=== PATIENT | male | born 1935 | race Caucasian/White ===

== ENCOUNTER 2017-09-04 02:22 | Inpatient (IN) ==
[2017-09-04] MEDS ORDERED: Sodium Chlor 0.9% Inj 500 ML IV.SIG ONE (02:43)
--- NOTE | 2017-09-04 02:52 | ED ---
HPI General Chief complaint: Recheck/Abnormal Lab/Rx Stated complaint: Medical/evac Time Seen by Provider: 09/04/17 02:40 Source: patient Mode of arrival: EMS History of Present Illness HPI narrative: The patient is an 82 year old male who presents to the [facility] emergency department with a history of difficult to control blood sugar over the last 2 days. He reports that it has been as high as in the 500s. He reports that he has recently had a change in his short acting insulin from Humalog to a new medication, however he cannot recall the name of it. He last administered 12 units of his short acting insulin earlier this evening. He reports that he also increase his Lantus insulin at night from 24 units to 40 units over the last 2 days. He reports that his primary care physician is . He reports that his thermodynamics teacher is Dr. Leon. The patient reports that earlier today he did have some central chest pressure, however he does not have any chest pain currently. The patient reports having chronic shortness of breath with exertion related to alpha-1 antitrypsin deficiency. He is followed by a junior buyer for this. He denies having any worsening cough or congestion. He reports that he recently completed 12 day course of Levaquin and steroids. He does report on review of systems over the last week having foot and ankle edema. He denies any prior history of congestive heart failure. On review of systems otherwise, the patient denies having any known recent fevers, neck pain, abdominal pain, vomiting, diarrhea, urinary symptoms, or neurologic symptoms. Related Data Home Medications Medication Instructions Recorded Confirmed Lantus U-100 Insulin 24 units SUB-Q HS 09/04/17 09/04/17 Ozempic 0.25 mg PO DIRECTED 09/04/17 09/04/17 glimepiride 8 mg PO DAILY 09/04/17 09/04/17 metformin 1,000 mg PO BID 09/04/17 09/04/17 Allergies Allergy/AdvReac Type Severity Reaction Status Date / Time phenobarbital Allergy Severe Anaphylaxis Unverified 10/18/16 22:46 Review of Systems Except as stated in HPI: all other systems reviewed are negative [facility] Medical History Medical History [id number] deficiency (Acute) COPD (chronic obstructive pulmonary disease) (Acute) Diabetes mellitus (Acute) Hyperlipidemia (Acute) Hypertension (Acute) Kidney stone (Acute) Surgical History Surgical History History of cholecystectomy (Acute) Social History Social History Second Hand Smoke Exposure: No Smoking Status: Current every day smoker Tobacco Type: Cigarettes How Often Do You Have a Drink Containing Alcohol: Monthly or less Recent Travel in [place] within the Last 8 Weeks: No Recent Out of Country Travel within the Last 8 Weeks: No Exam Narrative Exam Narrative: General: The patient is a well-developed well-nourished male in no acute distress. Head and Neck exam: Head is normocephalic atraumatic. Eyes: EOMI, pupils are equal round and reactive to light. Nose: Midline septum with pink mucous membranes Mouth: Dentition unremarkable. Moist mucus membranes. Posterior oropharynx is not erythematous. No tonsillar hypertrophy. Uvula midline. Airway patent. Neck: No palpable lymphadenopathy. No nuchal rigidity. No thyromegaly. Cardiovascular: Regular rate and rhythm with a 1/6 systolic murmur, no gallops or rubs. No pulse deficit to the extremities on simultaneous auscultation and palpation of his radial artery. Lungs: Decreased breath sounds in bilateral lung bases, soft expiratory wheezes audible anteriorly, no rhonchi or crackles. Abdomen: Soft, without tenderness to palpation in all 4 quadrants of the abdomen. No guarding, rebound, or rigidity. Normal bowel sounds are audible. Negative Darden's sign. No tenderness on palpation of McBurney's point. Extremities: No clubbing or cyanosis. The patient has trace pedal edema bilateral lower extremities. No calf tenderness on palpation. 2+ pulses in all 4 extremities. Back: No spinous process tenderness to palpation. No costovertebral angle tenderness to palpation. Neurologic Exam: Grossly nonfocal. Skin Exam: No rash noted. Intact skin that is warm and dry. Course Hospital Course: During the course of the patient's emergency department visit, the patient's history, examination, and differential diagnosis were reviewed with the patient. The patient was placed on a environmental monitoring technician with oximetry and frequent blood pressure monitoring. The patient had IV access obtained and blood work sent for analysis. The patient was brought in by ambulance services. The patient was noted to have a critically high blood sugar prior to arrival. The patient was given normal saline at 500 mL bolus 1 in route to this facility. The patient was initially provided another normal saline 500 mL bolus. A VBG has been ordered to evaluate the patient's pH for possible DKA. Reevaluation(s) Reevaluation #1: The patient's BNP was within normal limits. The patient's blood pressure, therefore the patient was given an additional normal saline 1 the patient's white blood cell count came back elevated at 17,000, blood cultures 2 were ordered, lactic acid was sent for analysis. Lactic acid was elevated at 2.2, therefore the patient was started on broad-spectrum antibiotic coverage due to an unknown source of possible sepsis. Urinalysis within normal limits. The patient does report a history of C. difficile colitis last year. The patient denies having any diarrhea currently. C. difficile toxin will be sent. The patient was additionally started on Flagyl. Time: 06:12 Consultations Consultation #1: The patient's case including history, pertinent physical examination findings, and laboratory studies were discussed with Dr. Bird. It was agreed that the patient would be admitted to the hospitalist service. Initial Documented Vital Signs Temperature 98.9 F 09/04/17 03:01 Pulse Rate 72 09/04/17 03:01 Respiratory Rate 20 09/04/17 03:01 Blood Pressure 97/53 L 09/04/17 03:01 Pulse Oximetry 97 09/04/17 03:01 Last Documented Vital Signs Temperature 98.9 F 09/04/17 03:01 Pulse Rate 73 09/04/17 03:05 Respiratory Rate 20 09/04/17 03:01 Blood Pressure 93/56 L 09/04/17 03:05 Pulse Oximetry 97 09/04/17 03:05 Medical Decision Making [facility] Narrative Medical decision making narrative: The patients laboratory studies remarkable for a white count of 18.8, hemoglobin 8.4 in a patient with a history of chronic anemia. The leukocytosis is unexplained, chest x-ray was read as showing no acute abnormality. BUN and creatinine are elevated consistent with the patient's dehydration. The patient was continued on normal saline IV fluids. Blood sugar was 441. The patient is not acidotic with a CO2 of 25, therefore regular insulin was administered subcutaneously at 8 units. Urinalysis showed no signs of infection. C. difficile toxin has been added to the patient's workup. Radiology studies were remarkable for a chest x-ray that showed no acute abnormality. The patient will be admitted to the hospital for difficult to control hyperglycemia associated with a leukocytosis of undetermined cause. Differential Diagnosis Differential Diagnosis: DKA, versus hyperglycemia due to change in medication regimen, versus infectious process causing hyperglycemia, versus acute coronary syndrome Lab Data Result diagrams: 09/04/17 02:45 09/04/17 02:45 Lab Results 09/04/17 09/04/17 09/04/17 Range/Units 02:45 02:45 02:45 WBC 18.8 H (4.0-11.0) th/mm3 RBC 2.76 L (4.50-5.90) mil/mm3 Hgb 8.4 L (13.0-17.0) gm/dL Hct 25.0 L (39.0-51.0) % MCV 90.8 (80.0-100.0) fL MCH 30.5 (27.0-34.0) pg MCHC 33.5 (32.0-36.0) % RDW 13.5 (11.6-17.2) % Plt Count 156 (150-450) th/mm3 MPV 8.6 (7.0-11.0) fL Prelim Diff (Auto) Slide review pending Neut % (Auto) 80.0 H (16.0-70.0) % Lymph % (Auto) 13.7 (9.0-44.0) % [place] % (Auto) 6.1 (0.0-8.0) % Eos % (Auto) 0.1 (0.0-4.0) % Baso % (Auto) 0.1 (0.0-2.0) % Neut # (Auto) 15.0 H (1.8-7.7) th/mm3 Lymph # (Auto) 2.6 (1.0-4.8) th/mm3 [place] # (Auto) 1.1 H (0.0-0.9) th/mm3 Eos # (Auto) 0.0 (0.0-0.4) th/mm3 Baso # (Auto) 0.0 (0.0-0.2) th/mm3 WBC Differential Manual diff final Seg Neuts % (Manual) 78 H (16-70) % Band Neuts % (Manual) 2 (0-6) % Lymphocytes % (Manual) 13 (9-44) % Monocytes % (Manual) 3 (0-8) % Myelocytes % (Man) 4 H (0-0) % Abs Neuts (Manual) 15.8 H (1.8-7.7) th/mm3 Differential Comment . Platelet Estimate Normal (Normal) Platelet Morphology Normal (Normal) Ovalocytes 1+ H (None) PT (9.8-11.6) sec INR Ratio APTT (24.3-30.1) sec Puncture Site Patient Temperature VBG pH (7.360-7.400) VBG pCO2 (44-48) mmHG VBG pO2 (35-40) mmHG VBG HCO3 (22-26) mmol/L VBG O2 Saturation (70-76) % VBG O2 Content (9.0-17.0) Vol % VBG Base Excess (-2-2) mmol/L VBG Carboxyhemoglobin (0-4) % VBG Methemoglobin (0-2) % Hemoglobin (12.0-16.0) G/DL O2 Delivery Device Liter Flow L/M Inspired O2 % Critical Value Sodium 140 (136-145) meq/L Potassium 5.0 (3.5-5.1) meq/L Chloride 104 (98-107) meq/L Carbon Dioxide 25.0 (21.0-32.0) meq/L Anion Gap 11 (5-15) meq/L BUN 63 H (7-18) mg/dL Creatinine 1.43 H (0.60-1.30) mg/dL Estimated GFR 47 L (>89) mL/min Random Glucose 441 H (74-106) mg/dL Lactic Acid (0.4-2.0) mmol/L Calcium 8.4 L (8.5-10.1) mg/dL Magnesium 1.9 (1.5-2.5) mg/dL Total Bilirubin 0.3 (0.2-1.0) mg/dL AST 7 L (15-37) U/L ALT 21 (12-78) U/L Alkaline Phosphatase 28 L (45-117) U/L Total Creatine Kinase 30 L (39-308) U/L Troponin I 0.05 (0.02-0.05) ng/mL B-Natriuretic Peptide 79 (0-100) pg/mL Total Protein 4.2 L (6.4-8.2) g/dL Albumin 2.2 L (3.4-5.0) g/dL Lipase 261 (73-393) U/L Beta-Hydroxybutyric Acd 0.79 H (0.00-0.39) mmol/L Urine Color (Yellw/Straw) Urine Clarity (Clear) Urine pH (5.0-8.5) Ur Specific [place] (1.002-1.035) Urine Protein (Neg-Trace) mg/dL Urine Glucose (UA) (Negative) mg/dL Urine Ketones (Negative) mg/dL Urine Occult Blood (Negative) Urine Nitrate (Negative) Urine Bilirubin (Negative) Urine Urobilinogen (Less than 2) mg/dL Ur Leukocyte Esterase (Negative) Urine RBC (0-3) /hpf Urine WBC (0-5) /hpf Ur Squamous Epith Cells (0-5) /hpf Micro UA Comment Urine Culture Comments 09/04/17 09/04/17 09/04/17 Range/Units 02:45 02:50 05:45 WBC (4.0-11.0) th/mm3 RBC (4.50-5.90) mil/mm3 Hgb (13.0-17.0) gm/dL Hct (39.0-51.0) % MCV (80.0-100.0) fL MCH (27.0-34.0) pg MCHC (32.0-36.0) % RDW (11.6-17.2) % Plt Count (150-450) th/mm3 MPV (7.0-11.0) fL Prelim Diff (Auto) Neut % (Auto) (16.0-70.0) % Lymph % (Auto) (9.0-44.0) % [place]assen % (Auto) (0.0-8.0) % Eos % (Auto) (0.0-4.0) % Baso % (Auto) (0.0-2.0) % Neut # (Auto) (1.8-7.7) th/mm3 Lymph # (Auto) (1.0-4.8) th/mm3 [place] # (Auto) (0.0-0.9) th/mm3 Eos # (Auto) (0.0-0.4) th/mm3 Baso # (Auto) (0.0-0.2) th/mm3 WBC Differential Seg Neuts % (Manual) (16-70) % Band Neuts % (Manual) (0-6) % Lymphocytes % (Manual) (9-44) % Monocytes % (Manual) (0-8) % Myelocytes % (Man) (0-0) % Abs Neuts (Manual) (1.8-7.7) th/mm3 Differential Comment Platelet Estimate (Normal) Platelet Morphology (Normal) Ovalocytes (None) PT 11.2 (9.8-11.6) sec INR 1.1 Ratio APTT 18.7 L (24.3-30.1) sec Puncture Site Patient Temperature 98.6 VBG pH 7.38 (7.360-7.400) VBG pCO2 43 L (44-48) mmHG VBG pO2 26 L* (35-40) mmHG VBG HCO3 25 (22-26) mmol/L VBG O2 Saturation 39 L (70-76) % VBG O2 Content 4.6 L (9.0-17.0) Vol % VBG Base Excess 0.3 (-2-2) mmol/L VBG Carboxyhemoglobin 1.9 (0-4) % VBG Methemoglobin 1.1 (0-2) % Hemoglobin 8.4 L (12.0-16.0) G/DL O2 Delivery Device Nasal cannula Liter Flow 2.00 L/M Inspired O2 21 % Critical Value Yes Sodium (136-145) meq/L Potassium (3.5-5.1) meq/L Chloride (98-107) meq/L Carbon Dioxide (21.0-32.0) meq/L Anion Gap (5-15) meq/L BUN (7-18) mg/dL Creatinine (0.60-1.30) mg/dL Estimated GFR (>89) mL/min Random Glucose (74-106) mg/dL Lactic Acid 2.2 H (0.4-2.0) mmol/L Calcium (8.5-10.1) mg/dL Magnesium (1.5-2.5) mg/dL Total Bilirubin (0.2-1.0) mg/dL AST (15-37) U/L ALT (12-78) U/L Alkaline Phosphatase (45-117) U/L Total Creatine Kinase (39-308) U/L Troponin I (0.02-0.05) ng/mL B-Natriuretic Peptide (0-100) pg/mL Total Protein (6.4-8.2) g/dL Albumin (3.4-5.0) g/dL Lipase (73-393) U/L Beta-Hydroxybutyric Acd (0.00-0.39) mmol/L Urine Color (Yellw/Straw) Urine Clarity (Clear) Urine pH (5.0-8.5) Ur Specific [place] (1.002-1.035) Urine Protein (Neg-Trace) mg/dL Urine Glucose (UA) (Negative) mg/dL Urine Ketones (Negative) mg/dL Urine Occult Blood (Negative) Urine Nitrate (Negative) Urine Bilirubin (Negative) Urine Urobilinogen (Less than 2) mg/dL Ur Leukocyte Esterase (Negative) Urine RBC (0-3) /hpf Urine WBC (0-5) /hpf Ur Squamous Epith Cells (0-5) /hpf Micro UA Comment Urine Culture Comments 09/04/17 Range/Units 05:45 WBC (4.0-11.0) th/mm3 RBC (4.50-5.90) mil/mm3 Hgb (13.0-17.0) gm/dL Hct (39.0-51.0) % MCV (80.0-100.0) fL MCH (27.0-34.0) pg MCHC (32.0-36.0) % RDW (11.6-17.2) % Plt Count (150-450) th/mm3 MPV (7.0-11.0) fL Prelim Diff (Auto) Neut % (Auto) (16.0-70.0) % Lymph % (Auto) (9.0-44.0) % [place] % (Auto) (0.0-8.0) % Eos % (Auto) (0.0-4.0) % Baso % (Auto) (0.0-2.0) % Neut # (Auto) (1.8-7.7) th/mm3 Lymph # (Auto) (1.0-4.8) th/mm3 [place] # (Auto) (0.0-0.9) th/mm3 Eos # (Auto) (0.0-0.4) th/mm3 Baso # (Auto) (0.0-0.2) th/mm3 WBC Differential Seg Neuts % (Manual) (16-70) % Band Neuts % (Manual) (0-6) % Lymphocytes % (Manual) (9-44) % Monocytes % (Manual) (0-8) % Myelocytes % (Man) (0-0) % Abs Neuts (Manual) (1.8-7.7) th/mm3 Differential Comment Platelet Estimate (Normal) Platelet Morphology (Normal) Ovalocytes (None) PT (9.8-11.6) sec INR Ratio APTT (24.3-30.1) sec Puncture Site Patient Temperature VBG pH (7.360-7.400) VBG pCO2 (44-48) mmHG VBG pO2 (35-40) mmHG VBG HCO3 (22-26) mmol/L VBG O2 Saturation (70-76) % VBG O2 Content (9.0-17.0) Vol % VBG Base Excess (-2-2) mmol/L VBG Carboxyhemoglobin (0-4) % VBG Methemoglobin (0-2) % Hemoglobin (12.0-16.0) G/DL O2 Delivery Device Liter Flow L/M Inspired O2 % Critical Value Sodium (136-145) meq/L Potassium (3.5-5.1) meq/L Chloride (98-107) meq/L Carbon Dioxide (21.0-32.0) meq/L Anion Gap (5-15) meq/L BUN (7-18) mg/dL Creatinine (0.60-1.30) mg/dL Estimated GFR (>89) mL/min Random Glucose (74-106) mg/dL Lactic Acid (0.4-2.0) mmol/L Calcium (8.5-10.1) mg/dL Magnesium (1.5-2.5) mg/dL Total Bilirubin (0.2-1.0) mg/dL AST (15-37) U/L ALT (12-78) U/L Alkaline Phosphatase (45-117) U/L Total Creatine Kinase (39-308) U/L Troponin I (0.02-0.05) ng/mL B-Natriuretic Peptide (0-100) pg/mL Total Protein (6.4-8.2) g/dL Albumin (3.4-5.0) g/dL Lipase (73-393) U/L Beta-Hydroxybutyric Acd (0.00-0.39) mmol/L Urine Color Straw (Yellw/Straw) Urine Clarity Clear (Clear) Urine pH 5.0 (5.0-8.5) Ur Specific [place] 1.025 (1.002-1.035) Urine Protein Negative (Neg-Trace) mg/dL Urine Glucose (UA) 500 or greater (Negative) mg/dL Urine Ketones Trace (Negative) mg/dL Urine Occult Blood Negative (Negative) Urine Nitrate Negative (Negative) Urine Bilirubin Negative (Negative) Urine Urobilinogen Less than 2 (Less than 2) mg/dL Ur Leukocyte Esterase Negative (Negative) Urine RBC Less than 1 (0-3) /hpf Urine WBC 1 (0-5) /hpf Ur Squamous Epith Cells 1 (0-5) /hpf Micro UA Comment Culture not ind Urine Culture Comments Culture not ind Imaging Data Radiologist's impression: ITS Impressions Chest X-Ray 09/04/17 02:43 CONCLUSION: The lungs are clear. ECG Data Attestation: I personally reviewed and interpreted this ECG as follows: Interpretation: An EKG done on arrival that shows sinus tachycardia heart rate of 101, QRS duration is 85 ms, QTC [address] segment elevation, T waves are inverted in V1. Discharge Plan Discharge Disposition Patient Disposition: 30 Still Patient Physicians Team ED Provider: Mabel Schwarz Primary Care Provider: UNKNOWN, Attending Provider: Dejon Bird Status ED Status: Admitted Observation Patient
[2017-09-04 03:03] LABS: Baso % (Auto) 0.1 % (0.0-2.0); Eos % (Auto) 0.1 % (0.0-4.0); Hemoglobin 8.4 gm/dL (13.0-17.0); Lymph # (Auto) 2.6 th/mm3 (1.0-4.8); Lymph % (Auto) 13.7 % (9.0-44.0); Mean Corpuscular HGB Conc 33.5 % (32.0-36.0); Mean Corpuscular Hemoglobin 30.5 pg (27.0-34.0); Mean Corpuscular Volume 90.8 fL (80.0-100.0); Mean Platelet Volume 8.6 fL (7.0-11.0); Mono # (Auto) 1.1 th/mm3 (0.0-0.9); Mono % (Auto) 6.1 % (0.0-8.0); Platelet Count 156 th/mm3 (150-450); Red Blood Count 2.76 mil/mm3 (4.50-5.90); Red Cell Distribution Width 13.5 % (11.6-17.2); White Blood Count 18.8 th/mm3 (4.0-11.0)
[2017-09-04 03:03] LABS: VBG Base Excess 0.3 mmol/L (-2-2); VBG Blood Gas Oxygen Content 4.6 Vol % (9.0-17.0); VBG PCO2 43 mmHG (44-48); VBG PH 7.38 (7.360-7.400); VBG PO2 26 mmHG (35-40)
[2017-09-04 03:21] LABS: Activated Partial Thrombo Time 18.7 sec (24.3-30.1); INR 1.1 Ratio; Prothrombin Time 11.2 sec (9.8-11.6)
--- NOTE | 2017-09-04 03:33 | XR ---
EXAM DATE: 09/04/2017 3:26 AM EDT AGE/SEX: 82 years / Male INDICATIONS: Shortness of breath. CLINICAL DATA: This is the patient's initial encounter. Patient reports that signs and symptoms have been present for 1 day and indicates a pain score of 0/10. MEDICAL/SURGICAL HISTORY: Chronic obstructive pulmonary disease. Diabetes mellitus type II. No ne. COMPARISON: [facility], CHEST SINGLE AP, 08/04/2012. [facility], CHEST PA & LAT, 03/31/2012. . FINDINGS: A single AP view of the chest demonstrates the lungs to be symmetrically aerated without evidence of mass, infiltrate or effusion. Mild linear scarring or atelectasis in the left costophrenic angle. Th e cardiomediastinal contours are unremarkable. Osseous structures are intact. CONCLUSION: The lungs are clear. Electronically signed by: Cliff Russo MD 09/04/2017 3:32 AM EDT
[2017-09-04 03:37] LABS: Lymphocytes 13 % (9-44); Monocytes 3 % (0-8); Myelocytes 4 % (0-0)
[2017-09-04 03:38] LABS: Ovalocytes 1+; Platelet Estimate Normal (Normal); Platelet Morphology Normal (Normal)
[2017-09-04 04:34] LABS: Alanine Aminotransferase 21 U/L (12-78); Albumin 2.2 g/dL (3.4-5.0); Alkaline Phosphatase 28 U/L (45-117); Anion Gap 11 meq/L (5-15); Aspartate Aminotransferase 7 U/L (15-37); Beta Hydroxybutyric Acid 0.79 mmol/L (0.00-0.39); Blood Urea Nitrogen 63 mg/dL (7-18); Calcium 8.4 mg/dL (8.5-10.1); Chloride 104 meq/L (98-107); Glomerular Filtration Rate 47 mL/min (>89); Glucose,Random 441 mg/dL (74-106); Lipase 261 U/L (73-393); Magnesium 1.9 mg/dL (1.5-2.5); Sodium 140 meq/L (136-145); Total Protein 4.2 g/dL (6.4-8.2); Troponin I 0.05 ng/mL (0.02-0.05)
[2017-09-04 04:36] LABS: Creatine Kinase 30 U/L (39-308)
[2017-09-04] MEDS ORDERED: Sod Chloride 0.9% Inj 1,000 ML IV.SIG ONE (05:19)
[2017-09-04 06:06] LABS: Bilirubin,Urine Negative (Negative); Clarity,Urine Clear (Clear); Color,Urine Straw (Yellw/Straw); Glucose,Urine (UA) 500 or Greater mg/dL (Negative); Leukocyte Esterase,Urine Negative (Negative); Nitrite,Urine Negative (Negative); Specific Gravity,Urine 1.025 (1.002-1.035); Squamous Epithelial Cell,Urine 1 /hpf (0-5)
[2017-09-04] MEDS ORDERED: metroNIDAZOLE 500 MG Tablet PO ONE (06:41)
[2017-09-04] MEDS ORDERED: Vancomycin Inj 1,000 MG in Sodium Chlor 0.9% Inj 250 ML IV.SIG ONE (06:41)
[2017-09-04] MEDS ORDERED: Piperacil/Tazo 3.375 GM Premix 50 ML IV.SIG ONE (06:41)
[2017-09-04] MEDS ORDERED: Bisacodyl 10 MG Supp RECTAL PRN (09:07)
[2017-09-04] MEDS ORDERED: Dextrose 50% in Water 50 ML Vial IV.PUSH PRN (10:09)
--- NOTE | 2017-09-04 10:20 | P.HP ---
History of Present Illness Primary Care Physician: UNKNOWN Chief Complaint: Shortness of breath History of Present Illness: 82-year-old male for past medical history of diabetes type 2, alpha-1 antitrypsin deficiency was brought to the ED for evaluation of ongoing worsening shortness of breath times several day duration. While in the ED, patient was found to have elevated blood glucose, WBC and lactic acidosis. Patient was recently treated with a round of antibiotic and steroid by his brick pointer. He also has recently been started on new oral anti-diabetic medications in order to control his blood glucose by his primary care physician - Diagnosis (1) Diabetes type 2, uncontrolled (2) Alpha 1-antitrypsin PiMS phenotype (3) Leukocytosis, unspecified (4) Anemia, chronic disease Inpatient Certification: I certify that the inpatient services were ordered in accordance with Medicare regulations governing the order. This includes certification that hospital inpatient services are reasonable and necessary and in the case of services not specified as inpatient-only under 42 CFR 419.22(n), that they are appropriately provided as inpatient services in accordance to with the 2-midnight benchmark under 43 CFR 412.3(e) Estimated Total Length of Stay (Days): 3 Plans for Post Hospital Care: Not yet determined Review of Systems All other systems reviewed negative except as stated in HPI PMFSH - History History Provided By: Patient, Family Member - Medical History Medical History: Medical History (Last Reviewed 09/12/17 @ 07:40 by Fabiana Jennings, CLIP ON SUNGLASSES INSPECTOR) [id number] deficiency COPD (chronic obstructive pulmonary disease) Diabetes mellitus Hyperlipidemia Hypertension Kidney stone - Surgical History Surgical History: Surgical History (Last Reviewed 09/05/17 @ 09:33 by Diego Zepeda) History of cholecystectomy - Tobacco History Second Hand Smoke Exposure: No Tobacco Use In Past 30 Days: Yes Smoking Status: Current every day smoker Tobacco Type: Cigarettes - Alcohol History How Often Do You Have a Drink Containing Alcohol: Monthly or less - Travel History Recent Travel in the [place] Within the Last 8 Weeks: No Recent Travel Out of the Country Within the Last 8 Weeks: No - Immunization History Tetanus Immunization: Unsure Hx Influenza Vaccine This Season: Yes Medications and Allergies Active Medications: Active Medications Al Hydroxide/Mg Hydroxide (Milk Of Mago Contreras) 30 ml PO Q12H PRN PRN Reason: Mild Constipation Albuterol (*Albuterol Neb Periprocedure Only) 2.5 mg NEB Q4HR NEB PRN PRN Reason: Respiratory Distress Albuterol (Duoneb Neb (Avi)) 1 ampul NEB Q4HR NEB AVI Bisacodyl (Dulcolax Supp) 10 mg RECTAL DAILY PRN PRN Reason: SEVERE CONSITIPATION Dextrose (D50w Vial) 50 ml IV.PUSH UNSCH PRN PRN Reason: PER HYPOGLYCEMIA PROTOCOL Glucagon (Glucagon Inj) 1 mg OTHER PRN PRN PRN Reason: for Hypoglycemia Protocol Heparin Sodium (Porcine) (Heparin Inj) 5,000 units SQ Q12H AVI Insulin Aspart (Novolog Insulin Suppl Scale Inj) 2 unit SQ ACHS AVI; Protocol Lactulose (Lactulose Liq) 30 ml PO DAILY PRN PRN Reason: SEVERE CONSITIPATION Non-Formulary Medication (Lantus U-100 Insulin) 24 units SQ HS AVI Non-Formulary Medication (Ozempic) 0.25 mg PO DIRECTED COUNT INCLUDES THE [facility] Non-Formulary Medication (Glimepiride) 8 mg PO DAILY COUNT INCLUDES THE [facility] Non-Formulary Medication (Metformin) 1,000 mg PO BID AVI Senna/Docusate Sodium (Beth-Colace) 1 tab PO BID COUNT INCLUDES THE [facility] Sennosides (Senokot) 17.2 mg PO Q12H PRN PRN Reason: Moderate Constipation Sodium Chloride (Ns Flush) 2 ml IV.FLUSH UNSCH PRN PRN Reason: FLUSH AFTER USING IV ACCESS Sodium Chloride (Ns Flush) 2 ml IV.FLUSH BID AVI Sodium Chloride (Ns Flush) 2 ml IV.FLUSH PRN PRN PRN Reason: FLUSH AFTER USING IV ACCESS Temazepam (Restoril) 15 mg PO HS PRN PRN Reason: INSOMNIA Allergies Allergy/AdvReac Type Severity Reaction Status Date / Time phenobarbital Allergy Severe Anaphylaxis Verified 09/04/17 07:58 Home Medications Medication Instructions Recorded Confirmed Type Lantus U-100 Insulin 24 units SUB-Q HS 09/04/17 09/04/17 History Ozempic 0.25 mg PO DIRECTED 09/04/17 09/04/17 History albuterol sulfate 2.5 mg INHALATION Q4H PRN 09/04/17 09/04/17 History glimepiride 8 mg PO DAILY 09/04/17 09/04/17 History metformin 1,000 mg PO BID 09/04/17 09/04/17 History Exam Vital signs: Vital Signs 09/04/17 03:01 09/04/17 03:05 09/04/17 08:00 Temperature 98.9 F Pulse Rate 73 83 Pulse Rate [Left Radial] 72 Respiratory Rate 20 20 Blood Pressure 93/56 L 100/61 Blood Pressure [Left Arm] 97/53 L Pulse Oximetry 97 97 97 Intake & Output 09/03/17 09/04/17 09/04/17 18:59 06:59 18:59 Intake Total 50 / 50 Balance 50 / 50 Weight 90.718 kg Intake: IV 50 / 50 Zosyn 3.375 GM Premix 50 ML @ 50 / 50 100 mls/hr IV.SIG ONCE ONE Rx#: [id number] - Constitutional no acute distress - Routine HEENT Exam Head: Present: normocephalic Eye: Present: EOMI, PERRL, normal accommodation ENT: Present: mucous membranes moist, oropharynx clear, dentition normal, external ear normal - Routine Neck Exam Present: supple, full ROM, normal carotid upstroke - Routine Respiratory Exam Present: decreased breath sounds, wheezes - Routine Cardiovascular Exam Present: RRR, murmur - Routine Abdominal Exam Present: soft, normoactive bowel sounds - Routine Extremities Exam Present: normal capillary refill - Routine Skin Exam Present: intact, warm, normal turgor - Routine Neurological Exam Present: oriented X3, CN II-XII intact, normal reflexes, moving all extremities , normal tone, vision grossly intact, hearing grossly intact, normal speech Results - Labs CBC & Chem 7: 09/15/17 09:09 09/15/17 09:09 Labs: Laboratory Results - last 24 hr 09/04/17 09/04/17 09/04/17 02:45 02:45 02:45 WBC 18.8 H RBC 2.76 L Hgb 8.4 L Hct 25.0 L MCV 90.8 MCH 30.5 MCHC 33.5 RDW 13.5 Plt Count 156 MPV 8.6 Prelim Diff (Auto) Slide review pending Neut % (Auto) 80.0 H Lymph % (Auto) 13.7 [place] % (Auto) 6.1 Eos % (Auto) 0.1 Baso % (Auto) 0.1 Neut # (Auto) 15.0 H Lymph # (Auto) 2.6 [place] # (Auto) 1.1 H Eos # (Auto) 0.0 Baso # (Auto) 0.0 WBC Differential Manual diff final Seg Neuts % (Manual) 78 H Band Neuts % (Manual) 2 Lymphocytes % (Manual) 13 Monocytes % (Manual) 3 Myelocytes % (Man) 4 H Abs Neuts (Manual) 15.8 H Differential Comment . Platelet Estimate Normal Platelet Morphology Normal Ovalocytes 1+ H PT INR APTT Puncture Site Patient Temperature VBG pH VBG pCO2 VBG pO2 VBG HCO3 VBG O2 Saturation VBG O2 Content VBG Base Excess VBG Carboxyhemoglobin VBG Methemoglobin Hemoglobin O2 Delivery Device Liter Flow Inspired O2 Critical Value Sodium 140 Potassium 5.0 Chloride 104 Carbon Dioxide 25.0 Anion Gap 11 BUN 63 H Creatinine 1.43 H Estimated GFR 47 L POC Glucose Random Glucose 441 H Lactic Acid Calcium 8.4 L Magnesium 1.9 Total Bilirubin 0.3 AST 7 L ALT 21 Alkaline Phosphatase 28 L Total Creatine Kinase 30 L Troponin I 0.05 B-Natriuretic Peptide 79 Total Protein 4.2 L Albumin 2.2 L Lipase 261 Beta-Hydroxybutyric Acd 0.79 H Urine Color Urine Clarity Urine pH Ur Specific [place] Urine Protein Urine Glucose (UA) Urine Ketones Urine Occult Blood Urine Nitrate Urine Bilirubin Urine Urobilinogen Ur Leukocyte Esterase Urine RBC Urine WBC Ur Squamous Epith Cells Micro UA Comment Urine Culture Comments 09/04/17 09/04/17 09/04/17 02:45 02:50 05:45 WBC RBC Hgb Hct MCV MCH MCHC RDW Plt Count MPV Prelim Diff (Auto) Neut % (Auto) Lymph % (Auto) [place] % (Auto) Eos % (Auto) Baso % (Auto) Neut # (Auto) Lymph # (Auto) [place] # (Auto) Eos # (Auto) Baso # (Auto) WBC Differential Seg Neuts % (Manual) Band Neuts % (Manual) Lymphocytes % (Manual) Monocytes % (Manual) Myelocytes % (Man) Abs Neuts (Manual) Differential Comment Platelet Estimate Platelet Morphology Ovalocytes PT 11.2 INR 1.1 APTT 18.7 L Puncture Site Patient Temperature 98.6 VBG pH 7.38 VBG pCO2 43 L VBG pO2 26 L* VBG HCO3 25 VBG O2 Saturation 39 L VBG O2 Content 4.6 L VBG Base Excess 0.3 VBG Carboxyhemoglobin 1.9 VBG Methemoglobin 1.1 Hemoglobin 8.4 L O2 Delivery Device Nasal cannula Liter Flow 2.00 Inspired O2 21 Critical Value Yes Sodium Potassium Chloride Carbon Dioxide Anion Gap BUN Creatinine Estimated GFR POC Glucose Random Glucose Lactic Acid 2.2 H Calcium Magnesium Total Bilirubin AST ALT Alkaline Phosphatase Total Creatine Kinase Troponin I B-Natriuretic Peptide Total Protein Albumin Lipase Beta-Hydroxybutyric Acd Urine Color Urine Clarity Urine pH Ur Specific [place] Urine Protein Urine Glucose (UA) Urine Ketones Urine Occult Blood Urine Nitrate Urine Bilirubin Urine Urobilinogen Ur Leukocyte Esterase Urine RBC Urine WBC Ur Squamous Epith Cells Micro UA Comment Urine Culture Comments 09/04/17 09/04/17 09/04/17 05:45 07:34 09:06 WBC RBC Hgb Hct MCV MCH MCHC RDW Plt Count MPV Prelim Diff (Auto) Neut % (Auto) Lymph % (Auto) [place] % (Auto) Eos % (Auto) Baso % (Auto) Neut # (Auto) Lymph # (Auto) [place] # (Auto) Eos # (Auto) Baso # (Auto) WBC Differential Seg Neuts % (Manual) Band Neuts % (Manual) Lymphocytes % (Manual) Monocytes % (Manual) Myelocytes % (Man) Abs Neuts (Manual) Differential Comment Platelet Estimate Platelet Morphology Ovalocytes PT INR APTT Puncture Site Patient Temperature VBG pH VBG pCO2 VBG pO2 VBG HCO3 VBG O2 Saturation VBG O2 Content VBG Base Excess VBG Carboxyhemoglobin VBG Methemoglobin Hemoglobin O2 Delivery Device Liter Flow Inspired O2 Critical Value Sodium Potassium Chloride Carbon Dioxide Anion Gap BUN Creatinine Estimated GFR POC Glucose 321 H Random Glucose Lactic Acid 1.8 Calcium Magnesium Total Bilirubin AST ALT Alkaline Phosphatase Total Creatine Kinase Troponin I B-Natriuretic Peptide Total Protein Albumin Lipase Beta-Hydroxybutyric Acd Urine Color Straw Urine Clarity Clear Urine pH 5.0 Ur Specific [place] 1.025 Urine Protein Negative Urine Glucose (UA) 500 or greater Urine Ketones Trace Urine Occult Blood Negative Urine Nitrate Negative Urine Bilirubin Negative Urine Urobilinogen Less than 2 Ur Leukocyte Esterase Negative Urine RBC Less than 1 Urine WBC 1 Ur Squamous Epith Cells 1 Micro UA Comment Culture not ind Urine Culture Comments Culture not ind - Imaging Impressions Chest X-Ray 09/04/17 02:43 CONCLUSION: The lungs are clear. Caprini VTE Risk Assessment Caprini VTE Risk Assessment: Moderate/High Risk (score >= 2) Caprini Risk Assessment Model: Point Value = 1 Point Value = 2 Point Value = 3 Point Value = 5 Age 41-60 Minor surgery BMI > 25 kg/m2 Swollen legs Varicose veins or History of unexplained or recurrent spontaneous Oral contraceptives or hormone replacement Sepsis (< 1 month) Serious lung disease, including pneumonia (< 1 month) Abnormal pulmonary function Acute myocardial infarction Congestive heart failure (< 1 month) History of inflammatory bowel disease Medical patient at bed rest Age 61-74 Arthroscopic surgery Major open surgery (> 45 min) Laparoscopic surgery (> 45 min) Malignancy Confined to bed (> 72 hours) Immobilizing plaster cast Central venous access Age >= 75 History of VTE Family history of VTE Factor V Leiden Prothrombin [id number] Lupus anticoagulant Anticardiolipin antibodies Elevated serum homocysteine Heparin-induced thrombocytopenia Other congenital or acquired thrombophilia Stroke (< 1 month) Elective arthroplasty Hip, pelvis, or leg fracture Acute spinal cord injury (< 1 month) Prophylaxis Regimen: Total Risk Factor Score Risk Level Prophylaxis Regimen 0-1 Low Early ambulation 2 Moderate Order ONE of the following: *Sequential Compression Device (SCD) *Heparin 5000 units SQ BID 3-4 Higher Order ONE of the following medications: *Heparin 5000 units SQ TID *Enoxaparin/Lovenox 40 mg SQ daily (WT < 150 kg, CrCl > 30 mL/min) *Enoxaparin/Lovenox 30 mg SQ daily (WT < 150 kg, CrCl > 10-29 mL/min) *Enoxaparin/Lovenox 30 mg SQ BID (WT < 150 kg, CrCl > 30 mL/min) AND/OR *Sequential Compression Device (SCD) 5 or more Highest Order ONE of the following medications: *Heparin 5000 units SQ TID (Preferred with Epidurals) *Enoxaparin/Lovenox 40 mg SQ daily (WT < 150 kg, CrCl > 30 mL/min) *Enoxaparin/Lovenox 30 mg SQ daily (WT < 150 kg, CrCl > 10-29 mL/min) *Enoxaparin/Lovenox 30 mg SQ BID (WT < 150 kg, CrCl > 30 mL/min) AND *Sequential Compression Device (SCD) Assessment and Plan - Assessment (1) Diabetes type 2, uncontrolled Code(s): E11.65 - Type 2 diabetes mellitus with hyperglycemia Status: Chronic (2) Alpha 1-antitrypsin PiMS phenotype Code(s): R79.9 - Abnormal finding of blood chemistry, unspecified Status: Chronic (3) Leukocytosis, unspecified Code(s): D72.829 - Elevated white blood cell count, unspecified Status: Acute (4) Anemia, chronic disease Code(s): D63.8 - Anemia in other chronic diseases classified elsewhere Status : Acute - Plan 82-year-old man with Diabetes type 2, uncontrolled blood glucose Responding to treatment in ED with insulin, IV fluid hydration Resume outpatient medications Start medium insulin sliding scale Check hemoglobin A1c Endocrinology consultation as needed Lactic acidosis Secondary to uncontrolled diabetes type 2 and less likely secondary to an infectious processes Currently resolved status post treatment with IV fluid hydration and blood glucose control Leukocytosis Less likely due to infectious process Patient currently treated with steroid 12 days Status post IV antibiotic in ED, will continue to monitor off antibiotics Alpha-1 antitrypsin deficiency Outpatient follow-up with pulmonary medicine DuoNeb scheduled and as needed Anemia of chronic disease H&H stable DVT prophylaxis: Heparin Code Status: Full code Discussed Condition With: ED physician, patient (3) Leukocytosis, unspecified Qualifiers: Leukocytosis type: unspecified Qualified Code(s): D72.829 - Elevated white blood cell count, unspecified
--- NOTE | 2017-09-04 10:35 | ECG ---
Date Performed: 09/04/2017 Time Performed: 04:04:45 PTAGE: 82 years EKG: Sinus tachycardia Since the previous tracing, no significant change noted borderline ECG PREVIOUS TRACING : 08/04/2012 13.26 DOCTOR: Stephen Garcia Interpretating Date/Time 09/04/2017 10:34:19
[2017-09-04] MEDS ORDERED: SEMAGLUTIDE SQ SCH (12:00)
[2017-09-04] MEDS: Heparin - SQ 10,000 UNITS/ML Vial SQ SCH ×2 (12:18→23:51)
[2017-09-04] MEDS: Glimepiride 4 MG Tablet PO SCH (12:19)
[2017-09-04] MEDS: Insulin NovoLOG Aspart Correctional Sugar Inj SQ SCH ×3 (13:20→23:53)
[2017-09-04] MEDS: ALPHA 1 PROTEINASE INHIBITOR IV.SIG SCH (18:14)
[2017-09-04] MEDS: Senna/Docusate Sodium 8.6/50 MG Tablet PO SCH (23:51)
[2017-09-04] MEDS: Insulin Detemir Inj 1,000 UNIT/10 ML Vial SQ SCH (23:52)
[2017-09-05 07:12] LABS: Baso % (Auto) 0.1 % (0.0-2.0); Eos # (Auto) 0.1 th/mm3 (0.0-0.4); Eos % (Auto) 0.3 % (0.0-4.0); Lymph # (Auto) 2.7 th/mm3 (1.0-4.8); Lymph % (Auto) 14.4 % (9.0-44.0); Mean Corpuscular HGB Conc 33.8 % (32.0-36.0); Mean Corpuscular Hemoglobin 30.5 pg (27.0-34.0); Mean Corpuscular Volume 90.2 fL (80.0-100.0); Mean Platelet Volume 8.7 fL (7.0-11.0); Mono # (Auto) 0.8 th/mm3 (0.0-0.9); Mono % (Auto) 4.5 % (0.0-8.0); Neut # (Auto) 15.3 th/mm3 (1.8-7.7); Neut % (Auto) 80.7 % (16.0-70.0); Platelet Count 141 th/mm3 (150-450); Red Blood Count 1.97 mil/mm3 (4.50-5.90); Red Cell Distribution Width 13.5 % (11.6-17.2)
[2017-09-05 07:14] LABS: Alanine Aminotransferase 16 U/L (12-78); Albumin 2.3 g/dL (3.4-5.0); Alkaline Phosphatase 24 U/L (45-117); Anion Gap 10 meq/L (5-15); Aspartate Aminotransferase 8 U/L (15-37); Blood Urea Nitrogen 103 mg/dL (7-18); Carbon Dioxide 22.8 meq/L (21.0-32.0); Chloride 110 meq/L (98-107); Glomerular Filtration Rate 44 mL/min (>89); Glucose,Random 232 mg/dL (74-106); Potassium 4.4 meq/L (3.5-5.1); Sodium 143 meq/L (136-145); Total Protein 4.4 g/dL (6.4-8.2)
[2017-09-05 07:22] LABS: Hematocrit 17.8 % (39.0-51.0)
[2017-09-05] MEDS: Glimepiride 4 MG Tablet PO SCH (08:40)
[2017-09-05] MEDS: Senna/Docusate Sodium 8.6/50 MG Tablet PO SCH ×2 (08:44→22:36)
[2017-09-05 08:48] LABS: Platelet Morphology Normal (Normal)
--- NOTE | 2017-09-05 10:21 | P.PNIM ---
Subjective Interval history: Follow-up visit severe anemia, DM 2, increased shortness of breath. Patient seen and examined today. and son at the bedside. Patient reports he is feeling a lot better he is able to sit up in the bed and was able to walk towards the bathroom. States that his shortness of breath continues but is not worsening. Denies pain and discomfort. Denies chest pain, palpitations, headaches, dizziness. Denies fevers, chills, n/v/d. Denies dysuria. reports dark stools 3 today. Patient has seen Dr. King before for colonoscopy about 5 years ago but states that there is a question whether to repeat the colonoscopy or just leave it alone. Patient states he never had an EGD done. He had recent bronchoscopy done with removal of fungus in his lungs by Dr. 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 Physical Exam Vital signs: Vital Signs 09/04/17 10:28 09/04/17 10:32 09/04/17 11:36 Temperature Pulse Rate 88 103 H Respiratory Rate 17 Blood Pressure Pulse Oximetry 96 09/04/17 12:10 09/04/17 15:49 09/04/17 17:04 Temperature 97.8 F 97.6 F Pulse Rate 108 H 78 126 H Respiratory Rate 16 18 20 Blood Pressure 111/56 L 111/54 L Pulse Oximetry 95 99 09/04/17 17:19 09/04/17 19:38 09/04/17 19:59 Temperature Pulse Rate 95 H 133 H 98 H Respiratory Rate 20 18 Blood Pressure 112/51 L Pulse Oximetry 100 09/05/17 00:12 09/05/17 07:47 09/05/17 08:14 Temperature 97.4 F L Pulse Rate 80 112 H 114 H Respiratory Rate 18 20 20 Blood Pressure 104/55 L Pulse Oximetry 98 09/05/17 08:19 Temperature Pulse Rate Respiratory Rate Blood Pressure Pulse Oximetry 98 Intake & Output 09/04/17 09/05/17 09/05/17 18:59 06:59 18:59 Intake Total 50 / 50 Balance 50 / 50 Intake: IV 50 / 50 Zosyn 3.375 GM Premix 50 ML @ 50 / 50 100 mls/hr IV.SIG ONCE ONE Rx#: [id number] Narrative: GENERAL: This is a well-nourished, well-developed patient, in no apparent distress. SKIN: Warm and dry. Pale. HEENT: Normocephalic. Pupils equal round and reactive. Nose without bleeding. Airway patent. NECK: Trachea midline. CARDIOVASCULAR: Regular rate and rhythm without murmurs, gallops, or rubs. RESPIRATORY: Expiratory wheeze. Coarse breath sounds. GASTROINTESTINAL: Abdomen soft, non-tender, nondistended. Bowel Sounds normoactive x4. MUSCULOSKELETAL: Extremities without clubbing, cyanosis, or edema. NEUROLOGICAL: Awake and alert. Oriented to time, place, person. No focal neuro deficit. Moves all extremities. Normal speech. Results - Labs CBC & Chem 7: 09/05/17 10:00 09/05/17 05:40 Laboratory Results - last 24 hr 09/04/17 09/04/17 09/04/17 12:22 18:22 22:33 WBC RBC Hgb Hct MCV MCH MCHC RDW Plt Count MPV Prelim Diff (Auto) Neut % (Auto) Lymph % (Auto) [place] % (Auto) Eos % (Auto) Baso % (Auto) Neut # (Auto) Lymph # (Auto) [place] # (Auto) Eos # (Auto) Baso # (Auto) WBC Differential Diff Scan Differential Comment Platelet Estimate Platelet Morphology Sodium Potassium Chloride Carbon Dioxide Anion Gap BUN Creatinine Estimated GFR POC Glucose 286 H 95 368 H Random Glucose Calcium Total Bilirubin AST ALT Alkaline Phosphatase Total Protein Albumin 09/05/17 09/05/17 05:40 05:40 WBC 19.0 H RBC 1.97 L Hgb 6.0 L* D Hct 17.8 L* MCV 90.2 MCH 30.5 MCHC 33.8 RDW 13.5 Plt Count 141 L MPV 8.7 Prelim Diff (Auto) Slide review pending Neut % (Auto) 80.7 H Lymph % (Auto) 14.4 [place] % (Auto) 4.5 Eos % (Auto) 0.3 Baso % (Auto) 0.1 Neut # (Auto) 15.3 H Lymph # (Auto) 2.7 [place] # (Auto) 0.8 Eos # (Auto) 0.1 Baso # (Auto) 0.0 WBC Differential . Diff Scan Auto diff confirmed Differential Comment . Platelet Estimate Low L Platelet Morphology Normal Sodium 143 Potassium 4.4 Chloride 110 H Carbon Dioxide 22.8 Anion Gap 10 BUN 103 H Creatinine 1.53 H Estimated GFR 44 L POC Glucose Random Glucose 232 H D Calcium 9.0 Total Bilirubin 0.2 AST 8 L ALT 16 Alkaline Phosphatase 24 L Total Protein 4.4 L Albumin 2.3 L - Imaging Impressions Chest X-Ray 09/04/17 02:43 CONCLUSION: The lungs are clear. Assessment and Plan - Assessment (1) Diabetes type 2, uncontrolled Code(s): E11.65 - Type 2 diabetes mellitus with hyperglycemia Status: Acute (2) Alpha 1-antitrypsin PiMS phenotype Code(s): R79.9 - Abnormal finding of blood chemistry, unspecified Status: Chronic (3) Lactic acid acidosis Code(s): E87.2 - Acidosis Status: Resolved (4) Leukocytosis, unspecified Code(s): D72.829 - Elevated white blood cell count, unspecified Status: Acute (5) Anemia, chronic disease Code(s): D63.8 - Anemia in other chronic diseases classified elsewhere Status : Acute - Plan 82-year-old male for past medical history of diabetes type 2, alpha-1 antitrypsin deficiency was brought to the ED for evaluation of ongoing worsening shortness of breath times several day duration. Acute anemia Possible GI bleed -H&H this morning 6.0/17.8, repeat 5.8/17.5 -2 units packed RBC transfusion ordered. Post transfusion H&H ordered, Lasix in between transfusions -Continue to monitor H&H. -Check stool for Hemoccult -Protonix IV -Consult GI COPD, with exacerbation Alpha-1 antitrypsin deficiency -Outpatient follow-up with pulmonary medicine -DuoNeb scheduled and as needed -We will do Symbicort, tiotropium. -This is probably also related to acute anemia Diabetes type 2, uncontrolled blood glucose -Resume outpatient medications -Medium insulin sliding scale -Pending hemoglobin A1c -Endocrinology consultation as needed -Uncontrolled possibly secondary to steroid use. Lactic acidosis -Secondary to uncontrolled diabetes type 2 and less likely secondary to an infectious processes -Currently resolved status post treatment with IV fluid hydration and blood glucose control Leukocytosis -Less likely due to infectious process UA negative. -Patient currently treated with steroid 12 days -Status post IV antibiotic in ED, will continue to monitor off antibiotics -Asymptomatic. Chest x-ray showed lungs to be symmetrically aerated without evidence of mass, infiltrate or effusion. Mild linear scarring or atelectasis in the left costophrenic angle. Cardiomegaly; there is a unremarkable. 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
[2017-09-05 10:38] LABS: Hemoglobin 5.8 gm/dL (13.0-17.0)
[2017-09-05 10:39] LABS: Hematocrit 17.5 % (39.0-51.0)
[2017-09-05] MEDS ORDERED: Sodium Chlor 0.9% Inj 250 ML IV.SIG SCH ×3 (11:00→12:00)
[2017-09-05] MEDS: Pantoprazole Inj 40 MG Vial IV.PUSH SCH ×2 (13:41→22:30)
[2017-09-05 14:35] LABS: % Iron Saturation 71.4 % (20-50); Folate 10.4 ng/mL (3.1-17.5)
[2017-09-05] MEDS: Insulin NovoLOG Aspart Correctional Sugar Inj SQ SCH ×2 (17:41→22:31)
--- NOTE | 2017-09-05 22:30 | MB ---
cc: Power King MD, Andrew H MD DATE: 09/05/2017 REASON FOR CONSULTATION: Anemia, possible GI bleeding, history of colonic polyps. HISTORY OF PRESENT ILLNESS: Mr. Camejo is an 81-year-old male with history of diabetes and alpha 1 antitrypsin deficiency. He had a history of having colonic polyps taken out in the past. The patient has not been evaluated for at least 5 years or more. He was brought to the emergency room for worsening shortness of breath for the last several days prior to admission. He normal bowel movements. Denies any real abdominal distention. No nausea or vomiting. Denies any significant rectal bleeding except possibly on the paper at times. No melena. No significant diarrhea. The patient is unclear whether he has lost any weight recently. After admission, he was found to have an elevated blood glucose elevated white cell count and elevated lactic acid. He has been treated empirically with antibiotics and respiratory inhalers for his COPD. His sugars have been controlled. He was also found to be markedly anemic with a hemoglobin initially 8.4, going down to 5.8, MCV was 90. Platelet count was 141,000. The patient is presently being transfused packed red blood cells. FAMILY HISTORY: No family history of colon or rectal cancer. PERTINENT PHYSICAL EXAMINATION: GENERAL: A very pleasant older male, pale, slightly short of breath. HEENT: Remarkable for very pale membranes, nonicteric sclerae. NECK: A little stiff without adenopathy. CHEST: Markedly diminished in the bases, clear anteriorly, some crackles. HEART: Had a slight tachycardia. ABDOMEN: Doughy and soft, not really distended. Normal bowel sounds. No rebound or guarding or any masses noted. EXTREMITIES: Showed no cyanosis or clubbing, 1+ pedal edema. LABORATORY STUDIES: Hemoglobin has fallen to 5.8. Coagulation studies are pretty normal. Chemistries show a BUN of 103 with a creatinine of 1.53, glucose has come down to 232, normal liver function tests. IMPRESSION: An 82-year-old male with history of multiple colonic polyps in the past and now apparent gastrointestinal bleed with s marked anemia, a very high BUN with a fairly normal, slightly elevated creatinine. The patient has received some intravenous fluid and is presently receiving packed red blood cells. We will give him time to stabilize after the transfusion and correct some of his electrolytes; hopefully, get his BUN and creatinine down and once he is more stable, would recommend a gentle bowel prep and at least a colonic evaluation, since he has had some relatively large polyps in the past. Empiric H2 blockers and upper intestinal evaluation if he is found to have no source of bleeding in the lower gastrointestinal tract. Risks, benefits, alternatives were discussed in great detail with the patient and we will proceed slowly after medical stabilization. Power King MD AHR/SA , 10:06 PM , 10:28 PM
[2017-09-05] MEDS: Insulin Detemir Inj 1,000 UNIT/10 ML Vial SQ SCH (22:37)
[2017-09-05] MEDS: Tiotropium Bromide 18 MCG/ACT Inhaler INH SCH (22:41)
[2017-09-05] MEDS: Budesonide-Formoterol 160/4.5 MCG 6 GM Inhaler INH SCH (22:41)
[2017-09-06 07:44] LABS: Baso % (Auto) 0.1 % (0.0-2.0); Eos # (Auto) 0.1 th/mm3 (0.0-0.4); Eos % (Auto) 0.6 % (0.0-4.0); Lymph # (Auto) 2.4 th/mm3 (1.0-4.8); Lymph % (Auto) 16.2 % (9.0-44.0); Mean Corpuscular HGB Conc 34.4 % (32.0-36.0); Mean Corpuscular Hemoglobin 30.6 pg (27.0-34.0); Mean Corpuscular Volume 88.9 fL (80.0-100.0); Mean Platelet Volume 8.2 fL (7.0-11.0); Mono # (Auto) 0.9 th/mm3 (0.0-0.9); Mono % (Auto) 6.1 % (0.0-8.0); Neut # (Auto) 11.6 th/mm3 (1.8-7.7); Platelet Count 103 th/mm3 (150-450); Red Blood Count 1.89 mil/mm3 (4.50-5.90); Red Cell Distribution Width 14.5 % (11.6-17.2); White Blood Count 15.1 th/mm3 (4.0-11.0)
[2017-09-06 07:59] LABS: Hematocrit 16.8 % (39.0-51.0); Hemoglobin 5.8 gm/dL (13.0-17.0)
[2017-09-06] MEDS: Insulin NovoLOG Aspart Correctional Sugar Inj SQ SCH ×5 (08:54→22:17)
[2017-09-06] MEDS: Glimepiride 4 MG Tablet PO SCH (09:03)
[2017-09-06] MEDS: Senna/Docusate Sodium 8.6/50 MG Tablet PO SCH ×2 (09:03→22:17)
[2017-09-06] MEDS: Budesonide-Formoterol 160/4.5 MCG 6 GM Inhaler INH SCH ×2 (09:04→22:17)
[2017-09-06] MEDS: Tiotropium Bromide 18 MCG/ACT Inhaler INH SCH (09:04)
[2017-09-06 09:18] LABS: Calcium 9.3 mg/dL (8.5-10.1); Carbon Dioxide 20.9 meq/L (21.0-32.0); Potassium 4.5 meq/L (3.5-5.1)
[2017-09-06 09:45] LABS: Platelet Morphology Normal (Normal)
[2017-09-06 10:36] LABS: Hematocrit 17.3 % (39.0-51.0); Hemoglobin 5.9 gm/dL (13.0-17.0)
--- NOTE | 2017-09-06 12:04 | P.PNGS ---
Subjective Patient reports: tolerating liquids well, no bowel movement Physical Exam Vital signs: Vital Signs 09/05/17 12:05 09/05/17 12:09 09/05/17 15:00 Temperature 97.7 F 98.5 F Pulse Rate 114 H 110 H 119 H Respiratory Rate 20 19 22 Blood Pressure 93/47 L 123/59 L Pulse Oximetry 96 09/05/17 15:23 09/05/17 16:36 09/05/17 17:09 Temperature 98.4 F 98.0 F Pulse Rate 115 H 116 H 113 H Respiratory Rate 22 22 18 Blood Pressure 96/54 L 109/55 L Pulse Oximetry 98 98 09/05/17 18:39 09/05/17 18:58 09/05/17 19:44 Temperature 98.7 F 98.6 F Pulse Rate 96 H 101 H 104 H Respiratory Rate 22 22 18 Blood Pressure 126/62 128/58 L Pulse Oximetry 98 09/05/17 19:58 09/05/17 20:00 09/06/17 04:00 Temperature 98.3 F 97.5 F L Pulse Rate 110 H 110 H 112 H Respiratory Rate 18 18 Blood Pressure 109/55 L 118/56 L Pulse Oximetry 99 100 09/06/17 04:05 09/06/17 04:07 09/06/17 04:28 Temperature Pulse Rate 100 H 114 H Respiratory Rate 22 Blood Pressure Pulse Oximetry 100 09/06/17 09:19 Temperature Pulse Rate 113 H Respiratory Rate 20 Blood Pressure Pulse Oximetry 96 Intake & Output 09/05/17 09/06/17 09/06/17 18:59 06:59 18:59 Intake Total 400 / 400 0 / 0 Balance 400 / 400 0 / 0 Weight 92 kg Intake: Intake (Blood Product) Amt 400 / 400 0 / 0 Rbc As-3 Leukoreduced Unit 0 / 0 0 / 0 [id number] Rbc As-3 Leukoreduced Unit 400 / 400 [id number] Other: Date of Last Bowel Movement 09/04/17 Weight On Admission 92 kg Narrative: afebrile, VSS - Routine HEENT Exam Comments: Abd - soft, non-tender, no BRB Assessment and Plan - Plan Imp: Hgb still low after transfusion - rechecked stat CTA tx to ICU tx PRBC
[2017-09-06] MEDS ORDERED: Sodium Chlor 0.9% Inj 250 ML IV.SIG SCH (13:00)
[2017-09-06] MEDS: Sod Chloride 0.9% Inj 1,000 ML IV.CONT SCH ×2 (13:02→23:59)
[2017-09-06] MEDS: Pantoprazole Inj 40 MG Vial IV.PUSH SCH ×2 (13:03→23:59)
[2017-09-06] MEDS: Acetaminophen 325 MG Tablet PO PRN ×2 (14:35→17:49)
--- NOTE | 2017-09-06 14:57 | P.PN ---
Subjective Interval history: Follow-up symptomatic anemia September 06, 2017-patient seen and examined, despite 2 units transfusion yesterday patient again with low H&H however denies any visible gross blood. Denies any shortness of breath or chest pain. Case discussed with Dr. King Physical Exam Vital signs: Vital Signs 09/05/17 15:00 09/05/17 15:23 09/05/17 16:36 Temperature 98.5 F 98.4 F Pulse Rate 119 H 115 H 116 H Respiratory Rate 22 22 22 Blood Pressure 123/59 L 96/54 L Pulse Oximetry 98 09/05/17 17:09 09/05/17 18:39 09/05/17 18:58 Temperature 98.0 F 98.7 F 98.6 F Pulse Rate 113 H 96 H 101 H Respiratory Rate 18 22 22 Blood Pressure 109/55 L 126/62 128/58 L Pulse Oximetry 98 09/05/17 19:44 09/05/17 19:58 09/05/17 20:00 Temperature 98.3 F Pulse Rate 104 H 110 H 110 H Respiratory Rate 18 18 Blood Pressure 109/55 L Pulse Oximetry 98 99 09/06/17 04:00 09/06/17 04:05 09/06/17 04:07 Temperature 97.5 F L Pulse Rate 112 H 100 H Respiratory Rate 18 22 Blood Pressure 118/56 L Pulse Oximetry 100 100 09/06/17 04:28 09/06/17 08:00 09/06/17 09:19 Temperature Pulse Rate 114 H 107 H 113 H Respiratory Rate 20 Blood Pressure Pulse Oximetry 96 09/06/17 12:59 Temperature Pulse Rate 106 H Respiratory Rate 20 Blood Pressure Pulse Oximetry Intake & Output 09/05/17 09/06/17 09/06/17 18:59 06:59 18:59 Intake Total 400 / 400 0 / 0 Balance 400 / 400 0 / 0 Weight 92 kg Intake: Intake (Blood Product) Amt 400 / 400 0 / 0 Rbc As-3 Leukoreduced Unit 0 / 0 0 / 0 [id number] Rbc As-3 Leukoreduced Unit 400 / 400 [id number] Other: Date of Last Bowel Movement 09/04/17 Weight On Admission 92 kg Narrative: GENERAL: NAD SKIN: Warm and dry. HEAD: Normocephalic. EYES: No scleral icterus. No injection or drainage. NECK: Supple, trachea midline. No JVD or lymphadenopathy. CARDIOVASCULAR: Regular rate and rhythm without murmurs, gallops, or rubs. RESPIRATORY: Breath sounds equal bilaterally. No accessory muscle use. GASTROINTESTINAL: Abdomen soft, non-tender, nondistended. MUSCULOSKELETAL: No cyanosis, or edema. BACK: Nontender without obvious deformity. No CVA tenderness. Results - Labs CBC & Chem 7: 09/06/17 09:56 09/06/17 08:15 Laboratory Results - last 24 hr 09/05/17 09/05/17 09/05/17 05:40 11:42 22:11 WBC RBC Hgb Hct MCV MCH MCHC RDW Plt Count MPV Prelim Diff (Auto) Neut % (Auto) Lymph % (Auto) [place] % (Auto) Eos % (Auto) Baso % (Auto) Neut # (Auto) Lymph # (Auto) [place] # (Auto) Eos # (Auto) Baso # (Auto) WBC Differential Diff Scan Differential Comment Platelet Estimate Platelet Morphology Sodium Potassium Chloride Carbon Dioxide Anion Gap BUN Creatinine Estimated GFR POC Glucose 173 H Random Glucose Hemoglobin A1c 9.0 H Calcium MTS Gel Crossmatch See Detail Bld Prod Order Comment 09/06/17 09/06/17 09/06/17 07:02 07:46 08:15 WBC 15.1 H RBC 1.89 L Hgb 5.8 L* Hct 16.8 L* MCV 88.9 MCH 30.6 MCHC 34.4 RDW 14.5 Plt Count 103 L MPV 8.2 Prelim Diff (Auto) Slide review pending Neut % (Auto) 77.0 H Lymph % (Auto) 16.2 [place] % (Auto) 6.1 Eos % (Auto) 0.6 Baso % (Auto) 0.1 Neut # (Auto) 11.6 H Lymph # (Auto) 2.4 [place] # (Auto) 0.9 Eos # (Auto) 0.1 Baso # (Auto) 0.0 WBC Differential . Diff Scan Auto diff confirmed Differential Comment . Platelet Estimate Low L Platelet Morphology Normal Sodium 145 Potassium 4.5 Chloride 113 H Carbon Dioxide 20.9 L Anion Gap 11 BUN 78 H Creatinine 1.20 Estimated GFR 58 L POC Glucose 109 Random Glucose 84 D Hemoglobin A1c Calcium 9.3 MTS Gel Crossmatch Bld Prod Order Comment 09/06/17 09/06/17 09/06/17 09:56 11:38 12:47 WBC RBC Hgb 5.9 L* Hct 17.3 L* MCV MCH MCHC RDW Plt Count MPV Prelim Diff (Auto) Neut % (Auto) Lymph % (Auto) [place] % (Auto) Eos % (Auto) Baso % (Auto) Neut # (Auto) Lymph # (Auto) [place] # (Auto) Eos # (Auto) Baso # (Auto) WBC Differential Diff Scan Differential Comment Platelet Estimate Platelet Morphology Sodium Potassium Chloride Carbon Dioxide Anion Gap BUN Creatinine Estimated GFR POC Glucose 121 H Random Glucose Hemoglobin A1c Calcium MTS Gel Crossmatch See Detail Bld Prod Order Comment 09/06/17 14:04 WBC RBC Hgb Hct MCV MCH MCHC RDW Plt Count MPV Prelim Diff (Auto) Neut % (Auto) Lymph % (Auto) [place] % (Auto) Eos % (Auto) Baso % (Auto) Neut # (Auto) Lymph # (Auto) [place] # (Auto) Eos # (Auto) Baso # (Auto) WBC Differential Diff Scan Differential Comment Platelet Estimate Platelet Morphology Sodium Potassium Chloride Carbon Dioxide Anion Gap BUN Creatinine Estimated GFR POC Glucose Random Glucose Hemoglobin A1c Calcium MTS Gel Crossmatch See Detail Bld Prod Order Comment Microbiology 09/04/17 05:30 Blood - Peripheral Aerobic Blood Culture - Preliminary No growth in 2 days 09/04/17 05:30 Blood - Peripheral Anaerobic Blood Culture - Preliminary No growth in 2 days 09/04/17 05:45 Blood - Peripheral Aerobic Blood Culture - Preliminary No growth in 2 days 09/04/17 05:45 Blood - Peripheral Anaerobic Blood Culture - Preliminary No growth in 2 days - Imaging Impressions Abdomen/Pelvis CTA 09/06/17 11:36 CONCLUSION: 1. Atherosclerotic changes without aneurysm. 2. 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 3. No hemorrhage identified. Bilateral renal cysts, hepatic steatosis and diverticulosis of the colon. Assessment and Plan - Assessment (1) Diabetes type 2, uncontrolled Code(s): E11.65 - Type 2 diabetes mellitus with hyperglycemia Status: Acute (2) Alpha 1-antitrypsin PiMS phenotype Code(s): R79.9 - Abnormal finding of blood chemistry, unspecified Status: Chronic (3) Lactic acid acidosis Code(s): E87.2 - Acidosis Status: Resolved (4) Leukocytosis, unspecified Code(s): D72.829 - Elevated white blood cell count, unspecified Status: Acute (5) Anemia, chronic disease Code(s): D63.8 - Anemia in other chronic diseases classified elsewhere Status : Acute - Plan 82-year-old man with Acute anemia Possible GI bleed -Despite 2 units blood transfusion, H&H still low. Therefore will transfuse 2 unit packed red blood cell today September 06, 2017 -CTA abdomen ordered to rule out presence of hemorrhage -Patient likely will need panendoscopy -Continue to monitor H&H. -Check stool for Hemoccult -Protonix IV COPD, with exacerbation Alpha-1 antitrypsin deficiency -Outpatient follow-up with pulmonary medicine -DuoNeb scheduled and as needed -Continue Symbicort, tiotropium. -Prolastin infusion q. weekly Diabetes type 2, uncontrolled blood glucose -Resume outpatient medications -Medium insulin sliding scale -Endocrinology consultation as needed Lactic acidosis -Secondary to uncontrolled diabetes type 2 and less likely secondary to an infectious processes -Currently resolved status post treatment with IV fluid hydration and blood glucose control Leukocytosis -Less likely due to infectious process UA negative. -Patient currently treated with steroid 12 days -Status post IV antibiotic in ED, will continue to monitor off antibiotics -Asymptomatic. DVT prophylaxis: Hold heparin secondary to acute anemia (1) Diabetes type 2, uncontrolled Qualifiers: Diabetes mellitus jail insulin use: with jail use Diabetes mellitus complication status: without complication Qualified Code(s): E11.65 - Type 2 diabetes mellitus with hyperglycemia; Z79.4 - assisted (current) use of insulin (4) Leukocytosis, unspecified Qualifiers: Leukocytosis type: unspecified Qualified Code(s): D72.829 - Elevated white blood cell count, unspecified
[2017-09-06] MEDS: Insulin Detemir Inj 1,000 UNIT/10 ML Vial SQ SCH (22:17)
[2017-09-07 02:21] LABS: Baso % (Auto) 0.2 % (0.0-2.0); Eos # (Auto) 0.1 th/mm3 (0.0-0.4); Eos % (Auto) 0.7 % (0.0-4.0); Hematocrit 22.5 % (39.0-51.0); Hemoglobin 7.9 gm/dL (13.0-17.0); Lymph # (Auto) 2.3 th/mm3 (1.0-4.8); Lymph % (Auto) 23.9 % (9.0-44.0); Mean Corpuscular HGB Conc 34.9 % (32.0-36.0); Mean Corpuscular Hemoglobin 29.5 pg (27.0-34.0); Mean Corpuscular Volume 84.6 fL (80.0-100.0); Mean Platelet Volume 7.8 fL (7.0-11.0); Mono # (Auto) 0.8 th/mm3 (0.0-0.9); Mono % (Auto) 8.3 % (0.0-8.0); Neut # (Auto) 6.3 th/mm3 (1.8-7.7); Neut % (Auto) 66.9 % (16.0-70.0); Platelet Count 89 th/mm3 (150-450); Red Blood Count 2.67 mil/mm3 (4.50-5.90); Red Cell Distribution Width 15.6 % (11.6-17.2); White Blood Count 9.4 th/mm3 (4.0-11.0)
[2017-09-07 03:56] LABS: Platelet Morphology Normal (Normal)
[2017-09-07] MEDS: Chlorhexidine Gluconate 2% 1 Pack (2 Cloths) TOPICAL SCH (04:00)
[2017-09-07] MEDS ORDERED: Chlorhexidine Gluconate 2% 1 Pack (2 Cloths) TOPICAL PRN (04:00)
[2017-09-07] MEDS: Glimepiride 4 MG Tablet PO SCH (08:38)
[2017-09-07] MEDS: Senna/Docusate Sodium 8.6/50 MG Tablet PO SCH ×2 (08:38→20:59)
--- NOTE | 2017-09-07 10:22 | P.PN ---
Subjective Interval history: Follow-up symptomatic anemia September 06, 2017-patient seen and examined, despite 2 units transfusion yesterday patient again with low H&H however denies any visible gross blood. Denies any shortness of breath or chest pain. Case discussed with Dr. King September 07, 2017-patient seen and examined, H&H improved post transfusion yesterday to 7.9/22.5. Patient denies any shortness of breath. Physical Exam Vital signs: Vital Signs 09/06/17 12:00 09/06/17 12:59 09/06/17 14:52 Temperature 97.6 F Pulse Rate 109 H 106 H 116 H Respiratory Rate 20 20 18 Blood Pressure 96/55 L 148/68 H Pulse Oximetry 98 09/06/17 15:08 09/06/17 15:09 09/06/17 15:43 Temperature 97.7 F 97.7 F Pulse Rate 109 H 105 H Respiratory Rate 18 18 Blood Pressure 134/56 L 114/60 Pulse Oximetry 94 L 09/06/17 15:45 09/06/17 16:00 09/06/17 17:55 Temperature 97.8 F 98.0 F Pulse Rate 100 H 103 H 106 H Respiratory Rate 18 20 18 Blood Pressure 135/66 109/53 L Pulse Oximetry 100 99 09/06/17 20:00 09/06/17 21:00 09/06/17 21:29 Temperature 98.5 F Pulse Rate 101 H 103 H 97 H Respiratory Rate 18 22 17 Blood Pressure 134/63 147/65 H Pulse Oximetry 97 99 09/06/17 21:30 09/06/17 22:00 09/06/17 23:00 Temperature Pulse Rate 97 H 97 H Respiratory Rate 18 18 Blood Pressure 117/57 L 96/54 L Pulse Oximetry 100 99 96 09/07/17 00:00 09/07/17 00:36 09/07/17 00:37 Temperature 98.5 F Pulse Rate 94 H 97 H Respiratory Rate 16 16 Blood Pressure 121/58 L Pulse Oximetry 99 98 09/07/17 01:00 09/07/17 02:00 09/07/17 03:00 Temperature Pulse Rate 91 H 95 H 94 H Respiratory Rate 16 16 17 Blood Pressure 123/56 L 111/55 L 115/59 L Pulse Oximetry 98 96 98 09/07/17 04:00 09/07/17 04:39 09/07/17 05:00 Temperature 98.3 F Pulse Rate 83 86 84 Respiratory Rate 16 17 16 Blood Pressure 120/55 L 110/55 L Pulse Oximetry 100 100 99 09/07/17 06:00 09/07/17 07:00 09/07/17 09:04 Temperature Pulse Rate 84 82 92 H Respiratory Rate 16 16 24 Blood Pressure 110/56 L 109/53 L Pulse Oximetry 100 98 99 Intake & Output 09/06/17 09/07/17 09/07/17 18:59 06:59 18:59 Intake Total 360 / 360 2040 / 2040 Output Total 1100 / 1100 Balance 360 / 360 940 / 940 Weight 92.4 kg Intake: IV 1000 / 1000 NS Inj 1,000 ML @ 84 mls/hr IV. 1000 / 1000 CONT .[id number] [facility] Rx#:[id number] Oral 360 / 360 240 / 240 Intake (Blood Product) Amt 0 / 0 800 / 800 Rbc As-3 Leukoreduced Unit 0 / 0 400 / 400 [id number] Rbc As-3 Leukoreduced Unit 0 / 0 400 / 400 [id number] Output: Urine 1100 / 1100 Other: # Voids 6 # Bowel Movements 0 Narrative: GENERAL: NAD SKIN: Warm and dry. HEAD: Normocephalic. EYES: No scleral icterus. No injection or drainage. NECK: Supple, trachea midline. No JVD or lymphadenopathy. CARDIOVASCULAR: Regular rate and rhythm without murmurs, gallops, or rubs. RESPIRATORY: Breath sounds equal bilaterally. No accessory muscle use. GASTROINTESTINAL: Abdomen soft, non-tender, nondistended. MUSCULOSKELETAL: No cyanosis, or edema. BACK: Nontender without obvious deformity. No CVA tenderness. Results - Labs CBC & Chem 7: 09/07/17 01:56 09/06/17 08:15 Laboratory Results - last 24 hr 09/05/17 09/06/17 09/06/17 11:42 09:56 11:38 WBC RBC Hgb 5.9 L* Hct 17.3 L* MCV MCH MCHC RDW Plt Count MPV Prelim Diff (Auto) Neut % (Auto) Lymph % (Auto) [place] % (Auto) Eos % (Auto) Baso % (Auto) Neut # (Auto) Lymph # (Auto) [place] # (Auto) Eos # (Auto) Baso # (Auto) WBC Differential Diff Scan Differential Comment Platelet Estimate Platelet Morphology POC Glucose Nasal Screen MRSA (PCR) MTS Gel Crossmatch See Detail See Detail 09/06/17 09/06/17 09/06/17 12:47 14:04 17:23 WBC RBC Hgb Hct MCV MCH MCHC RDW Plt Count MPV Prelim Diff (Auto) Neut % (Auto) Lymph % (Auto) [place] % (Auto) Eos % (Auto) Baso % (Auto) Neut # (Auto) Lymph # (Auto) [place] # (Auto) Eos # (Auto) Baso # (Auto) WBC Differential Diff Scan Differential Comment Platelet Estimate Platelet Morphology POC Glucose 121 H 114 H Nasal Screen MRSA (PCR) MTS Gel Crossmatch See Detail 09/06/17 09/06/17 09/07/17 19:20 20:20 01:56 WBC 9.4 RBC 2.67 L Hgb 7.9 L D Hct 22.5 L MCV 84.6 D MCH 29.5 MCHC 34.9 RDW 15.6 Plt Count 89 L MPV 7.8 Prelim Diff (Auto) Slide review pending Neut % (Auto) 66.9 Lymph % (Auto) 23.9 [place] % (Auto) 8.3 H Eos % (Auto) 0.7 Baso % (Auto) 0.2 Neut # (Auto) 6.3 Lymph # (Auto) 2.3 [place] # (Auto) 0.8 Eos # (Auto) 0.1 Baso # (Auto) 0.0 WBC Differential . Diff Scan Auto diff confirmed Differential Comment . Platelet Estimate Low L Platelet Morphology Normal POC Glucose 110 Nasal Screen MRSA (PCR) Not detected MTS Gel Crossmatch 09/07/17 08:29 WBC RBC Hgb Hct MCV MCH MCHC RDW Plt Count MPV Prelim Diff (Auto) Neut % (Auto) Lymph % (Auto) [place] % (Auto) Eos % (Auto) Baso % (Auto) Neut # (Auto) Lymph # (Auto) [place] # (Auto) Eos # (Auto) Baso # (Auto) WBC Differential Diff Scan Differential Comment Platelet Estimate Platelet Morphology POC Glucose 71 Nasal Screen MRSA (PCR) MTS Gel Crossmatch Microbiology 09/04/17 05:30 Blood - Peripheral Aerobic Blood Culture - Preliminary No growth in 2 days 09/04/17 05:30 Blood - Peripheral Anaerobic Blood Culture - Preliminary No growth in 2 days 09/04/17 05:45 Blood - Peripheral Aerobic Blood Culture - Preliminary No growth in 2 days 09/04/17 05:45 Blood - Peripheral Anaerobic Blood Culture - Preliminary No growth in 2 days - Imaging Impressions Abdomen/Pelvis CTA 09/06/17 11:36 CONCLUSION: 1. Atherosclerotic changes without aneurysm. 2. 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 3. No hemorrhage identified. Bilateral renal cysts, hepatic steatosis and diverticulosis of the colon. Assessment and Plan - Assessment (1) Diabetes type 2, uncontrolled Code(s): E11.65 - Type 2 diabetes mellitus with hyperglycemia Status: Acute (2) Alpha 1-antitrypsin PiMS phenotype Code(s): R79.9 - Abnormal finding of blood chemistry, unspecified Status: Chronic (3) Lactic acid acidosis Code(s): E87.2 - Acidosis Status: Resolved (4) Leukocytosis, unspecified Code(s): D72.829 - Elevated white blood cell count, unspecified Status: Acute (5) Anemia, chronic disease Code(s): D63.8 - Anemia in other chronic diseases classified elsewhere Status : Acute - Plan 82-year-old man with Acute anemia Possible GI bleed -Despite total of 4 units transfused patient H&H now 7.9/22.5, therefore will transfuse 1 more unit today of packed red blood cell September 07, 2017 -CTA abdomen ruled out presence of hemorrhage -Patient likely will need panendoscopy -Continue to monitor H&H. -Check stool for Hemoccult -Protonix IV COPD, with exacerbation Alpha-1 antitrypsin deficiency -Outpatient follow-up with pulmonary medicine -DuoNeb scheduled and as needed -Continue Symbicort, tiotropium. -Prolastin infusion q. weekly Diabetes type 2, uncontrolled blood glucose -Resume outpatient medications -Medium insulin sliding scale -Endocrinology consultation as needed Lactic acidosis -Secondary to uncontrolled diabetes type 2 and less likely secondary to an infectious processes -Currently resolved status post treatment with IV fluid hydration and blood glucose control Leukocytosis -Less likely due to infectious process UA negative. -Patient currently treated with steroid 12 days -Status post IV antibiotic in ED, will continue to monitor off antibiotics -Asymptomatic. 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
[2017-09-07] MEDS ORDERED: Sodium Chlor 0.9% Inj 250 ML IV.SIG SCH (11:00)
[2017-09-07] MEDS: Insulin NovoLOG Aspart Correctional Sugar Inj SQ SCH ×4 (11:01→20:59)
[2017-09-07] MEDS: Polyethylene Glycol 3350 17 GM Packet PO SCH (12:06)
[2017-09-07] MEDS: Pantoprazole Inj 40 MG Vial IV.PUSH SCH ×2 (12:06→23:39)
[2017-09-07] MEDS: Budesonide-Formoterol 160/4.5 MCG 6 GM Inhaler INH SCH ×2 (12:07→20:58)
[2017-09-07] MEDS: Tiotropium Bromide 18 MCG/ACT Inhaler INH SCH (12:07)
[2017-09-07] MEDS: Sod Chloride 0.9% Inj 1,000 ML IV.CONT SCH (15:39)
[2017-09-07] MEDS: Insulin Detemir Inj 1,000 UNIT/10 ML Vial SQ SCH (21:01)
--- NOTE | 2017-09-07 22:14 | P.PN ---
Physical Exam Vital signs: Vital Signs 09/06/17 23:00 09/07/17 00:00 09/07/17 00:36 Temperature 98.5 F Pulse Rate 97 H 94 H 97 H Respiratory Rate 18 16 16 Blood Pressure 96/54 L 121/58 L Pulse Oximetry 96 99 09/07/17 00:37 09/07/17 01:00 09/07/17 02:00 Temperature Pulse Rate 91 H 95 H Respiratory Rate 16 16 Blood Pressure 123/56 L 111/55 L Pulse Oximetry 98 98 96 09/07/17 03:00 09/07/17 04:00 09/07/17 04:39 Temperature 98.3 F Pulse Rate 94 H 83 86 Respiratory Rate 17 16 17 Blood Pressure 115/59 L 120/55 L Pulse Oximetry 98 100 100 09/07/17 05:00 09/07/17 06:00 09/07/17 07:00 Temperature Pulse Rate 84 84 82 Respiratory Rate 16 16 16 Blood Pressure 110/55 L 110/56 L 109/53 L Pulse Oximetry 99 100 98 09/07/17 08:00 09/07/17 09:04 09/07/17 10:00 Temperature 97.9 F Pulse Rate 84 92 H 94 H Respiratory Rate 14 24 Blood Pressure 115/57 L Pulse Oximetry 98 99 09/07/17 11:57 09/07/17 12:00 09/07/17 12:10 Temperature 98 F 98.2 F Pulse Rate 93 H 96 H 93 H Respiratory Rate 19 25 H 16 Blood Pressure 112/51 L 113/55 L Pulse Oximetry 99 09/07/17 12:14 09/07/17 14:00 09/07/17 15:12 Temperature 98.2 F Pulse Rate 94 H 101 H 90 Respiratory Rate 20 18 Blood Pressure 111/56 L Pulse Oximetry 09/07/17 16:00 09/07/17 18:00 09/07/17 20:26 Temperature 98.4 F Pulse Rate 98 H 101 H Respiratory Rate 19 Blood Pressure 115/57 L Pulse Oximetry 96 Intake & Output 09/07/17 09/07/17 09/08/17 06:59 18:59 06:59 Intake Total 2040 / 2040 2150 / 2150 Output Total 1100 / 1100 1000 / 1000 Balance 940 / 940 1150 / 1150 Weight 92.4 kg Intake: IV 1000 / 1000 1000 / 1000 NS Inj 1,000 ML @ 84 mls/hr IV. 1000 / 1000 1000 / 1000 CONT .[id number] [facility] Rx#:[id number] Oral 240 / 240 750 / 750 Intake (Blood Product) Amt 800 / 800 400 / 400 Rbc As-3 Leukoreduced Unit 400 / 400 [id number] Rbc As-3 Leukoreduced Unit 400 / 400 [id number] Rbc As-3 Leukoreduced Unit 400 / 400 [id number] Output: Urine 1100 / 1100 1000 / 1000 Other: # Voids 4 Date of Last Bowel Movement 09/07/17 # Bowel Movements 1 Narrative: Ama PO no BRB or vomiting - Routine Abdominal Exam Present: soft - Detailed Abdominal Exam Comments: non-tender, no masses Results - Labs CBC & Chem 7: 09/07/17 01:56 09/06/17 08:15 Laboratory Results - last 24 hr 09/06/17 09/06/17 09/07/17 11:38 19:20 01:56 WBC 9.4 RBC 2.67 L Hgb 7.9 L D Hct 22.5 L MCV 84.6 D MCH 29.5 MCHC 34.9 RDW 15.6 Plt Count 89 L MPV 7.8 Prelim Diff (Auto) Slide review pending Neut % (Auto) 66.9 Lymph % (Auto) 23.9 [place] % (Auto) 8.3 H Eos % (Auto) 0.7 Baso % (Auto) 0.2 Neut # (Auto) 6.3 Lymph # (Auto) 2.3 [place] # (Auto) 0.8 Eos # (Auto) 0.1 Baso # (Auto) 0.0 WBC Differential . Diff Scan Auto diff confirmed Differential Comment . Platelet Estimate Low L Platelet Morphology Normal POC Glucose Nasal Screen MRSA (PCR) Not detected MTS Gel Crossmatch See Detail 09/07/17 09/07/17 09/07/17 08:29 11:42 17:48 WBC RBC Hgb Hct MCV MCH MCHC RDW Plt Count MPV Prelim Diff (Auto) Neut % (Auto) Lymph % (Auto) [place] % (Auto) Eos % (Auto) Baso % (Auto) Neut # (Auto) Lymph # (Auto) [place] # (Auto) Eos # (Auto) Baso # (Auto) WBC Differential Diff Scan Differential Comment Platelet Estimate Platelet Morphology POC Glucose 71 103 114 H Nasal Screen MRSA (PCR) MTS Gel Crossmatch 09/07/17 20:35 WBC RBC Hgb Hct MCV MCH MCHC RDW Plt Count MPV Prelim Diff (Auto) Neut % (Auto) Lymph % (Auto) [place] % (Auto) Eos % (Auto) Baso % (Auto) Neut # (Auto) Lymph # (Auto) [place] # (Auto) Eos # (Auto) Baso # (Auto) WBC Differential Diff Scan Differential Comment Platelet Estimate Platelet Morphology POC Glucose 97 Nasal Screen MRSA (PCR) MTS Gel Crossmatch Microbiology 09/04/17 05:30 Blood - Peripheral Aerobic Blood Culture - Preliminary No growth in 3 days 09/04/17 05:30 Blood - Peripheral Anaerobic Blood Culture - Preliminary No growth in 3 days 09/04/17 05:45 Blood - Peripheral Aerobic Blood Culture - Preliminary No growth in 3 days 09/04/17 05:45 Blood - Peripheral Anaerobic Blood Culture - Preliminary No growth in 3 days Assessment and Plan - Plan Some improvement in Hgb after 2 units, cont tx PRBC gentle bowel prep, colonoscopy
[2017-09-08] MEDS: Sod Chloride 0.9% Inj 1,000 ML IV.CONT SCH ×2 (04:52→18:15)
[2017-09-08] MEDS: Chlorhexidine Gluconate 2% 1 Pack (2 Cloths) TOPICAL SCH (04:53)
[2017-09-08 05:13] LABS: Baso % (Auto) 0.1 % (0.0-2.0); Eos % (Auto) 0.5 % (0.0-4.0); Hematocrit 23.6 % (39.0-51.0); Hemoglobin 8.1 gm/dL (13.0-17.0); Lymph # (Auto) 1.6 th/mm3 (1.0-4.8); Lymph % (Auto) 17.9 % (9.0-44.0); Mean Corpuscular HGB Conc 34.3 % (32.0-36.0); Mean Corpuscular Hemoglobin 29.9 pg (27.0-34.0); Mean Corpuscular Volume 87.1 fL (80.0-100.0); Mean Platelet Volume 7.6 fL (7.0-11.0); Mono # (Auto) 0.6 th/mm3 (0.0-0.9); Mono % (Auto) 6.4 % (0.0-8.0); Neut # (Auto) 6.7 th/mm3 (1.8-7.7); Neut % (Auto) 75.1 % (16.0-70.0); Platelet Count 98 th/mm3 (150-450); Red Blood Count 2.71 mil/mm3 (4.50-5.90); Red Cell Distribution Width 15.5 % (11.6-17.2); White Blood Count 8.9 th/mm3 (4.0-11.0)
[2017-09-08 08:58] LABS: Lymphocytes 21 % (9-44); Monocytes 6 % (0-8); Platelet Morphology Normal (Normal); Tallied Nucleated RBC 1 (0-0)
[2017-09-08 08:59] LABS: RBC Morphology Normal (Normal)
[2017-09-08] MEDS: Polyethylene Glycol 3350 17 GM Packet PO SCH (09:40)
[2017-09-08] MEDS: Tiotropium Bromide 18 MCG/ACT Inhaler INH SCH (09:40)
[2017-09-08] MEDS: Senna/Docusate Sodium 8.6/50 MG Tablet PO SCH ×2 (09:40→22:34)
[2017-09-08] MEDS: Budesonide-Formoterol 160/4.5 MCG 6 GM Inhaler INH SCH ×2 (09:41→22:39)
[2017-09-08] MEDS: Glimepiride 4 MG Tablet PO SCH (10:18)
[2017-09-08] MEDS: Insulin NovoLOG Aspart Correctional Sugar Inj SQ SCH ×4 (10:18→22:23)
--- NOTE | 2017-09-08 11:15 | P.PN ---
Subjective Interval history: Follow-up symptomatic anemia September 06, 2017-patient seen and examined, despite 2 units transfusion yesterday patient again with low H&H however denies any visible gross blood. Denies any shortness of breath or chest pain. Case discussed with Dr. King September 07, 2017-patient seen and examined, H&H improved post transfusion yesterday to 7.9/22.5. Patient denies any shortness of breath. September 08, 2017-patient seen and examined, H&H improved post transfusion. Patient had one BM described as black stool. No hematuria or hemoptysis Physical Exam Vital signs: Vital Signs 09/07/17 11:57 09/07/17 12:00 09/07/17 12:10 Temperature 98 F 98.2 F Pulse Rate 93 H 96 H 93 H Respiratory Rate 19 25 H 16 Blood Pressure 112/51 L 113/55 L Pulse Oximetry 99 09/07/17 12:14 09/07/17 14:00 09/07/17 15:12 Temperature 98.2 F Pulse Rate 94 H 101 H 90 Respiratory Rate 20 18 Blood Pressure 111/56 L Pulse Oximetry 09/07/17 16:00 09/07/17 17:30 09/07/17 17:45 Temperature 98.4 F Pulse Rate 98 H 95 H Respiratory Rate 19 19 Blood Pressure 115/57 L 101/50 L 116/58 L Pulse Oximetry 97 09/07/17 18:00 09/07/17 18:01 09/07/17 18:15 Temperature Pulse Rate 101 H 100 H 105 H Respiratory Rate 24 23 28 H Blood Pressure 130/64 135/63 Pulse Oximetry 90 L 95 94 L 09/07/17 18:30 09/07/17 18:45 09/07/17 19:00 Temperature Pulse Rate 102 H 99 H 96 H Respiratory Rate 37 H 20 18 Blood Pressure 120/59 L 123/58 L 120/60 Pulse Oximetry 97 99 98 09/07/17 19:15 09/07/17 19:30 09/07/17 19:45 Temperature Pulse Rate 96 H 96 H 98 H Respiratory Rate 18 16 25 H Blood Pressure 127/63 122/57 L 121/56 L Pulse Oximetry 98 97 97 09/07/17 20:00 09/07/17 20:26 09/07/17 20:34 Temperature 99.3 F Pulse Rate 92 H 94 H Respiratory Rate 24 23 Blood Pressure 129/59 L 101/51 L Pulse Oximetry 96 96 100 09/07/17 20:45 09/07/17 21:00 09/07/17 21:15 Temperature Pulse Rate 99 H 98 H 101 H Respiratory Rate 24 17 20 Blood Pressure 97/51 L 110/57 L 131/62 Pulse Oximetry 97 96 95 09/07/17 21:30 09/07/17 21:45 09/07/17 22:00 Temperature Pulse Rate 99 H 95 H 95 H Respiratory Rate 18 17 16 Blood Pressure 129/60 124/60 133/56 L Pulse Oximetry 95 97 96 09/07/17 22:15 09/07/17 22:30 09/07/17 22:45 Temperature Pulse Rate 93 H 92 H 93 H Respiratory Rate 17 15 16 Blood Pressure 109/52 L 117/57 L 120/58 L Pulse Oximetry 94 L 94 L 91 L 09/07/17 23:00 09/07/17 23:15 09/07/17 23:30 Temperature Pulse Rate 92 H 93 H 92 H Respiratory Rate 18 18 18 Blood Pressure 113/59 L 117/59 L 117/60 Pulse Oximetry 94 L 93 L 93 L 09/07/17 23:45 09/08/17 00:00 09/08/17 00:01 Temperature 98.7 F Pulse Rate 92 H 91 H 99 H Respiratory Rate 17 23 32 H Blood Pressure 120/56 L 102/59 L Pulse Oximetry 93 L 95 95 09/08/17 00:06 09/08/17 00:30 09/08/17 00:45 Temperature Pulse Rate 92 H 94 H 96 H Respiratory Rate 18 19 21 Blood Pressure 106/55 L 107/53 L Pulse Oximetry 96 96 09/08/17 01:00 09/08/17 01:15 09/08/17 01:30 Temperature Pulse Rate 96 H 93 H 93 H Respiratory Rate 20 17 16 Blood Pressure 121/66 132/67 131/57 L Pulse Oximetry 95 96 96 09/08/17 01:46 09/08/17 02:00 09/08/17 02:15 Temperature Pulse Rate 96 H 95 H 96 H Respiratory Rate 19 19 31 H Blood Pressure 108/51 L 108/53 L 103/55 L Pulse Oximetry 95 95 95 09/08/17 02:30 07/06/18 02:45 09/08/17 03:00 Temperature Pulse Rate 95 H 94 H 93 H Respiratory Rate 18 20 17 Blood Pressure 119/59 L 116/57 L 114/59 L Pulse Oximetry 96 95 96 09/08/17 03:15 09/08/17 03:57 09/08/17 04:00 Temperature 99 F Pulse Rate 92 H 91 H 91 H Respiratory Rate 21 18 19 Blood Pressure 116/59 L 128/60 Pulse Oximetry 96 97 97 09/08/17 04:15 09/08/17 04:30 09/08/17 05:00 Temperature Pulse Rate 92 H 90 96 H Respiratory Rate 19 18 21 Blood Pressure 129/58 L 148/65 H 141/63 H Pulse Oximetry 95 95 94 L 09/08/17 05:30 09/08/17 05:46 09/08/17 05:48 Temperature 99 F Pulse Rate 85 87 87 Respiratory Rate 17 15 15 Blood Pressure 121/59 L 134/60 134/60 Pulse Oximetry 95 97 96 09/08/17 06:00 09/08/17 06:15 09/08/17 06:19 Temperature 98.9 F Pulse Rate 88 90 97 H Respiratory Rate 17 17 17 Blood Pressure 143/66 H 143/64 H 140/69 Pulse Oximetry 97 97 94 L 09/08/17 06:30 09/08/17 06:46 09/08/17 07:00 Temperature Pulse Rate 94 H 98 H 98 H Respiratory Rate 27 H 26 H 31 H Blood Pressure 148/69 H 163/73 H Pulse Oximetry 96 96 96 09/08/17 07:01 09/08/17 07:15 09/08/17 07:49 Temperature Pulse Rate 100 H 98 H 95 H Respiratory Rate 21 20 20 Blood Pressure 173/77 H 167/73 H Pulse Oximetry 95 95 99 Intake & Output 09/07/17 09/08/17 09/08/17 18:59 06:59 18:59 Intake Total 2150 / 2150 1480 / 1480 0 / 0 Output Total 1000 / 1000 600 / 600 Balance 1150 / 1150 880 / 880 0 / 0 Weight 93.8 kg Intake: IV 1000 / 1000 1000 / 1000 NS Inj 1,000 ML @ 84 mls/hr IV. 1000 / 1000 1000 / 1000 CONT .[id number] [facility] Rx#:[id number] Oral 750 / 750 480 / 480 Intake (Blood Product) Amt 400 / 400 0 / 0 0 / 0 Rbc As-3 Leukoreduced Unit 0 / 0 0 / 0 [id number] Rbc As-3 Leukoreduced Unit 400 / 400 [id number] Output: Urine 1000 / 1000 600 / 600 Other: # Voids 4 2 Date of Last Bowel Movement 09/07/17 09/07/17 # Bowel Movements 1 0 Narrative: GENERAL: NAD SKIN: Warm and dry. HEAD: Normocephalic. EYES: No scleral icterus. No injection or drainage. NECK: Supple, trachea midline. No JVD or lymphadenopathy. CARDIOVASCULAR: Regular rate and rhythm without murmurs, gallops, or rubs. RESPIRATORY: Breath sounds decrease bilaterally. No accessory muscle use. GASTROINTESTINAL: Abdomen soft, non-tender, nondistended. MUSCULOSKELETAL: No cyanosis, or edema. BACK: Nontender without obvious deformity. No CVA tenderness. Results - Labs CBC & Chem 7: 09/08/17 04:58 09/06/17 08:15 Laboratory Results - last 24 hr 09/06/17 09/06/17 09/07/17 11:38 14:04 11:42 WBC RBC Hgb Hct MCV MCH MCHC RDW Plt Count MPV Prelim Diff (Auto) Neut % (Auto) Lymph % (Auto) [place] % (Auto) Eos % (Auto) Baso % (Auto) Neut # (Auto) Lymph # (Auto) [place] # (Auto) Eos # (Auto) Baso # (Auto) WBC Differential Seg Neuts % (Manual) Band Neuts % (Manual) Lymphocytes % (Manual) Monocytes % (Manual) Abs Neuts (Manual) Nucleated RBCs/100 WBC Differential Comment Platelet Estimate Platelet Morphology RBC Morphology POC Glucose 103 B-Natriuretic Peptide Blood Type Blood Type Recheck Antibody Screen MTS Gel Crossmatch See Detail See Detail 09/07/17 09/07/17 09/08/17 17:48 20:35 04:58 WBC 8.9 RBC 2.71 L Hgb 8.1 L Hct 23.6 L MCV 87.1 MCH 29.9 MCHC 34.3 RDW 15.5 Plt Count 98 L MPV 7.6 Prelim Diff (Auto) Slide review pending Neut % (Auto) 75.1 H Lymph % (Auto) 17.9 [place] % (Auto) 6.4 Eos % (Auto) 0.5 Baso % (Auto) 0.1 Neut # (Auto) 6.7 Lymph # (Auto) 1.6 [place] # (Auto) 0.6 Eos # (Auto) 0.0 Baso # (Auto) 0.0 WBC Differential Manual diff final Seg Neuts % (Manual) 71 H Band Neuts % (Manual) 2 Lymphocytes % (Manual) 21 Monocytes % (Manual) 6 Abs Neuts (Manual) 6.5 Nucleated RBCs/100 WBC 1 H Differential Comment . Platelet Estimate Low L Platelet Morphology Normal RBC Morphology Normal POC Glucose 114 H 97 B-Natriuretic Peptide Blood Type Blood Type Recheck Antibody Screen MTS Gel Crossmatch 09/08/17 09/08/17 09/08/17 04:58 04:58 08:45 WBC RBC Hgb Hct MCV MCH MCHC RDW Plt Count MPV Prelim Diff (Auto) Neut % (Auto) Lymph % (Auto) [place] % (Auto) Eos % (Auto) Baso % (Auto) Neut # (Auto) Lymph # (Auto) [place] # (Auto) Eos # (Auto) Baso # (Auto) WBC Differential Seg Neuts % (Manual) Band Neuts % (Manual) Lymphocytes % (Manual) Monocytes % (Manual) Abs Neuts (Manual) Nucleated RBCs/100 WBC Differential Comment Platelet Estimate Platelet Morphology RBC Morphology POC Glucose 61 L B-Natriuretic Peptide 46 Blood Type A Positive Blood Type Recheck Not needed Antibody Screen Negative MTS Gel Crossmatch 09/08/17 09/08/17 09:10 10:06 WBC RBC Hgb Hct MCV MCH MCHC RDW Plt Count MPV Prelim Diff (Auto) Neut % (Auto) Lymph % (Auto) [place] % (Auto) Eos % (Auto) Baso % (Auto) Neut # (Auto) Lymph # (Auto) [place] # (Auto) Eos # (Auto) Baso # (Auto) WBC Differential Seg Neuts % (Manual) Band Neuts % (Manual) Lymphocytes % (Manual) Monocytes % (Manual) Abs Neuts (Manual) Nucleated RBCs/100 WBC Differential Comment Platelet Estimate Platelet Morphology RBC Morphology POC Glucose 78 148 H B-Natriuretic Peptide Blood Type Blood Type Recheck Antibody Screen MTS Gel Crossmatch Microbiology 09/04/17 05:30 Blood - Peripheral Aerobic Blood Culture - Preliminary No growth in 4 days 09/04/17 05:30 Blood - Peripheral Anaerobic Blood Culture - Preliminary No growth in 4 days 09/04/17 05:45 Blood - Peripheral Aerobic Blood Culture - Preliminary No growth in 4 days 09/04/17 05:45 Blood - Peripheral Anaerobic Blood Culture - Preliminary No growth in 4 days Assessment and Plan - Assessment (1) Diabetes type 2, uncontrolled Code(s): E11.65 - Type 2 diabetes mellitus with hyperglycemia Status: Acute (2) Alpha 1-antitrypsin PiMS phenotype Code(s): R79.9 - Abnormal finding of blood chemistry, unspecified Status: Chronic (3) Lactic acid acidosis Code(s): E87.2 - Acidosis Status: Resolved (4) Leukocytosis, unspecified Code(s): D72.829 - Elevated white blood cell count, unspecified Status: Acute (5) Anemia, chronic disease Code(s): D63.8 - Anemia in other chronic diseases classified elsewhere Status : Acute - Plan 82-year-old man with Acute anemia Possible GI bleed -Patient transfused a total of 6 unit packed red blood cell, H&H stable -CTA abdomen ruled out presence of hemorrhage -Plan for colonoscopy today August 09, 2017 per colorectal surgery -Continue to monitor H&H. -Check stool for Hemoccult -Protonix IV COPD, with exacerbation Alpha-1 antitrypsin deficiency -Outpatient follow-up with pulmonary medicine -DuoNeb scheduled and as needed -Continue Symbicort, tiotropium. -Prolastin infusion q. weekly Diabetes type 2, uncontrolled blood glucose -Continue outpatient medications -Medium insulin sliding scale -Endocrinology consultation as needed Lactic acidosis-resolved Leukocytosis -Less likely due to infectious process UA negative. -Patient currently treated with steroid 12 days -Status post IV antibiotic in ED, will continue to monitor off antibiotics -Asymptomatic. DVT prophylaxis: Hold heparin secondary to acute anemia PT to treat and eval (1) Diabetes type 2, uncontrolled Qualifiers: Diabetes mellitus lobsterman insulin use: with group home use Diabetes mellitus complication status: without complication Qualified Code(s): E11.65 - Type 2 diabetes mellitus with hyperglycemia; Z79.4 - terminologist (current) use of insulin (4) Leukocytosis, unspecified Qualifiers: Leukocytosis type: unspecified Qualified Code(s): D72.829 - Elevated white blood cell count, unspecified
[2017-09-08] MEDS: Pantoprazole Inj 40 MG Vial IV.PUSH SCH ×2 (13:27→22:34)
[2017-09-08] MEDS ORDERED: Magnesium Citrate Liq 300 ML Bottle PO ONE (17:40)
--- NOTE | 2017-09-08 19:04 | P.PNCS ---
Subjective Interval history: afebrile, VSS UO [place] PO Objective Vital Signs/Intake & Output: Vital Signs 09/07/17 22:00 09/07/17 22:15 09/07/17 22:30 Temperature Pulse Rate 95 H 93 H 92 H Respiratory Rate 16 17 15 Blood Pressure 133/56 L 109/52 L 117/57 L Pulse Oximetry 96 94 L 94 L 09/07/17 22:45 09/07/17 23:00 09/07/17 23:15 Temperature Pulse Rate 93 H 92 H 93 H Respiratory Rate 16 18 18 Blood Pressure 120/58 L 113/59 L 117/59 L Pulse Oximetry 91 L 94 L 93 L 09/07/17 23:30 09/07/17 23:45 09/08/17 00:00 Temperature 98.7 F Pulse Rate 92 H 92 H 91 H Respiratory Rate 18 17 23 Blood Pressure 117/60 120/56 L Pulse Oximetry 93 L 93 L 95 09/08/17 00:01 09/08/17 00:06 09/08/17 00:30 Temperature Pulse Rate 99 H 92 H 94 H Respiratory Rate 32 H 18 19 Blood Pressure 102/59 L 106/55 L Pulse Oximetry 95 96 09/08/17 00:45 09/08/17 01:00 09/08/17 01:15 Temperature Pulse Rate 96 H 96 H 93 H Respiratory Rate 21 20 17 Blood Pressure 107/53 L 121/66 132/67 Pulse Oximetry 96 95 96 09/08/17 01:30 09/08/17 01:46 09/08/17 02:00 Temperature Pulse Rate 93 H 96 H 95 H Respiratory Rate 16 19 19 Blood Pressure 131/57 L 108/51 L 108/53 L Pulse Oximetry 96 95 95 09/08/17 02:15 09/08/17 02:30 09/08/17 02:45 Temperature Pulse Rate 96 H 95 H 94 H Respiratory Rate 31 H 18 20 Blood Pressure 103/55 L 119/59 L 116/57 L Pulse Oximetry 95 96 95 09/08/17 03:00 09/08/17 03:15 09/08/17 03:57 Temperature Pulse Rate 93 H 92 H 91 H Respiratory Rate 17 21 18 Blood Pressure 114/59 L 116/59 L 128/60 Pulse Oximetry 96 96 97 09/08/17 05:00 09/08/17 05:30 09/08/17 05:46 Temperature 99 F Pulse Rate 96 H 85 87 Respiratory Rate 21 17 15 Blood Pressure 141/63 H 121/59 L 134/60 Pulse Oximetry 94 L 95 97 09/08/17 06:19 09/08/17 06:30 09/08/17 06:46 Temperature 98.9 F Pulse Rate 97 H 94 H 98 H Respiratory Rate 17 27 H 26 H Blood Pressure 140/69 148/69 H 163/73 H Pulse Oximetry 94 L 96 96 09/08/17 12:00 09/08/17 14:00 09/08/17 16:00 Temperature 98.2 F 98.6 F Pulse Rate 95 H 90 94 H Respiratory Rate 23 22 Blood Pressure 161/73 H 162/85 H Pulse Oximetry 96 96 Intake & Output Result Diagrams: 09/08/17 04:58 09/06/17 08:15 Laboratory Results: Laboratory Results - last 24 hr 09/06/17 09/06/17 09/07/17 11:38 14:04 20:35 WBC RBC Hgb Hct MCV MCH MCHC RDW Plt Count MPV Prelim Diff (Auto) Neut % (Auto) Lymph % (Auto) [place] % (Auto) Eos % (Auto) Baso % (Auto) Neut # (Auto) Lymph # (Auto) [place] # (Auto) Eos # (Auto) Baso # (Auto) WBC Differential Seg Neuts % (Manual) Band Neuts % (Manual) Lymphocytes % (Manual) Monocytes % (Manual) Abs Neuts (Manual) Nucleated RBCs/100 WBC Differential Comment Platelet Estimate Platelet Morphology RBC Morphology POC Glucose 97 B-Natriuretic Peptide Blood Type Blood Type Recheck Antibody Screen MTS Gel Crossmatch See Detail See Detail 09/08/17 09/08/17 09/08/17 04:58 04:58 04:58 WBC 8.9 RBC 2.71 L Hgb 8.1 L Hct 23.6 L MCV 87.1 MCH 29.9 MCHC 34.3 RDW 15.5 Plt Count 98 L MPV 7.6 Prelim Diff (Auto) Slide review pending Neut % (Auto) 75.1 H Lymph % (Auto) 17.9 [place] % (Auto) 6.4 Eos % (Auto) 0.5 Baso % (Auto) 0.1 Neut # (Auto) 6.7 Lymph # (Auto) 1.6 [place] # (Auto) 0.6 Eos # (Auto) 0.0 Baso # (Auto) 0.0 WBC Differential Manual diff final Seg Neuts % (Manual) 71 H Band Neuts % (Manual) 2 Lymphocytes % (Manual) 21 Monocytes % (Manual) 6 Abs Neuts (Manual) 6.5 Nucleated RBCs/100 WBC 1 H Differential Comment . Platelet Estimate Low L Platelet Morphology Normal RBC Morphology Normal POC Glucose B-Natriuretic Peptide 46 Blood Type A Positive Blood Type Recheck Not needed Antibody Screen Negative MTS Gel Crossmatch 09/08/17 09/08/17 09/08/17 08:45 09:10 10:06 WBC RBC Hgb Hct MCV MCH MCHC RDW Plt Count MPV Prelim Diff (Auto) Neut % (Auto) Lymph % (Auto) [place] % (Auto) Eos % (Auto) Baso % (Auto) Neut # (Auto) Lymph # (Auto) [place] # (Auto) Eos # (Auto) Baso # (Auto) WBC Differential Seg Neuts % (Manual) Band Neuts % (Manual) Lymphocytes % (Manual) Monocytes % (Manual) Abs Neuts (Manual) Nucleated RBCs/100 WBC Differential Comment Platelet Estimate Platelet Morphology RBC Morphology POC Glucose 61 L 78 148 H B-Natriuretic Peptide Blood Type Blood Type Recheck Antibody Screen MTS Gel Crossmatch 09/08/17 09/08/17 11:55 17:44 WBC RBC Hgb Hct MCV MCH MCHC RDW Plt Count MPV Prelim Diff (Auto) Neut % (Auto) Lymph % (Auto) [place] % (Auto) Eos % (Auto) Baso % (Auto) Neut # (Auto) Lymph # (Auto) [place] # (Auto) Eos # (Auto) Baso # (Auto) WBC Differential Seg Neuts % (Manual) Band Neuts % (Manual) Lymphocytes % (Manual) Monocytes % (Manual) Abs Neuts (Manual) Nucleated RBCs/100 WBC Differential Comment Platelet Estimate Platelet Morphology RBC Morphology POC Glucose 157 H 79 B-Natriuretic Peptide Blood Type Blood Type Recheck Antibody Screen MTS Gel Crossmatch Culture Results: Microbiology 09/04/17 05:30 Aerobic Blood Culture - Preliminary Blood - Peripheral No growth in 4 days Anaerobic Blood Culture - Preliminary No growth in 4 days 09/04/17 05:45 Aerobic Blood Culture - Preliminary Blood - Peripheral No growth in 4 days Anaerobic Blood Culture - Preliminary No growth in 4 days Medications: Active Medications Al Hydroxide/Mg Hydroxide (Milk Of Mago Contreras) 30 ml PO Q12H PRN PRN Reason: Mild Constipation Albuterol (*Albuterol Neb Periprocedure Only) 2.5 mg NEB Q4HR NEB PRN PRN Reason: Respiratory Distress Albuterol (Duoneb Neb (Prn)) 1 ampul NEB Q2HR NEB PRN PRN Reason: SHORTNESS OF BREATH Last Admin: 09/05/17 19:42 Dose: 1 ampul Bisacodyl (Dulcolax Supp) 10 mg RECTAL DAILY PRN PRN Reason: SEVERE CONSITIPATION Budesonide/Formoterol Fumarate (Symbicort 160/4.5 Mcg Inh) 1 puff INH BID [facility] Last Admin: 09/08/17 09:41 Dose: 1 puff Chlorhexidine Gluconate (Chlorhexidine 2% Cloth) 3 pack TOPICAL DAILY@0400 [facility] Stop: 09/12/17 03:59 Last Admin: 09/08/17 04:53 Dose: Not Given Chlorhexidine Gluconate (Chlorhexidine 2% Cloth) 3 pack TOPICAL DAILY@0400 PRN PRN Reason: Extra cloth needed Stop: 09/12/17 03:59 Dextrose (D50w Vial) 50 ml IV.PUSH UNSCH PRN PRN Reason: PER HYPOGLYCEMIA PROTOCOL Last Admin: 09/08/17 09:39 Dose: 50 ml Glimepiride (Amaryl) 8 mg PO DAILY [facility] Last Admin: 09/08/17 10:18 Dose: Not Given Glucagon (Glucagon Inj) 1 mg OTHER PRN PRN PRN Reason: for Hypoglycemia Protocol Alpha-1 Proteinase Inhibitor ( (Human) 5,530 mg/ Syringe/Bag) mls @ 0 mls/hr IV.SIG Mo [facility] Last Admin: 09/04/17 18:14 Dose: 10 mls/hr Sodium Chloride (Ns Inj) 1,000 mls @ 84 mls/hr IV.CONT .[id number] [facility] Last Admin: 09/08/17 18:15 Dose: 84 mls/hr Insulin Aspart (Novolog Insulin Suppl Scale Inj) 0 unit SQ ACHS [facility]; Protocol Last Admin: 09/08/17 17:45 Dose: Not Given Insulin Detemir (Levemir Inj) 24 unit SQ HS [facility] Last Admin: 09/07/17 21:01 Dose: 24 unit Lactulose (Lactulose Liq) 30 ml PO DAILY PRN PRN Reason: SEVERE CONSITIPATION Metformin HCl (Glucophage) 1,000 mg PO BID [facility] Last Admin: 09/08/17 10:17 Dose: Not Given Pantoprazole Sodium (Protonix Inj) 40 mg IV.PUSH Q12H [facility] Last Admin: 09/08/17 13:27 Dose: 40 mg Pt Own Med: Ozempic (0.25mg As Directed) 0 each SQ Q7D [facility] Polyethylene Glycol (Miralax) 17 gm PO DAILY [facility] Last Admin: 09/08/17 09:40 Dose: 17 gm Senna/Docusate Sodium (Beth-Colace) 1 tab PO BID [facility] Last Admin: 09/08/17 09:40 Dose: 1 tab Sennosides (Senokot) 17.2 mg PO Q12H PRN PRN Reason: Moderate Constipation Sodium Chloride (Ns Flush) 2 ml IV.FLUSH BID [facility] Last Admin: 09/08/17 10:18 Dose: Not Given Sodium Chloride (Ns Flush) 2 ml IV.FLUSH PRN PRN PRN Reason: FLUSH AFTER USING IV ACCESS Temazepam (Restoril) 15 mg PO HS PRN PRN Reason: INSOMNIA Tiotropium [place] (Spiriva 18 Mcg Inh) 18 mcg INH DAILY [facility] Last Admin: 09/08/17 09:40 Dose: 18 mcg Objective Remarks: PE alert Abd - soft, min tympany, non-tender Assessment and Plan - Plan Imp: stable Hgb, no active bleeding unclear if BRB or melana will prep gently for colonoscopy
[2017-09-08] MEDS: Insulin Detemir Inj 1,000 UNIT/10 ML Vial SQ SCH (22:24)
[2017-09-09] MEDS: Sod Chloride 0.9% Inj 1,000 ML IV.CONT SCH ×2 (01:28→15:54)
[2017-09-09 04:33] LABS: Baso % (Auto) 0.2 % (0.0-2.0); Eos % (Auto) 0.5 % (0.0-4.0); Hematocrit 28.8 % (39.0-51.0); Hemoglobin 9.9 gm/dL (13.0-17.0); Lymph # (Auto) 1.4 th/mm3 (1.0-4.8); Lymph % (Auto) 15.1 % (9.0-44.0); Mean Corpuscular HGB Conc 34.5 % (32.0-36.0); Mean Corpuscular Hemoglobin 30.3 pg (27.0-34.0); Mean Corpuscular Volume 87.7 fL (80.0-100.0); Mean Platelet Volume 7.8 fL (7.0-11.0); Mono # (Auto) 0.7 th/mm3 (0.0-0.9); Mono % (Auto) 8.1 % (0.0-8.0); Neut % (Auto) 76.1 % (16.0-70.0); Platelet Count 123 th/mm3 (150-450); Red Blood Count 3.29 mil/mm3 (4.50-5.90); Red Cell Distribution Width 15.5 % (11.6-17.2); White Blood Count 9.2 th/mm3 (4.0-11.0)
[2017-09-09 04:46] LABS: Calcium 8.2 mg/dL (8.5-10.1); Carbon Dioxide 28.8 meq/L (21.0-32.0); Potassium 3.9 meq/L (3.5-5.1)
[2017-09-09] MEDS: Chlorhexidine Gluconate 2% 1 Pack (2 Cloths) TOPICAL SCH (07:48)
[2017-09-09] MEDS: Tiotropium Bromide 18 MCG/ACT Inhaler INH SCH (08:34)
[2017-09-09] MEDS: Budesonide-Formoterol 160/4.5 MCG 6 GM Inhaler INH SCH ×2 (08:34→21:38)
[2017-09-09] MEDS ORDERED: Polyethylene Glycol 3350 17 GM Packet PO PRN (09:36)
--- NOTE | 2017-09-09 10:23 | P.PNCS ---
Subjective Interval history: C/R Surg afebrile, VSS UO good stools black Objective Vital Signs/Intake & Output: Vital Signs 09/08/17 18:00 09/08/17 18:15 09/08/17 18:30 Temperature Pulse Rate 88 92 H 88 Respiratory Rate 23 17 Blood Pressure 143/73 H 172/81 H Pulse Oximetry 95 96 Intake & Output Result Diagrams: 09/09/17 03:27 09/09/17 03:27 Laboratory Results: Laboratory Results - last 24 hr Culture Results: Microbiology Medications: Active Medications Objective Remarks: alert Abd - soft, non-tender, no mass Assessment and Plan - Plan Imp: stable Hgb, no drop stools dark - ask GI for EGD, hold colon
[2017-09-09] MEDS: Glimepiride 4 MG Tablet PO SCH (10:35)
[2017-09-09] MEDS: Insulin NovoLOG Aspart Correctional Sugar Inj SQ SCH ×4 (10:35→21:32)
[2017-09-09] MEDS: Senna/Docusate Sodium 8.6/50 MG Tablet PO SCH ×2 (10:35→21:38)
--- NOTE | 2017-09-09 11:03 | P.PN ---
Subjective Interval history: Follow-up symptomatic anemia September 06, 2017-patient seen and examined, despite 2 units transfusion yesterday patient again with low H&H however denies any visible gross blood. Denies any shortness of breath or chest pain. Case discussed with Dr. King September 07, 2017-patient seen and examined, H&H improved post transfusion yesterday to 7.9/22.5. Patient denies any shortness of breath. September 08, 2017-patient seen and examined, H&H improved post transfusion. Patient had one BM described as black stool. No hematuria or hemoptysis September 09, 2017-patient seen and examined, H&H stable, patient with dark stool, seen this morning by GI and plan for EGD tomorrow Physical Exam Vital signs: Vital Signs 09/08/17 12:00 09/08/17 14:00 09/08/17 16:00 Temperature 98.2 F 98.6 F Pulse Rate 95 H 90 94 H Respiratory Rate 23 22 Blood Pressure 161/73 H 162/85 H Pulse Oximetry 96 96 09/08/17 18:00 09/08/17 18:15 09/08/17 18:30 Temperature Pulse Rate 88 92 H 88 Respiratory Rate 23 17 Blood Pressure 143/73 H 172/81 H Pulse Oximetry 95 96 09/08/17 18:45 09/08/17 19:00 09/08/17 19:15 Temperature Pulse Rate 88 88 91 H Respiratory Rate 14 17 15 Blood Pressure 161/69 H 163/76 H 158/79 H Pulse Oximetry 96 96 95 09/08/17 19:30 09/08/17 19:45 09/08/17 19:55 Temperature Pulse Rate 91 H 92 H 92 H Respiratory Rate 18 19 17 Blood Pressure 195/80 H 212/86 H 204/84 H Pulse Oximetry 92 L 94 L 95 09/08/17 20:00 09/08/17 20:01 09/08/17 20:04 Temperature 98.3 F Pulse Rate 94 H 99 H 96 H Respiratory Rate 21 25 H 21 Blood Pressure 216/95 H 217/95 H Pulse Oximetry 95 92 L 95 09/08/17 20:06 09/08/17 20:15 09/08/17 20:30 Temperature Pulse Rate 96 H 92 H 93 H Respiratory Rate 17 18 18 Blood Pressure 158/70 H 160/78 H 157/78 H Pulse Oximetry 96 95 96 09/08/17 20:46 09/08/17 21:00 09/08/17 21:15 Temperature Pulse Rate 97 H 94 H 96 H Respiratory Rate 38 H 20 22 Blood Pressure 131/66 168/77 H 167/80 H Pulse Oximetry 97 94 L 96 09/08/17 21:31 09/08/17 22:00 09/08/17 22:23 Temperature Pulse Rate 104 H 109 H 96 H Respiratory Rate 25 H 28 H 18 Blood Pressure 175/79 H 154/69 H Pulse Oximetry 92 L 91 L 94 L 09/08/17 22:30 09/08/17 22:45 09/08/17 23:00 Temperature Pulse Rate 93 H 92 H 91 H Respiratory Rate 16 16 17 Blood Pressure 156/67 H 154/70 H 153/72 H Pulse Oximetry 96 95 95 09/08/17 23:15 09/08/17 23:30 09/08/17 23:45 Temperature Pulse Rate 92 H 90 93 H Respiratory Rate 18 16 16 Blood Pressure 150/71 H 167/77 H 173/81 H Pulse Oximetry 95 95 95 09/09/17 00:00 09/09/17 00:15 09/09/17 00:30 Temperature 97.9 F Pulse Rate 92 H 91 H 93 H Respiratory Rate 17 17 19 Blood Pressure 168/77 H 156/73 H 147/68 H Pulse Oximetry 95 95 95 09/09/17 00:46 09/09/17 01:00 09/09/17 01:15 Temperature Pulse Rate 96 H 92 H 91 H Respiratory Rate 17 17 17 Blood Pressure 161/75 H 152/68 H 168/77 H Pulse Oximetry 94 L 94 L 95 09/09/17 01:30 09/09/17 01:45 09/09/17 02:00 Temperature Pulse Rate 92 H 92 H 91 H Respiratory Rate 12 17 23 Blood Pressure 152/77 H 152/83 H 161/82 H Pulse Oximetry 92 L 94 L 92 L 09/09/17 02:15 09/09/17 02:30 09/09/17 02:45 Temperature Pulse Rate 94 H 95 H 93 H Respiratory Rate 15 18 33 H Blood Pressure 161/87 H 161/80 H 154/72 H Pulse Oximetry 91 L 91 L 90 L 09/09/17 03:00 09/09/17 03:15 09/09/17 03:40 Temperature Pulse Rate 94 H 102 H 92 H Respiratory Rate 18 31 H 17 Blood Pressure 151/70 H 157/70 H 133/62 Pulse Oximetry 90 L 92 L 94 L 09/09/17 04:00 09/09/17 04:15 09/09/17 04:30 Temperature Pulse Rate 90 89 92 H Respiratory Rate 16 17 16 Blood Pressure 154/67 H 143/65 H 140/66 Pulse Oximetry 94 L 94 L 93 L 09/09/17 04:45 09/09/17 05:00 09/09/17 05:16 Temperature Pulse Rate 90 92 H 110 H Respiratory Rate 17 17 29 H Blood Pressure 145/67 H 177/79 H 171/82 H Pulse Oximetry 92 L 92 L 92 L 09/09/17 05:30 09/09/17 05:46 09/09/17 06:00 Temperature 98.2 F Pulse Rate 102 H 101 H 91 H Respiratory Rate 28 H 29 H 17 Blood Pressure 154/65 H 167/68 H 134/64 Pulse Oximetry 93 L 94 L 09/09/17 06:15 09/09/17 06:31 09/09/17 06:45 Temperature Pulse Rate 87 86 87 Respiratory Rate 29 H 16 17 Blood Pressure 142/68 H 148/65 H 146/69 H Pulse Oximetry 96 96 96 09/09/17 07:00 09/09/17 07:15 09/09/17 07:30 Temperature Pulse Rate 88 87 92 H Respiratory Rate 16 16 14 Blood Pressure 145/70 H 154/73 H 156/73 H Pulse Oximetry 96 96 96 09/09/17 08:25 Temperature Pulse Rate Respiratory Rate Blood Pressure Pulse Oximetry 96 Intake & Output 09/08/17 09/09/17 09/09/17 18:59 06:59 18:59 Intake Total 1800 / 1800 1490 / 1490 Output Total 1400 / 1400 Balance 1800 / 1800 90 / 90 Weight 91.7 kg Intake: IV 1000 / 1000 1250 / 1250 NS Inj 1,000 ML @ 84 mls/hr IV. 1000 / 1000 1000 / 1000 CONT .[id number] DAYSI Rx#:[id number] Oral 800 / 800 240 / 240 Intake (Blood Product) Amt 0 / 0 Rbc As-3 Leukoreduced Unit 0 / 0 [id number] Output: Urine 1400 / 1400 Other: # Voids 4 4 Date of Last Bowel Movement 09/07/17 09/09/17 # Bowel Movements 0 2 Narrative: GENERAL: NAD SKIN: Warm and dry. HEAD: Normocephalic. EYES: No scleral icterus. No injection or drainage. NECK: Supple, trachea midline. No JVD or lymphadenopathy. CARDIOVASCULAR: Regular rate and rhythm without murmurs, gallops, or rubs. RESPIRATORY: Breath sounds decrease bilaterally. No accessory muscle use. GASTROINTESTINAL: Abdomen soft, non-tender, nondistended. MUSCULOSKELETAL: No cyanosis, or edema. BACK: Nontender without obvious deformity. No CVA tenderness. Results - Labs CBC & Chem 7: 09/09/17 03:27 09/09/17 03:27 Laboratory Results - last 24 hr 09/08/17 09/08/17 09/08/17 11:55 17:44 20:29 WBC RBC Hgb Hct MCV MCH MCHC RDW Plt Count MPV Neut % (Auto) Lymph % (Auto) [place] % (Auto) Eos % (Auto) Baso % (Auto) Neut # (Auto) Lymph # (Auto) [place] # (Auto) Eos # (Auto) Baso # (Auto) WBC Differential Differential Comment Sodium Potassium Chloride Carbon Dioxide Anion Gap BUN Creatinine Estimated GFR POC Glucose 157 H 79 79 Random Glucose Calcium 09/08/17 09/09/17 09/09/17 22:42 03:27 03:27 WBC 9.2 RBC 3.29 L Hgb 9.9 L Hct 28.8 L MCV 87.7 MCH 30.3 MCHC 34.5 RDW 15.5 Plt Count 123 L MPV 7.8 Neut % (Auto) 76.1 H Lymph % (Auto) 15.1 [place] % (Auto) 8.1 H Eos % (Auto) 0.5 Baso % (Auto) 0.2 Neut # (Auto) 7.0 Lymph # (Auto) 1.4 [place] # (Auto) 0.7 Eos # (Auto) 0.0 Baso # (Auto) 0.0 WBC Differential . Differential Comment Auto diff final Sodium 144 Potassium 3.9 Chloride 109 H Carbon Dioxide 28.8 Anion Gap 6 BUN 13 Creatinine 0.87 Estimated GFR 84 L POC Glucose 101 Random Glucose 93 Calcium 8.2 L 09/09/17 08:43 WBC RBC Hgb Hct MCV MCH MCHC RDW Plt Count MPV Neut % (Auto) Lymph % (Auto) [place] % (Auto) Eos % (Auto) Baso % (Auto) Neut # (Auto) Lymph # (Auto) [place] # (Auto) Eos # (Auto) Baso # (Auto) WBC Differential Differential Comment Sodium Potassium Chloride Carbon Dioxide Anion Gap BUN Creatinine Estimated GFR POC Glucose 106 Random Glucose Calcium Microbiology 09/04/17 05:30 Blood - Peripheral Aerobic Blood Culture - Preliminary No growth in 4 days 09/04/17 05:30 Blood - Peripheral Anaerobic Blood Culture - Preliminary No growth in 4 days 09/04/17 05:45 Blood - Peripheral Aerobic Blood Culture - Preliminary No growth in 4 days 09/04/17 05:45 Blood - Peripheral Anaerobic Blood Culture - Preliminary No growth in 4 days Assessment and Plan - Assessment (1) Diabetes type 2, uncontrolled Code(s): E11.65 - Type 2 diabetes mellitus with hyperglycemia Status: Acute (2) Alpha 1-antitrypsin PiMS phenotype Code(s): R79.9 - Abnormal finding of blood chemistry, unspecified Status: Chronic (3) Lactic acid acidosis Code(s): E87.2 - Acidosis Status: Resolved (4) Leukocytosis, unspecified Code(s): D72.829 - Elevated white blood cell count, unspecified Status: Acute (5) Anemia, chronic disease Code(s): D63.8 - Anemia in other chronic diseases classified elsewhere Status : Acute - Plan 82-year-old man with Acute anemia Possible GI bleed -Patient transfused a total of 6 unit packed red blood cell, H&H stable -CTA abdomen ruled out presence of hemorrhage -Plan for EGD today August 11, 2017 per gastroenterology -Continue to monitor H&H. -Protonix IV COPD, with exacerbation Alpha-1 antitrypsin deficiency -Outpatient follow-up with pulmonary medicine -DuoNeb scheduled and as needed -Continue Symbicort, tiotropium. -Prolastin infusion q. weekly Diabetes type 2, uncontrolled blood glucose -Continue outpatient medications -Medium insulin sliding scale -Endocrinology consultation as needed Lactic acidosis-resolved Leukocytosis -Less likely due to infectious process UA negative. -Patient currently treated with steroid 12 days -Status post IV antibiotic in ED, will continue to monitor off antibiotics -Asymptomatic. 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
--- NOTE | 2017-09-09 11:21 | MB ---
cc: Juve Carpenter MD DATE: 09/09/2017 REASON FOR GASTROENTEROLOGY CONSULTATION: Evaluation of melena. HISTORY OF PRESENT ILLNESS: This is a pleasant 82-year-old male who was admitted 08/05/2017 with apparent gastrointestinal bleed and melena. Dr. King was consulted originally as he is known the patient from prior colonoscopic exams where he has had colon polyps removed in the past. The patient was at home in his usual state of health and his reports that he became weak, short of breath, presented to the hospital, was found to have a hemoglobin of 5.8 on admission. Stools remain dark and melenotic. He was somewhat dehydrated as well. He did have an elevated BUN and creatinine as well. states he has not been taking any NSAIDs or consuming any alcohol. There is a question of whether he has been receiving Plavix prior to this admission, and his believes he was taking that, although currently he is not on anticoagulation therapy. 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 In any event, the patient was transfused a total of 6 units of blood. His most recent hemoglobin was up to 9.9. It seems as if his melena has subsided somewhat. He has been receiving IV bolus injections of Protonix 40 mg every 12 hours. He has had no vomiting. He denies abdominal pain. He denies any significant weight loss. He has never had ulcer disease as far as his reports and we were asked to evaluate for upper endoscopy evaluation. PAST MEDICAL AND SURGICAL HISTORY: Includes diabetes, alpha-1 antitrypsin deficiency, PIMS phenotype. He does have some component of chronic anemia due to chronic disease. He has a history of hypertension, nephrolithiasis, COPD, diabetes, and previous cholecystectomy. SOCIAL HISTORY: He denies alcohol or illicit drug use. He is a former smoker. FAMILY HISTORY: There is no family history of colorectal cancer. ALLERGIES: PHENOBARBITAL. HOME MEDICATIONS: Include: 1. Insulin. 2. Ozempic. 3. Albuterol. 4. Glimepiride. 5. Metformin. 6. There is a question of what he was on Plavix as well. REVIEW OF SYSTEMS: A 12-point review of systems was mentioned in the HPI. PHYSICAL EXAMINATION: GENERAL: Well-developed, well-nourished, pleasant male who is alert and oriented x 3, in no acute distress. VITAL SIGNS: Currently stable. He is afebrile and normotensive. He is not tachycardic. HEENT: Normocephalic, atraumatic. Sclerae are anicteric. Oral mucosa is dry. He is edentulous. NECK: Supple. CARDIAC: S1, S2. Regular rate and rhythm. LUNGS: Chest is clear with poor expiratory effort. ABDOMEN: Slightly tympanic, otherwise benign. No masses. Bowel sounds are present. Surgical scars well healed. He has a small umbilical hernia. EXTREMITIES: Without clubbing, cyanosis or edema. His left arm is swollen and red with possible cellulitis. NEUROLOGIC: Appears to be intact. SKIN: Dry. No unusual rashes. He had the redness noted in the left upper extremity. ASSESSMENT: 1. Symptomatic anemia. 2. Melenotic stools. 3. Recent dehydration, improving. 4. Rule out upper gastrointestinal bleeding source. PLAN: We will proceed with EGD in the morning. Procedure, risks and benefits were discussed including risks of bleeding, sepsis, perforation, and risks of anesthesia. I would continue IV Protonix, monitor his H and H closely. We discussed the differential of upper GI bleeding to include ulcer disease, gastric or peptic ulcer, gastritis, esophagitis, and less likely malignancy. In addition, the patient was on anticoagulation therapy. This could have contributed to gastrointestinal bleeding which could include small bowel angiodysplastic disease as well. We will follow the patient with you closely. Thank you for this consultation. MD LAUREL Lyles/MICAELA , 10:07 AM , 11:20 AM
[2017-09-09] MEDS: Pantoprazole Inj 40 MG Vial IV.PUSH SCH ×2 (15:55→22:34)
[2017-09-09 16:52] LABS: Hematocrit 27.5 % (39.0-51.0); Hemoglobin 9.5 gm/dL (13.0-17.0)
[2017-09-09] MEDS: Insulin Detemir Inj 1,000 UNIT/10 ML Vial SQ SCH (21:31)
[2017-09-09] MEDS: Temazepam 15 MG Capsule PO PRN (22:18)
[2017-09-10] MEDS: Chlorhexidine Gluconate 2% 1 Pack (2 Cloths) TOPICAL SCH (04:02)
[2017-09-10 04:10] LABS: Baso % (Auto) 0.4 % (0.0-2.0); Eos # (Auto) 0.1 th/mm3 (0.0-0.4); Eos % (Auto) 0.7 % (0.0-4.0); Hematocrit 29.6 % (39.0-51.0); Lymph # (Auto) 1.2 th/mm3 (1.0-4.8); Lymph % (Auto) 13.9 % (9.0-44.0); Mean Corpuscular HGB Conc 33.8 % (32.0-36.0); Mean Corpuscular Hemoglobin 29.7 pg (27.0-34.0); Mean Corpuscular Volume 87.8 fL (80.0-100.0); Mean Platelet Volume 7.3 fL (7.0-11.0); Mono # (Auto) 0.8 th/mm3 (0.0-0.9); Mono % (Auto) 9.7 % (0.0-8.0); Neut # (Auto) 6.4 th/mm3 (1.8-7.7); Neut % (Auto) 75.3 % (16.0-70.0); Platelet Count 156 th/mm3 (150-450); Red Blood Count 3.38 mil/mm3 (4.50-5.90); Red Cell Distribution Width 15.1 % (11.6-17.2); White Blood Count 8.4 th/mm3 (4.0-11.0)
[2017-09-10] MEDS: Sod Chloride 0.9% Inj 1,000 ML IV.CONT SCH ×2 (06:33→19:13)
[2017-09-10] MEDS: Insulin NovoLOG Aspart Correctional Sugar Inj SQ SCH ×3 (09:19→21:05)
[2017-09-10] MEDS: Tiotropium Bromide 18 MCG/ACT Inhaler INH SCH (09:21)
[2017-09-10] MEDS: Glimepiride 4 MG Tablet PO SCH (09:21)
[2017-09-10] MEDS: Senna/Docusate Sodium 8.6/50 MG Tablet PO SCH (09:21)
[2017-09-10] MEDS: Budesonide-Formoterol 160/4.5 MCG 6 GM Inhaler INH SCH ×2 (09:21→20:37)
[2017-09-10] MEDS ORDERED: Succinylcholine Inj 100 MG/5 ML Syringe IV.PUSH ONE (12:00)
[2017-09-10] MEDS ORDERED: Normosol-R pH 7.4 Inj 1,000 ML IV.CONT ONE (12:00)
[2017-09-10] MEDS ORDERED: Lidocaine PF 1% Inj 5 ML Syringe INFILTRATN ONE (12:00)
[2017-09-10] MEDS ORDERED: Phenylephrine/NS 1000 MCG/10ML Syringe IV.PUSH ONE (12:00)
--- NOTE | 2017-09-10 12:52 | P.PN ---
Subjective Interval history: Follow-up symptomatic anemia September 06, 2017-patient seen and examined, despite 2 units transfusion yesterday patient again with low H&H however denies any visible gross blood. Denies any shortness of breath or chest pain. Case discussed with Dr. King September 07, 2017-patient seen and examined, H&H improved post transfusion yesterday to 7.9/22.5. Patient denies any shortness of breath. September 08, 2017-patient seen and examined, H&H improved post transfusion. Patient had one BM described as black stool. No hematuria or hemoptysis September 09, 2017-patient seen and examined, H&H stable, patient with dark stool, seen this morning by GI and plan for EGD tomorrow September 10, 2017-patient seen and examined, and for EGD today. H&H stable. Physical Exam Vital signs: Vital Signs 09/09/17 13:00 09/09/17 13:15 09/09/17 13:30 Temperature Pulse Rate 82 84 84 Respiratory Rate 18 17 17 Blood Pressure 141/65 H 141/66 H 144/71 H Pulse Oximetry 96 97 95 09/09/17 13:45 09/09/17 14:00 09/09/17 14:15 Temperature Pulse Rate 85 85 85 Respiratory Rate 13 15 17 Blood Pressure 167/76 H 172/80 H 157/72 H Pulse Oximetry 93 L 95 96 09/09/17 14:31 09/09/17 14:46 09/09/17 15:00 Temperature Pulse Rate 119 H 101 H 96 H Respiratory Rate 30 H 23 32 H Blood Pressure 175/91 H 156/70 H 161/74 H Pulse Oximetry 82 L 89 L 97 09/09/17 15:15 09/09/17 15:30 09/09/17 15:45 Temperature Pulse Rate 92 H 89 87 Respiratory Rate 17 25 H 18 Blood Pressure 165/75 H 151/70 H 153/74 H Pulse Oximetry 95 95 96 09/09/17 16:00 09/09/17 16:15 09/09/17 18:00 Temperature 98.5 F Pulse Rate 87 92 H 85 Respiratory Rate 17 37 H Blood Pressure 149/72 H 149/78 H Pulse Oximetry 96 96 09/09/17 20:00 09/09/17 21:09 09/09/17 22:00 Temperature 98.6 F Pulse Rate 91 H 90 Respiratory Rate 14 Blood Pressure 157/77 H Pulse Oximetry 95 96 09/10/17 00:00 09/10/17 02:00 09/10/17 04:00 Temperature 98.6 F 98.9 F Pulse Rate 91 H 89 97 H Respiratory Rate 20 20 Blood Pressure 136/61 158/68 H Pulse Oximetry 98 09/10/17 04:15 09/10/17 04:30 09/10/17 04:45 Temperature Pulse Rate 87 86 84 Respiratory Rate 19 17 33 H Blood Pressure 143/65 H 152/70 H 150/70 H Pulse Oximetry 99 99 99 09/10/17 05:00 09/10/17 05:15 09/10/17 05:22 Temperature Pulse Rate 83 91 H 85 Respiratory Rate 19 17 19 Blood Pressure 153/65 H 185/82 H 166/77 H Pulse Oximetry 100 99 100 09/10/17 05:30 09/10/17 05:45 09/10/17 06:00 Temperature Pulse Rate 84 84 86 Respiratory Rate 19 18 19 Blood Pressure 149/72 H 149/70 H 142/63 H Pulse Oximetry 100 100 98 09/10/17 06:15 09/10/17 06:30 09/10/17 06:45 Temperature Pulse Rate 86 91 H 86 Respiratory Rate 18 20 19 Blood Pressure 149/70 H 154/72 H 153/67 H Pulse Oximetry 99 99 98 09/10/17 07:00 09/10/17 07:30 09/10/17 07:45 Temperature Pulse Rate 87 104 H 96 H Respiratory Rate 20 39 H 15 Blood Pressure 125/57 L 133/72 151/72 H Pulse Oximetry 99 98 100 09/10/17 08:00 09/10/17 08:15 09/10/17 08:30 Temperature 98.7 F Pulse Rate 102 H 86 92 H Respiratory Rate 31 H 18 22 Blood Pressure 136/62 158/73 H 156/76 H Pulse Oximetry 95 98 99 09/10/17 08:45 09/10/17 09:00 09/10/17 09:15 Temperature Pulse Rate 90 84 90 Respiratory Rate 24 18 19 Blood Pressure 162/81 H 162/79 H 159/83 H Pulse Oximetry 99 99 98 09/10/17 09:30 09/10/17 09:45 09/10/17 10:00 Temperature Pulse Rate 88 87 86 Respiratory Rate 20 21 21 Blood Pressure 151/72 H 160/77 H 168/81 H Pulse Oximetry 97 98 98 09/10/17 10:40 Temperature 97.7 F Pulse Rate 92 H Respiratory Rate Blood Pressure 158/77 H Pulse Oximetry 96 Intake & Output 09/09/17 09/10/17 09/10/17 18:59 06:59 18:59 Intake Total 240 / 240 1000 / 1000 Output Total 1200 / 1200 800 / 800 Balance -960 / -960 200 / 200 Intake: IV 1000 / 1000 NS Inj 1,000 ML @ 60 mls/hr IV. 1000 / 1000 CONT .[id number] DAYSI Rx#:[id number] Oral 240 / 240 0 / 0 Tube Feeding 0 / 0 Output: Urine 1200 / 1200 800 / 800 Other: Date of Last Bowel Movement 09/09/17 09/09/17 09/09/17 # Bowel Movements 3 4 Narrative: GENERAL: NAD SKIN: Warm and dry. HEAD: Normocephalic. EYES: No scleral icterus. No injection or drainage. NECK: Supple, trachea midline. No JVD or lymphadenopathy. CARDIOVASCULAR: Regular rate and rhythm without murmurs, gallops, or rubs. RESPIRATORY: Breath sounds decrease bilaterally. No accessory muscle use. GASTROINTESTINAL: Abdomen soft, non-tender, nondistended. MUSCULOSKELETAL: No cyanosis, or edema. BACK: Nontender without obvious deformity. No CVA tenderness. Results - Labs CBC & Chem 7: 09/10/17 03:59 09/09/17 03:27 Laboratory Results - last 24 hr 09/09/17 09/09/17 09/09/17 16:00 17:52 21:28 WBC RBC Hgb 9.5 L Hct 27.5 L MCV MCH MCHC RDW Plt Count MPV Neut % (Auto) Lymph % (Auto) [place] % (Auto) Eos % (Auto) Baso % (Auto) Neut # (Auto) Lymph # (Auto) [place] # (Auto) Eos # (Auto) Baso # (Auto) WBC Differential Differential Comment POC Glucose 101 165 H 09/10/17 09/10/17 09/10/17 03:59 08:45 12:26 WBC 8.4 RBC 3.38 L Hgb 10.0 L Hct 29.6 L MCV 87.8 MCH 29.7 MCHC 33.8 RDW 15.1 Plt Count 156 MPV 7.3 Neut % (Auto) 75.3 H Lymph % (Auto) 13.9 [place] % (Auto) 9.7 H Eos % (Auto) 0.7 Baso % (Auto) 0.4 Neut # (Auto) 6.4 Lymph # (Auto) 1.2 [place] # (Auto) 0.8 Eos # (Auto) 0.1 Baso # (Auto) 0.0 WBC Differential . Differential Comment Auto diff final POC Glucose 131 H 191 H Microbiology 09/09/17 14:40 Stool Stool Occult Blood (MARIANNA) - Final Hemoccult positive 09/04/17 05:30 Blood - Peripheral Aerobic Blood Culture - Final No growth in 5 days 09/04/17 05:30 Blood - Peripheral Anaerobic Blood Culture - Final No growth in 5 days 09/04/17 05:45 Blood - Peripheral Aerobic Blood Culture - Final No growth in 5 days 09/04/17 05:45 Blood - Peripheral Anaerobic Blood Culture - Final No growth in 5 days Assessment and Plan - Assessment (1) Diabetes type 2, uncontrolled Code(s): E11.65 - Type 2 diabetes mellitus with hyperglycemia Status: Acute (2) Alpha 1-antitrypsin PiMS phenotype Code(s): R79.9 - Abnormal finding of blood chemistry, unspecified Status: Chronic (3) Lactic acid acidosis Code(s): E87.2 - Acidosis Status: Resolved (4) Leukocytosis, unspecified Code(s): D72.829 - Elevated white blood cell count, unspecified Status: Acute (5) Anemia, chronic disease Code(s): D63.8 - Anemia in other chronic diseases classified elsewhere Status : Acute - Plan 82-year-old man with Acute anemia Possible GI bleed -Patient transfused a total of 6 unit packed red blood cell, H&H stable -CTA abdomen ruled out presence of hemorrhage -Plan for EGD today September 10, 2017 per gastroenterology -Continue to monitor H&H. -Protonix IV COPD, with exacerbation Alpha-1 antitrypsin deficiency -Outpatient follow-up with pulmonary medicine -DuoNeb scheduled and as needed -Continue Symbicort, tiotropium. -Prolastin infusion q. weekly Diabetes type 2, uncontrolled blood glucose -Continue outpatient medications -Medium insulin sliding scale -Endocrinology consultation as needed Lactic acidosis-resolved Leukocytosis -Less likely due to infectious process UA negative. -Patient currently treated with steroid 12 days -Status post IV antibiotic in ED, will continue to monitor off antibiotics -Asymptomatic. DVT prophylaxis: Hold heparin secondary to acute anemia PT to treat and eval (1) Diabetes type 2, uncontrolled Qualifiers: Diabetes mellitus fci insulin use: with long term care administrator use Diabetes mellitus complication status: without complication Qualified Code(s): E11.65 - Type 2 diabetes mellitus with hyperglycemia; Z79.4 - skilled nursing (current) use of insulin (4) Leukocytosis, unspecified Qualifiers: Leukocytosis type: unspecified Qualified Code(s): D72.829 - Elevated white blood cell count, unspecified
[2017-09-10] MEDS ORDERED: Propofol Inj 500 MG/50 ML Vial ONE (15:47)
--- NOTE | 2017-09-10 16:10 | MR ---
cc: Juve Carpenter MD DATE: 09/10/2017 PROCEDURE PERFORMED: Upper endoscopy. INDICATION FOR PROCEDURE: Evaluation for possible upper GI bleed. Photographs were taken. No biopsies. PREMEDICATION: Administered by anesthesiology. MONITORING: Constant pulse oximetry, EKG, blood pressure monitor. PROCEDURE NOTE: After informed consent was obtained, and the procedure, risks and benefits were explained, including the risks of bleeding, sepsis, perforation, risks of anesthesia, the patient was placed in left lateral position. The video endoscope was inserted into esophagus. Under direct visualization, the esophagus appeared to be normal throughout. However, upon entry into the stomach, a large clot with fresh blood was noted in the proximal stomach towards the lesser curvature side, although somewhat at the junction between the lesser and greater curvature as well. The scope was removed. The patient was intubated to protect the airway. The scope was reintroduced. Once again this large clot probably 10 cm or greater in size in both directions was noted with fresh bright red blood noted as well. Multiple attempts at trying to remove the clot only removed small fragments of the clot. Some of it was adherent to the gastric wall. I used a Lindsay basket and the snare to try and extract clot segments to dislodge it, but only smaller pieces could be removed. The main body of the clot remained fixated. There was bright red blood noted once again. In the retroflexed view, I could appreciate the fundal cardia region for the most part, I did not appreciate any vasculature in this area or gastric varices, etc., and there was no active bleeding noted below the EG junction. The rest of the stomach was unremarkable for any bleeding source. The pylorus and duodenum and the first, second and third portion were all unremarkable without any blood as well. Attention was directed back towards the large clot. We reintroduced a larger scope, a double channel scope, and again we attempted to suction and remove the large clot body, but this was unsuccessful, after multiple attempts, I could not visualize the active source of bleed which was probably localized directly below the large body of the clot. The patient did receive 1 unit of packed cells during the procedure. I contacted radiology for interventional radiology intervention to attempt to localize and stop the bleeding. IMPRESSION: This examination revealed a large clot in the proximal stomach, localized at the junction of the lesser greater curvature, more towards the lesser side. Multiple attempts for clot extraction and visualization of the obvious source of bleeding was unsuccessful due to the aforementioned characteristics and reasons above. We attempted to extract and remove the clot for about an hour, and we were unsuccessful. PLAN: We will proceed with interventional radiology evaluation and possible treatment. Continue transfusion. Followup the H and H. Will discuss the findings with the patient's family as well. He tolerated the procedure well without any immediate complication. He was left intubated post-procedure as well. MD LAUREL Lyles/MEME , 03:45 PM , 04:09 PM
[2017-09-10] MEDS ORDERED: Octreotide Inj 50 MCG/ML Vial IV.PUSH ONE (16:35)
--- NOTE | 2017-09-10 17:10 | P.PNCS ---
Subjective Interval history: C/R Surg afebrile, VSS UO good still some black stools Objective Vital Signs/Intake & Output: Vital Signs Intake & Output Result Diagrams: 09/10/17 03:59 09/09/17 03:27 Laboratory Results: Laboratory Results - last 24 hr Culture Results: Microbiology 09/09/17 14:40 Stool Occult Blood (MARIANNA) - Final Stool Hemoccult positive 09/04/17 05:30 Aerobic Blood Culture - Final Blood - Peripheral No growth in 5 days Anaerobic Blood Culture - Final No growth in 5 days 09/04/17 05:45 Aerobic Blood Culture - Final Blood - Peripheral No growth in 5 days Anaerobic Blood Culture - Final No growth in 5 days Medications: Active Medications Objective Remarks: PE alert Abd - soft, dought, non-tender Assessment and Plan - Plan Imp: stable Hgb, no drop stools dark - ask GI for EGD - lg clot in stomach, ? ulcer IR to try A-gram
[2017-09-10] MEDS: Propofol 1000 mg/100 ml Inj 1,000 MG/100 ML BOTTLE IV.CONT PRN ×3 (18:07→21:05)
[2017-09-10] MEDS ORDERED: fentaNYL Citrate Inj 100 MCG/2 ML Ampul ONE (18:14)
--- NOTE | 2017-09-10 18:24 | P.RAD ---
Post Procedure Progress Note - Procedure Information Procedure Date: 09/10/17 Supervising Radiologist: Napoleon Resendez MD Estimated blood loss (mL): 0 Anesthesia: Conscious Sedation - Plan of Activity Patient to Unit: Critical Care Patient Condition: Fair Additional Comments: Small area of bleed from LGA branch. Variant celiac anatomy. Gelfoam and coil embolized branch. See PACS Report for procedural detail/treatment.
[2017-09-10] MEDS ORDERED: Gelatin 12 MM/7 MM Topical Foam I-ARTERIAL ONE (18:45)
--- NOTE | 2017-09-10 18:48 | MB ---
cc: Melissa Coreas MD DATE: 09/10/2017 HISTORY OF PRESENT ILLNESS: The patient is an 82-year-old male with a past medical history of COPD, alpha-1 antitrypsin deficiency, diabetes mellitus, hyperlipidemia, hypertension, who was admitted on 09/04/2017 on the hospitalist service for shortness of breath and the patient was found to have severe anemia with hemoglobin level of 6.0. In addition, the patient had acute kidney injury with a creatinine level of 1.4-1.5. His lactic acid level was 2.2 on arrival. 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 Bilateral renal cysts, hepatic steatosis and diverticulosis of the colon noted. He was seen by GI service and colorectal surgery. The patient underwent upper endoscopy today, which revealed a large clot in the proximal stomach localized at the junction of the lesser and greater curvature. Multiple attempts for clot extraction were unsuccessful. During the procedure, the patient received 1 unit of red blood cells. Interventional radiology was notified by GI and patient is in the process of going to interventional radiology for possible embolization. His hemoglobin level at 10.0 early this morning. The patient remained intubated post-endoscopy and critical care medicine was consulted for critical care management. The patient arrived to [facility] briefly and went to IR for possible embolization. He is sedated with Diprivan currently at 20 mcg with a blood pressure 136/74, pulse of 97 saturation 100%. PAST MEDICAL HISTORY: Significant for diabetes mellitus, hypertension, alpha-1 antitrypsin deficiency, chronic anemia, hypertension, nephrolithiasis, COPD, diabetes mellitus. PAST SURGICAL HISTORY: Previous cholecystectomy. SOCIAL HISTORY: Ex-smoker and nondrinker. FAMILY HISTORY: Noncontributing to present illness. ALLERGIES: PHENOBARBITAL. HOME MEDICATIONS: Include: 1. Insulin. 2. Albuterol. 3. Glimepiride. 4. Metformin. REVIEW OF SYSTEMS: As per HPI. Rest of review of systems is unobtainable as the patient is intubated. PHYSICAL EXAMINATION: GENERAL: An 82-year-old male, remained intubated post-endoscopy. VITAL SIGNS: Afebrile. Temperature 98.2, pulse 97, respiratory rate of 14, blood pressure 136/74, saturation 100%. HEENT: Atraumatic, normocephalic. Pupils are equal, round, reactive to light and accommodation. Extraocular muscles intact. Conjunctivae pink. Nonicteric sclerae. Oral mucosa within normal. NECK: Supple. No JVD, adenopathy or thyromegaly. Trachea in the midline. Orally intubated. CARDIOVASCULAR: Regular rate and rhythm. Normal S1, S2. No murmurs, rubs or gallops noted. PULMONARY: Bilateral equal air entry. No rales, rhonchi or wheezing. ABDOMEN: Soft, nontender. No distention. Positive bowel sounds. EXTREMITIES: No cyanosis, clubbing, edema. NEUROLOGIC: Intubated and sedated with Diprivan. LABORATORY DATA: WBC 8.4, hemoglobin 10, hematocrit 29.6, platelets 156. Sodium 144, potassium 3.9, chloride 109, CO2 of 28, BUN 13, creatinine 0.87, glucose 191. RADIOGRAPHIC STUDIES: CTA of the abdomen and pelvis showed atherosclerotic changes without aneurysm. Small focal chronic dissection infrarenal abdominal aorta, bilateral renal cysts, hepatic steatosis and diverticulosis of the colon. No evidence of any hemorrhage identified. IMPRESSION: 1. Vent dependent respiratory failure. 2. Upper gastrointestinal bleeding. 3. Anemia secondary to acute blood loss. 4. Hypertension. 5. Diabetes mellitus. 6. Alpha-1 antitrypsin deficiency. 7. Chronic obstructive pulmonary disease. 8. Hyperlipidemia. 9. History of nephrolithiasis. RECOMMENDATIONS: 1. Continue with Diprivan infusion for sedation and daily sedation vacation. Monitor neuro status closely. 2. Continue with vent support and maintain sats above 92%. 3. Bronchodilators in the form of DuoNeb every 6 hours and every 2 hours p.r.n. for shortness of breath. We will initiate ICU vent bundle. 4. Check chest x-ray and ABG post-intubation. 5. Monitor heart rate and blood pressure closely and maintain a MAP greater than [address] on IV fluids NS at 75 mL an hour. We will check lactic acid level. His lactic acid was 1.8 on 09/04/2017. 6. Monitor renal function, I's and O's and electrolyte replacement per protocol. IV fluids as stated above. 7. Continue with Protonix 40 mg IV every 12 hours. Keep n.p.o. 8. The patient is status post upper endoscopy today, which showed large clot in the proximal stomach localized at the junction of the lesser and greater curvature. Multiple attempts for clot extraction were unsuccessful. The patient to undergo possible embolization. He received 1 unit of blood during the procedure. We will repeat hemoglobin and hematocrit. 9. Dr. King from colorectal surgery is following as well. 10. Monitor for signs of infection, which include fever and WBC. Damon culture if spikes a fever. His blood culture from 09/04/2017 showed no growth in 5 days. 11. Sliding scale insulin with Accu-Chek for glycemic control. Hold Metformin, Levemir insulin and Amaryl as the patient is n.p.o. 12. Monitor CBC and coags. The patient is status post transfusion 1 unit of PRBC during upper endoscopy today. We will check H and H every 6 hours. 13. Gastrointestinal prophylaxis with Protonix 40 mg b.i.d. and deep venous thrombosis prophylaxis with sequential compression devices. Chemical anticoagulation prophylaxis contraindicated in the setting of gastrointestinal bleed. 14. Further recommendations will be based on hospital course. MD THOMAS Hamilton/MICAELA , 05:04 PM , 06:47 PM
[2017-09-10] MEDS: Octreotide Inj 500 MCG in Sodium Chlor 0.9% Inj 500 ML IV.CONT SCH (19:14)
[2017-09-10 19:15] LABS: Baso % (Auto) 0.1 % (0.0-2.0); Hematocrit 27.2 % (39.0-51.0); Hemoglobin 9.2 gm/dL (13.0-17.0); Lymph # (Auto) 0.5 th/mm3 (1.0-4.8); Lymph % (Auto) 5.1 % (9.0-44.0); Mean Corpuscular HGB Conc 33.7 % (32.0-36.0); Mean Corpuscular Volume 89.1 fL (80.0-100.0); Mean Platelet Volume 7.3 fL (7.0-11.0); Mono # (Auto) 0.3 th/mm3 (0.0-0.9); Mono % (Auto) 2.9 % (0.0-8.0); Neut # (Auto) 9.6 th/mm3 (1.8-7.7); Neut % (Auto) 91.9 % (16.0-70.0); Platelet Count 154 th/mm3 (150-450); Red Blood Count 3.06 mil/mm3 (4.50-5.90); White Blood Count 10.4 th/mm3 (4.0-11.0)
[2017-09-10 20:04] LABS: Alanine Aminotransferase 17 U/L (12-78); Albumin 2.2 g/dL (3.4-5.0); Alkaline Phosphatase 43 U/L (45-117); Anion Gap 12 meq/L (5-15); Aspartate Aminotransferase 8 U/L (15-37); Blood Urea Nitrogen 27 mg/dL (7-18); Calcium 7.5 mg/dL (8.5-10.1); Carbon Dioxide 21.5 meq/L (21.0-32.0); Chloride 107 meq/L (98-107); Glomerular Filtration Rate 81 mL/min (>89); Glucose,Random 204 mg/dL (74-106); Magnesium 2.3 mg/dL (1.5-2.5); Phosphorus 2.2 mg/dL (2.5-4.9); Potassium 4.7 meq/L (3.5-5.1); Sodium 140 meq/L (136-145); Total Protein 4.8 g/dL (6.4-8.2)
--- NOTE | 2017-09-10 20:25 | XR ---
EXAM DATE: 09/10/2017 8:09 PM EDT AGE/SEX: 82 years / Male INDICATIONS: Evaluate intubation CLINICAL DATA: This is the patient's subsequent encounter. Patient reports that signs and symptoms h ave been present for 3 days and indicates a pain score of Nonresponsive. MEDICAL/SURGICAL HISTORY: . Diabetes. Hypertension. Chronic obstructive pulmonary disease None . COMPARISON: [facility] [place], CHEST 1V SINGLE AP, 09/04/2017. . FINDINGS: Endotracheal tube in good position. Minimal basilar atelectasis. No consolidation. No effusion. No pn eumothorax. CONCLUSION: Minimal basilar atelectasis. Endotracheal tube in good position. Electronically signed by: Horacio Cade MD 09/10/2017 8:23 PM EDT
[2017-09-10] MEDS ORDERED: fentaNYL 10 mcg/mL Premix Drip 2,500 MCG/250 ML BAG IV.SIG PRN (21:38)
[2017-09-10 21:42] LABS: ABG PCO2 48 mmHg (38-42); ABG PO2 259 mmHG (61-120)
[2017-09-10] MEDS: Pantoprazole Inj 40 MG Vial IV.PUSH SCH (22:22)
[2017-09-10 23:52] LABS: Hematocrit 28.2 % (39.0-51.0); Hemoglobin 9.3 gm/dL (13.0-17.0)
[2017-09-10 23:58] LABS: Prothrombin Time 9.9 sec (9.8-11.6)
--- NOTE | 2017-09-11 00:04 | IR ---
EXAM DATE: 09/10/2017 7:18 PM EDT AGE/SEX: 82 years / Male INDICATIONS: Patient with a history of GI bleed. CLINICAL DATA: This is the patient's initial encounter. Patient reports that signs and symptoms have been present for 1 day and indicates a pain score of Nonresponsive. MEDICAL/SURGICAL HISTORY: . Type II DiabetesAnemiaLeukocytosisCOPDKidney stoneHyperlipidemia . Cholecystectomy COMPARISON: [facility], CTA ABDOMEN & PELVIS W CONTRAST W 3D, 09/06/2017. . FLUORO TIME (min): 18.5 IMAGE SERIES: 14 ACCESS SITE: Right femoral artery SEDATION TIME (min): 70 CONTRAST (cc): 200cc Visipaque (iodixanol) MEDICATION(S): 2mg midazolam (Versed) IV 50mcg fentanyl (Sublimaze) IV DEVICE(S): Left gastric artery embolic coil(s) 4mmX4.5cm Interlock Left gastric artery Gelfoam . . PROCEDURE : 1. Ultrasound-guided puncture of the access site. 2. Conscious sedation with continuous EKG and Oximetry monitoring. 3. Selective catheter placement in the celiac artery selective angiography. 4. Selective catheter placement in the splenic artery with selective angiography 5. Selective catheter placement in the left gastric artery with selective angiography 6. Selective catheter placement in the gastroduodenal artery with selective angiography 7. Selective catheter placement in the left inferior phrenic artery 8. Gelfoam and coil embolization of the left inferior phrenic artery The risks, benefits and alternatives to the procedure were explained and verbal and written consent w as obtained. The site was prepped in sterile fashion. Full sterile technique was used, including ca p, mask, sterile gloves and gown and a large sterile sheet. Hand hygiene and 2% chlorhexidine and/or betadine/alcohol prep was utilized per protocol for cutaneous antisepsis. Sterile gel and sterile p robe cover were utilized for ultrasound guidance. The skin and subcutaneous tissues were infiltrated with local anesthetic solution. With ultrasound and fluoroscopic guidance the selected artery was punctured and a vascular sheath was placed. 4 [place] catheter was then advanced into the celiac artery and angiography was performed. Th is demonstrated standard celiac anatomy with no evidence for contrast extravasation. Catheter was the n positioned in the splenic artery and angiography was performed. This demonstrated no variant gastri c branches or contrast extravasation. Catheter was then repositioned in the left gastric artery and a ngiography was performed in multiple obliquities. This did not demonstrate contrast extravasation alt leigha there was relative hyperemia of the gastric fundus. Catheter was then repositioned in the gastr oduodenal artery and angiography was performed. This did not demonstrate any contrast extravasation. A Renegade microcatheter was advanced more distally into the gastroepiploic artery and angiography wa s performed demonstrating no contrast extravasation. Catheter was subsequently advanced into the left inferior phrenic artery. Angiography was performed. There was abnormal contrast blush in the region of the gastric fundus/body which was reproducible in multiple obliquities. Therefore, decision was ma de to embolize this branch. The left inferior phrenic artery was embolized with small amount of Gelfo am and a single 4 mm coil. Postembolization angiogram demonstrated stasis of flow in the embolized br anch. Wires and catheters were then removed. The puncture site was closed with manual pressure and hemostasis was obtained. The patient tolerated the procedure well and there were no complications. Conscious sedation was performed with the prescribed dosages and duration as above in the presence of an independent trained radiology nurse to assist in the monitoring of the patient. EKG and oximetry remained stable throughout the procedure. CONCLUSION: 1. Abnormal accumulation of contrast in the region of the gastric body/fundus apparently from small branches arising from the left inferior phrenic artery. Therefore, the left inferior phrenic artery w as embolized. 2. Prominent left gastric artery with relative hyperemia of the gastric fundus. This was better appr eciated on retrospective review of the angiography and comparison CTA exam. If patient's gastric hemo rrhage does not resolve, consider prophylactic embolization of the left gastric artery. Electronically signed by: Napoleon Resendez MD 09/11/2017 12:02 AM EDT
[2017-09-11 01:05] LABS: ABG Base Excess -4.6 mmol/L (-2-2); ABG PCO2 41 mmHg (38-42); ABG PO2 160 mmHG (61-120)
[2017-09-11] MEDS: Propofol 1000 mg/100 ml Inj 1,000 MG/100 ML BOTTLE IV.CONT PRN ×2 (04:06)
[2017-09-11] MEDS: Chlorhexidine Gluconate 2% 1 Pack (2 Cloths) TOPICAL SCH (05:22)
[2017-09-11] MEDS: Octreotide Inj 500 MCG in Sodium Chlor 0.9% Inj 500 ML IV.CONT SCH ×2 (05:22→16:32)
[2017-09-11 05:47] LABS: Baso % (Auto) 0.1 % (0.0-2.0); Hematocrit 27.8 % (39.0-51.0); Hemoglobin 9.2 gm/dL (13.0-17.0); Lymph # (Auto) 0.5 th/mm3 (1.0-4.8); Lymph % (Auto) 4.4 % (9.0-44.0); Mean Corpuscular HGB Conc 33.2 % (32.0-36.0); Mean Corpuscular Hemoglobin 29.9 pg (27.0-34.0); Mean Platelet Volume 7.2 fL (7.0-11.0); Mono # (Auto) 0.6 th/mm3 (0.0-0.9); Mono % (Auto) 4.6 % (0.0-8.0); Neut # (Auto) 11.1 th/mm3 (1.8-7.7); Neut % (Auto) 90.9 % (16.0-70.0); Platelet Count 181 th/mm3 (150-450); Red Blood Count 3.09 mil/mm3 (4.50-5.90); Red Cell Distribution Width 15.2 % (11.6-17.2); White Blood Count 12.2 th/mm3 (4.0-11.0)
[2017-09-11 06:10] LABS: Albumin 2.2 g/dL (3.4-5.0); Anion Gap 17 meq/L (5-15); Aspartate Aminotransferase 9 U/L (15-37); Blood Urea Nitrogen 29 mg/dL (7-18); Calcium 7.6 mg/dL (8.5-10.1); Carbon Dioxide 16.5 meq/L (21.0-32.0); Chloride 108 meq/L (98-107); Glomerular Filtration Rate 60 mL/min (>89); Glucose,Random 246 mg/dL (74-106); Potassium 4.8 meq/L (3.5-5.1); Sodium 141 meq/L (136-145)
[2017-09-11 06:11] LABS: Alanine Aminotransferase 18 U/L (12-78)
[2017-09-11 06:13] LABS: Alkaline Phosphatase 47 U/L (45-117); Total Protein 5.1 g/dL (6.4-8.2)
--- NOTE | 2017-09-11 07:51 | P.PNCC ---
Subjective Subjective Remarks/Hospital Course: The patient is an 82-year-old male with a past medical history of COPD, alpha-1 antitrypsin deficiency, diabetes mellitus, hyperlipidemia, hypertension, who was admitted on 09/04/2017 on the hospitalist service for shortness of breath and the patient was found to have severe anemia with hemoglobin level of 6.0. In addition, the patient had acute kidney injury with a creatinine level of 1.4-1.5. His lactic acid level was 2.2 on arrival. 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 Bilateral renal cysts, hepatic steatosis and diverticulosis of the colon noted. He was seen by GI service and colorectal surgery. The patient underwent upper endoscopy 09/10, which revealed a large clot in the proximal stomach localized at the junction of the lesser and greater curvature. Multiple attempts for clot extraction were unsuccessful. During the procedure, the patient received 1 unit of red blood cells. 09/11 s/p Gelfoam and coil embolized branch, small area of bleed from LGA branch , Hb 9.2 today. Wakes up easily on sedation hold and follows commands. No further bleeding noted Objective Vital Signs / I&O: Vital Signs 09/10/17 08:00 09/10/17 08:15 09/10/17 08:30 Temperature 98.7 F Pulse Rate 102 H 86 92 H Respiratory Rate 31 H 18 22 Blood Pressure 136/62 158/73 H 156/76 H Pulse Oximetry 95 98 99 09/10/17 08:45 09/10/17 09:00 09/10/17 09:15 Temperature Pulse Rate 90 84 90 Respiratory Rate 24 18 19 Blood Pressure 162/81 H 162/79 H 159/83 H Pulse Oximetry 99 99 98 09/10/17 09:30 09/10/17 09:45 09/10/17 10:00 Temperature Pulse Rate 88 87 86 Respiratory Rate 20 21 21 Blood Pressure 151/72 H 160/77 H 168/81 H Pulse Oximetry 97 98 98 09/10/17 10:40 09/10/17 12:00 09/10/17 13:51 Temperature 97.7 F 97.8 F 97.4 F L Pulse Rate 92 H 110 H 116 H Respiratory Rate 13 15 Blood Pressure 158/77 H 128/64 79/47 L Pulse Oximetry 96 98 98 09/10/17 13:55 09/10/17 16:05 09/10/17 16:10 Temperature 97.2 F L 98.2 F Pulse Rate 113 H 97 H 97 H Respiratory Rate 14 14 15 Blood Pressure 116/61 107/55 L 125/60 Pulse Oximetry 94 L 09/10/17 16:20 09/10/17 16:34 09/10/17 18:46 Temperature Pulse Rate 96 H 88 Respiratory Rate 14 8 L Blood Pressure 112/59 L Pulse Oximetry 49 L 100 09/10/17 18:53 09/10/17 19:00 09/10/17 19:13 Temperature 97.7 F Pulse Rate 87 88 Respiratory Rate 21 19 Blood Pressure 117/58 L Pulse Oximetry 100 100 100 09/10/17 19:30 09/10/17 19:36 09/10/17 19:45 Temperature Pulse Rate 85 85 Respiratory Rate 14 16 Blood Pressure 139/73 Pulse Oximetry 98 100 09/10/17 20:00 09/10/17 20:01 09/10/17 20:30 Temperature Pulse Rate 84 84 87 Respiratory Rate Blood Pressure 161/75 H 145/75 H Pulse Oximetry 99 100 100 09/10/17 21:00 09/10/17 21:30 09/10/17 22:00 Temperature Pulse Rate 89 90 89 Respiratory Rate Blood Pressure 145/72 H 134/66 135/65 Pulse Oximetry 100 100 100 09/10/17 22:30 09/10/17 23:00 09/10/17 23:30 Temperature Pulse Rate 89 88 88 Respiratory Rate Blood Pressure 121/59 L 117/56 L 115/55 L Pulse Oximetry 100 100 100 09/10/17 23:53 09/11/17 00:00 09/11/17 00:30 Temperature 97.9 F 97.9 F Pulse Rate 85 86 86 Respiratory Rate 14 Blood Pressure 116/56 L 119/56 L Pulse Oximetry 100 100 100 09/11/17 01:00 09/11/17 01:06 09/11/17 02:00 Temperature Pulse Rate 84 83 85 Respiratory Rate 14 Blood Pressure 100/54 L 100/54 L Pulse Oximetry 100 09/11/17 04:00 09/11/17 04:11 09/11/17 06:00 Temperature Pulse Rate 86 84 87 Respiratory Rate 14 Blood Pressure Pulse Oximetry 100 09/11/17 07:43 Temperature Pulse Rate 93 H Respiratory Rate 7 L Blood Pressure Pulse Oximetry 100 Intake & Output 09/10/17 09/11/17 09/11/17 18:59 06:59 18:59 Intake Total 1850 / 1850 1739 / 1739 Output Total 800 / 800 Balance 1850 / 1850 939 / 939 Weight 89 kg Intake: IV 1739 / 1739 SandoSTATIN Inj 500 MCG In NS 500 / 500 Inj 500 ML @ 50 MCG/HR 50.05 mls/hr IV.CONT .Q10H [facility] Rx#: [id number] Diprivan 1000 mg/100 ml Inj 1, 433 / 433 000 mg In 100 ml @ 20 MCG/KG/ MIN 11.004 mls/hr IV.CONT TITRATE PRN Rx#:[id number] NS Inj 1,000 ML @ 75 mls/hr IV. 762 / 762 CONT .[id number] [facility] Rx#:[id number] fentaNYL 10 mcg/mL Premix Drip 44 / 44 2,500 mcg In 250 ml @ 50 MCG/HR 5 mls/hr IV.SIG TITRATE PRN Rx #:[id number] Anesthesia Amount 1500 / 1500 Autotransfusion Amount 350 / 350 Output: Urine Amount (Catheter) 800 / 800 Indwelling Urethral Catheter 800 / 800 Other: Date of Last Bowel Movement 09/10/17 09/10/17 Result Diagrams: 09/11/17 05:25 09/11/17 05:25 Objective Remarks: HEENT: Atraumatic, normocephalic. Pupils are equal, round, reactive, orotracheally intubated NECK: Supple. No JVD, adenopathy or thyromegaly. Trachea in the midline. CARDIOVASCULAR: Regular rate and rhythm. Normal S1, S2. No murmurs, rubs or gallops noted. PULMONARY: Bilateral equal air entry. No rales, rhonchi or wheezing. ABDOMEN: Soft, nontender. No distention. Positive bowel sounds. EXTREMITIES: No cyanosis, clubbing, edema. NEUROLOGIC: Intubated and sedated with Diprivan. On sedation hold wakes up easily, follows commands. No focal deficits Assessment and Plan - Assessment and Plan Plan: IMPRESSION: 1. Acute respiratory failure. 2. Upper gastrointestinal bleeding. 3. Anemia secondary to acute blood loss. 4. Hypertension. 5. Diabetes mellitus. 6. Alpha-1 antitrypsin deficiency. 7. Chronic obstructive pulmonary disease. 8. Hyperlipidemia. 9. History of nephrolithiasis. RECOMMENDATIONS: 1. Hold all sedation for weaning trials 2. Continue with vent support and maintain sats above 92%. SBT with possible extubation 3. Bronchodilators in the form of DuoNeb every 6 hours and every 2 hours p.r.n. for shortness of breath. ICU vent bundle. 4. Post intubation chest x-ray with no acute findings 5. Monitor heart rate and blood pressure closely and maintain a MAP greater than 65 mmHg. DC IV fluids 6. Monitor renal function, I's and O's and electrolyte replacement per protocol. 7. Continue with Protonix 40 mg IV every 12 hours. Keep n.p.o. until cleared by GI 8. The patient is status post upper endoscopy which showed large clot in the proximal stomach localized at the junction of the lesser and greater curvature. s/p IR embolization 9. Dr. King from colorectal surgery is following as well. 10. Monitor for signs of infection, which include fever. His blood culture from 09/04/2017 showed no growth in 5 days. 11. Sliding scale insulin with Accu-Chek for glycemic control. Hold Metformin , Levemir insulin and Amaryl as the patient is n.p.o. 12. Monitor CBC and coags. The patient is status post transfusion 1 unit of PRBC during upper endoscopy. Hb remains stable 9.2 today 13. Gastrointestinal prophylaxis with Protonix 40 mg b.i.d. and deep venous thrombosis prophylaxis with sequential compression devices. Chemical anticoagulation prophylaxis contraindicated in the setting of gastrointestinal bleed. Leve3 Remains critically ill but stabilizing. Will attempt wean to extubation
[2017-09-11] MEDS: Sod Chloride 0.9% Inj 1,000 ML IV.CONT SCH ×2 (08:16→20:09)
[2017-09-11] MEDS: Insulin NovoLOG Aspart Correctional Sugar Inj SQ SCH ×4 (08:24→20:08)
[2017-09-11] MEDS ORDERED: Acetaminophen Inj 650 MG/65 ML VIAL IV.SIG ONE (09:18)
--- NOTE | 2017-09-11 09:44 | P.PNGI ---
Subjective Interval history: Pt extubated and feels well. at bedside. Reviewed angiogram procedure. He has been on Naprosyn lately. Denies abd pain or nausea. VSS. H&H stable. Physical Exam Vital signs: Vital Signs 09/10/17 09:45 09/10/17 10:00 09/10/17 10:40 Temperature 97.7 F Pulse Rate 87 86 92 H Respiratory Rate 21 21 Blood Pressure 160/77 H 168/81 H 158/77 H Pulse Oximetry 98 98 96 09/10/17 12:00 09/10/17 13:51 09/10/17 13:55 Temperature 97.8 F 97.4 F L 97.2 F L Pulse Rate 110 H 116 H 113 H Respiratory Rate 13 15 14 Blood Pressure 128/64 79/47 L 116/61 Pulse Oximetry 98 98 94 L 09/10/17 16:05 09/10/17 16:10 09/10/17 16:20 Temperature 98.2 F Pulse Rate 97 H 97 H 96 H Respiratory Rate 14 15 14 Blood Pressure 107/55 L 125/60 112/59 L Pulse Oximetry 09/10/17 16:34 09/10/17 18:46 09/10/17 18:53 Temperature Pulse Rate 88 Respiratory Rate 8 L Blood Pressure Pulse Oximetry 49 L 100 100 09/10/17 19:00 09/10/17 19:13 09/10/17 19:30 Temperature 97.7 F Pulse Rate 87 88 85 Respiratory Rate 21 19 Blood Pressure 117/58 L 139/73 Pulse Oximetry 100 100 98 09/10/17 19:36 09/10/17 19:45 09/10/17 20:00 Temperature Pulse Rate 85 84 Respiratory Rate 14 16 Blood Pressure Pulse Oximetry 100 99 09/10/17 20:01 09/10/17 20:30 09/10/17 21:00 Temperature Pulse Rate 84 87 89 Respiratory Rate Blood Pressure 161/75 H 145/75 H 145/72 H Pulse Oximetry 100 100 100 09/10/17 21:30 09/10/17 22:00 09/10/17 22:30 Temperature Pulse Rate 90 89 89 Respiratory Rate Blood Pressure 134/66 135/65 121/59 L Pulse Oximetry 100 100 100 09/10/17 23:00 09/10/17 23:30 09/10/17 23:53 Temperature Pulse Rate 88 88 85 Respiratory Rate 14 Blood Pressure 117/56 L 115/55 L Pulse Oximetry 100 100 100 09/11/17 00:00 09/11/17 00:30 09/11/17 01:00 Temperature 97.9 F 97.9 F Pulse Rate 86 86 84 Respiratory Rate Blood Pressure 116/56 L 119/56 L 100/54 L Pulse Oximetry 100 100 100 09/11/17 01:06 09/11/17 02:00 09/11/17 04:00 Temperature Pulse Rate 83 85 86 Respiratory Rate 14 Blood Pressure 100/54 L Pulse Oximetry 09/11/17 04:11 09/11/17 06:00 09/11/17 07:43 Temperature Pulse Rate 84 87 93 H Respiratory Rate 14 7 L Blood Pressure Pulse Oximetry 100 100 09/11/17 08:44 Temperature Pulse Rate Respiratory Rate Blood Pressure Pulse Oximetry 100 Intake & Output 09/10/17 09/11/17 09/11/17 18:59 06:59 18:59 Intake Total 1850 / 1850 1739 / 1739 Output Total 800 / 800 Balance 1850 / 1850 939 / 939 Weight 89 kg Intake: IV 1739 / 1739 SandoSTATIN Inj 500 MCG In NS 500 / 500 Inj 500 ML @ 50 MCG/HR 50.05 mls/hr IV.CONT .Q10H [facility] Rx#: [id number] Diprivan 1000 mg/100 ml Inj 1, 433 / 433 000 mg In 100 ml @ 20 MCG/KG/ MIN 11.004 mls/hr IV.CONT TITRATE PRN Rx#:[id number] NS Inj 1,000 ML @ 75 mls/hr IV. 762 / 762 CONT .[id number] [facility] Rx#:[id number] fentaNYL 10 mcg/mL Premix Drip 44 / 44 2,500 mcg In 250 ml @ 50 MCG/HR 5 mls/hr IV.SIG TITRATE PRN Rx #:[id number] Anesthesia Amount 1500 / 1500 Autotransfusion Amount 350 / 350 Output: Urine Amount (Catheter) 800 / 800 Indwelling Urethral Catheter 800 / 800 Other: Date of Last Bowel Movement 09/10/17 09/10/17 - Routine Abdominal Exam Present: soft, tenderness (nontender) - Urinary Catheter Management Indwelling Urethral Catheter Cath placed during this visit: yes Reason for continuing: Hourly intake/output Insertion date: 09/10/17 Insertion time: 16:45 Results - Labs CBC & Chem 7: 09/11/17 05:25 09/11/17 05:25 Laboratory Results - last 24 hr 09/10/17 09/10/17 09/10/17 12:26 15:09 18:55 WBC 10.4 RBC 3.06 L Hgb 9.2 L Hct 27.2 L MCV 89.1 MCH 30.0 MCHC 33.7 RDW 15.0 Plt Count 154 MPV 7.3 Neut % (Auto) 91.9 H Lymph % (Auto) 5.1 L [place] % (Auto) 2.9 Eos % (Auto) 0.0 Baso % (Auto) 0.1 Neut # (Auto) 9.6 H Lymph # (Auto) 0.5 L [place] # (Auto) 0.3 Eos # (Auto) 0.0 Baso # (Auto) 0.0 WBC Differential . Differential Comment Auto diff final PT INR APTT Puncture Site Patient Temperature O2 Saturation ABG pH ABG pCO2 ABG pO2 ABG HCO3 ABG O2 Content ABG Base Excess ABG Methemoglobin Wili Test Hemoglobin Carboxyhemoglobin O2 Delivery Device Liter Flow Vent Setting Inspired O2 Critical Value Sodium Potassium Chloride Carbon Dioxide Anion Gap BUN Creatinine Estimated GFR POC Glucose 191 H Random Glucose Lactic Acid Calcium Phosphorus Magnesium Total Bilirubin AST ALT Alkaline Phosphatase Total Protein Albumin MTS Gel Crossmatch See Detail 09/10/17 09/10/17 09/10/17 18:55 18:55 19:04 WBC RBC Hgb Hct MCV MCH MCHC RDW Plt Count MPV Neut % (Auto) Lymph % (Auto) [place] % (Auto) Eos % (Auto) Baso % (Auto) Neut # (Auto) Lymph # (Auto) [place] # (Auto) Eos # (Auto) Baso # (Auto) WBC Differential Differential Comment PT INR APTT Puncture Site Art line Patient Temperature 98.6 O2 Saturation 96 ABG pH 7.32 L ABG pCO2 48 H ABG pO2 259 H ABG HCO3 24 ABG O2 Content 19.0 ABG Base Excess -1.0 ABG Methemoglobin 1.4 Wili Test Present Hemoglobin 13.6 Carboxyhemoglobin 1.6 O2 Delivery Device Ventilator Liter Flow Vent Setting Prvc/ac Inspired O2 60 Critical Value No Sodium 140 Potassium 4.7 D Chloride 107 Carbon Dioxide 21.5 Anion Gap 12 BUN 27 H Creatinine 0.90 Estimated GFR 81 L POC Glucose Random Glucose 204 H D Lactic Acid 0.5 Calcium 7.5 L Phosphorus 2.2 L Magnesium 2.3 Total Bilirubin 0.7 AST 8 L ALT 17 Alkaline Phosphatase 43 L Total Protein 4.8 L Albumin 2.2 L MTS Gel Crossmatch 09/10/17 09/10/17 09/10/17 19:42 19:42 19:42 WBC RBC Hgb Hct MCV MCH MCHC RDW Plt Count MPV Neut % (Auto) Lymph % (Auto) [place] % (Auto) Eos % (Auto) Baso % (Auto) Neut # (Auto) Lymph # (Auto) [place] # (Auto) Eos # (Auto) Baso # (Auto) WBC Differential Differential Comment PT INR APTT Puncture Site Cancelled Cancelled Art line Patient Temperature Cancelled Cancelled 98.6 O2 Saturation Cancelled Cancelled 96 ABG pH Cancelled Cancelled 7.32 L ABG pCO2 Cancelled Cancelled 41 ABG pO2 Cancelled Cancelled 160 H ABG HCO3 Cancelled Cancelled 21 L ABG O2 Content Cancelled Cancelled 15.4 ABG Base Excess Cancelled Cancelled -4.6 L ABG Methemoglobin Cancelled Cancelled 1.5 Wili Test Cancelled Cancelled Hemoglobin Cancelled Cancelled 11.1 L Carboxyhemoglobin Cancelled Cancelled 1.2 O2 Delivery Device Cancelled Cancelled Ventilator Liter Flow Cancelled Cancelled Vent Setting Cancelled Cancelled 14/550/it1.0/5peep Inspired O2 Cancelled Cancelled 60 Critical Value Cancelled Cancelled No Sodium Potassium Chloride Carbon Dioxide Anion Gap BUN Creatinine Estimated GFR POC Glucose Random Glucose Lactic Acid Calcium Phosphorus Magnesium Total Bilirubin AST ALT Alkaline Phosphatase Total Protein Albumin MTS Gel Crossmatch 09/10/17 09/10/17 09/10/17 20:41 23:30 23:30 WBC RBC Hgb 9.3 L Hct 28.2 L MCV MCH MCHC RDW Plt Count MPV Neut % (Auto) Lymph % (Auto) [place] % (Auto) Eos % (Auto) Baso % (Auto) Neut # (Auto) Lymph # (Auto) [place] # (Auto) Eos # (Auto) Baso # (Auto) WBC Differential Differential Comment PT 9.9 INR 1.0 APTT Puncture Site Patient Temperature O2 Saturation ABG pH ABG pCO2 ABG pO2 ABG HCO3 ABG O2 Content ABG Base Excess ABG Methemoglobin Wili Test Hemoglobin Carboxyhemoglobin O2 Delivery Device Liter Flow Vent Setting Inspired O2 Critical Value Sodium Potassium Chloride Carbon Dioxide Anion Gap BUN Creatinine Estimated GFR POC Glucose 204 H Random Glucose Lactic Acid Calcium Phosphorus Magnesium Total Bilirubin AST ALT Alkaline Phosphatase Total Protein Albumin MTS Gel Crossmatch 09/10/17 09/11/17 09/11/17 23:30 05:25 05:25 WBC 12.2 H RBC 3.09 L Hgb 9.2 L Hct 27.8 L MCV 90.0 MCH 29.9 MCHC 33.2 RDW 15.2 Plt Count 181 MPV 7.2 Neut % (Auto) 90.9 H Lymph % (Auto) 4.4 L [place] % (Auto) 4.6 Eos % (Auto) 0.0 Baso % (Auto) 0.1 Neut # (Auto) 11.1 H Lymph # (Auto) 0.5 L [place] # (Auto) 0.6 Eos # (Auto) 0.0 Baso # (Auto) 0.0 WBC Differential . Differential Comment Auto diff final PT INR APTT 27.7 Puncture Site Patient Temperature O2 Saturation ABG pH ABG pCO2 ABG pO2 ABG HCO3 ABG O2 Content ABG Base Excess ABG Methemoglobin Wili Test Hemoglobin Carboxyhemoglobin O2 Delivery Device Liter Flow Vent Setting Inspired O2 Critical Value Sodium 141 Potassium 4.8 Chloride 108 H Carbon Dioxide 16.5 L Anion Gap 17 H BUN 29 H Creatinine 1.16 Estimated GFR 60 L POC Glucose Random Glucose 246 H Lactic Acid Calcium 7.6 L Phosphorus Magnesium Total Bilirubin 0.4 AST 9 L ALT 18 Alkaline Phosphatase 47 Total Protein 5.1 L Albumin 2.2 L MTS Gel Crossmatch 09/11/17 07:32 WBC RBC Hgb Hct MCV MCH MCHC RDW Plt Count MPV Neut % (Auto) Lymph % (Auto) [place] % (Auto) Eos % (Auto) Baso % (Auto) Neut # (Auto) Lymph # (Auto) [place] # (Auto) Eos # (Auto) Baso # (Auto) WBC Differential Differential Comment PT INR APTT Puncture Site Patient Temperature O2 Saturation ABG pH ABG pCO2 ABG pO2 ABG HCO3 ABG O2 Content ABG Base Excess ABG Methemoglobin Wili Test Hemoglobin Carboxyhemoglobin O2 Delivery Device Liter Flow Vent Setting Inspired O2 Critical Value Sodium Potassium Chloride Carbon Dioxide Anion Gap BUN Creatinine Estimated GFR POC Glucose 240 H Random Glucose Lactic Acid Calcium Phosphorus Magnesium Total Bilirubin AST ALT Alkaline Phosphatase Total Protein Albumin MTS Gel Crossmatch - Imaging Impressions Abdominal Angiography 09/10/17 00:00 CONCLUSION: 1. Abnormal accumulation of contrast in the region of the gastric body/fundus apparently from small branches arising from the left inferior phrenic artery. Therefore, the left inferior phrenic artery was embolized. 2. Prominent left gastric artery with relative hyperemia of the gastric fundus. This was better appreciated on retrospective review of the angiography and comparison CTA exam. If patient's gastric hemorrhage does not resolve, consider prophylactic embolization of the left gastric artery. Chest X-Ray 09/10/17 00:00 CONCLUSION: Minimal basilar atelectasis. Endotracheal tube in good position. Assessment and Plan - Plan Stable s/p angiographic embolization. He may have an underlying gastric ulcer. Rec cont a daily PPI and avoid all NSAIDS. Should consider a f/u EGD in a couple of weeks. F/U with DR Carpenter after discharge. Will get swallow eval and if passes start liquids and advance as tolerated.
[2017-09-11] MEDS: Tiotropium Bromide 18 MCG/ACT Inhaler INH SCH (10:08)
[2017-09-11] MEDS: Budesonide-Formoterol 160/4.5 MCG 6 GM Inhaler INH SCH ×2 (10:08→20:10)
[2017-09-11] MEDS: Pantoprazole Inj 40 MG Vial IV.PUSH SCH ×2 (11:12→23:05)
[2017-09-11 11:25] LABS: Hematocrit 32.9 % (39.0-51.0); Hemoglobin 10.7 gm/dL (13.0-17.0)
[2017-09-11] MEDS: ALPHA 1 PROTEINASE INHIBITOR IV.SIG SCH (17:22)
[2017-09-11] MEDS: Insulin Detemir Inj 1,000 UNIT/10 ML Vial SQ SCH (20:09)
--- NOTE | 2017-09-11 23:33 | P.PNCS ---
Subjective Interval history: C/R Surg afebrile, VSS UO good a-gram reviewed No obvious bleeding Objective Vital Signs/Intake & Output: Vital Signs Intake & Output Result Diagrams: 09/11/17 10:51 09/11/17 05:25 Laboratory Results: Laboratory Results - last 24 hr 09/05/17 09/10/17 09/10/17 13:19 15:09 19:42 WBC RBC Hgb Hct MCV MCH MCHC RDW Plt Count MPV Neut % (Auto) Lymph % (Auto) [place] % (Auto) Eos % (Auto) Baso % (Auto) Neut # (Auto) Lymph # (Auto) [place] # (Auto) Eos # (Auto) Baso # (Auto) WBC Differential Differential Comment PT INR APTT Puncture Site Cancelled Patient Temperature Cancelled O2 Saturation Cancelled ABG pH Cancelled ABG pCO2 Cancelled ABG pO2 Cancelled ABG HCO3 Cancelled ABG O2 Content Cancelled ABG Base Excess Cancelled ABG Methemoglobin Cancelled Wili Test Cancelled Hemoglobin Cancelled Carboxyhemoglobin Cancelled O2 Delivery Device Cancelled Liter Flow Cancelled Vent Setting Cancelled Inspired O2 Cancelled Critical Value Cancelled Sodium Potassium Chloride Carbon Dioxide Anion Gap BUN Creatinine Estimated GFR POC Glucose Random Glucose Calcium Total Bilirubin AST ALT Alkaline Phosphatase Total Protein Albumin RBC Folate 280 L MTS Gel Crossmatch See Detail 09/10/17 09/10/17 09/10/17 19:42 19:42 23:30 WBC RBC Hgb 9.3 L Hct 28.2 L MCV MCH MCHC RDW Plt Count MPV Neut % (Auto) Lymph % (Auto) [place] % (Auto) Eos % (Auto) Baso % (Auto) Neut # (Auto) Lymph # (Auto) [place] # (Auto) Eos # (Auto) Baso # (Auto) WBC Differential Differential Comment PT INR APTT Puncture Site Cancelled Art line Patient Temperature Cancelled 98.6 O2 Saturation Cancelled 96 ABG pH Cancelled 7.32 L ABG pCO2 Cancelled 41 ABG pO2 Cancelled 160 H ABG HCO3 Cancelled 21 L ABG O2 Content Cancelled 15.4 ABG Base Excess Cancelled -4.6 L ABG Methemoglobin Cancelled 1.5 Wili Test Cancelled Hemoglobin Cancelled 11.1 L Carboxyhemoglobin Cancelled 1.2 O2 Delivery Device Cancelled Ventilator Liter Flow Cancelled Vent Setting Cancelled 14/550/it1.0/5peep Inspired O2 Cancelled 60 Critical Value Cancelled No Sodium Potassium Chloride Carbon Dioxide Anion Gap BUN Creatinine Estimated GFR POC Glucose Random Glucose Calcium Total Bilirubin AST ALT Alkaline Phosphatase Total Protein Albumin RBC Folate MTS Gel Crossmatch 09/10/17 09/10/17 09/11/17 23:30 23:30 05:25 WBC 12.2 H RBC 3.09 L Hgb 9.2 L Hct 27.8 L MCV 90.0 MCH 29.9 MCHC 33.2 RDW 15.2 Plt Count 181 MPV 7.2 Neut % (Auto) 90.9 H Lymph % (Auto) 4.4 L [place] % (Auto) 4.6 Eos % (Auto) 0.0 Baso % (Auto) 0.1 Neut # (Auto) 11.1 H Lymph # (Auto) 0.5 L [place] # (Auto) 0.6 Eos # (Auto) 0.0 Baso # (Auto) 0.0 WBC Differential . Differential Comment Auto diff final PT 9.9 INR 1.0 APTT 27.7 Puncture Site Patient Temperature O2 Saturation ABG pH ABG pCO2 ABG pO2 ABG HCO3 ABG O2 Content ABG Base Excess ABG Methemoglobin Wili Test Hemoglobin Carboxyhemoglobin O2 Delivery Device Liter Flow Vent Setting Inspired O2 Critical Value Sodium Potassium Chloride Carbon Dioxide Anion Gap BUN Creatinine Estimated GFR POC Glucose Random Glucose Calcium Total Bilirubin AST ALT Alkaline Phosphatase Total Protein Albumin RBC Folate MTS Gel Crossmatch 09/11/17 09/11/17 09/11/17 05:25 07:32 10:51 WBC RBC Hgb 10.7 L Hct 32.9 L MCV MCH MCHC RDW Plt Count MPV Neut % (Auto) Lymph % (Auto) [place] % (Auto) Eos % (Auto) Baso % (Auto) Neut # (Auto) Lymph # (Auto) [place] # (Auto) Eos # (Auto) Baso # (Auto) WBC Differential Differential Comment PT INR APTT Puncture Site Patient Temperature O2 Saturation ABG pH ABG pCO2 ABG pO2 ABG HCO3 ABG O2 Content ABG Base Excess ABG Methemoglobin Wili Test Hemoglobin Carboxyhemoglobin O2 Delivery Device Liter Flow Vent Setting Inspired O2 Critical Value Sodium 141 Potassium 4.8 Chloride 108 H Carbon Dioxide 16.5 L Anion Gap 17 H BUN 29 H Creatinine 1.16 Estimated GFR 60 L POC Glucose 240 H Random Glucose 246 H Calcium 7.6 L Total Bilirubin 0.4 AST 9 L ALT 18 Alkaline Phosphatase 47 Total Protein 5.1 L Albumin 2.2 L RBC Folate MTS Gel Crossmatch 09/11/17 09/11/17 09/11/17 11:15 17:35 19:56 WBC RBC Hgb Hct MCV MCH MCHC RDW Plt Count MPV Neut % (Auto) Lymph % (Auto) [place] % (Auto) Eos % (Auto) Baso % (Auto) Neut # (Auto) Lymph # (Auto) Price # (Auto) Eos # (Auto) Baso # (Auto) WBC Differential Differential Comment PT INR APTT Puncture Site Patient Temperature O2 Saturation ABG pH ABG pCO2 ABG pO2 ABG HCO3 ABG O2 Content ABG Base Excess ABG Methemoglobin Wili Test Hemoglobin Carboxyhemoglobin O2 Delivery Device Liter Flow Vent Setting Inspired O2 Critical Value Sodium Potassium Chloride Carbon Dioxide Anion Gap BUN Creatinine Estimated GFR POC Glucose 223 H 398 H 318 H Random Glucose Calcium Total Bilirubin AST ALT Alkaline Phosphatase Total Protein Albumin RBC Folate MTS Gel Crossmatch Culture Results: Microbiology Imaging Studies: Impressions Abdominal Angiography 09/10/17 00:00 CONCLUSION: 1. Abnormal accumulation of contrast in the region of the gastric body/fundus apparently from small branches arising from the left inferior phrenic artery. Therefore, the left inferior phrenic artery was embolized. 2. Prominent left gastric artery with relative hyperemia of the gastric fundus. This was better appreciated on retrospective review of the angiography and comparison CTA exam. If patient's gastric hemorrhage does not resolve, consider prophylactic embolization of the left gastric artery. Medications: Active Medications Objective Remarks: PE alert extubated Abd - soft, doughy, non-tender, no BRB, no melena Assessment and Plan - Plan Imp: stable Hgb, no drop no active bleeding on diet cont observation
[2017-09-12] MEDS: Octreotide Inj 500 MCG in Sodium Chlor 0.9% Inj 500 ML IV.CONT SCH ×2 (01:34→13:00)
[2017-09-12] MEDS: Insulin NovoLOG Aspart Correctional Sugar Inj SQ SCH ×5 (08:22→20:43)
[2017-09-12] MEDS: Sod Chloride 0.9% Inj 1,000 ML IV.CONT SCH (08:23)
[2017-09-12] MEDS: Tiotropium Bromide 18 MCG/ACT Inhaler INH SCH (08:24)
[2017-09-12] MEDS: Budesonide-Formoterol 160/4.5 MCG 6 GM Inhaler INH SCH (08:24)
[2017-09-12 08:42] LABS: Hematocrit 24.8 % (39.0-51.0); Hemoglobin 8.4 gm/dL (13.0-17.0)
--- NOTE | 2017-09-12 08:46 | P.PNGI ---
Subjective Interval history: Pt passed swallow eval and eating well. No complaints. Nursing reports he had a normal looking BM and Hgb up to 10. Physical Exam Vital signs: Vital Signs 09/11/17 08:44 09/11/17 10:00 09/11/17 10:17 Pulse Rate 100 H Respiratory Rate 15 Pulse Oximetry 100 09/11/17 12:00 09/11/17 14:00 09/11/17 15:56 Pulse Rate 102 H 100 H 102 H Respiratory Rate 18 Pulse Oximetry 09/11/17 16:00 09/11/17 18:00 09/11/17 20:00 Pulse Rate 104 H 100 H 102 H Respiratory Rate Pulse Oximetry 09/11/17 20:47 09/11/17 22:00 09/12/17 00:00 Pulse Rate 103 H 115 H 97 H Respiratory Rate 18 Pulse Oximetry 97 09/12/17 01:40 09/12/17 02:00 09/12/17 04:00 Pulse Rate 97 H 100 H 105 H Respiratory Rate 18 Pulse Oximetry 97 09/12/17 06:00 09/12/17 07:51 Pulse Rate 95 H 92 H Respiratory Rate 16 Pulse Oximetry 94 L Intake & Output 09/11/17 09/12/17 09/12/17 18:59 06:59 18:59 Intake Total 1895 / 1895 667 / 667 Output Total 1100 / 1100 950 / 950 Balance 795 / 795 -283 / -283 Weight 94.5 kg Intake: IV 1415 / 1415 517 / 517 SandoSTATIN Inj 500 MCG In NS 500 / 500 500 / 500 Inj 500 ML @ 50 MCG/HR 50.05 mls/hr IV.CONT .Q10H [facility] Rx#: [id number] Diprivan 1000 mg/100 ml Inj 1, 50 / 50 17 / 17 000 mg In 100 ml @ 20 MCG/KG/ MIN 11.004 mls/hr IV.CONT TITRATE PRN Rx#:[id number] NS Inj 1,000 ML @ 75 mls/hr IV. 800 / 800 CONT .[id number] [facility] Rx#:[id number] Ofirmev Inj 650 mg In 65 ml @ 65 / 65 260 mls/hr IV.SIG ONCE ONE Rx#: [id number] Oral 480 / 480 150 / 150 Output: Urine 300 / 300 950 / 950 Urine Amount (Catheter) 800 / 800 Indwelling Urethral Catheter 800 / 800 Other: # Voids 3 Date of Last Bowel Movement 09/10/17 09/10/17 # Bowel Movements 0 0 - Constitutional no acute distress - Routine Abdominal Exam Present: soft (nontender) - Urinary Catheter Management Indwelling Urethral Catheter Cath placed during this visit: yes, but has since been removed by the nurse Reason for continuing: Not indwelling catheter Insertion date: 09/10/17 Insertion time: 16:45 Removal date: 09/11/17 Removal time: 15:30 Results - Labs CBC & Chem 7: 09/11/17 10:51 09/11/17 05:25 Laboratory Results - last 24 hr 09/05/17 09/10/17 09/11/17 13:19 15:09 10:51 Hgb 10.7 L Hct 32.9 L POC Glucose RBC Folate 280 L MTS Gel Crossmatch See Detail 09/11/17 09/11/17 09/11/17 11:15 17:35 19:56 Hgb Hct POC Glucose 223 H 398 H 318 H RBC Folate MTS Gel Crossmatch 09/12/17 07:58 Hgb Hct POC Glucose 221 H RBC Folate MTS Gel Crossmatch Assessment and Plan (1) UGIB (upper gastrointestinal bleed) Status: Acute Code(s): K92.2 - Gastrointestinal hemorrhage, unspecified - Plan Stable from GI standpoint. Continue daily PPI and avoid NSAIDS. Will sign off and arrange for outpt f/u with Dr Carpenter.
--- NOTE | 2017-09-12 10:45 | P.PN ---
Subjective Interval history: Follow-up symptomatic anemia September 12, 2017-patient seen and examined, no visible gross blood in his bowel movement. H&H remained stable. Physical Exam Vital signs: Vital Signs 09/11/17 12:00 09/11/17 14:00 09/11/17 15:56 Pulse Rate 102 H 100 H 102 H Respiratory Rate 18 Pulse Oximetry 09/11/17 16:00 09/11/17 18:00 09/11/17 20:00 Pulse Rate 104 H 100 H 102 H Respiratory Rate Pulse Oximetry 09/11/17 20:47 09/11/17 22:00 09/12/17 00:00 Pulse Rate 103 H 115 H 97 H Respiratory Rate 18 Pulse Oximetry 97 09/12/17 01:40 09/12/17 02:00 09/12/17 04:00 Pulse Rate 97 H 100 H 105 H Respiratory Rate 18 Pulse Oximetry 97 09/12/17 06:00 09/12/17 07:51 09/12/17 08:00 Pulse Rate 95 H 92 H 96 H Respiratory Rate 16 Pulse Oximetry 94 L Intake & Output 09/11/17 09/12/17 09/12/17 18:59 06:59 18:59 Intake Total 1895 / 1895 667 / 667 Output Total 1100 / 1100 950 / 950 Balance 795 / 795 -283 / -283 Weight 94.5 kg Intake: IV 1415 / 1415 517 / 517 SandoSTATIN Inj 500 MCG In NS 500 / 500 500 / 500 Inj 500 ML @ 50 MCG/HR 50.05 mls/hr IV.CONT .Q10H [facility] Rx#: [id number] Diprivan 1000 mg/100 ml Inj 1, 50 / 50 17 / 17 000 mg In 100 ml @ 20 MCG/KG/ MIN 11.004 mls/hr IV.CONT TITRATE PRN Rx#:[id number] NS Inj 1,000 ML @ 75 mls/hr IV. 800 / 800 CONT .[id number] [facility] Rx#:[id number] Ofirmev Inj 650 mg In 65 ml @ 65 / 65 260 mls/hr IV.SIG ONCE ONE Rx#: [id number] Oral 480 / 480 150 / 150 Output: Urine 300 / 300 950 / 950 Urine Amount (Catheter) 800 / 800 Indwelling Urethral Catheter 800 / 800 Other: # Voids 3 Date of Last Bowel Movement 09/10/17 09/10/17 09/10/17 # Bowel Movements 0 0 Narrative: GENERAL: NAD SKIN: Warm and dry. HEAD: Normocephalic. EYES: No scleral icterus. No injection or drainage. NECK: Supple, trachea midline. No JVD or lymphadenopathy. CARDIOVASCULAR: Regular rate and rhythm without murmurs, gallops, or rubs. RESPIRATORY: Breath sounds decrease bilaterally. No accessory muscle use. GASTROINTESTINAL: Abdomen soft, non-tender, nondistended. MUSCULOSKELETAL: No cyanosis, or edema. BACK: Nontender without obvious deformity. No CVA tenderness. - Urinary Catheter Management Indwelling Urethral Catheter Cath placed during this visit: yes, but has since been removed by the nurse Reason for continuing: Not indwelling catheter Insertion date: 09/10/17 Insertion time: 16:45 Removal date: 09/11/17 Removal time: 15:30 Results - Labs CBC & Chem 7: 09/12/17 06:30 09/11/17 05:25 Laboratory Results - last 24 hr 09/05/17 09/10/17 09/11/17 13:19 15:09 10:51 Hgb 10.7 L Hct 32.9 L POC Glucose RBC Folate 280 L MTS Gel Crossmatch See Detail 09/11/17 09/11/17 09/11/17 11:15 17:35 19:56 Hgb Hct POC Glucose 223 H 398 H 318 H RBC Folate MTS Gel Crossmatch 09/12/17 09/12/17 06:30 07:58 Hgb 8.4 L D Hct 24.8 L POC Glucose 221 H RBC Folate MTS Gel Crossmatch - Procedures s/p Gelfoam and coil embolized branch, Assessment and Plan - Assessment (1) Diabetes type 2, uncontrolled Code(s): E11.65 - Type 2 diabetes mellitus with hyperglycemia Status: Acute (2) Alpha 1-antitrypsin PiMS phenotype Code(s): R79.9 - Abnormal finding of blood chemistry, unspecified Status: Chronic (3) Lactic acid acidosis Code(s): E87.2 - Acidosis Status: Resolved (4) Leukocytosis, unspecified Code(s): D72.829 - Elevated white blood cell count, unspecified Status: Acute (5) Anemia, chronic disease Code(s): D63.8 - Anemia in other chronic diseases classified elsewhere Status : Acute - Plan 82-year-old man with Acute anemia Possible GI bleed -Patient transfused a total of 6 unit packed red blood cell, H&H stable -s/p Gelfoam and coil embolized branch, -Appreciate input from gastroenterology, colorectal surgery -Continue to monitor H&H. -Protonix IV, and avoid NSAID COPD, with exacerbation Alpha-1 antitrypsin deficiency -Outpatient follow-up with pulmonary medicine -DuoNeb scheduled and as needed -Continue Symbicort, tiotropium. -Prolastin infusion q. weekly Diabetes type 2, uncontrolled blood glucose -Continue outpatient medications -Medium insulin sliding scale Lactic acidosis-resolved Leukocytosis -Less likely due to infectious process UA negative. -Patient currently treated with steroid 12 days -Status post IV antibiotic in ED, will continue to monitor off antibiotics -Asymptomatic. DVT prophylaxis: Hold heparin secondary to acute anemia PT to treat and eval (1) Diabetes type 2, uncontrolled Qualifiers: Diabetes mellitus dock grader insulin use: with senior care use Diabetes mellitus complication status: without complication Qualified Code(s): E11.65 - Type 2 diabetes mellitus with hyperglycemia; Z79.4 - information services consultant (current) use of insulin (4) Leukocytosis, unspecified Qualifiers: Leukocytosis type: unspecified Qualified Code(s): D72.829 - Elevated white blood cell count, unspecified
--- NOTE | 2017-09-12 17:29 | P.PNCS ---
Subjective Interval history: C/R Surg afebrile, VSS UO good keith PO ?black stool, no BRB Objective Vital Signs/Intake & Output: Vital Signs Intake & Output Result Diagrams: 09/12/17 06:30 09/11/17 05:25 Laboratory Results: Laboratory Results - last 24 hr 09/05/17 09/10/17 09/11/17 13:19 15:09 17:35 Hgb Hct POC Glucose 398 H RBC Folate 280 L MTS Gel Crossmatch See Detail 09/11/17 09/12/17 09/12/17 19:56 06:30 07:58 Hgb 8.4 L D Hct 24.8 L POC Glucose 318 H 221 H RBC Folate MTS Gel Crossmatch 09/12/17 11:59 Hgb Hct POC Glucose 302 H RBC Folate MTS Gel Crossmatch Culture Results: Microbiology 09/09/17 14:40 Stool Occult Blood (MARIANNA) - Final Stool Hemoccult positive Medications: Active Medications Assessment and Plan - Plan Imp: stable Hgb, slight drop no active bleeding, but stools dark on diet cont observation
[2017-09-12] MEDS: Insulin Detemir Inj 1,000 UNIT/10 ML Vial SQ SCH (20:42)
[2017-09-13] MEDS: Temazepam 15 MG Capsule PO PRN (02:39)
[2017-09-13] MEDS: Octreotide Inj 500 MCG in Sodium Chlor 0.9% Inj 500 ML IV.CONT SCH (02:40)
[2017-09-13 06:30] LABS: Baso % (Auto) 0.5 % (0.0-2.0); Eos # (Auto) 0.1 th/mm3 (0.0-0.4); Eos % (Auto) 1.1 % (0.0-4.0); Hematocrit 22.5 % (39.0-51.0); Hemoglobin 7.4 gm/dL (13.0-17.0); Lymph % (Auto) 19.5 % (9.0-44.0); Mean Corpuscular Hemoglobin 30.1 pg (27.0-34.0); Mean Corpuscular Volume 91.2 fL (80.0-100.0); Mean Platelet Volume 6.7 fL (7.0-11.0); Mono # (Auto) 0.5 th/mm3 (0.0-0.9); Mono % (Auto) 9.1 % (0.0-8.0); Neut # (Auto) 3.7 th/mm3 (1.8-7.7); Neut % (Auto) 69.8 % (16.0-70.0); Platelet Count 197 th/mm3 (150-450); Red Blood Count 2.47 mil/mm3 (4.50-5.90); Red Cell Distribution Width 15.4 % (11.6-17.2); White Blood Count 5.3 th/mm3 (4.0-11.0)
[2017-09-13 06:54] LABS: Albumin 2.1 g/dL (3.4-5.0)
[2017-09-13 07:01] LABS: Alanine Aminotransferase 17 U/L (12-78); Alkaline Phosphatase 43 U/L (45-117); Anion Gap 5 meq/L (5-15); Aspartate Aminotransferase 21 U/L (15-37); Blood Urea Nitrogen 11 mg/dL (7-18); Calcium 8.2 mg/dL (8.5-10.1); Carbon Dioxide 28.1 meq/L (21.0-32.0); Chloride 111 meq/L (98-107); Glomerular Filtration Rate 74 mL/min (>89); Glucose,Random 142 mg/dL (74-106); Sodium 144 meq/L (136-145); Total Protein 4.7 g/dL (6.4-8.2)
[2017-09-13] MEDS ORDERED: Acetaminophen 325 MG Tablet PO PRN ×2 (07:54→16:37)
[2017-09-13] MEDS: Insulin NovoLOG Aspart Correctional Sugar Inj SQ SCH ×4 (07:55→21:23)
[2017-09-13] MEDS ORDERED: Sodium Chlor 0.9% Inj 250 ML IV.SIG SCH ×2 (08:00→17:00)
[2017-09-13] MEDS: Tiotropium Bromide 18 MCG/ACT Inhaler INH SCH (08:12)
--- NOTE | 2017-09-13 12:47 | P.PN ---
Subjective Interval history: Follow-up symptomatic anemia September 12, 2017-patient seen and examined, no visible gross blood in his bowel movement. H&H remained stable. September 13, 2017-patient seen and examined, H&H dropping and down to 7.4/22.5. Patient denies any shortness of breath. Physical Exam Vital signs: Vital Signs 09/12/17 15:49 09/12/17 20:00 09/12/17 20:41 Temperature 97.9 F 98.1 F Pulse Rate 101 H 101 H 98 H Respiratory Rate 20 18 16 Blood Pressure 161/77 H 163/67 H Pulse Oximetry 94 L 96 99 09/13/17 00:00 09/13/17 04:00 09/13/17 08:00 Temperature 98.0 F 98.4 F 98.0 F Pulse Rate 105 H 95 H 95 H Respiratory Rate 18 18 20 Blood Pressure 146/73 H 141/66 H 135/66 Pulse Oximetry 95 97 96 Intake & Output 09/12/17 09/13/17 09/13/17 18:59 06:59 18:59 Intake Total 500 / 500 1235.5 / 1235.5 500.5 / 500.5 Balance 500 / 500 1235.5 / 1235.5 500.5 / 500.5 Weight 91.3 kg 93.4 kg Intake: IV 500 / 500 500.5 / 500.5 500.5 / 500.5 SandoSTATIN Inj 500 MCG In NS 500 / 500 500.5 / 500.5 500.5 / 500.5 Inj 500 ML @ 50 MCG/HR 50.05 mls/hr IV.CONT .Q10H [facility] Rx#: [id number] Oral 735 / 735 Other: Post Void Residual 600 Date of Last Bowel Movement 09/10/17 09/13/17 # Bowel Movements 1 Narrative: GENERAL: NAD SKIN: Warm and dry. HEAD: Normocephalic. EYES: No scleral icterus. No injection or drainage. NECK: Supple, trachea midline. No JVD or lymphadenopathy. CARDIOVASCULAR: Regular rate and rhythm without murmurs, gallops, or rubs. RESPIRATORY: Breath sounds decrease bilaterally. No accessory muscle use. GASTROINTESTINAL: Abdomen soft, non-tender, nondistended. MUSCULOSKELETAL: No cyanosis, or edema. BACK: Nontender without obvious deformity. No CVA tenderness. - Urinary Catheter Management Indwelling Urethral Catheter Cath placed during this visit: yes, but has since been removed by the nurse Reason for continuing: Not indwelling catheter Insertion date: 09/10/17 Insertion time: 16:45 Removal date: 09/11/17 Removal time: 15:30 Results - Labs CBC & Chem 7: 09/13/17 06:05 09/13/17 06:05 Laboratory Results - last 24 hr 09/12/17 09/12/17 09/13/17 18:10 19:44 06:05 WBC 5.3 RBC 2.47 L Hgb 7.4 L Hct 22.5 L MCV 91.2 MCH 30.1 MCHC 33.0 RDW 15.4 Plt Count 197 MPV 6.7 L Neut % (Auto) 69.8 Lymph % (Auto) 19.5 [place] % (Auto) 9.1 H Eos % (Auto) 1.1 Baso % (Auto) 0.5 Neut # (Auto) 3.7 Lymph # (Auto) 1.0 [place] # (Auto) 0.5 Eos # (Auto) 0.1 Baso # (Auto) 0.0 WBC Differential . Differential Comment Auto diff final Sodium Potassium Chloride Carbon Dioxide Anion Gap BUN Creatinine Estimated GFR POC Glucose 162 H 211 H Random Glucose Calcium Total Bilirubin AST ALT Alkaline Phosphatase Total Protein Albumin 09/13/17 09/13/17 09/13/17 06:05 07:41 12:11 WBC RBC Hgb Hct MCV MCH MCHC RDW Plt Count MPV Neut % (Auto) Lymph % (Auto) [place] % (Auto) Eos % (Auto) Baso % (Auto) Neut # (Auto) Lymph # (Auto) [place] # (Auto) Eos # (Auto) Baso # (Auto) WBC Differential Differential Comment Sodium 144 Potassium 4.0 Chloride 111 H Carbon Dioxide 28.1 Anion Gap 5 BUN 11 Creatinine 0.97 Estimated GFR 74 L POC Glucose 134 H 220 H Random Glucose 142 H Calcium 8.2 L Total Bilirubin 0.2 AST 21 ALT 17 Alkaline Phosphatase 43 L Total Protein 4.7 L Albumin 2.1 L - Procedures s/p Gelfoam and coil embolized branch, Assessment and Plan - Assessment (1) Diabetes type 2, uncontrolled Code(s): E11.65 - Type 2 diabetes mellitus with hyperglycemia Status: Acute (2) Alpha 1-antitrypsin PiMS phenotype Code(s): R79.9 - Abnormal finding of blood chemistry, unspecified Status: Chronic (3) Lactic acid acidosis Code(s): E87.2 - Acidosis Status: Resolved (4) Leukocytosis, unspecified Code(s): D72.829 - Elevated white blood cell count, unspecified Status: Acute (5) Anemia, chronic disease Code(s): D63.8 - Anemia in other chronic diseases classified elsewhere Status : Acute - Plan 82-year-old man with Acute anemia Possible GI bleed -Patient transfused a total of 6 unit packed red blood cell -Will transfuse 1 unit packed red blood cell today September 13, 2017, due to the fact that H&H dropping down to 7.4/22.5 -s/p Gelfoam and coil embolized branch, -Appreciate input from gastroenterology, colorectal surgery -Continue to monitor H&H. -Protonix IV, and avoid NSAID COPD, with exacerbation Alpha-1 antitrypsin deficiency -Outpatient follow-up with pulmonary medicine -DuoNeb scheduled and as needed -Continue Symbicort, tiotropium. -Prolastin infusion q. weekly Diabetes type 2, uncontrolled blood glucose -Continue outpatient medications -Medium insulin sliding scale Lactic acidosis-resolved Leukocytosis -Less likely due to infectious process UA negative. -Patient currently treated with steroid ; taper steroid -Status post IV antibiotic in ED, will continue to monitor off antibiotics -Asymptomatic. 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
[2017-09-13] MEDS: Budesonide-Formoterol 160/4.5 MCG 6 GM Inhaler INH SCH ×3 (17:03→21:24)
--- NOTE | 2017-09-13 17:21 | P.PNGI ---
Subjective Interval history: pt feels well. no abdo pain . had one black bm; more solid than in the past. Physical Exam Vital signs: Vital Signs 09/12/17 20:00 09/12/17 20:41 09/13/17 00:00 Temperature 98.1 F 98.0 F Pulse Rate 101 H 98 H 105 H Respiratory Rate 18 16 18 Blood Pressure 163/67 H 146/73 H Pulse Oximetry 96 99 95 09/13/17 04:00 09/13/17 08:00 09/13/17 10:35 Temperature 98.4 F 98.0 F Pulse Rate 95 H 95 H 93 H Respiratory Rate 18 20 20 Blood Pressure 141/66 H 135/66 Pulse Oximetry 97 96 09/13/17 12:00 Temperature 99.1 F Pulse Rate 108 H Respiratory Rate 20 Blood Pressure 151/67 H Pulse Oximetry 96 Intake & Output 09/12/17 09/13/17 09/13/17 18:59 06:59 18:59 Intake Total 500 / 500 1235.5 / 1235.5 500.5 / 500.5 Balance 500 / 500 1235.5 / 1235.5 500.5 / 500.5 Weight 91.3 kg 93.4 kg Intake: IV 500 / 500 500.5 / 500.5 500.5 / 500.5 SandoSTATIN Inj 500 MCG In NS 500 / 500 500.5 / 500.5 500.5 / 500.5 Inj 500 ML @ 50 MCG/HR 50.05 mls/hr IV.CONT .Q10H [facility] Rx#: [id number] Oral 735 / 735 Other: Post Void Residual 600 Date of Last Bowel Movement 09/10/17 09/13/17 # Bowel Movements 1 - Constitutional no acute distress, cooperative - Routine HEENT Exam Head: Present: normocephalic, atraumatic Eye: Present: EOMI, PERRL ENT: Present: mucous membranes moist - Routine Neck Exam Present: supple, full ROM - Detailed Neck Exam: Thyroids Thyroid: Present: normal - Routine Respiratory Exam Present: CTA bilaterally, distant breath sounds. Absent: respiratory distress, wheezes - Routine Cardiovascular Exam Present: RRR, S1, S2. Absent: irregular rhythm - Routine Abdominal Exam Present: soft, normoactive bowel sounds. Absent: tenderness, distended, rebound , guarding, organomegaly - Routine Extremities Exam Present: edema, full ROM, pulses intact Comments: Left arm ecchymosis - Routine Skin Exam Present: intact - Routine Neurological Exam Present: alert, oriented X3 - Urinary Catheter Management Indwelling Urethral Catheter Cath placed during this visit: yes, but has since been removed by the nurse Reason for continuing: Not indwelling catheter Insertion date: 09/10/17 Insertion time: 16:45 Removal date: 09/11/17 Removal time: 15:30 Results - Labs CBC & Chem 7: 09/13/17 06:05 09/13/17 06:05 Laboratory Results - last 24 hr 09/12/17 09/12/17 09/13/17 18:10 19:44 06:05 WBC 5.3 RBC 2.47 L Hgb 7.4 L Hct 22.5 L MCV 91.2 MCH 30.1 MCHC 33.0 RDW 15.4 Plt Count 197 MPV 6.7 L Neut % (Auto) 69.8 Lymph % (Auto) 19.5 [place] % (Auto) 9.1 H Eos % (Auto) 1.1 Baso % (Auto) 0.5 Neut # (Auto) 3.7 Lymph # (Auto) 1.0 [place] # (Auto) 0.5 Eos # (Auto) 0.1 Baso # (Auto) 0.0 WBC Differential . Differential Comment Auto diff final Sodium Potassium Chloride Carbon Dioxide Anion Gap BUN Creatinine Estimated GFR POC Glucose 162 H 211 H Random Glucose Calcium Total Bilirubin AST ALT Alkaline Phosphatase Total Protein Albumin 09/13/17 09/13/17 09/13/17 06:05 07:41 12:11 WBC RBC Hgb Hct MCV MCH MCHC RDW Plt Count MPV Neut % (Auto) Lymph % (Auto) [place] % (Auto) Eos % (Auto) Baso % (Auto) Neut # (Auto) Lymph # (Auto) [place] # (Auto) Eos # (Auto) Baso # (Auto) WBC Differential Differential Comment Sodium 144 Potassium 4.0 Chloride 111 H Carbon Dioxide 28.1 Anion Gap 5 BUN 11 Creatinine 0.97 Estimated GFR 74 L POC Glucose 134 H 220 H Random Glucose 142 H Calcium 8.2 L Total Bilirubin 0.2 AST 21 ALT 17 Alkaline Phosphatase 43 L Total Protein 4.7 L Albumin 2.1 L - Procedures s/p Gelfoam and coil embolized branch, Assessment and Plan (1) UGIB (upper gastrointestinal bleed) Status: Acute Code(s): K92.2 - Gastrointestinal hemorrhage, unspecified (2) Acute blood loss anemia Status: Acute Code(s): D62 - Acute posthemorrhagic anemia - Plan 1. Diet as tolerated 2. monitor stool for color, consistency, and frequency. 3. If hb continues to drop and pt continues to have worse melena then will rpt EGD for 2nd look otherwise will try to avoid more procedures ( pt agreeable )
[2017-09-13] MEDS: Insulin Detemir Inj 1,000 UNIT/10 ML Vial SQ SCH (21:24)
[2017-09-14] MEDS: Octreotide Inj 500 MCG in Sodium Chlor 0.9% Inj 500 ML IV.CONT SCH ×3 (01:26→21:26)
[2017-09-14] MEDS: Budesonide-Formoterol 160/4.5 MCG 6 GM Inhaler INH SCH ×2 (09:54→21:28)
[2017-09-14] MEDS: Insulin NovoLOG Aspart Correctional Sugar Inj SQ SCH ×4 (09:59→21:24)
[2017-09-14] MEDS: Tiotropium Bromide 18 MCG/ACT Inhaler INH SCH (10:16)
[2017-09-14 12:21] LABS: Baso % (Auto) 0.5 % (0.0-2.0); Eos % (Auto) 0.7 % (0.0-4.0); Hematocrit 26.4 % (39.0-51.0); Hemoglobin 8.9 gm/dL (13.0-17.0); Lymph # (Auto) 1.2 th/mm3 (1.0-4.8); Lymph % (Auto) 20.6 % (9.0-44.0); Mean Corpuscular HGB Conc 33.8 % (32.0-36.0); Mean Corpuscular Hemoglobin 29.9 pg (27.0-34.0); Mean Corpuscular Volume 88.4 fL (80.0-100.0); Mean Platelet Volume 6.7 fL (7.0-11.0); Mono # (Auto) 0.4 th/mm3 (0.0-0.9); Mono % (Auto) 7.7 % (0.0-8.0); Neut # (Auto) 4.1 th/mm3 (1.8-7.7); Neut % (Auto) 70.5 % (16.0-70.0); Platelet Count 228 th/mm3 (150-450); Red Blood Count 2.98 mil/mm3 (4.50-5.90); Red Cell Distribution Width 16.2 % (11.6-17.2); White Blood Count 5.9 th/mm3 (4.0-11.0)
--- NOTE | 2017-09-14 12:33 | P.PN ---
Subjective Interval history: Follow-up symptomatic anemia September 12, 2017-patient seen and examined, no visible gross blood in his bowel movement. H&H remained stable. September 13, 2017-patient seen and examined, H&H dropping and down to 7.4/22.5. Patient denies any shortness of breath. September 14, 2017-patient seen and examined, H&H appears stable after 1 unit transfuse last night. Patient stated he had a small normal bowel movement today. Physical Exam Vital signs: Vital Signs 09/13/17 16:00 09/13/17 20:00 09/13/17 20:20 Temperature 98.1 F 98.2 F Pulse Rate 90 96 H 92 H Respiratory Rate 20 17 Blood Pressure 173/81 H 173/82 H Pulse Oximetry 98 97 09/13/17 20:51 09/14/17 00:00 09/14/17 00:35 Temperature 97.9 F Pulse Rate 96 H 96 H 93 H Respiratory Rate 15 17 Blood Pressure 154/75 H Pulse Oximetry 98 93 L 09/14/17 01:19 09/14/17 04:00 09/14/17 04:24 Temperature 97.9 F 98.4 F Pulse Rate 96 H 84 80 Respiratory Rate 17 18 20 Blood Pressure 154/75 H 152/71 H Pulse Oximetry 93 L 96 09/14/17 04:35 09/14/17 04:49 09/14/17 08:00 Temperature 98.4 F 97.4 F L Pulse Rate 85 84 98 H Respiratory Rate 18 20 Blood Pressure 152/72 H 136/73 Pulse Oximetry 96 95 Intake & Output 09/13/17 09/14/17 09/14/17 18:59 06:59 18:59 Intake Total 1100.5 / 1100.5 640 / 640 500.5 / 500.5 Output Total 450 / 450 500 / 500 Balance 650.5 / 650.5 140 / 140 500.5 / 500.5 Weight 91.4 kg Intake: IV 500.5 / 500.5 500.5 / 500.5 SandoSTATIN Inj 500 MCG In NS 500.5 / 500.5 500.5 / 500.5 Inj 500 ML @ 50 MCG/HR 50.05 mls/hr IV.CONT .Q10H [facility] Rx#: [id number] Oral 600 / 600 240 / 240 Intake (Blood Product) Amt 400 / 400 Rbc As-3 Leukoreduced Unit 400 / 400 [id number] Output: Urine 450 / 450 500 / 500 Other: Date of Last Bowel Movement 09/12/17 Narrative: GENERAL: NAD SKIN: Warm and dry. HEAD: Normocephalic. EYES: No scleral icterus. No injection or drainage. NECK: Supple, trachea midline. No JVD or lymphadenopathy. CARDIOVASCULAR: Regular rate and rhythm without murmurs, gallops, or rubs. RESPIRATORY: Breath sounds decrease bilaterally. No accessory muscle use. GASTROINTESTINAL: Abdomen soft, non-tender, nondistended. MUSCULOSKELETAL: No cyanosis, or edema. BACK: Nontender without obvious deformity. No CVA tenderness. - Urinary Catheter Management Indwelling Urethral Catheter Cath placed during this visit: yes, but has since been removed by the nurse Reason for continuing: Not indwelling catheter Insertion date: 09/10/17 Insertion time: 16:45 Removal date: 09/11/17 Removal time: 15:30 Results - Labs CBC & Chem 7: 09/14/17 11:45 09/13/17 06:05 Laboratory Results - last 24 hr 09/06/17 09/13/17 09/13/17 11:38 17:02 19:46 WBC RBC Hgb Hct MCV MCH MCHC RDW Plt Count MPV Neut % (Auto) Lymph % (Auto) [place] % (Auto) Eos % (Auto) Baso % (Auto) Neut # (Auto) Lymph # (Auto) [place] # (Auto) Eos # (Auto) Baso # (Auto) WBC Differential Differential Comment POC Glucose 236 H 205 H Blood Type Antibody Screen MTS Gel Crossmatch See Detail 09/13/17 09/14/17 09/14/17 21:10 08:41 11:37 WBC RBC Hgb Hct MCV MCH MCHC RDW Plt Count MPV Neut % (Auto) Lymph % (Auto) [place] % (Auto) Eos % (Auto) Baso % (Auto) Neut # (Auto) Lymph # (Auto) [place] # (Auto) Eos # (Auto) Baso # (Auto) WBC Differential Differential Comment POC Glucose 254 H 266 H Blood Type A Positive Antibody Screen Negative MTS Gel Crossmatch See Detail 09/14/17 11:45 WBC 5.9 RBC 2.98 L Hgb 8.9 L Hct 26.4 L MCV 88.4 MCH 29.9 MCHC 33.8 RDW 16.2 Plt Count 228 MPV 6.7 L Neut % (Auto) 70.5 H Lymph % (Auto) 20.6 [place] % (Auto) 7.7 Eos % (Auto) 0.7 Baso % (Auto) 0.5 Neut # (Auto) 4.1 Lymph # (Auto) 1.2 [place] # (Auto) 0.4 Eos # (Auto) 0.0 Baso # (Auto) 0.0 WBC Differential . Differential Comment Auto diff final POC Glucose Blood Type Antibody Screen MTS Gel Crossmatch - Procedures s/p Gelfoam and coil embolized branch, Assessment and Plan - Assessment (1) Diabetes type 2, uncontrolled Code(s): E11.65 - Type 2 diabetes mellitus with hyperglycemia Status: Acute (2) Alpha 1-antitrypsin PiMS phenotype Code(s): R79.9 - Abnormal finding of blood chemistry, unspecified Status: Chronic (3) Lactic acid acidosis Code(s): E87.2 - Acidosis Status: Resolved (4) Leukocytosis, unspecified Code(s): D72.829 - Elevated white blood cell count, unspecified Status: Acute (5) Anemia, chronic disease Code(s): D63.8 - Anemia in other chronic diseases classified elsewhere Status : Acute - Plan 82-year-old man with Acute anemia Possible GI bleed -Patient transfused a total of 8 unit packed red blood cell condition today 8.9/26.4 on September 20 -s/p Gelfoam and coil embolized branch, -Appreciate input from gastroenterology, colorectal surgery -Continue to monitor H&H. -Protonix, and avoid NSAID COPD, with exacerbation Alpha-1 antitrypsin deficiency -Outpatient follow-up with pulmonary medicine -DuoNeb scheduled and as needed -Continue Symbicort, tiotropium. -Prolastin infusion q. 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
[2017-09-14] MEDS ORDERED: hydrALAZINE 25 MG Tablet PO PRN (13:10)
--- NOTE | 2017-09-14 18:45 | P.PNGI ---
Subjective Interval history: feels well, had brown bm today. appears bleeding has slowed down or stopped. no urgent plan for endoscopy Physical Exam Vital signs: Vital Signs 09/13/17 20:00 09/13/17 20:20 09/13/17 20:51 Temperature 98.2 F Pulse Rate 96 H 92 H 96 H Respiratory Rate 17 15 Blood Pressure 173/82 H Pulse Oximetry 97 98 09/14/17 00:00 09/14/17 00:35 09/14/17 01:19 Temperature 97.9 F 97.9 F Pulse Rate 96 H 93 H 96 H Respiratory Rate 17 17 Blood Pressure 154/75 H 154/75 H Pulse Oximetry 93 L 93 L 09/14/17 04:00 09/14/17 04:24 09/14/17 04:35 Temperature 98.4 F 98.4 F Pulse Rate 84 80 85 Respiratory Rate 18 20 18 Blood Pressure 152/71 H 152/72 H Pulse Oximetry 96 96 09/14/17 04:49 09/14/17 08:00 09/14/17 12:00 Temperature 97.4 F L 98.1 F Pulse Rate 84 98 H 85 Respiratory Rate 20 20 Blood Pressure 136/73 199/86 H Pulse Oximetry 95 94 L 09/14/17 13:16 09/14/17 16:00 Temperature 98.1 F Pulse Rate 72 92 H Respiratory Rate 17 20 Blood Pressure 166/77 H Pulse Oximetry 95 94 L Intake & Output 09/13/17 09/14/17 09/14/17 18:59 06:59 18:59 Intake Total 1100.5 / 1100.5 640 / 640 500.5 / 500.5 Output Total 450 / 450 500 / 500 Balance 650.5 / 650.5 140 / 140 500.5 / 500.5 Weight 91.4 kg Intake: IV 500.5 / 500.5 500.5 / 500.5 SandoSTATIN Inj 500 MCG In NS 500.5 / 500.5 500.5 / 500.5 Inj 500 ML @ 50 MCG/HR 50.05 mls/hr IV.CONT .Q10H [facility] Rx#: [id number] Oral 600 / 600 240 / 240 Intake (Blood Product) Amt 400 / 400 Rbc As-3 Leukoreduced Unit 400 / 400 [id number] Output: Urine 450 / 450 500 / 500 Other: Date of Last Bowel Movement 09/12/17 09/12/17 - Routine Respiratory Exam Present: CTA bilaterally - Routine Cardiovascular Exam Present: RRR, S1, S2 - Routine Abdominal Exam Present: soft, normoactive bowel sounds. Absent: tenderness, distended, rebound , guarding, firm - Urinary Catheter Management Indwelling Urethral Catheter Cath placed during this visit: yes, but has since been removed by the nurse Reason for continuing: Not indwelling catheter Insertion date: 09/10/17 Insertion time: 16:45 Removal date: 09/11/17 Removal time: 15:30 Results - Labs CBC & Chem 7: 09/14/17 11:45 09/13/17 06:05 Laboratory Results - last 24 hr 09/06/17 09/13/17 09/13/17 11:38 19:46 21:10 WBC RBC Hgb Hct MCV MCH MCHC RDW Plt Count MPV Neut % (Auto) Lymph % (Auto) [place] % (Auto) Eos % (Auto) Baso % (Auto) Neut # (Auto) Lymph # (Auto) [place] # (Auto) Eos # (Auto) Baso # (Auto) WBC Differential Differential Comment POC Glucose 205 H Blood Type A Positive Antibody Screen Negative MTS Gel Crossmatch See Detail See Detail 09/14/17 09/14/17 09/14/17 08:41 11:37 11:45 WBC 5.9 RBC 2.98 L Hgb 8.9 L Hct 26.4 L MCV 88.4 MCH 29.9 MCHC 33.8 RDW 16.2 Plt Count 228 MPV 6.7 L Neut % (Auto) 70.5 H Lymph % (Auto) 20.6 [place] % (Auto) 7.7 Eos % (Auto) 0.7 Baso % (Auto) 0.5 Neut # (Auto) 4.1 Lymph # (Auto) 1.2 [place] # (Auto) 0.4 Eos # (Auto) 0.0 Baso # (Auto) 0.0 WBC Differential . Differential Comment Auto diff final POC Glucose 254 H 266 H Blood Type Antibody Screen MTS Gel Crossmatch 09/14/17 16:20 WBC RBC Hgb Hct MCV MCH MCHC RDW Plt Count MPV Neut % (Auto) Lymph % (Auto) [place] % (Auto) Eos % (Auto) Baso % (Auto) Neut # (Auto) Lymph # (Auto) [place] # (Auto) Eos # (Auto) Baso # (Auto) WBC Differential Differential Comment POC Glucose 279 H Blood Type Antibody Screen MTS Gel Crossmatch Microbiology 09/14/17 08:30 Stool Stool Occult Blood (MARIANNA) - Final Hemoccult negative - Procedures s/p Gelfoam and coil embolized branch, Assessment and Plan (1) UGIB (upper gastrointestinal bleed) Status: Acute Code(s): K92.2 - Gastrointestinal hemorrhage, unspecified (2) Acute blood loss anemia Status: Acute Code(s): D62 - Acute posthemorrhagic anemia - Plan 1. GIB 2. Acute anemia of blood loss PLAN: 1. resume meds, and diet 2. no urgent plan for endoscopy 3. will need follow up with Dr chhaya hidalgo 1-2 wks. will do out pt Egd Pt and agreeable.
[2017-09-14] MEDS: Insulin Detemir Inj 1,000 UNIT/10 ML Vial SQ SCH (21:24)
--- NOTE | 2017-09-14 21:49 | P.PNCS ---
Subjective Interval history: C/R Surg afebrile, VSS No melena, or BRB no pain Objective Vital Signs/Intake & Output: Vital Signs Intake & Output Result Diagrams: 09/14/17 11:45 09/13/17 06:05 Laboratory Results: Laboratory Results - last 24 hr Culture Results: Microbiology 09/14/17 08:30 Stool Occult Blood (MARIANNA) - Final Stool Hemoccult negative Medications: Active Medications Objective Remarks: PE alert Abd - soft, non-tender, no BRB Assessment and Plan - Plan Imp: stable Hgb, after tx no active bleeding, but stools dark on diet cont observation
[2017-09-15] MEDS: Insulin NovoLOG Aspart Correctional Sugar Inj SQ SCH ×2 (08:13→13:20)
[2017-09-15 09:37] LABS: Baso % (Auto) 0.6 % (0.0-2.0); Eos # (Auto) 0.1 th/mm3 (0.0-0.4); Hematocrit 28.8 % (39.0-51.0); Hemoglobin 9.7 gm/dL (13.0-17.0); Lymph % (Auto) 18.7 % (9.0-44.0); Mean Corpuscular HGB Conc 33.6 % (32.0-36.0); Mean Corpuscular Hemoglobin 29.6 pg (27.0-34.0); Mean Corpuscular Volume 88.2 fL (80.0-100.0); Mean Platelet Volume 6.7 fL (7.0-11.0); Mono # (Auto) 0.5 th/mm3 (0.0-0.9); Mono % (Auto) 8.5 % (0.0-8.0); Neut % (Auto) 71.2 % (16.0-70.0); Platelet Count 283 th/mm3 (150-450); Red Blood Count 3.27 mil/mm3 (4.50-5.90); Red Cell Distribution Width 16.4 % (11.6-17.2); White Blood Count 5.6 th/mm3 (4.0-11.0)
--- NOTE | 2017-09-15 09:50 | P.PNGI ---
Subjective Interval history: feels well today, no abdo pain, no new bleeding over night. Physical Exam Vital signs: Vital Signs 09/14/17 12:00 09/14/17 13:16 09/14/17 16:00 Temperature 98.1 F 98.1 F Pulse Rate 85 72 92 H Respiratory Rate 20 17 20 Blood Pressure 199/86 H 166/77 H Pulse Oximetry 94 L 95 94 L 09/14/17 19:54 09/14/17 20:00 09/14/17 23:41 Temperature 98.3 F Pulse Rate 87 90 89 Respiratory Rate 16 20 16 Blood Pressure Pulse Oximetry 97 96 09/14/17 23:50 09/15/17 00:00 09/15/17 03:30 Temperature 98 F Pulse Rate 89 95 H 92 H Respiratory Rate 20 16 Blood Pressure 174/85 H Pulse Oximetry 95 09/15/17 04:00 09/15/17 08:00 Temperature 97.9 F 97.9 F Pulse Rate 95 H 96 H Respiratory Rate 20 Blood Pressure 169/83 H 154/96 H Pulse Oximetry 95 93 L Intake & Output 09/14/17 09/15/17 09/15/17 18:59 06:59 18:59 Intake Total 1220.5 / 1220.5 340.5 / 340.5 Output Total 650 / 650 900 / 900 Balance 570.5 / 570.5 -559.5 / -559.5 Weight 94 kg Intake: IV 500.5 / 500.5 0.5 / 0.5 SandoSTATIN Inj 500 MCG In NS 500.5 / 500.5 0.5 / 0.5 Inj 500 ML @ 50 MCG/HR 50.05 mls/hr IV.CONT .Q10H [facility] Rx#: [id number] Oral 720 / 720 240 / 240 Oral Supplement 100 / 100 Output: Urine 650 / 650 900 / 900 Other: Date of Last Bowel Movement 09/14/17 09/14/17 # Bowel Movements 1 - Constitutional no acute distress - Routine HEENT Exam Head: Present: normocephalic Eye: Present: EOMI ENT: Present: mucous membranes moist - Routine Neck Exam Present: supple - Routine Cardiovascular Exam Present: RRR, S1, S2 - Routine Abdominal Exam Present: soft, normoactive bowel sounds. Absent: tenderness, distended, rebound - Routine Skin Exam Present: intact - Routine Neurological Exam Present: alert, oriented X3 - Routine Psychiatric Exam Present: normal affect - Urinary Catheter Management Indwelling Urethral Catheter Cath placed during this visit: yes, but has since been removed by the nurse Reason for continuing: Not indwelling catheter Insertion date: 09/10/17 Insertion time: 16:45 Removal date: 09/11/17 Removal time: 15:30 Results - Labs CBC & Chem 7: 09/15/17 09:09 09/13/17 06:05 Laboratory Results - last 24 hr 09/14/17 09/14/17 09/14/17 11:37 11:45 16:20 WBC 5.9 RBC 2.98 L Hgb 8.9 L Hct 26.4 L MCV 88.4 MCH 29.9 MCHC 33.8 RDW 16.2 Plt Count 228 MPV 6.7 L Neut % (Auto) 70.5 H Lymph % (Auto) 20.6 [place] % (Auto) 7.7 Eos % (Auto) 0.7 Baso % (Auto) 0.5 Neut # (Auto) 4.1 Lymph # (Auto) 1.2 [place] # (Auto) 0.4 Eos # (Auto) 0.0 Baso # (Auto) 0.0 WBC Differential . Differential Comment Auto diff final POC Glucose 266 H 279 H 09/14/17 09/15/17 09/15/17 19:19 07:38 09:09 WBC 5.6 RBC 3.27 L Hgb 9.7 L Hct 28.8 L MCV 88.2 MCH 29.6 MCHC 33.6 RDW 16.4 Plt Count 283 MPV 6.7 L Neut % (Auto) 71.2 H Lymph % (Auto) 18.7 [place] % (Auto) 8.5 H Eos % (Auto) 1.0 Baso % (Auto) 0.6 Neut # (Auto) 4.0 Lymph # (Auto) 1.0 [place] # (Auto) 0.5 Eos # (Auto) 0.1 Baso # (Auto) 0.0 WBC Differential . Differential Comment Auto diff final POC Glucose 176 H 326 H Microbiology 09/14/17 08:30 Stool Stool Occult Blood (MARIANNA) - Final Hemoccult negative - Procedures s/p Gelfoam and coil embolized branch, Assessment and Plan (1) UGIB (upper gastrointestinal bleed) Status: Acute Code(s): K92.2 - Gastrointestinal hemorrhage, unspecified (2) Acute blood loss anemia Status: Acute Code(s): D62 - Acute posthemorrhagic anemia - Plan IMP: 1. GIb resolved 2. anemia PLAN: 1. Diet as tolerated 2. PPI bid 3. Out pt follow up with GI
[2017-09-15 10:04] LABS: Alanine Aminotransferase 21 U/L (12-78); Albumin 2.7 g/dL (3.4-5.0); Alkaline Phosphatase 54 U/L (45-117); Anion Gap 9 meq/L (5-15); Aspartate Aminotransferase 11 U/L (15-37); Blood Urea Nitrogen 9 mg/dL (7-18); Calcium 8.8 mg/dL (8.5-10.1); Chloride 105 meq/L (98-107); Glomerular Filtration Rate 57 mL/min (>89); Glucose,Random 235 mg/dL (74-106); Potassium 3.8 meq/L (3.5-5.1); Sodium 142 meq/L (136-145); Total Protein 5.9 g/dL (6.4-8.2)
[2017-09-15] MEDS: Tiotropium Bromide 18 MCG/ACT Inhaler INH SCH (10:28)
[2017-09-15] MEDS: Budesonide-Formoterol 160/4.5 MCG 6 GM Inhaler INH SCH (10:28)
--- NOTE | 2017-09-15 12:38 | P.PN ---
Subjective Interval history: Follow-up symptomatic anemia September 12, 2017-patient seen and examined, no visible gross blood in his bowel movement. H&H remained stable. September 13, 2017-patient seen and examined, H&H dropping and down to 7.4/22.5. Patient denies any shortness of breath. September 14, 2017-patient seen and examined, H&H appears stable after 1 unit transfuse last night. Patient stated he had a small normal bowel movement today. September 15, 2017-patient seen and examined, H&H up to 9.7/28.8. Patient is stable looking for discharge home. No BM today Physical Exam Vital signs: Vital Signs 09/14/17 13:16 09/14/17 16:00 09/14/17 19:54 Temperature 98.1 F Pulse Rate 72 92 H 87 Respiratory Rate 17 20 16 Blood Pressure 166/77 H Pulse Oximetry 95 94 L 97 09/14/17 20:00 09/14/17 23:41 09/14/17 23:50 Temperature 98.3 F Pulse Rate 90 89 89 Respiratory Rate 20 16 Blood Pressure Pulse Oximetry 96 09/15/17 00:00 09/15/17 03:30 09/15/17 04:00 Temperature 98 F 97.9 F Pulse Rate 95 H 92 H 95 H Respiratory Rate 20 16 20 Blood Pressure 174/85 H 169/83 H Pulse Oximetry 95 95 09/15/17 08:00 09/15/17 11:32 Temperature 97.9 F Pulse Rate 96 H 90 Respiratory Rate 17 Blood Pressure 154/96 H Pulse Oximetry 93 L Intake & Output 09/14/17 09/15/17 09/15/17 18:59 06:59 18:59 Intake Total 1220.5 / 1220.5 340.5 / 340.5 Output Total 650 / 650 900 / 900 Balance 570.5 / 570.5 -559.5 / -559.5 Weight 94 kg Intake: IV 500.5 / 500.5 0.5 / 0.5 SandoSTATIN Inj 500 MCG In NS 500.5 / 500.5 0.5 / 0.5 Inj 500 ML @ 50 MCG/HR 50.05 mls/hr IV.CONT .Q10H [facility] Rx#: [id number] Oral 720 / 720 240 / 240 Oral Supplement 100 / 100 Output: Urine 650 / 650 900 / 900 Other: Date of Last Bowel Movement 09/14/17 09/14/17 # Bowel Movements 1 Narrative: GENERAL: NAD SKIN: Warm and dry. HEAD: Normocephalic. EYES: No scleral icterus. No injection or drainage. NECK: Supple, trachea midline. No JVD or lymphadenopathy. CARDIOVASCULAR: Regular rate and rhythm without murmurs, gallops, or rubs. RESPIRATORY: Breath sounds equal bilaterally. No accessory muscle use. GASTROINTESTINAL: Abdomen soft, non-tender, nondistended. MUSCULOSKELETAL: No cyanosis, or edema. BACK: Nontender without obvious deformity. No CVA tenderness. - Urinary Catheter Management Indwelling Urethral Catheter Cath placed during this visit: yes, but has since been removed by the nurse Reason for continuing: Not indwelling catheter Insertion date: 09/10/17 Insertion time: 16:45 Removal date: 09/11/17 Removal time: 15:30 Results - Labs CBC & Chem 7: 09/15/17 09:09 09/15/17 09:09 Laboratory Results - last 24 hr 09/14/17 09/14/17 09/15/17 16:20 19:19 07:38 WBC RBC Hgb Hct MCV MCH MCHC RDW Plt Count MPV Neut % (Auto) Lymph % (Auto) [place] % (Auto) Eos % (Auto) Baso % (Auto) Neut # (Auto) Lymph # (Auto) [place] # (Auto) Eos # (Auto) Baso # (Auto) WBC Differential Differential Comment Sodium Potassium Chloride Carbon Dioxide Anion Gap BUN Creatinine Estimated GFR POC Glucose 279 H 176 H 326 H Random Glucose Calcium Total Bilirubin AST ALT Alkaline Phosphatase Total Protein Albumin 09/15/17 09/15/17 09/15/17 09:09 09:09 12:12 WBC 5.6 RBC 3.27 L Hgb 9.7 L Hct 28.8 L MCV 88.2 MCH 29.6 MCHC 33.6 RDW 16.4 Plt Count 283 MPV 6.7 L Neut % (Auto) 71.2 H Lymph % (Auto) 18.7 [place] % (Auto) 8.5 H Eos % (Auto) 1.0 Baso % (Auto) 0.6 Neut # (Auto) 4.0 Lymph # (Auto) 1.0 [place] # (Auto) 0.5 Eos # (Auto) 0.1 Baso # (Auto) 0.0 WBC Differential . Differential Comment Auto diff final Sodium 142 Potassium 3.8 Chloride 105 Carbon Dioxide 28.0 Anion Gap 9 BUN 9 Creatinine 1.21 Estimated GFR 57 L POC Glucose 246 H Random Glucose 235 H Calcium 8.8 Total Bilirubin 0.3 AST 11 L ALT 21 Alkaline Phosphatase 54 Total Protein 5.9 L D Albumin 2.7 L Microbiology 09/14/17 08:30 Stool Stool Occult Blood (MARIANNA) - Final Hemoccult negative - Procedures s/p Gelfoam and coil embolized branch, Assessment and Plan - Assessment (1) Diabetes type 2, uncontrolled Code(s): E11.65 - Type 2 diabetes mellitus with hyperglycemia Status: Acute (2) Alpha 1-antitrypsin PiMS phenotype Code(s): R79.9 - Abnormal finding of blood chemistry, unspecified Status: Chronic (3) Lactic acid acidosis Code(s): E87.2 - Acidosis Status: Resolved (4) Leukocytosis, unspecified Code(s): D72.829 - Elevated white blood cell count, unspecified Status: Acute (5) Anemia, chronic disease Code(s): D63.8 - Anemia in other chronic diseases classified elsewhere Status : Acute - Plan 82-year-old man with Acute anemia GI bleed -Patient transfused a total of 8 unit packed red blood cell and H/H today 9.7 /28.8 -s/p Gelfoam and coil embolized branch, -Appreciate input from gastroenterology, colorectal surgery -Continue to monitor H&H. -Protonix twice daily, and avoid NSAID COPD, with exacerbation Alpha-1 antitrypsin deficiency -Outpatient follow-up with pulmonary medicine -DuoNeb scheduled and as needed -Continue Symbicort, tiotropium. -Prolastin infusion q. weekly Diabetes type 2, uncontrolled blood glucose -Continue outpatient medications -Medium insulin sliding scale Lactic acidosis-resolved Leukocytosis-resolved DVT prophylaxis: Hold heparin secondary to acute anemia PT to treat and eval (1) Diabetes type 2, uncontrolled Qualifiers: Diabetes mellitus retirement insulin use: with retirement use Diabetes mellitus complication status: without complication Qualified Code(s): E11.65 - Type 2 diabetes mellitus with hyperglycemia; Z79.4 - skilled nursing (current) use of insulin (4) Leukocytosis, unspecified Qualifiers: Leukocytosis type: unspecified Qualified Code(s): D72.829 - Elevated white blood cell count, unspecified
--- NOTE | 2017-09-15 12:46 | P.DS ---
Date of admission: 09/04/17 07:42 Primary care physician: UNKNOWN Anticipated date of discharge: 09/15/17 Brief History from admission: 82-year-old male for past medical history of diabetes type 2, alpha-1 antitrypsin deficiency was brought to the ED for evaluation of ongoing worsening shortness of breath times several day duration. While in the ED, patient was found to have elevated blood glucose, WBC and lactic acidosis. Patient was recently treated with a round of antibiotic and steroid by his counter stitcher. He also has recently been started on new oral anti-diabetic medications in order to control his blood glucose by his primary care physician DS: Diagnosis - Discharge Diagnosis (1) Diabetes type 2, uncontrolled Status: Acute (2) Alpha 1-antitrypsin PiMS phenotype Status: Chronic (3) Lactic acid acidosis Status: Resolved (4) Leukocytosis, unspecified Status: Acute (5) Anemia, chronic disease Status: Acute DS: Summary Hospital Course: While in the Hospital, patient was treated for Acute anemia GI bleed -Patient transfused a total of 8 unit packed red blood cell and H/H today 9.7 /28.8 -s/p Gelfoam and coil embolized branch, -Appreciate input from gastroenterology, colorectal surgery -Continue to monitor H&H. -Protonix twice daily, and avoid NSAID COPD, with exacerbation Alpha-1 antitrypsin deficiency -Outpatient follow-up with pulmonary medicine -DuoNeb scheduled and as needed -Continue Symbicort, tiotropium. -Prolastin infusion q. weekly Diabetes type 2, uncontrolled blood glucose -Resume outpatient medications -Medium insulin sliding scale Lactic acidosis-resolved Leukocytosis-resolved DVT prophylaxis: Hold heparin secondary to acute anemia PT to treat and eval - Time Spent with Patient Total time spent providing and/or coordinating discharge services: Less than 30 minutes - Quality: VTE Deep Vein Thrombosis/Pulmonary Embolism Present on Admission: No Exam Vital signs: Vital Signs 09/14/17 13:16 09/14/17 16:00 09/14/17 19:54 Temperature 98.1 F Pulse Rate 72 92 H 87 Respiratory Rate 17 20 16 Blood Pressure 166/77 H Pulse Oximetry 95 94 L 97 09/14/17 20:00 09/14/17 23:41 09/14/17 23:50 Temperature 98.3 F Pulse Rate 90 89 89 Respiratory Rate 20 16 Blood Pressure Pulse Oximetry 96 09/15/17 00:00 09/15/17 03:30 09/15/17 04:00 Temperature 98 F 97.9 F Pulse Rate 95 H 92 H 95 H Respiratory Rate 20 16 20 Blood Pressure 174/85 H 169/83 H Pulse Oximetry 95 95 09/15/17 08:00 09/15/17 11:32 Temperature 97.9 F Pulse Rate 96 H 90 Respiratory Rate 17 Blood Pressure 154/96 H Pulse Oximetry 93 L Intake & Output 09/14/17 09/15/17 09/15/17 18:59 06:59 18:59 Intake Total 1220.5 / 1220.5 340.5 / 340.5 Output Total 650 / 650 900 / 900 Balance 570.5 / 570.5 -559.5 / -559.5 Weight 94 kg Intake: IV 500.5 / 500.5 0.5 / 0.5 SandoSTATIN Inj 500 MCG In NS 500.5 / 500.5 0.5 / 0.5 Inj 500 ML @ 50 MCG/HR 50.05 mls/hr IV.CONT .Q10H [facility] Rx#: [id number] Oral 720 / 720 240 / 240 Oral Supplement 100 / 100 Output: Urine 650 / 650 900 / 900 Other: Date of Last Bowel Movement 09/14/17 09/14/17 # Bowel Movements 1 Narrative: GENERAL: NAD SKIN: Warm and dry. HEAD: Normocephalic. EYES: No scleral icterus. No injection or drainage. NECK: Supple, trachea midline. No JVD or lymphadenopathy. CARDIOVASCULAR: Regular rate and rhythm without murmurs, gallops, or rubs. RESPIRATORY: Breath sounds equal bilaterally. No accessory muscle use. GASTROINTESTINAL: Abdomen soft, non-tender, nondistended. MUSCULOSKELETAL: No cyanosis, or edema. BACK: Nontender without obvious deformity. No CVA tenderness. Results Procedures completed during hospitalization: s/p Gelfoam and coil embolized branch, Labs on day of discharge: Labs from last 24 hours 09/15/17 09/15/17 09/15/17 12:12 09:09 09:09 WBC 5.6 RBC 3.27 L Hgb 9.7 L Hct 28.8 L MCV 88.2 MCH 29.6 MCHC 33.6 RDW 16.4 Plt Count 283 MPV 6.7 L Neut % (Auto) 71.2 H Lymph % (Auto) 18.7 [place] % (Auto) 8.5 H Eos % (Auto) 1.0 Baso % (Auto) 0.6 Neut # (Auto) 4.0 Lymph # (Auto) 1.0 [place] # (Auto) 0.5 Eos # (Auto) 0.1 Baso # (Auto) 0.0 WBC Differential . Differential Comment Auto diff final Sodium 142 Potassium 3.8 Chloride 105 Carbon Dioxide 28.0 Anion Gap 9 BUN 9 Creatinine 1.21 Estimated GFR 57 L POC Glucose 246 H Random Glucose 235 H Calcium 8.8 Total Bilirubin 0.3 AST 11 L ALT 21 Alkaline Phosphatase 54 Total Protein 5.9 L D Albumin 2.7 L 09/15/17 09/14/17 09/14/17 07:38 19:19 16:20 WBC RBC Hgb Hct MCV MCH MCHC RDW Plt Count MPV Neut % (Auto) Lymph % (Auto) [place] % (Auto) Eos % (Auto) Baso % (Auto) Neut # (Auto) Lymph # (Auto) [place] # (Auto) Eos # (Auto) Baso # (Auto) WBC Differential Differential Comment Sodium Potassium Chloride Carbon Dioxide Anion Gap BUN Creatinine Estimated GFR POC Glucose 326 H 176 H 279 H Random Glucose Calcium Total Bilirubin AST ALT Alkaline Phosphatase Total Protein Albumin - Impressions ITS Impressions Abdomen/Pelvis CTA 09/06/17 11:36 CONCLUSION: 1. Atherosclerotic changes without aneurysm. 2. 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 3. No hemorrhage identified. Bilateral renal cysts, hepatic steatosis and diverticulosis of the colon. Abdominal Angiography 09/10/17 00:00 CONCLUSION: 1. Abnormal accumulation of contrast in the region of the gastric body/fundus apparently from small branches arising from the left inferior phrenic artery. Therefore, the left inferior phrenic artery was embolized. 2. Prominent left gastric artery with relative hyperemia of the gastric fundus. This was better appreciated on retrospective review of the angiography and comparison CTA exam. If patient's gastric hemorrhage does not resolve, consider prophylactic embolization of the left gastric artery. Chest X-Ray 09/10/17 00:00 CONCLUSION: Minimal basilar atelectasis. Endotracheal tube in good position. Discharge Plan - Discharge Disposition Patient Disposition: Discharge Home - Discharge Condition Condition: Good - Discharge Order Discharge Orders: Discharge Order (Routine); Ordered 09/15/17 Ordered By: Dejon Bird - Physicians Team Primary Care Provider: UNKNOWN, Attending Provider: Dejon Bird Other Providers: [facility] ; Power King MD ; Dejon Bird MD
--- NOTE | 2017-09-15 12:51 | P.DCO ---
- Diagnosis (1) Diabetes type 2, uncontrolled (2) Leukocytosis, unspecified - Physical Therapy Order: Evaluate and treat - Home Health Nursing Order: Signs/symptoms of disease process - Certification I have seen patient Ariel Camejo on 09/15/17. 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
== END 2017-09-15 14:53 | disposition home health service (06) ==
LOC: NEPE 02:22 → NEDA 02:22 → NEPGCP 10:12 → N04 09-06 03:29 → HIMC 09-06 19:08 → N06 09-10 10:32 → HIMC 09-10 16:30 → N04 09-12 15:57
PROVIDERS: ADMIT Hospitalist; ATTEND Hospitalist

== ENCOUNTER 2018-03-10 11:24 | Inpatient (IN) ==
[2018-03-10] MEDS ORDERED: MethylPREDNISolone Sod Succinate Inj 125 MG/2 ML Vial IV.PUSH ONE (11:47)
--- NOTE | 2018-03-10 11:54 | ED ---
HPI General Chief Complaint: Respiratory Symptoms Stated Complaint: SOB Time Seen by Provider: 03/10/18 11:45 History of Present Illness This patient complains of shortness of breath. Symptoms are moderately severe. Duration is 3 days. He reports history of alpha-1 antitrypsin deficiency. He uses oxygen and nebulizers at home. He says he gets infusions of Levaquin and steroids. He is a smoker. He denies chest pain or productive cough. He complains of generalized diffuse weakness. He has wheelchair at home that he uses intermittently. No alleviating factors. No exacerbating factors. Related Data Home Medications Medication Instructions Recorded Confirmed albuterol sulfate [ProAir HFA] 2 puff INHALATION Q4-6H PRN 03/10/18 03/10/18 amlodipine 5 mg PO DAILY 03/10/18 03/10/18 enalapril maleate [Vasotec] 10 mg PO DAILY 03/10/18 03/10/18 glimepiride 8 mg PO QAM 03/10/18 03/10/18 insulin glargine [Lantus Solostar 24 unit SUBCUT HS 03/10/18 03/10/18 U-100 Insulin] ipratropium-albuterol 3 ml INHALATION Q6H PRN 03/10/18 03/10/18 metformin 1,000 mg PO BID 03/10/18 03/10/18 metoprolol succinate 50 mg PO DAILY 03/10/18 03/10/18 semaglutide [Ozempic] 0.5 mg SUBCUT QWEEK 03/10/18 03/10/18 Allergies Allergy/AdvReac Type Severity Reaction Status Date / Time phenobarbital Allergy Severe Anaphylaxis Verified 09/04/17 07:58 Review of Systems ROS: all other systems reviewed are negative [facility] Medical History Medical History Abdominal hemorrhage (Acute) Bronchitis (Acute) Cataract (Acute) Cataract fragments in eye following surgery (Acute) Pneumonia (Acute) [id number] deficiency (Acute) COPD (chronic obstructive pulmonary disease) (Acute) Diabetes mellitus (Acute) Hyperlipidemia (Acute) Hypertension (Acute) Kidney stone (Acute) Surgical History Surgical History History of appendectomy (Acute) History of cholecystectomy (Acute) Social History Social History Substance History: No History of Abuse Second Hand Smoke Exposure: Yes Smoking Status: Current some day smoker Tobacco Type: Cigarettes How Often Do You Have a Drink Containing Alcohol: Monthly or less Recent Travel in [facility] within the Last 8 Weeks: No Recent Out of Country Travel within the Last 8 Weeks: No Exam Narrative Exam Narrative: GENERAL: Elderly anxious well-developed patient complaining of dyspnea SKIN: Focused skin assessment reveals no rash and nodules. Skin is Warm and dry. HEAD: Atraumatic. Normocephalic. EYES: Pupils equal and round. No scleral icterus. No injection or drainage. ENT: No nasal bleeding or discharge. Mucous membranes pink and moist. NECK: Trachea midline. No JVD. CARDIOVASCULAR: Regular rate and rhythm. No murmur appreciated. Tachycardic 120s RESPIRATORY: No accessory muscle use. Expiratory wheezing diffusely. Breath sounds equal bilaterally. GASTROINTESTINAL: Abdomen soft, non-tender, nondistended. Hepatic and splenic margins not palpable. MUSCULOSKELETAL: No obvious deformities. No clubbing. No cyanosis. No edema. NEUROLOGICAL: Awake and alert. No obvious cranial nerve deficits. Motor grossly within normal limits. Normal speech. PSYCHIATRIC: Appropriate mood and affect; insight and judgment normal. Course Initial Documented Vital Signs Temperature 97.8 F 03/10/18 11:31 Pulse Rate 129 H 03/10/18 11:31 Respiratory Rate 28 H 03/10/18 11:31 Blood Pressure 142/63 H 03/10/18 11:31 Pulse Oximetry 98 03/10/18 11:31 Last Documented Vital Signs Temperature 97.8 F 03/10/18 11:31 Pulse Rate 128 H 03/10/18 13:00 Respiratory Rate 20 03/10/18 13:00 Blood Pressure 128/62 03/10/18 13:00 Pulse Oximetry 98 03/10/18 13:00 Critical Care Time Critical Care Time: Yes Total Critical Care Time: 40 Attestation: Aggregate critical care time was 40 minutes. Time to perform other separately billable procedures was not included in the critical care time. My time did not include minutes spent treating any other patients simultaneously or on activities that did not directly contribute to the patient's treatment. The services I provided to this patient were to treat and/or prevent clinically significant deterioration that could result in: Hemorrhagic shock, cardiac pulmonary arrest I provided critical care services requiring my management, as noted below: Chart data review, documentation time, medication orders and management, vital sign assessments/reviewing monitor data, ordering and reviewing lab tests, ordering and interpreting/reviewing x-rays and diagnostic studies, care of the patient and discussion of the patient with the admitting physicians. Medical Decision Making MDM Narrative Medical decision making narrative: 82-year-old male with chronic lung disease complaining of dyspnea. He is actively wheezing. Have ordered him nebulizers and steroids as well as labs and a chest x-ray. His room air saturations are 99%. Chest x-ray is normal. Labs show significant drop in hemoglobin to 7.0. He denies any rectal bleeding or melena Rectal exam reveals black stool that is Hemoccult positive. He has been getting gradually weaker over a couple of weeks time. He has history of GI bleed this past summer. This is the first time it has bothered him since then. I have ordered him 2 units of packed red cells. He will be admitted and I placed a call to the hospitalist. He has persistent tachycardia and symptomatic anemia and therefore I am giving him a liter of saline IV and 2 units of packed red cells. At this point I do not think he needs intensive care support. His blood pressure is remained okay. Patient has hyperglycemia and I gave him 10 units IV regular insulin along with the IV fluid. His beta hydroxybutyrate is normal. Kidney function is a bit worse. Medical Screen Exam Complete: Yes Emergency Medical Condition: Yes Differential Diagnosis Differential Diagnosis: Emphysema, pneumonia, asthma, bronchitis Medical Records Medical records reviewed: Yes I reviewed the patient's medical records. Patient had GI bleed September 2017 Lab Data Lab results reviewed: Yes I reviewed the patient's lab results. Lab results narrative: Critical anemia with hemoglobin of 7.0. He has hyperglycemia and renal insufficiency also. Result diagrams: 03/10/18 12:35 03/10/18 12:35 Lab Results 03/10/18 03/10/18 Range/Units 12:35 12:35 WBC 14.3 H (4.0-11.0) th/mm3 RBC 2.35 L (4.50-5.90) mil/mm3 Hgb 7.0 L (13.0-17.0) gm/dL Hct 21.4 L (39.0-51.0) % MCV 91.4 (80.0-100.0) fL MCH 29.8 (27.0-34.0) pg MCHC 32.6 (32.0-36.0) % RDW 15.4 (11.6-17.2) % Plt Count 232 (150-450) th/mm3 MPV 8.4 (7.0-11.0) fL Neut % (Auto) 87.2 H (16.0-70.0) % Lymph % (Auto) 7.7 L (9.0-44.0) % [place] % (Auto) 4.9 (0.0-8.0) % Eos % (Auto) 0.0 (0.0-4.0) % Baso % (Auto) 0.2 (0.0-2.0) % Neut # (Auto) 12.5 H (1.8-7.7) th/mm3 Lymph # (Auto) 1.1 (1.0-4.8) th/mm3 [place] # (Auto) 0.7 (0.0-0.9) th/mm3 Eos # (Auto) 0.0 (0.0-0.4) th/mm3 Baso # (Auto) 0.0 (0.0-0.2) th/mm3 WBC Differential . Differential Comment Auto diff final Sodium 135 L (136-145) meq/L Potassium 4.4 (3.5-5.1) meq/L Chloride 105 (98-107) meq/L Carbon Dioxide 19.2 L (21.0-32.0) meq/L Anion Gap 11 (5-15) meq/L BUN 130 H (7-18) mg/dL Creatinine 2.11 H (0.60-1.30) mg/dL Estimated GFR 30 L (>89) mL/min Random Glucose 323 H (74-106) mg/dL Calcium 9.4 (8.5-10.1) mg/dL Total Bilirubin 0.2 (0.2-1.0) mg/dL AST 11 L (15-37) U/L ALT 16 (12-78) U/L Alkaline Phosphatase 37 L (45-117) U/L Total Protein 5.6 L (6.4-8.2) g/dL Albumin 3.4 (3.4-5.0) g/dL Beta-Hydroxybutyric Acd 0.34 (0.00-0.39) mmol/L Imaging Data Attestation: I personally reviewed and interpreted this imaging study as follows : My impression: Chest x-ray is normal Radiologist's impression: Chest X-Ray 03/10/18 11:49 CONCLUSION: No acute cardiopulmonary disease. ECG Data EKG Prior to Arrival: No Attestation: I personally reviewed and interpreted this ECG as follows: Prior ECG tracings: not available for review Interpretation: EKG shows a regular narrow complex tachycardia. Rate 128. He seems to have a P wave in front of each QRS complex followed by T wave. His R to R interval is constant. Machine reads atrial flutter but this seems more like a sinus tachycardia. No ectopy and no ST elevation Discharge Plan Discharge Disposition Patient Disposition: ED Admit(ED Internal Use Only) Discharge Details Diagnosis: Acute blood loss anemia, UGIB (upper gastrointestinal bleed) Physicians Team ED Provider: Christiano Torre Primary Care Provider: UNKNOWN, Rxs /Orders / Referrals /Forms Prescriptions: No Action ipratropium-albuterol 0.5 mg-3 mg(2.5 mg base)/3 mL Solution For Nebulization 3 ml INHALATION Q6H PRN (Reason: Shortness Of Breath) RF: 0 enalapril maleate [Vasotec] 10 mg Tablet 10 mg PO DAILY RF: 0 metoprolol succinate 50 mg Tablet Extended Release 24 Hr 50 mg PO DAILY RF: 0 amlodipine 5 mg Tablet 5 mg PO DAILY RF: 0 albuterol sulfate [ProAir HFA] 90 mcg/actuation Hfa Aerosol Inhaler 2 puff INHALATION Q4-6H PRN (Reason: Shortness Of Breath) RF: 0 insulin glargine [Lantus Solostar U-100 Insulin] 100 unit/mL (3 mL) Insulin Pen 24 unit SUBCUT HS RF: 0 semaglutide [Ozempic] 0.25 mg or 0.5 mg(2 mg/1.5 mL) Pen Injector 0.5 mg SUBCUT QWEEK RF: 0 metformin 1,000 mg Tablet 1,000 mg PO BID RF: 0 glimepiride 4 mg Tablet 8 mg PO QAM RF: 0 Discharge Interventions Interventions: Vital Signs Last Done: 03/10/18 13:00 Status ED Status: With Doctor
--- NOTE | 2018-03-10 12:27 | XR ---
EXAM DATE: 03/10/2018 12:21 PM EST AGE/SEX: 82 years / Male INDICATIONS: Shortness of breath. CLINICAL DATA: This is the patient's initial encounter. Patient reports that signs and symptoms have been present for 1 day and indicates a pain score of 0/10. MEDICAL/SURGICAL HISTORY: . Diabetes. Hypertension. Chronic obstructive pulmonary disease. Non e. [place] [facility] [place]. . FINDINGS: The lungs are clear without infiltrate, nodule, or mass. There is no appreciable pleural effusion for technique. Heart and mediastinum are unremarkable. CONCLUSION: No acute cardiopulmonary disease. Electronically signed by: Xiomara Ortiz MD Board Certified Radiologist 03/10/2018 12:25 PM EST
[2018-03-10 12:47] LABS: Baso % (Auto) 0.2 % (0.0-2.0); Hematocrit 21.4 % (39.0-51.0); Lymph # (Auto) 1.1 th/mm3 (1.0-4.8); Lymph % (Auto) 7.7 % (9.0-44.0); Mean Corpuscular HGB Conc 32.6 % (32.0-36.0); Mean Corpuscular Hemoglobin 29.8 pg (27.0-34.0); Mean Corpuscular Volume 91.4 fL (80.0-100.0); Mean Platelet Volume 8.4 fL (7.0-11.0); Mono # (Auto) 0.7 th/mm3 (0.0-0.9); Mono % (Auto) 4.9 % (0.0-8.0); Neut # (Auto) 12.5 th/mm3 (1.8-7.7); Neut % (Auto) 87.2 % (16.0-70.0); Platelet Count 232 th/mm3 (150-450); Red Blood Count 2.35 mil/mm3 (4.50-5.90); Red Cell Distribution Width 15.4 % (11.6-17.2); White Blood Count 14.3 th/mm3 (4.0-11.0)
[2018-03-10 13:09] LABS: Albumin 3.4 g/dL (3.4-5.0); Anion Gap 11 meq/L (5-15); Aspartate Aminotransferase 11 U/L (15-37); Blood Urea Nitrogen 130 mg/dL (7-18); Calcium 9.4 mg/dL (8.5-10.1); Carbon Dioxide 19.2 meq/L (21.0-32.0); Chloride 105 meq/L (98-107); Glomerular Filtration Rate 30 mL/min (>89); Glucose,Random 323 mg/dL (74-106); Potassium 4.4 meq/L (3.5-5.1); Sodium 135 meq/L (136-145)
[2018-03-10 13:10] LABS: Alanine Aminotransferase 16 U/L (12-78); Beta Hydroxybutyric Acid 0.34 mmol/L (0.00-0.39)
[2018-03-10 13:12] LABS: Alkaline Phosphatase 37 U/L (45-117); Total Protein 5.6 g/dL (6.4-8.2)
[2018-03-10] MEDS ORDERED: Sod Chloride 0.9% Inj 1,000 ML IV.SIG ONE (14:22)
[2018-03-10] MEDS ORDERED: Pantoprazole Inj 40 MG Vial IV.PUSH ONE (14:22)
[2018-03-10] MEDS ORDERED: Acetaminophen 325 MG Tablet PO PRN (14:54)
[2018-03-10] MEDS ORDERED: Sodium Chlor 0.9% Inj 250 ML IV.SIG SCH (15:00)
--- NOTE | 2018-03-10 15:33 | P.HPIM ---
History of Present Illness Primary Care Physician: UNKNOWN History of Present Illness: 82-year-old male with a history of type 2 diabetes, COPD, alpha 1 antitrypsin deficiency, tobacco abuse presents to the ER with generalized weakness and shortness of breath. Basic workup quickly revealed that he is anemic with a hemoglobin of 7.0. He is having some scattered wheezing from his COPD but that seems secondary. He reports a history of having a similar but worse episode last summer where after pushing heavy things up a ramp during moving he began to feel gradually weaker. 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 Separately he has been continuing to take Plavix prescribed by his health officer for carotid stenosis (50%). 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 He denies any fevers, denies nausea , vomiting, diarrhea. He denies any chest pain or palpitations. Inpatient Certification Inpatient Certification: I certify that the inpatient services were ordered in accordance with Medicare regulations governing the order. This includes certification that hospital inpatient services are reasonable and necessary and in the case of services not specified as inpatient-only under 42 CFR 419.22(n), that they are appropriately provided as inpatient services in accordance to with the 2-midnight benchmark under 43 CFR 412.3(e) Estimated Total Length of Stay (Days): 3 Plans for Post Hospital Care: Home health Review of Systems Review of Systems: all other systems reviewed are negative [facility] Medical History Medical History Abdominal hemorrhage (Acute) Bronchitis (Acute) Cataract (Acute) Cataract fragments in eye following surgery (Acute) Pneumonia (Acute) [id number] deficiency (Acute) COPD (chronic obstructive pulmonary disease) (Acute) Diabetes mellitus (Acute) Hyperlipidemia (Acute) Hypertension (Acute) Kidney stone (Acute) Surgical History Surgical History History of appendectomy (Acute) History of cholecystectomy (Acute) Social History Social History Substance History: No History of Abuse Second Hand Smoke Exposure: Yes Smoking Status: Current some day smoker Tobacco Type: Cigarettes How Often Do You Have a Drink Containing Alcohol: Monthly or less Recent Travel in [facility] within the Last 8 Weeks: No Recent Out of Country Travel within the Last 8 Weeks: No Immunization History Tetanus Immunization: <5 Years Medications and Allergies Allergies Allergy/AdvReac Type Severity Reaction Status Date / Time phenobarbital Allergy Severe Anaphylaxis Verified 09/04/17 07:58 Home Medications Medication Instructions Recorded Confirmed Type albuterol sulfate [ProAir HFA] 2 puff INHALATION Q4-6H PRN 03/10/18 03/10/18 History amlodipine 5 mg PO DAILY 03/10/18 03/10/18 History enalapril maleate [Vasotec] 10 mg PO DAILY 03/10/18 03/10/18 History glimepiride 8 mg PO QAM 03/10/18 03/10/18 History insulin glargine [Lantus Solostar 24 unit SUBCUT HS 03/10/18 03/10/18 History U-100 Insulin] ipratropium-albuterol 3 ml INHALATION Q6H PRN 03/10/18 03/10/18 History metformin 1,000 mg PO BID 03/10/18 03/10/18 History metoprolol succinate 50 mg PO DAILY 03/10/18 03/10/18 History semaglutide [Ozempic] 0.5 mg SUBCUT QWEEK 03/10/18 03/10/18 History Active Medications: Active Medications Acetaminophen (Tylenol) 650 mg PO Q4H PRN PRN Reason: Temp > 100.4 Al Hydroxide/Mg Hydroxide (Milk Of Magnesia Liq) 30 ml PO Q12H PRN PRN Reason: Mild Constipation Sodium Chloride (Ns Inj) 1,000 mls @ 42 mls/hr IV.CONT .[id number] DAYSI Metoclopramide HCl (Reglan Inj) 5 mg IV.PUSH Q6HR PRN; Protocol PRN Reason: NAUSEA OR VOMITING Ondansetron HCl (Zofran Inj) 4 mg IV.PUSH Q6H PRN PRN Reason: NAUSEA OR VOMITING Sodium Chloride (Ns Flush) 2 ml IV.FLUSH BID DAYSI Sodium Chloride (Ns Flush) 2 ml IV.FLUSH PRN PRN PRN Reason: FLUSH AFTER USING IV ACCESS Physical Exam Vital signs: Last Vital Signs Temp 97.8 F 03/10/18 11:31 Pulse 128 H 03/10/18 13:00 Resp 20 03/10/18 13:00 BP 128/62 03/10/18 13:00 Pulse Ox 98 03/10/18 13:00 Intake & Output 03/08/18 03/09/18 03/10/18 03/11/18 06:59 06:59 06:59 06:59 Weight 85.275 kg Narrative: GENERAL: AAOx3, no acute distress, adequate nutrition, generally weak SKIN: Warm and dry, no rashes. Scattered bruises over both arms (consistent with Plavix) HEAD: Atraumatic. Normocephalic. EYES: Pupils equal, round, reactive to light. No scleral icterus. No injection or drainage. ENT: No nasal bleeding or discharge. Moist mucous membranes. Nonerythematous oropharynx. NECK: Trachea midline. No JVD. Thyroid size within normal limits. CARDIOVASCULAR: Regular rate and rhythm. No murmur, no gallops, no rubs. RESPIRATORY: Mild to moderate scattered rales and wheezes bilaterally. No accessory muscle use. GASTROINTESTINAL: Abdomen soft, non-tender, nondistended, normal active bowel sounds. Hepatic and splenic margins not palpable. MUSCULOSKELETAL: Extremities without clubbing or cyanosis. No obvious deformities. No edema. NEUROLOGICAL: Awake and alert. No obvious cranial nerve deficits. Motor grossly within normal limits. No focal deficits. Five out of 5 muscle strength in the arms and legs. Normal speech. PSYCHIATRIC: Appropriate mood and affect; insight and judgment normal. Results Labs CBC & Chem 7: 03/10/18 12:35 03/10/18 12:35 Imaging Impressions Chest X-Ray 03/10/18 11:49 CONCLUSION: No acute cardiopulmonary disease. Caprini VTE Risk Assessment Caprini VTE Risk Assessment: Moderate/High Risk (score >= 2) Caprini Risk Assessment Model: Point Value = 1 Point Value = 2 Point Value = 3 Point Value = 5 Age 41-60 Minor surgery BMI > 25 kg/m2 Swollen legs Varicose veins or History of unexplained or recurrent spontaneous Oral contraceptives or hormone replacement Sepsis (< 1 month) Serious lung disease, including pneumonia (< 1 month) Abnormal pulmonary function Acute myocardial infarction Congestive heart failure (< 1 month) History of inflammatory bowel disease Medical patient at bed rest Age 61-74 Arthroscopic surgery Major open surgery (> 45 min) Laparoscopic surgery (> 45 min) Malignancy Confined to bed (> 72 hours) Immobilizing plaster cast Central venous access Age >= 75 History of VTE Family history of VTE Factor V Leiden Prothrombin [id number] Lupus anticoagulant Anticardiolipin antibodies Elevated serum homocysteine Heparin-induced thrombocytopenia Other congenital or acquired thrombophilia Stroke (< 1 month) Elective arthroplasty Hip, pelvis, or leg fracture Acute spinal cord injury (< 1 month) Prophylaxis Regimen: Total Risk Factor Score Risk Level Prophylaxis Regimen 0-1 Low Early ambulation 2 Moderate Order ONE of the following: *Sequential Compression Device (SCD) *Heparin 5000 units SQ BID 3-4 Higher Order ONE of the following medications: *Heparin 5000 units SQ TID *Enoxaparin/Lovenox 40 mg SQ daily (WT < 150 kg, CrCl > 30 mL/min) *Enoxaparin/Lovenox 30 mg SQ daily (WT < 150 kg, CrCl > 10-29 mL/min) *Enoxaparin/Lovenox 30 mg SQ BID (WT < 150 kg, CrCl > 30 mL/min) AND/OR *Sequential Compression Device (SCD) 5 or more Highest Order ONE of the following medications: *Heparin 5000 units SQ TID (Preferred with Epidurals) *Enoxaparin/Lovenox 40 mg SQ daily (WT < 150 kg, CrCl > 30 mL/min) *Enoxaparin/Lovenox 30 mg SQ daily (WT < 150 kg, CrCl > 10-29 mL/min) *Enoxaparin/Lovenox 30 mg SQ BID (WT < 150 kg, CrCl > 30 mL/min) AND *Sequential Compression Device (SCD) Assessment and Plan Plan Upper GI bleed Patient has a history of upper GI bleed in September 2017 Digital rectal exam showed guaiac positive stools, patient has been constipated Hemoglobin on admission is 7.0 Keep patient n.p.o. 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
[2018-03-10] MEDS ORDERED: Dextrose 50% in Water 50 ML Vial IV.PUSH PRN (15:39)
[2018-03-10] MEDS: Sod Chloride 0.9% Inj 1,000 ML IV.CONT SCH (16:41)
[2018-03-10 17:08] LABS: Bilirubin,Urine Negative (Negative); Clarity,Urine Clear (Clear); Color,Urine Straw (Yellw/Straw); Glucose,Urine (UA) 50 mg/dL (Negative); Leukocyte Esterase,Urine Negative (Negative); Mucus,Urine Few /lpf (Occasional); Nitrite,Urine Negative (Negative); Specific Gravity,Urine 1.017 (1.002-1.035)
--- NOTE | 2018-03-10 17:43 | MB ---
cc: Sai Arora MD DATE: 03/10/2018 ROOM NUMBER: Currently, C29 but he is going up to 1711. REFERRING PHYSICIAN: Dr. Freedom Chauhan REASON FOR CONSULTATION: GI bleed. HISTORY OF PRESENT ILLNESS: This is an 82-year-old male who was admitted to [facility] last September with a GI bleed. He underwent upper endoscopy by Dr. Carpenter and was found to have a very large clot adherent to the gastric body near the lesser curvature that could not be pulled off. The patient ended up having arteriography done with embolization of the left inferior phrenic artery, and mention was made that there might be some bleeding from the left gastric artery and that if he continued to bleed consider embolizing that artery as well. The patient had no further bleeding and was subsequently discharged home. He had been on Plavix up until that admission and also took some occasional ibuprofen, but today states he stopped Plavix last summer, and he no longer takes any anti-inflammatories including Naprosyn or ibuprofen. He does not take aspirin. He states he does take hydrocodone occasionally for pain. He states that he started feeling poorly. He had a followup endoscopy by Dr. Carpenter as an outpatient around November of last year but was somewhat limited by a moderately large gastric bezoar due to food. The antrum and duodenum were unremarkable. The esophagus and cardia were unremarkable. The area where the clot was was visualized and appeared unremarkable. The patient states he did well, and his hemoglobin in November was around 12 g. He states he started feeling poorly about a week ago, getting very fatigued. He states he could hardly hold his head up, he was so tired. He has had some nausea and some mild epigastric discomfort, but no pain and no vomiting. He also denies heartburn. He has constipation and states his last bowel movement was 5 days ago. He did test heme positive on rectal exam here in the ED. His hemoglobin now is 7 with a very high BUN to creatinine ratio. He denies any history of kidney disease. His medical history is remarkable for type 2 diabetes mellitus, COPD with an asthma component. He has a history of alpha-1 antitrypsin deficiency, and his at the bedside states that he has gotten 4 infusions this week of alpha-1 antitrypsin as well as antibiotics and some corticosteroids for treatment of his breathing. He has been somewhat short of breath and has been doing breathing treatments at home on a regular basis. No productive cough. He admits that he smokes cigarettes off and on. He was very vague as to how much he has been smoking recently. He has a history of pneumonia, cataracts, hyperlipidemia, hypertension and kidney stones. He denies any history of heart disease. He denies any stents or bypass surgery. SURGICAL HISTORY: He has had a prior appendectomy and cholecystectomy. He also had embolization of the left inferior phrenic artery this past September for an upper gastrointestinal bleed. SOCIAL HISTORY: He rarely drinks alcohol. He does smoke cigarettes off and on. He is . His is at the bedside. MEDICATIONS AT HOME: 1. Albuterol sulfate. 2. Amlodipine. 3. Enalapril. 4. Glimepiride. 5. Metformin. 6. Ipratropium 7. Albuterol inhalers. 8. Lantus insulin. 9. He takes metoprolol. 10. Ozempic. No recent antiplatelet drugs or NSAIDS. ALLERGIES: HE IS ALLERGIC TO PHENOBARBITAL WHICH CAUSED ANAPHYLAXIS. FAMILY HISTORY: Negative for ulcer disease. He did have a colonoscopy this summer with Dr. King. REVIEW OF SYSTEMS: Remarkable for the profound weakness that started a week ago. Constipation. Some nausea, but no vomiting. His shortness of breath. He denies any chest pain. Remainder of the 10-point review of systems is negative. PHYSICAL EXAMINATION: GENERAL: A well-developed male in mild distress. VITAL SIGNS: His blood pressure is 142/63, heart rate is 126, and he states that he always runs a rapid heart rate. Even at baseline, it is in the low 100s. Respirations are 20. I do not see a temperature recorded. HEENT: Sclerae are anicteric. LUNGS: Diffuse wheezing bilaterally. HEART: Sounds are tachycardic. ABDOMEN: Soft and nontender. No masses. No organomegaly. Bowel sounds are normal. RECTAL: Already done and described as heme-positive stool. EXTREMITIES: No cyanosis or edema. SKIN: Warm and dry. NEUROLOGIC: He was alert and oriented, and cooperative. LABORATORY DATA: His white count was 14,300 with a left shift. Hemoglobin is 7, hematocrit 21.4, platelet count 232,000. His BUN is 130 with a creatinine of 2.11, glucose was 323. LFTs are unremarkable. Albumin 3.4. His chest x-ray is a single AP chest, shows no acute cardiopulmonary disease. IMPRESSION: Gastrointestinal bleed. Most likely another upper gastrointestinal bleed suggested by his very high BUN and severe anemia. The patient is also more tachycardic than usual, but his blood pressure is good. He is also having some breathing difficulties with wheezing. He has been ordered to receive breathing treatments. He has been started on Protonix and ordered to receive packed red blood cells. He has also been started on a clear liquid diet. Low-dose Reglan 5 mg has also been ordered which will help with his gastric emptying. RECOMMENDATIONS: I agree with current medical management. The patient will require resuscitation with packed red blood cells and IV fluids. He appears to be dehydrated, and his hemoglobin is likely to fall with rehydration. We will schedule upper endoscopy for tomorrow, and I reviewed the procedure with the patient and his including the risks, benefits, and alternatives, and informed consent obtained. Further recommendations will depend upon the findings and his clinical course. MD ZULMA Leslie/nicho , 04:58 PM , 05:10 PM HEIDE
[2018-03-10] MEDS: Insulin NovoLOG Aspart Correctional Sugar Inj SQ SCH ×2 (17:57→20:36)
[2018-03-11 06:43] LABS: Baso % (Auto) 0.1 % (0.0-2.0); Hematocrit 24.4 % (39.0-51.0); Hemoglobin 8.2 gm/dL (13.0-17.0); Lymph # (Auto) 0.8 th/mm3 (1.0-4.8); Lymph % (Auto) 6.7 % (9.0-44.0); Mean Corpuscular HGB Conc 33.7 % (32.0-36.0); Mean Corpuscular Hemoglobin 29.5 pg (27.0-34.0); Mean Corpuscular Volume 87.5 fL (80.0-100.0); Mean Platelet Volume 8.7 fL (7.0-11.0); Mono # (Auto) 0.4 th/mm3 (0.0-0.9); Mono % (Auto) 3.7 % (0.0-8.0); Neut # (Auto) 10.9 th/mm3 (1.8-7.7); Neut % (Auto) 89.5 % (16.0-70.0); Platelet Count 181 th/mm3 (150-450); Red Blood Count 2.79 mil/mm3 (4.50-5.90); Red Cell Distribution Width 15.5 % (11.6-17.2); White Blood Count 12.2 th/mm3 (4.0-11.0)
[2018-03-11 07:04] LABS: Carbon Dioxide 21.8 meq/L (21.0-32.0); Potassium 4.3 meq/L (3.5-5.1)
[2018-03-11] MEDS: Sod Chloride 0.9% Inj 1,000 ML IV.CONT SCH ×2 (08:40→15:00)
[2018-03-11] MEDS: Insulin NovoLOG Aspart Correctional Sugar Inj SQ SCH ×4 (08:58→20:11)
--- NOTE | 2018-03-11 10:34 | GIPROC ---
[facility] [address] [facility]. [facility], [address] EGD PROCEDURE REPORT EXAM DATE: 03/11/2018 PATIENT NAME: Ariel Camejo V MR #: [id number] BIRTHDATE: 1935 ATTENDING: Sai Arroa MD ORDER #: [id number] SKEET OPERATOR: Tena Israel and Bry Stearns STATUS: inpatient INDICATIONS: The patient is a 82 yr old male here for an EGD due to occult blood positive PROCEDURE PERFORMED: EGD, diagnostic MEDICATIONS: Per Anesthesia and None. TOPICAL ANESTHETIC: none CONSENT: The patient understands the risks and benefits of the procedure and understands that these risks include, but are not limited to: sedation, allergic reaction, infection, perforation and/or bleeding. Alternative means of evaluation and treatment include, among others: physical exam, x-rays, and/or surgical intervention. The patient elects to proceed with this endoscopic procedure. medical equipment was checked for proper function. Hand hygiene and appropriate measures for infection prevention was taken. After the risks, benefits and alternatives of the procedure were thoroughly explained, Informed consent was verified, confirmed and timeout was successfully executed by the treatment team. The patient was anesthetized with topical anesthesia and the [employer] [id number] endoscope was introduced through the mouth and advanced to the second portion of the duodenum. Retroflexed views revealed a hiatal hernia The gastroscope was then slowly withdrawn and removed. ESOPHAGUS: 1mm shallow erosion was found in the distal esophagus. Old blood and some food material 2nd portion otherwise no findings. STOMACH: Old dark blood noted throughout stomach and permeated a large gastric phytobezoar. No active bleeding site or fresh blood seen. There was a large amount of residual food seen in the gastric fundus and gastric body. Due to the residual food, complete mucosal examination could not be performed. Based on this, I suspect the patient has some level of gastroparesis. ADVERSE EVENTS: There were no complications. IMPRESSIONS: 1. 1mm erosion was found in the distal esophagus 2. Old blood and some food material 2nd portion otherwise no findings 3. Old dark blood noted throughout stomach and permeated a large gastric phytobezoar. No active bleeding site or fresh blood seen 4. Food residue in the gastric fundus and gastric body 5. Retroflexed views revealed a hiatal hernia RECOMMENDATIONS: Clear liquids Change Reglan to Bethanechol Fresh pineapple juice 4 oz po tid for 1-2 weeks Gastroparesis diet. Repeat EGD in 2-3 weeks as outpt as long as no sign active bleeding. PATIENT CONDITION: stable DISPOSITION: Inpatient REPEAT EXAM: Return 3 weeks EGD Sai Arora MD eSigned: Sai Arora MD 03/11/2018 10:34 AM cc: Marv Nuñez M.D. PATIENT NAME: Ariel Camejo V MR#: [id number]
--- NOTE | 2018-03-11 11:57 | P.PNIM ---
Subjective Interval history: Follow-up visit upper GI bleed, status post EGD, status post blood transfusion. Patient seen and examined today. and son at the bedside. Discussed that explained EGD results including treatment plan according to requests of Dr. Arora. All questions answered. Verbalized understanding. Denies worsening shortness of breath or dyspnea. 2 L nasal cannula. Denies pain and discomfort. Denies chest pain, palpitations, headaches, dizziness. Denies fevers , chills, n/v/d. Denies hematuria, dysuria. Physical Exam Vital signs: Vital Signs 03/10/18 11:59 03/10/18 12:00 03/10/18 13:00 Temperature Pulse Rate 122 H 126 H 128 H Respiratory Rate 16 17 20 Blood Pressure 142/63 H 128/62 Pulse Oximetry 98 98 03/10/18 14:00 03/10/18 15:00 03/10/18 16:00 Temperature Pulse Rate 128 H 128 H 130 H Respiratory Rate 20 25 H 19 Blood Pressure 124/60 132/60 142/63 H Pulse Oximetry 98 03/10/18 18:17 03/10/18 18:35 03/10/18 20:00 Temperature 97 F L 97.8 F 97.9 F Pulse Rate 124 H 120 H 124 H Respiratory Rate 18 19 20 Blood Pressure 130/60 118/58 L 123/58 L Pulse Oximetry 97 97 97 03/10/18 22:43 03/11/18 00:00 03/11/18 04:00 Temperature 97.0 F L 98.3 F 97.6 F Pulse Rate 110 H 115 H 107 H Respiratory Rate 18 20 20 Blood Pressure 118/60 124/57 L 118/66 Pulse Oximetry 98 98 03/11/18 08:00 Temperature 97.6 F Pulse Rate 109 H Respiratory Rate 15 Blood Pressure 132/63 Pulse Oximetry 96 Intake & Output 03/10/18 03/11/18 03/11/18 18:59 06:59 18:59 Intake Total 1360 / 1360 800 / 800 1100 / 1100 Output Total 1300 / 1300 Balance 1360 / 1360 -500 / -500 1100 / 1100 Weight 85.275 kg 87.7 kg Intake: IV 1000 / 1000 1000 / 1000 NS Inj 1,000 ML @ 42 mls/hr IV. 1000 / 1000 CONT .[id number] COUNT INCLUDES [facility] Rx#:[id number] NS Inj 1,000 ML @ Wide Open IV. 1000 / 1000 SIG [facility] Rx#:[id number] Oral 360 / 360 Anesthesia Amount 100 / 100 Intake (Blood Product) Amt 0 / 0 800 / 800 Rbc As-3 Leukoreduced Unit 0 / 0 400 / 400 [id number] Rbc As-3 Leukoreduced Unit 400 / 400 [id number] Output: Urine 1300 / 1300 Other: Date of Last Bowel Movement 03/07/18 Weight On Admission 85.275 kg Narrative: GENERAL: This is a well-nourished, well-developed patient, in no apparent distress. SKIN: Warm and dry. HEENT: Normocephalic. Pupils equal round and reactive. Nose without bleeding. Airway patent. NECK: Trachea midline. CARDIOVASCULAR: Regular rate and rhythm without murmurs, gallops, or rubs. RESPIRATORY: Expiratory wheezes. Coarse breath sounds. GASTROINTESTINAL: Abdomen soft, non-tender, nondistended. Bowel Sounds normoactive x4. MUSCULOSKELETAL: Extremities without clubbing, cyanosis, or edema. NEUROLOGICAL: Awake and alert. No focal neuro deficit. Moves all extremities. Normal speech. Results - Labs CBC & Chem 7: 03/11/18 05:27 03/11/18 05:27 Laboratory Results - last 24 hr 03/10/18 03/10/18 03/10/18 12:35 12:35 12:35 WBC 14.3 H RBC 2.35 L Hgb 7.0 L Hct 21.4 L MCV 91.4 MCH 29.8 MCHC 32.6 RDW 15.4 Plt Count 232 MPV 8.4 Neut % (Auto) 87.2 H Lymph % (Auto) 7.7 L [place] % (Auto) 4.9 Eos % (Auto) 0.0 Baso % (Auto) 0.2 Neut # (Auto) 12.5 H Lymph # (Auto) 1.1 [place] # (Auto) 0.7 Eos # (Auto) 0.0 Baso # (Auto) 0.0 WBC Differential . Differential Comment Auto diff final Sodium 135 L Potassium 4.4 Chloride 105 Carbon Dioxide 19.2 L Anion Gap 11 BUN 130 H Creatinine 2.11 H Estimated GFR 30 L POC Glucose Random Glucose 323 H Calcium 9.4 Total Bilirubin 0.2 AST 11 L ALT 16 Alkaline Phosphatase 37 L Total Protein 5.6 L Albumin 3.4 Beta-Hydroxybutyric Acd 0.34 Urine Color Urine Clarity Urine pH Ur Specific [place] Urine Protein Urine Glucose (UA) Urine Ketones Urine Occult Blood Urine Nitrate Urine Bilirubin Urine Urobilinogen Ur Leukocyte Esterase Urine RBC Urine WBC Urine Mucus Micro UA Comment Ur Microscopic Review Urine Culture Comments Blood Type A Positive Blood Type Recheck Not needed Antibody Screen Negative MTS Gel Crossmatch See Detail 03/10/18 03/10/18 03/10/18 16:45 17:25 19:55 WBC RBC Hgb Hct MCV MCH MCHC RDW Plt Count MPV Neut % (Auto) Lymph % (Auto) [place] % (Auto) Eos % (Auto) Baso % (Auto) Neut # (Auto) Lymph # (Auto) [place] # (Auto) Eos # (Auto) Baso # (Auto) WBC Differential Differential Comment Sodium Potassium Chloride Carbon Dioxide Anion Gap BUN Creatinine Estimated GFR POC Glucose 318 H 302 H Random Glucose Calcium Total Bilirubin AST ALT Alkaline Phosphatase Total Protein Albumin Beta-Hydroxybutyric Acd Urine Color Straw Urine Clarity Clear Urine pH 5.0 Ur Specific [place] 1.017 Urine Protein Negative Urine Glucose (UA) 50 Urine Ketones Negative Urine Occult Blood Negative Urine Nitrate Negative Urine Bilirubin Negative Urine Urobilinogen Less than 2 Ur Leukocyte Esterase Negative Urine RBC Less than 1 Urine WBC Less than 1 Urine Mucus Few H Micro UA Comment Culture not ind Ur Microscopic Review Not Reportable Urine Culture Comments Culture not ind Blood Type Blood Type Recheck Antibody Screen MTS Gel Crossmatch 03/11/18 03/11/18 03/11/18 05:27 05:27 08:42 WBC 12.2 H RBC 2.79 L Hgb 8.2 L Hct 24.4 L MCV 87.5 D MCH 29.5 MCHC 33.7 RDW 15.5 Plt Count 181 MPV 8.7 Neut % (Auto) 89.5 H Lymph % (Auto) 6.7 L [place] % (Auto) 3.7 Eos % (Auto) 0.0 Baso % (Auto) 0.1 Neut # (Auto) 10.9 H Lymph # (Auto) 0.8 L [place] # (Auto) 0.4 Eos # (Auto) 0.0 Baso # (Auto) 0.0 WBC Differential . Differential Comment Auto diff final Sodium 141 Potassium 4.3 Chloride 109 H Carbon Dioxide 21.8 Anion Gap 10 BUN 106 H Creatinine 1.75 H Estimated GFR 37 L POC Glucose 183 H Random Glucose 209 H D Calcium 9.0 Total Bilirubin AST ALT Alkaline Phosphatase Total Protein Albumin Beta-Hydroxybutyric Acd Urine Color Urine Clarity Urine pH Ur Specific [place] Urine Protein Urine Glucose (UA) Urine Ketones Urine Occult Blood Urine Nitrate Urine Bilirubin Urine Urobilinogen Ur Leukocyte Esterase Urine RBC Urine WBC Urine Mucus Micro UA Comment Ur Microscopic Review Urine Culture Comments Blood Type Blood Type Recheck Antibody Screen MTS Gel Crossmatch - Imaging Impressions Chest X-Ray 03/10/18 11:49 CONCLUSION: No acute cardiopulmonary disease. Assessment and Plan - Plan 82-year-old male with a history of type 2 diabetes, COPD, alpha 1 antitrypsin deficiency, tobacco abuse presents to the ER with generalized weakness and shortness of breath. Upper GI bleed history of upper GI bleed in September 2017 -Digital rectal exam showed guaiac positive stools, patient has been constipated -Hemoglobin on admission is 7.0 -->8.2 post transfusion -Received 2 units packed RBC transfusion -Stopped Plavix, recommended against Plavix given these 2 episodes of GI bleeding this year -Gastroenterology consulted, EGD done. Recommends changing of the bethanechol, fresh pineapple juice 4 ounces p.o. 3 times daily for 1-2 weeks. Gastroparesis diet. Repeat EGD in 2-3 weeks as outpatient does not is no sign of active bleeding. COPD exacerbation, moderate Patient also has alpha-1 anti-trypsin deficiency in addition to smoking -Patient is receiving IV infusion every Monday for alpha 1 antitrypsin which has been in the pharmacy. If patient is not going home may be able to transfuse tomorrow. If he goes home, home health care can transfuse -Continue duo nebs scheduled -Received IV steroid, add symbicort -Monitor resp status. O2 nasal cannula as needed, keep O2 sat greater than 90% -SOB with exertion and conversation, wheezing noted. Type 2 diabetes -Currently uncontrolled secondary to steroid use for COPD -Accu-Cheks with sliding scale insulin coverage -Diabetic diet Tobacco abuse -Recommend cessation despite his pattern of light tobacco use DVT prophylaxis SCDs, chemoprophylaxis contraindicated due to active GI bleed Code Status: Full code Discussed Condition With: Patient, nursing Discharge Planning: Plan to DC home with home health care tomorrow when clinically improved
--- NOTE | 2018-03-11 15:01 | P.DCO ---
- Physical Therapy Order: Evaluate and treat - Home Health Nursing Order: Signs/symptoms of disease process, Oxygen administration education, Nursing assessment with vital signs - Case Management Consult Case Management Consult-Home Health: Yes - Certification I have seen patient Ariel Camejo on 03/11/18. My clinical findings support the need for the requested home health care services because: Patient has SOB, Deconditioned with increased weakness, High risk of falls, Injectable medication education/administration I certify that my clinical findings support that this patient is homebound because: Post-op weakness, Hx COPD - exertion dyspnea/weakness, Unsteady gait/balance
--- NOTE | 2018-03-11 15:05 | ECG ---
Date Performed: 03/10/2018 Time Performed: 11:36:33 PTAGE: 82 years EKG: SINUS TACHYCARDIA NONSPECIFIC ST-T CHANGE ABNORMAL ECG Compared to PREVIOUS TRACING , heart rate is faster and ST-T changes are new. PREVIOUS TRACIN 018 04.04 DOCTOR: Paramjit Putnam Interpretating Date/Time 03/11/2018 15:03:41
[2018-03-11] MEDS: Budesonide-Formoterol 160/4.5 MCG 6 GM Inhaler INH SCH (20:12)
[2018-03-12] MEDS: Sod Chloride 0.9% Inj 1,000 ML IV.CONT SCH ×2 (03:20→16:05)
[2018-03-12 05:37] LABS: Mean Corpuscular HGB Conc 33.5 % (32.0-36.0); Mean Corpuscular Volume 89.5 fL (80.0-100.0); Mean Platelet Volume 8.6 fL (7.0-11.0); Platelet Count 158 th/mm3 (150-450); Red Blood Count 1.73 mil/mm3 (4.50-5.90); Red Cell Distribution Width 15.5 % (11.6-17.2); White Blood Count 12.7 th/mm3 (4.0-11.0)
[2018-03-12 05:41] LABS: Hematocrit 15.5 % (39.0-51.0); Hemoglobin 5.2 gm/dL (13.0-17.0)
[2018-03-12] MEDS ORDERED: Sodium Chlor 0.9% Inj 250 ML IV.SIG SCH (06:00)
[2018-03-12 06:07] LABS: Calcium 7.8 mg/dL (8.5-10.1); Carbon Dioxide 22.7 meq/L (21.0-32.0); Potassium 4.2 meq/L (3.5-5.1)
[2018-03-12] MEDS: Insulin NovoLOG Aspart Correctional Sugar Inj SQ SCH ×4 (08:16→20:56)
[2018-03-12] MEDS: Pantoprazole Inj 40 MG Vial IV.PUSH SCH (09:13)
[2018-03-12] MEDS: Budesonide-Formoterol 160/4.5 MCG 6 GM Inhaler INH SCH ×2 (09:13→20:56)
[2018-03-12] MEDS: amLODIPine 5 MG Tablet PO SCH (09:13)
[2018-03-12] MEDS ORDERED: Bisacodyl 10 MG Supp RECTAL PRN (09:48)
--- NOTE | 2018-03-12 09:48 | P.PNIM ---
Subjective Interval history: Follow-up visit upper GI bleed, status post EGD, status post blood transfusion. Patient seen and examined today. Nurse at bedside. States he is weak, almost feeling that he is passing out. Blood transfusion infusing. BP wnl, tachycardia 100-105s. Complaints of constipation. Bowel regimen ordered discussed with nurse. Physical Exam Vital signs: Vital Signs 03/11/18 12:00 03/11/18 12:47 03/11/18 16:00 Temperature 97.6 F 97.6 F Pulse Rate 106 H 109 H 99 H Respiratory Rate 17 18 15 Blood Pressure 144/72 H 139/73 Pulse Oximetry 96 95 03/11/18 20:00 03/11/18 20:30 03/12/18 00:00 Temperature 97.2 F L 97.7 F Pulse Rate 104 H 102 H 115 H Respiratory Rate 18 15 20 Blood Pressure 114/62 105/53 L Pulse Oximetry 94 L 98 03/12/18 00:05 03/12/18 04:00 03/12/18 08:00 Temperature 97.5 F L 97.9 F Pulse Rate 113 H 103 H 98 H Respiratory Rate 20 18 Blood Pressure 139/61 112/56 L Pulse Oximetry 100 99 03/12/18 08:22 03/12/18 09:26 Temperature 97.2 F L Pulse Rate 101 H 105 H Respiratory Rate 16 17 Blood Pressure 135/62 Pulse Oximetry 98 Intake & Output 03/11/18 03/12/18 03/12/18 18:59 06:59 18:59 Intake Total 1100 / 1100 1000 / 1000 0 / 0 Output Total 1075 / 1075 Balance 1100 / 1100 -75 / -75 0 / 0 Weight 86 kg Intake: IV 1000 / 1000 1000 / 1000 NS Inj 1,000 ML @ 42 mls/hr IV. 1000 / 1000 1000 / 1000 CONT .[id number] [facility] Rx#:[id number] Anesthesia Amount 100 / 100 Intake (Blood Product) Amt 0 / 0 Rbc As-3 Leukoreduced Unit 0 / 0 [id number] Output: Urine 1075 / 1075 Other: Date of Last Bowel Movement 03/07/18 Narrative: GENERAL: This is a well-nourished, well-developed patient, in no apparent distress. SKIN: Warm and dry. Pale. HEENT: Normocephalic. Pupils equal round and reactive. Nose without bleeding. Airway patent. NECK: Trachea midline. CARDIOVASCULAR: Regular rate and rhythm without murmurs, gallops, or rubs. RESPIRATORY: Min wheezing. Mod air entry. GASTROINTESTINAL: Abdomen soft, non-tender. Bowel Sounds normoactive upper quadrants. MUSCULOSKELETAL: Extremities without clubbing, cyanosis, or edema. NEUROLOGICAL: Awake and alert. No focal neuro deficit. Moves all extremities. Normal speech. Results - Labs CBC & Chem 7: 03/12/18 02:40 03/12/18 04:46 Laboratory Results - last 24 hr 03/10/18 03/11/18 03/11/18 12:35 12:01 17:10 WBC RBC Hgb Hct MCV MCH MCHC RDW Plt Count MPV Hematology Comments Sodium Potassium Chloride Carbon Dioxide Anion Gap BUN Creatinine Estimated GFR POC Glucose 214 H 241 H Random Glucose Calcium Blood Type Antibody Screen MTS Gel Crossmatch See Detail Bld Prod Order Comment 03/11/18 03/12/18 03/12/18 19:32 02:40 02:40 WBC 12.7 H RBC 1.73 L Hgb 5.2 L* D Cancelled Hct 15.5 L* Cancelled MCV 89.5 MCH 30.0 MCHC 33.5 RDW 15.5 Plt Count 158 MPV 8.6 Hematology Comments Cancelled Sodium Potassium Chloride Carbon Dioxide Anion Gap BUN Creatinine Estimated GFR POC Glucose 218 H Random Glucose Calcium Blood Type Antibody Screen MTS Gel Crossmatch Bld Prod Order Comment 03/12/18 03/12/18 03/12/18 02:40 04:46 07:33 WBC RBC Hgb Hct MCV MCH MCHC RDW Plt Count MPV Hematology Comments Sodium 144 Potassium 4.2 Chloride 113 H Carbon Dioxide 22.7 Anion Gap 8 BUN 105 H Creatinine 1.41 H Estimated GFR 48 L POC Glucose 256 H Random Glucose 242 H Calcium 7.8 L D Blood Type A Positive Antibody Screen Negative MTS Gel Crossmatch See Detail Bld Prod Order Comment Assessment and Plan - Plan 82-year-old male with a history of type 2 diabetes, COPD, alpha 1 antitrypsin deficiency, tobacco abuse presents to the ER with generalized weakness and shortness of breath. Symptomatic anemia - H/H 5.2/15.5 -2 units PRBC ordered, lasix in between -Post transfusion h/h -NPO for now -Bowel regimen -? Possible repeat EGD and/ or colonoscopy with GI. Will discuss with GI. Constipation -Bowel regimen. Asked nurse to do suppository Upper GI bleed history of upper GI bleed in September 2017 -Digital rectal exam showed guaiac positive stools, patient has been constipated -Hemoglobin on admission is 7.0 -->8.2 post transfusion -Received 2 units packed RBC transfusion -Stopped Plavix, recommended against Plavix given these 2 episodes of GI bleeding this year -Gastroenterology consulted, EGD done. Recommends changing of the bethanechol, fresh pineapple juice 4 ounces p.o. 3 times daily for 1-2 weeks. Gastroparesis diet. Repeat EGD in 2-3 weeks as outpatient does not is no sign of active bleeding. COPD exacerbation, moderate Patient also has alpha-1 anti-trypsin deficiency in addition to smoking -Patient is receiving IV infusion every Monday for alpha 1 antitrypsin which has been in the pharmacy. If patient is not going home may be able to transfuse tomorrow. If he goes home, home health care can transfuse -Continue duo nebs scheduled -Received IV steroid, add symbicort -Monitor resp status. O2 nasal cannula as needed, keep O2 sat greater than 90% -SOB with exertion and conversation, wheezing noted. Type 2 diabetes -Currently uncontrolled secondary to steroid use for COPD -Accu-Cheks with sliding scale insulin coverage -Diabetic diet Tobacco abuse -Recommend cessation despite his pattern of light tobacco use DVT prophylaxis SCDs, chemoprophylaxis contraindicated due to active GI bleed Discussed Condition With: Patient, nurse Discharge Planning: Plan to DC home with home health care tomorrow when clinically improved
--- NOTE | 2018-03-12 10:17 | P.PNGI ---
Subjective Interval history: pt states he felt very weak last night. No vomiting and no BM for past 5 days. Hgb came back 5.2 with no significant change in BUN. Was getting IVFs at only 42cc/hr because of low cardiac EF. Discussed case with Kwesi([email or web address]) on floor. Pt now getting 1st of 2 ordered PRBC units. BP and pulse rate really have not changed significantly. Physical Exam Vital signs: Vital Signs 03/11/18 12:00 03/11/18 12:47 03/11/18 16:00 Temperature 97.6 F 97.6 F Pulse Rate 106 H 109 H 99 H Respiratory Rate 17 18 15 Blood Pressure 144/72 H 139/73 Pulse Oximetry 96 95 03/11/18 20:00 03/11/18 20:30 03/12/18 00:00 Temperature 97.2 F L 97.7 F Pulse Rate 104 H 102 H 115 H Respiratory Rate 18 15 20 Blood Pressure 114/62 105/53 L Pulse Oximetry 94 L 98 03/12/18 00:05 03/12/18 04:00 03/12/18 08:00 Temperature 97.5 F L 97.9 F Pulse Rate 113 H 103 H 98 H Respiratory Rate 20 18 Blood Pressure 139/61 112/56 L Pulse Oximetry 100 99 03/12/18 08:22 03/12/18 09:26 03/12/18 09:49 Temperature 97.2 F L 97.4 F L Pulse Rate 101 H 105 H 99 H Respiratory Rate 16 17 18 Blood Pressure 135/62 128/58 L Pulse Oximetry 98 95 03/12/18 09:56 Temperature 97.4 F L Pulse Rate 99 H Respiratory Rate 18 Blood Pressure 128/58 L Pulse Oximetry 95 Intake & Output 03/11/18 03/12/18 03/12/18 18:59 06:59 18:59 Intake Total 1100 / 1100 1000 / 1000 0 / 0 Output Total 1075 / 1075 Balance 1100 / 1100 -75 / -75 0 / 0 Weight 86 kg Intake: IV 1000 / 1000 1000 / 1000 NS Inj 1,000 ML @ 42 mls/hr IV. 1000 / 1000 1000 / 1000 CONT .[id number] [facility] Rx#:[id number] Anesthesia Amount 100 / 100 Intake (Blood Product) Amt 0 / 0 Rbc As-3 Leukoreduced Unit 0 / 0 [id number] Output: Urine 1075 / 1075 Other: Date of Last Bowel Movement 03/07/18 Narrative: Still with bilateral wheezing but does not appear in respiratory distress. abd soft and nontender. Results - Labs CBC & Chem 7: 03/12/18 02:40 03/12/18 04:46 Laboratory Results - last 24 hr 03/10/18 03/11/18 03/11/18 12:35 12:01 17:10 WBC RBC Hgb Hct MCV MCH MCHC RDW Plt Count MPV Hematology Comments Sodium Potassium Chloride Carbon Dioxide Anion Gap BUN Creatinine Estimated GFR POC Glucose 214 H 241 H Random Glucose Calcium Blood Type Antibody Screen MTS Gel Crossmatch See Detail Bld Prod Order Comment 03/11/18 03/12/18 03/12/18 19:32 02:40 02:40 WBC 12.7 H RBC 1.73 L Hgb 5.2 L* D Cancelled Hct 15.5 L* Cancelled MCV 89.5 MCH 30.0 MCHC 33.5 RDW 15.5 Plt Count 158 MPV 8.6 Hematology Comments Cancelled Sodium Potassium Chloride Carbon Dioxide Anion Gap BUN Creatinine Estimated GFR POC Glucose 218 H Random Glucose Calcium Blood Type Antibody Screen MTS Gel Crossmatch Bld Prod Order Comment 03/12/18 03/12/18 03/12/18 02:40 04:46 07:33 WBC RBC Hgb Hct MCV MCH MCHC RDW Plt Count MPV Hematology Comments Sodium 144 Potassium 4.2 Chloride 113 H Carbon Dioxide 22.7 Anion Gap 8 BUN 105 H Creatinine 1.41 H Estimated GFR 48 L POC Glucose 256 H Random Glucose 242 H Calcium 7.8 L D Blood Type A Positive Antibody Screen Negative MTS Gel Crossmatch See Detail Bld Prod Order Comment Assessment and Plan (1) UGIB (upper gastrointestinal bleed) Status: Acute Code(s): K92.2 - Gastrointestinal hemorrhage, unspecified - Plan Agree with blood transfusion then recheck H&H. Will change Bethanechol to IV erythromycin and stop the zofran. If it looks like actively bleeding can either repeat arteriogram or EGD under general anesthesia(intubation) to try to remove bezoar. Needs more fluids if possible. Will follow.
[2018-03-12] MEDS ORDERED: ERYTHROMYCIN IV.SIG SCH (12:00)
[2018-03-12] MEDS ORDERED: SODIUM CHLOR 0.9% IV.SIG SCH (12:00)
[2018-03-12] MEDS: Erythromycin Ethylsuccinate Susp 200 MG/5 ML 100 ML Bottle PO SCH ×2 (13:56→18:29)
[2018-03-12 16:50] LABS: Hematocrit 22.3 % (39.0-51.0); Hemoglobin 7.6 gm/dL (13.0-17.0)
[2018-03-12] MEDS ORDERED: ALPHA 1 PROTEINASE INHIBITOR IV.PUSH SCH (17:00)
[2018-03-12] MEDS ORDERED: ALPHA 1 PROTEINASE INHIBITOR OTHER SCH (18:45)
[2018-03-12] MEDS: Senna/Docusate Sodium 8.6/50 MG Tablet PO SCH (20:55)
[2018-03-13 06:16] LABS: Hemoglobin 7.1 gm/dL (13.0-17.0); Mean Corpuscular Hemoglobin 31.6 pg (27.0-34.0); Mean Corpuscular Volume 87.6 fL (80.0-100.0); Mean Platelet Volume 8.2 fL (7.0-11.0); Platelet Count 138 th/mm3 (150-450); Red Blood Count 2.26 mil/mm3 (4.50-5.90); Red Cell Distribution Width 17.4 % (11.6-17.2); White Blood Count 9.5 th/mm3 (4.0-11.0)
[2018-03-13 06:29] LABS: Mean Corpuscular HGB Conc 36.1 % (32.0-36.0)
[2018-03-13 06:31] LABS: Hematocrit 19.8 % (39.0-51.0)
[2018-03-13 06:45] LABS: Calcium 7.9 mg/dL (8.5-10.1); Carbon Dioxide 25.1 meq/L (21.0-32.0)
[2018-03-13] MEDS ORDERED: Sodium Chlor 0.9% Inj 250 ML IV.SIG SCH ×2 (07:00→12:00)
[2018-03-13] MEDS: Insulin NovoLOG Aspart Correctional Sugar Inj SQ SCH ×4 (10:19→22:35)
[2018-03-13] MEDS: Senna/Docusate Sodium 8.6/50 MG Tablet PO SCH ×2 (10:39→20:28)
[2018-03-13] MEDS: Pantoprazole Inj 40 MG Vial IV.PUSH SCH (10:39)
[2018-03-13] MEDS: amLODIPine 5 MG Tablet PO SCH (10:39)
[2018-03-13] MEDS: Erythromycin Ethylsuccinate Susp 200 MG/5 ML 100 ML Bottle PO SCH ×3 (10:40→18:23)
[2018-03-13] MEDS: Budesonide-Formoterol 160/4.5 MCG 6 GM Inhaler INH SCH ×2 (10:40→20:30)
[2018-03-13] MEDS: Sod Chloride 0.9% Inj 1,000 ML IV.CONT SCH ×2 (10:41→20:30)
--- NOTE | 2018-03-13 10:58 | P.PNGI ---
Subjective Interval history: Pt feels much better. at bedside. Had 2 small formed BMs. H&H drifting down with rehydration and finally declining BUN. Physical Exam Vital signs: Vital Signs 03/12/18 12:45 03/12/18 12:46 03/12/18 13:04 Temperature 97.8 F 97.8 F 97.3 F L Pulse Rate 90 90 94 H Respiratory Rate 18 18 16 Blood Pressure 117/55 L 117/55 L 115/58 L Pulse Oximetry 100 03/12/18 13:18 03/12/18 16:00 03/12/18 19:51 Temperature 98.1 F Pulse Rate 94 H 91 H 90 Respiratory Rate 16 15 18 Blood Pressure 141/64 H Pulse Oximetry 96 03/12/18 20:00 03/12/18 23:52 03/13/18 04:00 Temperature 97.8 F 97.8 F 97.8 F Pulse Rate 91 H 87 92 H Respiratory Rate 19 19 19 Blood Pressure 114/55 L 111/57 L 116/53 L Pulse Oximetry 95 97 95 03/13/18 08:00 Temperature 97.6 F Pulse Rate 88 Respiratory Rate 18 Blood Pressure 147/65 H Pulse Oximetry 94 L Intake & Output 03/12/18 03/13/18 03/13/18 18:59 06:59 18:59 Intake Total 700 / 700 900 / 900 750 / 750 Output Total 350 / 350 Balance 700 / 700 550 / 550 750 / 750 Weight 86 kg Intake: IV 300 / 300 750 / 750 NS Inj 1,000 ML @ 42 mls/hr IV. 250 / 250 750 / 750 CONT .[id number] [facility] Rx#:[id number] NS Inj 250 ML @ 15 mls/hr IV. 50 / 50 SIG ONCE [facility] Rx#:[id number] Oral 900 / 900 Intake (Blood Product) Amt 400 / 400 Rbc As-3 Leukoreduced Unit 0 / 0 [id number] Rbc As-3 Leukoreduced Unit 400 / 400 [id number] Output: Urine 350 / 350 Other: # Voids 550 Date of Last Bowel Movement 03/07/18 # Bowel Movements 1 Narrative: Lungs sound much better with a lot less wheezing abd soft and nontender no edema A&O Results - Labs CBC & Chem 7: 03/13/18 05:41 03/13/18 05:41 Laboratory Results - last 24 hr 03/12/18 03/12/18 03/12/18 02:40 13:10 16:21 WBC RBC Hgb 7.6 L D Hct 22.3 L MCV MCH MCHC RDW Plt Count MPV Sodium Potassium Chloride Carbon Dioxide Anion Gap BUN Creatinine Estimated GFR POC Glucose 296 H Random Glucose Calcium Blood Type A Positive Antibody Screen Negative MTS Gel Crossmatch See Detail Bld Prod Order Comment 03/12/18 03/12/18 03/13/18 17:35 20:45 05:41 WBC 9.5 RBC 2.26 L Hgb 7.1 L Hct 19.8 L* MCV 87.6 MCH 31.6 MCHC 36.1 H RDW 17.4 H Plt Count 138 L MPV 8.2 Sodium Potassium Chloride Carbon Dioxide Anion Gap BUN Creatinine Estimated GFR POC Glucose 222 H 220 H Random Glucose Calcium Blood Type Antibody Screen MTS Gel Crossmatch Bld Prod Order Comment 03/13/18 03/13/18 03/13/18 05:41 06:50 07:43 WBC RBC Hgb Hct MCV MCH MCHC RDW Plt Count MPV Sodium 145 Potassium 4.0 Chloride 114 H Carbon Dioxide 25.1 Anion Gap 6 BUN 55 H Creatinine 1.08 Estimated GFR 65 L POC Glucose 128 H Random Glucose 117 H D Calcium 7.9 L Blood Type Antibody Screen MTS Gel Crossmatch See Detail Bld Prod Order Comment Assessment and Plan (1) UGIB (upper gastrointestinal bleed) Status: Acute Code(s): K92.2 - Gastrointestinal hemorrhage, unspecified - Plan Discussed with pt, and Dr Chauhan. Continue rehydration and monitoring H&H. Hopefully will stablize once BUN WNL. Continue oral erythromycin for 2-3 weeks. Will advance diet to full liquids but avois meat and roughage for now. Will need to repeat EGD tentatively in a few weeks if H&H remains stable otherwise will repeat prior to discharge. Dr Raphael to f/u tomorrow.
--- NOTE | 2018-03-13 13:35 | P.PNIM ---
Subjective Interval history: Patient seen and evaluated this morning at bedside. Patient with reported bowel movement nonbloody in nature. Patient denies abdominal pain at this moment and no hematemesis or hematochezia. Hemoglobin slightly low over the last 24 hours will transfuse 1 unit. Case briefly discussed with gastroenterology team and at this time recommend hydration and red blood cell transfusion with follow-up. Patient will likely need EGD as an outpatient Physical Exam Vital signs: Last Vital Signs Temp 97.4 F L 03/13/18 12:00 Pulse 87 03/13/18 12:48 Resp 18 03/13/18 12:48 BP 133/97 H 03/13/18 12:00 Pulse Ox 95 03/13/18 12:00 Intake & Output 03/11/18 03/12/18 03/13/18 03/14/18 06:59 06:59 06:59 06:59 Intake Total 2160 / 2160 2100 / 2100 1600 / 1600 750 / 750 Output Total 1300 / 1300 1075 / 1075 350 / 350 Balance 860 / 860 1025 / 1025 1250 / 1250 750 / 750 Weight 87.7 kg 86 kg 86 kg General: No acute distress Cardiovascular: S1/S2. No tachycardia Respiratory: Clear to auscultation Gastroenterology: Soft, nontender, nondistended, no guarding or rebound appreciated. Extremity: No lower extremity edema, no calf tenderness Results Labs CBC & Chem 7: 03/13/18 05:41 03/13/18 05:41 Assessment and Plan (1) UGIB (upper gastrointestinal bleed): Code(s): K92.2 - Gastrointestinal hemorrhage, unspecified Status: Acute Plan 82-year-old male with a history of type 2 diabetes, COPD, alpha 1 antitrypsin deficiency, tobacco abuse presents to the ER with generalized weakness and shortness of breath found to have low hemoglobin slightly over 5 concerning for upper GI bleed in the setting of elevated BUN level. Patient is now status post EGD with no active source identified as of yet. Gastroenterology: Symptomatic anemia -Initial H/H 5.2/15.5 - total packed red blood cell administered to this point. 5 units Administer 1 unit packed red blood cell now. CBC for documented response Case briefly discussed with gastroenterology team and at this point if patient hemoglobin is stable will likely be discharged with plan to follow-up in approximately 2-3 weeks for EGD. -Stopped Plavix, recommended against Plavix given these 2 episodes of GI bleeding this year -Gastroenterology consulted, EGD done. Recommends changing of the bethanechol, fresh pineapple juice 4 ounces p.o. 3 times daily for 1-2 weeks. Gastroparesis diet. Repeat EGD in 2-3 weeks as outpatient does not is no sign of active bleeding. Pulmonary: COPD exacerbation, moderate - Patient also has alpha-1 anti-trypsin deficiency in addition to smoking - s/p Prolastin-C on 03/12 as per EMR for alpha 1-anti-tryp deficiency - Continue duo nebs scheduled - Symbicort - O2 nasal cannula as needed, keep O2 sat greater than 90% Type 2 diabetes -Currently uncontrolled secondary to steroid use for COPD -Accu-Cheks with sliding scale insulin coverage -Diabetic diet Acute kidney injury - resolved with pRBC and volume expansion. Tobacco abuse -Recommend cessation DVT prophylaxis SCDs, chemoprophylaxis contraindicated due to active GI bleed Progress Note: Quality VTE Deep Vein Thrombosis/Pulmonary Embolism Present on Admission: No
[2018-03-14 06:07] LABS: Hematocrit 24.3 % (39.0-51.0); Hemoglobin 8.5 gm/dL (13.0-17.0); Mean Corpuscular HGB Conc 34.9 % (32.0-36.0); Mean Corpuscular Hemoglobin 30.2 pg (27.0-34.0); Mean Corpuscular Volume 86.6 fL (80.0-100.0); Mean Platelet Volume 8.3 fL (7.0-11.0); Platelet Count 155 th/mm3 (150-450); Red Cell Distribution Width 17.2 % (11.6-17.2); White Blood Count 13.6 th/mm3 (4.0-11.0)
--- NOTE | 2018-03-14 07:56 | P.PNGI ---
Subjective Interval history: feels better today, had multiple large bm yesterday. Physical Exam Vital signs: Vital Signs 03/13/18 08:00 03/13/18 11:07 03/13/18 11:28 Temperature 97.6 F 97.4 F L 97.3 F L Pulse Rate 88 98 H 89 Respiratory Rate 18 17 17 Blood Pressure 147/65 H 133/97 H 128/57 L Pulse Oximetry 94 L 95 03/13/18 12:00 03/13/18 12:48 03/13/18 15:49 Temperature 97.4 F L 97.5 F L Pulse Rate 88 87 90 Respiratory Rate 17 18 17 Blood Pressure 133/97 H 116/57 L Pulse Oximetry 95 96 03/13/18 16:00 03/13/18 16:02 03/13/18 16:19 Temperature 97.5 F L 97.3 F L Pulse Rate 90 90 87 Respiratory Rate 17 17 17 Blood Pressure 116/57 L 116/57 L 127/67 Pulse Oximetry 96 96 95 03/13/18 20:00 03/13/18 20:55 03/13/18 23:51 Temperature 97.5 F L 98.5 F Pulse Rate 107 H 88 Respiratory Rate 20 17 20 Blood Pressure 150/67 H 126/60 Pulse Oximetry 95 98 03/14/18 00:14 03/14/18 00:17 03/14/18 04:00 Temperature 98.7 F Pulse Rate 90 100 H Respiratory Rate 16 20 Blood Pressure 98/52 L Pulse Oximetry 95 97 03/14/18 07:38 Temperature Pulse Rate 111 H Respiratory Rate Blood Pressure Pulse Oximetry 98 Intake & Output 03/13/18 03/14/18 03/14/18 18:59 06:59 18:59 Intake Total 1850 / 1850 400 / 400 Output Total 200 / 200 450 / 450 Balance 1650 / 1650 -50 / -50 Intake: IV 750 / 750 NS Inj 1,000 ML @ 42 mls/hr IV. 750 / 750 CONT .[id number] [facility] Rx#:[id number] Oral 700 / 700 Intake (Blood Product) Amt 400 / 400 400 / 400 Rbc As-3 Leukoreduced Unit 400 / 400 [id number] Rbc As-3 Leukoreduced Unit 0 / 0 400 / 400 [id number] Output: Urine 200 / 200 450 / 450 Other: # Voids 2 Date of Last Bowel Movement 03/13/18 03/13/18 - Constitutional no acute distress - Routine HEENT Exam Head: Present: normocephalic Eye: Present: EOMI ENT: Present: mucous membranes moist - Routine Neck Exam Present: supple - Routine Respiratory Exam Present: decreased breath sounds, CTA bilaterally, wheezes. Absent: accessory muscle use, respiratory distress - Routine Cardiovascular Exam Present: RRR, S1, S2 - Routine Abdominal Exam Present: soft, normoactive bowel sounds. Absent: tenderness, distended, guarding - Routine Extremities Exam Present: pulses intact. Absent: tenderness - Routine Skin Exam Present: intact - Routine Neurological Exam Present: oriented X3 - Routine Psychiatric Exam Present: normal affect, normal thought process, cooperative Results - Labs CBC & Chem 7: 03/14/18 04:29 03/13/18 05:41 Laboratory Results - last 24 hr 03/12/18 03/13/18 03/13/18 02:40 06:50 10:50 WBC RBC Hgb Hct MCV MCH MCHC RDW Plt Count MPV POC Glucose MTS Gel Crossmatch See Detail See Detail See Detail Bld Prod Order Comment 03/13/18 03/13/18 03/13/18 11:20 17:22 21:03 WBC RBC Hgb Hct MCV MCH MCHC RDW Plt Count MPV POC Glucose 198 H 231 H 238 H MTS Gel Crossmatch Bld Prod Order Comment 03/14/18 04:29 WBC 13.6 H RBC 2.80 L Hgb 8.5 L Hct 24.3 L MCV 86.6 MCH 30.2 MCHC 34.9 RDW 17.2 Plt Count 155 MPV 8.3 POC Glucose MTS Gel Crossmatch Bld Prod Order Comment Microbiology 03/13/18 20:35 Stool Stool Occult Blood (MARIANNA) - Final Hemoccult positive Assessment and Plan (1) UGIB (upper gastrointestinal bleed) Status: Acute Code(s): K92.2 - Gastrointestinal hemorrhage, unspecified - Plan IMP: 1. GIB 2. Acute anemia of blood loss 3. Diabetic gastroparesis 4. constipation PLAN: 1. Monitor hb for s/s of bleeding 2. if hb stable then ideally needs rpt egd as outpt. to allow time for food debris to resolve 3. ok for erythromycin oral for 1-2 wks. 4. Anticipate discharge if no bleeding, pt tolerating diet, and cardio/pulm symptoms resolve.
[2018-03-14] MEDS: Pantoprazole Inj 40 MG Vial IV.PUSH SCH (10:09)
[2018-03-14] MEDS: Senna/Docusate Sodium 8.6/50 MG Tablet PO SCH (10:09)
[2018-03-14] MEDS: amLODIPine 5 MG Tablet PO SCH (10:09)
[2018-03-14] MEDS: Insulin NovoLOG Aspart Correctional Sugar Inj SQ SCH (10:10)
[2018-03-14] MEDS: Erythromycin Ethylsuccinate Susp 200 MG/5 ML 100 ML Bottle PO SCH (10:20)
[2018-03-14] MEDS: Budesonide-Formoterol 160/4.5 MCG 6 GM Inhaler INH SCH (10:20)
[2018-03-14 11:11] VITALS: BP 117/57; PULSE 105; RESP 17; TEMP 97.4; O2SAT 99
--- NOTE | 2018-03-14 15:05 | P.DS ---
DS: Providers Date of admission: 03/10/18 14:53 Primary care physician: UNKNOWN Patient is a pleasant 82-year-old male with past medical history of type 2 diabetes, COPD, alpha-1 antitrypsin deficiency, and history of tobacco use who presented with complaints of weakness and shortness of breath. At presentation patient was found to have hemoglobin of 5.6 for which she was transfused packed red blood cells and admitted with the following treatments and services provided. Consultation was appreciated by gastroenterology service. Patient underwent endoscopy procedure which did not show any active source of bleeding but did note a 1 mm erosion in the distal esophagus with some old blood and some food material in the second portion but otherwise no findings acute. Patient hemoglobin was monitored during hospitalization with stabilization of blood counts. Patient clinically improved with symptoms of weakness and was able to ambulate without restriction. Patient was cleared for discharge from gastroenterology service with plan outpatient follow-up for consideration of repeat endoscopy in 2-3 weeks post discharge. Patient is clear from medical perspective otherwise. Patient was recently started on Symbicort given history of COPD. Patient to follow-up with primary medical physician as an outpatient. 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 Consults: 03/10/18 14:58 Consult to Gastroenterology Routine Consulting Provider: Sai Arora Patient known to:: Sai Arora Reason for Consultation: 82M with h/o gastric artery bleed about a year ago presents with melena and suspect for an upper GI bleed again. Hgb is 7. Notified:: Service Spoke with:: maciel Date Notified:: 03/10/18 Time Notified:: 15:34 Ordering Provider: GAIL 03/12/18 09:37 HUB Only Consult Order Stat Consulting Provider: [facility] Brief History from admission: 82-year-old male with a history of type 2 diabetes , COPD, alpha 1 antitrypsin deficiency, tobacco abuse presents to the ER with generalized weakness and shortness of breath. Basic workup quickly revealed that he is anemic with a hemoglobin of 7.0. He is having some scattered wheezing from his COPD but that seems secondary. He reports a history of having a similar but worse episode last summer where after pushing heavy things up a ramp during moving he began to feel gradually weaker. 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 For the past 2 days he reports he has been very weak, unable to stand without the sensation of passing out, he had called his steel floor pan placing supervisor due to the shortness of breath and felt that it was a COPD exacerbation, was recently placed on antibiotics and steroids, but this did not help his shortness of breath. He denies any fevers, denies nausea , vomiting, diarrhea. He denies any chest pain or palpitations. DS: Diagnosis Discharge Diagnosis (1) UGIB (upper gastrointestinal bleed): Status: Acute DS: Summary Patient is a pleasant 82-year-old male with past medical history of type 2 diabetes, COPD, alpha-1 antitrypsin deficiency, and history of tobacco use who presented with complaints of weakness and shortness of breath. At presentation patient was found to have hemoglobin of 5.6 for which she was transfused packed red blood cells and admitted with the following treatments and services provided. Consultation was appreciated by gastroenterology service. Patient underwent endoscopy procedure which did not show any active source of bleeding but did note a 1 mm erosion in the distal esophagus with some old blood and some food material in the second portion but otherwise no findings acute. Patient hemoglobin was monitored during hospitalization with stabilization of blood counts. Patient clinically improved with symptoms of weakness and was able to ambulate without restriction. Patient was cleared for discharge from gastroenterology service with plan outpatient follow-up for consideration of repeat endoscopy in 2-3 weeks post discharge. Patient is clear from medical perspective otherwise. Patient was recently started on Symbicort given history of COPD. Patient to follow-up with primary medical physician as an outpatient. 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 Time Spent with Patient Total time spent providing and/or coordinating discharge services: > 30 minutes Quality: VTE Deep Vein Thrombosis/Pulmonary Embolism Present on Admission: No Results Labs on day of discharge: Labs from last 24 hours 03/14/18 03/14/18 03/13/18 08:12 04:29 21:03 WBC 13.6 H RBC 2.80 L Hgb 8.5 L Hct 24.3 L MCV 86.6 MCH 30.2 MCHC 34.9 RDW 17.2 Plt Count 155 MPV 8.3 POC Glucose 272 H 238 H MTS Gel Crossmatch 03/13/18 03/13/18 03/13/18 17:22 10:50 06:50 WBC RBC Hgb Hct MCV MCH MCHC RDW Plt Count MPV POC Glucose 231 H MTS Gel Crossmatch See Detail See Detail Impressions ITS Impressions Chest X-Ray 03/10/18 11:49 CONCLUSION: No acute cardiopulmonary disease. Discharge Plan Discharge Disposition Patient Disposition: Discharge Home Discharge Condition Condition: Good Discharge Order Discharge Orders: Discharge Order (Routine); Ordered 03/14/18 Ordered By: Wagner Chauhan Discharge Details Anticipated Discharge Date: 03/14/18 Discharge Comment: discharge home today. Physicians Team ED Provider: Christiano Torre Primary Care Provider: ANIVAL, Attending Provider: Wagner Chauhan Other Providers: Sai Arora ; [facility] Rxs /Orders / Referrals /Forms Prescriptions: New erythromycin ethylsuccinate [E.E.S. Granules] 200 mg/5 mL Suspension For Reconstitution 125 mg PO TIDAC 14 Days Qty: 200 RF: 1 budesonide-formoterol [Symbicort] 160-4.5 mcg/actuation Hfa Aerosol Inhaler 2 puff Inhalation BID 30 Days Qty: 10.2 RF: 0 pantoprazole [Protonix] 40 mg tablet,delayed release (DR/EC) 40 mg PO DAILY 28 Days Qty: 28 RF: 0 Continue ipratropium-albuterol 0.5 mg-3 mg(2.5 mg base)/3 mL Solution For Nebulization 3 ml INHALATION Q6H PRN (Reason: Shortness Of Breath) RF: 0 enalapril maleate [Vasotec] 10 mg Tablet 10 mg PO DAILY RF: 0 metoprolol succinate 50 mg Tablet Extended Release 24 Hr 50 mg PO DAILY RF: 0 amlodipine 5 mg Tablet 5 mg PO DAILY RF: 0 albuterol sulfate [ProAir HFA] 90 mcg/actuation Hfa Aerosol Inhaler 2 puff INHALATION Q4-6H PRN (Reason: Shortness Of Breath) RF: 0 insulin glargine [Lantus Solostar U-100 Insulin] 100 unit/mL (3 mL) Insulin Pen 24 unit SUBCUT HS RF: 0 semaglutide [Ozempic] 0.25 mg or 0.5 mg(2 mg/1.5 mL) Pen Injector 0.5 mg SUBCUT QWEEK RF: 0 metformin 1,000 mg Tablet 1,000 mg PO BID RF: 0 glimepiride 4 mg Tablet 8 mg PO QAM RF: 0 alpha-1 proteinase inhib.(hum) [Prolastin-C] 1,000 mg (+/-)/20 mL Solution 60 mg/kg IV QWEEK RF: 0 Referrals: Sai Arora MD [Physician] - See Instructions (follow up in 14-21 days for consideration of endoscopy ) [facility] [Agency] - See Instructions UNKNOWN, [Primary Care Provider] - See Instructions (please follow up with your primary medical doctor in 1 week post discharge Follow up with your Primary care if you do not have one: *[facility] offers same day APPT. Call the morning of you would like to be seen; Office opens at 8:00am. [facility] Address: [address] [place] [address] ) Discharge Instructions Patient Printed Instructions: Pantoprazole (By mouth), Gastrointestinal Bleeding (GEN), Blood Transfusion (DC), Upper Endoscopy (DC) Additional Instructions: follow up with your primary medical doctor on discharge in 7-10 days post discharge. follow up gastroenterology for possible endoscopy as outpatient. continue oral erythromycin until follow up with gastroenterology. Status ED Status: Left Department Discharge Information Discharge Date/Time: 03/14/18 11:25
--- NOTE | 2018-03-14 17:20 | P.DCO ---
Diagnosis (1) UGIB (upper gastrointestinal bleed): Status: Acute Physical Therapy Order: Evaluate and treat Instructions: Patient has SOB, Deconditioned with increased weakness, High risk of falls, Injectable medication education/administration Home Health Nursing Order: Signs/symptoms of disease process, Oxygen administration education and Nursing assessment with vital signs Case Management Consult Case Management Consult-Home Health: Yes I have seen patient Ariel Camejo on 03/14/18. My clinical findings support the need for the requested home health care services because: Patient has SOB, Deconditioned with increased weakness, High risk of falls, Injectable medication education/administration I certify that my clinical findings support that this patient is homebound because: Post-op weakness medical history of COPD with exertional shortness of breath and unsteady gait/ balance
== END 2018-03-14 11:25 | disposition home or self-care (01) | DRG 378 ==
LOC: NEPC 11:24 → NEDA 14:53 → N07 17:09
PROVIDERS: ADMIT Internal Medicine; ATTEND Internal Medicine
PROC: PANENDO (2018-03-11 10:09)
CPT/HCPCS: 36430; 71010; 71045; 76937; 80048; 80053; 81001; 82010; 82272; 82948; 82962; 85014; 85018; 85025; 85027; 86850; 86900; 86901; 86923; 90774; 90775; 90784; 93005; 94640; 94664; 94665; 96374; 96375; 99291; C8952; C9113; J1815; J1940; J2930; J7030; J7050; P9016

== ENCOUNTER 2018-03-16 12:13 | Inpatient (IN) ==
[2018-03-16] MEDS ORDERED: Sod Chloride 0.9% Inj 1,000 ML IV.SIG ONE (12:44)
[2018-03-16] MEDS ORDERED: Pantoprazole Inj 40 MG Vial IV.PUSH ONE (12:44)
--- NOTE | 2018-03-16 12:49 | ED ---
HPI General Chief complaint: GI Bleed Stated complaint: bleeding in stomach/weak Time Seen by Provider: 03/16/18 12:28 History of Present Illness HPI Narrative: This patient was recently hospitalized for GI bleed. He was just discharged 2 days ago. The evening of his discharge he was passing melena. Yesterday he passed melena. Today he did not have any type of bowel movement but he is feeling progressively worsening generalized weakness. He is worried that he is becoming more anemic. He had endoscopy a few days ago and a repeat was planned for 2-3 weeks. He is off all blood thinners. Severity is moderate. Duration gradually worsening over a week. No alleviating factors. Symptoms exacerbated by GI bleeding Related Data Home Medications Medication Instructions Recorded Confirmed albuterol sulfate [ProAir HFA] 2 puff INHALATION Q4-6H PRN 03/10/18 03/16/18 amlodipine 5 mg PO DAILY 03/10/18 03/16/18 enalapril maleate [Vasotec] 10 mg PO DAILY 03/10/18 03/16/18 glimepiride 8 mg PO QAM 03/10/18 03/16/18 insulin glargine [Lantus Solostar 24 unit SUBCUT HS 03/10/18 03/16/18 U-100 Insulin] ipratropium-albuterol 3 ml INHALATION Q6H PRN 03/10/18 03/16/18 metformin 1,000 mg PO BID 03/10/18 03/16/18 metoprolol succinate 50 mg PO DAILY 03/10/18 03/16/18 semaglutide [Ozempic] 0.5 mg SUBCUT QWEEK 03/10/18 03/16/18 alpha-1 proteinase inhib.(hum) 60 mg/kg IV QWEEK 03/11/18 03/16/18 [Prolastin-C] Previous Rx's Medication Instructions Recorded budesonide-formoterol [Symbicort] 2 puff INHALATION BID 30 Days 03/13/18 #10.2 g erythromycin ethylsuccinate 125 mg PO TIDAC 14 Days #200 ml 03/13/18 [E.E.S. Granules] pantoprazole [Protonix] 40 mg PO DAILY 28 Days #28 tab 03/13/18 Allergies Allergy/AdvReac Type Severity Reaction Status Date / Time phenobarbital Allergy Severe Anaphylaxis Verified 03/16/18 12:14 Review of Systems ROS: all other systems reviewed are negative [facility] Medical History Medical History Abdominal hemorrhage (Acute) [id number] deficiency (Acute) Bronchitis (Acute) COPD (chronic obstructive pulmonary disease) (Acute) Cataract (Acute) Cataract fragments in eye following surgery (Acute) Diabetes mellitus (Acute) Hyperlipidemia (Acute) Hypertension (Acute) Kidney stone (Acute) Pneumonia (Acute) Surgical History Surgical History History of appendectomy (Acute) History of cholecystectomy (Acute) Social History Social History Substance History: No History of Abuse Second Hand Smoke Exposure: No Smoking Status: Former smoker Tobacco Type: Cigarettes How Often Do You Have a Drink Containing Alcohol: Never Recent Travel in [facility] within the Last 8 Weeks: No Recent Out of Country Travel within the Last 8 Weeks: No Immunization History Tetanus Immunization: <5 Years Exam Narrative Exam Narrative: GENERAL: Well-nourished, well-developed patient in no apparent distress. SKIN: Focused skin assessment reveals no rash and nodules. Skin is Warm and dry. HEAD: Atraumatic. Normocephalic. EYES: Pupils equal and round. No scleral icterus. No injection or drainage. ENT: No nasal bleeding or discharge. Mucous membranes pink and moist. NECK: Trachea midline. No JVD. CARDIOVASCULAR: Regular rate and rhythm. No murmur appreciated. RESPIRATORY: No accessory muscle use. Scattered rhonchi. Breath sounds equal bilaterally. GASTROINTESTINAL: Abdomen soft, non-tender, nondistended. Hepatic and splenic margins not palpable. MUSCULOSKELETAL: No obvious deformities. No clubbing. No cyanosis. Trace symmetric edema the feet and ankles . NEUROLOGICAL: Awake and alert. No obvious cranial nerve deficits. Motor grossly within normal limits. Normal speech. PSYCHIATRIC: Appropriate mood and affect; insight and judgment normal. Course Initial Documented Vital Signs Temperature 97.2 F L 03/16/18 12:14 Pulse Rate 113 H 03/16/18 12:14 Respiratory Rate 16 03/16/18 12:14 Blood Pressure 135/53 L 03/16/18 12:14 Pulse Oximetry 98 03/16/18 12:14 Last Documented Vital Signs Temperature 97.2 F L 03/16/18 12:14 Pulse Rate 106 H 03/16/18 13:28 Respiratory Rate 16 03/16/18 12:37 Blood Pressure 118/48 L 03/16/18 12:37 Pulse Oximetry 97 03/16/18 13:28 Critical Care Time Critical Care Time: Yes Total Critical Care Time: 40 Attestation: Aggregate critical care time was 40 minutes. Time to perform other separately billable procedures was not included in the critical care time. My time did not include minutes spent treating any other patients simultaneously or on activities that did not directly contribute to the patient's treatment. The services I provided to this patient were to treat and/or prevent clinically significant deterioration that could result in: Hemorrhagic shock, cardiopulmonary arrest I provided critical care services requiring my management, as noted below: Chart data review, documentation time, medication orders and management, vital sign assessments/reviewing monitor data, ordering and reviewing lab tests, ordering and interpreting/reviewing x-rays and diagnostic studies, care of the patient and discussion of the patient with the admitting physicians. Medical Decision Making MDM Narrative Medical decision making narrative: 82-year-old male with recurrent GI bleeding problems complaining of progressive weakness and melena Will obtain fresh laboratory studies. Give some IV fluid and IV Protonix. CBC reveals hemoglobin of 6.0. This is significant drop from 8.5 hemoglobin 2 days ago. Patient has recurrent GI bleed. He will need to get urgent transfusion and go back into the hospital. I spoken with the hospitalist who is seeing him now. He will start the patient at [place] and consult GI and go from there. Medical Screen Exam Complete: Yes Emergency Medical Condition: Yes Differential Diagnosis Differential Diagnosis: Recurrent GI bleed, symptomatic anemia, anxiety Medical Records Medical records reviewed: Yes I reviewed the patient's medical records. Reviewed discharge summary from 2 days ago Lab Data Lab results reviewed: Yes I reviewed the patient's lab results. Lab results narrative: Hemoglobin is dropped to 6.0. Result diagrams: 03/16/18 13:25 03/16/18 13:25 Lab Results 03/16/18 03/16/18 03/16/18 Range/Units 13:25 13:25 13:25 CBC w Diff Slide review pending WBC 9.4 (4.0-11.0) th/mm3 RBC 2.01 L (4.50-5.90) mil/mm3 Hgb 6.0 L* (13.0-17.0) gm/dL Hct 17.9 L* (39.0-51.0) % MCV 89.3 (80.0-100.0) fL MCH 30.0 (27.0-34.0) pg MCHC 33.6 (32.0-36.0) % RDW 18.1 H (11.6-17.2) % Plt Count 159 (150-450) th/mm3 MPV 8.9 (7.0-11.0) fL Neut % (Auto) 64.1 (16.0-70.0) % Lymph % (Auto) 21.8 (9.0-44.0) % [place] % (Auto) 7.5 (0.0-8.0) % Eos % (Auto) 5.0 H (0.0-4.0) % Baso % (Auto) 1.6 (0.0-2.0) % Neut # (Auto) 6.0 (1.8-7.7) th/mm3 Lymph # (Auto) 2.0 (1.0-4.8) th/mm3 [place] # (Auto) 0.7 (0.0-0.9) th/mm3 Eos # (Auto) 0.5 H (0.0-0.4) th/mm3 Baso # (Auto) 0.2 (0.0-0.2) th/mm3 WBC Differential . Diff Scan Auto diff confirmed Differential Comment . Platelet Estimate Normal (Normal) Platelet Morphology Normal (Normal) Polychromasia 2.0 H (0.0-1.9) % Basophilic Stippling Moderate H (None) PT 9.7 L (9.8-11.6) sec INR 1.0 Ratio APTT 18.0 L (23.4-31.7) sec Sodium 143 (136-145) meq/L Potassium 4.5 (3.5-5.1) meq/L Chloride 110 H (98-107) meq/L Carbon Dioxide 26.8 (21.0-32.0) meq/L Anion Gap 6 (5-15) meq/L BUN 28 H (7-18) mg/dL Creatinine 1.10 (0.60-1.30) mg/dL Estimated GFR 64 L (>89) mL/min Random Glucose 108 H (74-106) mg/dL Calcium 8.8 (8.5-10.1) mg/dL Discharge Plan Discharge Disposition Patient Disposition: ED Admit(ED Internal Use Only) Discharge Order Discharge Orders: ED Use Only Admit Order (Routine); Ordered 03/16/18 Ordered By: Christiano Torre Discharge Details Diagnosis: UGIB (upper gastrointestinal bleed), Acute blood loss anemia Physicians Team ED Provider: Christiano Torre Primary Care Provider: Sandra Nuñez Attending Provider: Terri Bean Discharge Interventions Interventions: Vital Signs Last Done: 03/16/18 12:37 Status ED Status: Admitted Patient
[2018-03-16 13:42] LABS: Baso # (Auto) 0.2 th/mm3 (0.0-0.2); Baso % (Auto) 1.6 % (0.0-2.0); Eos # (Auto) 0.5 th/mm3 (0.0-0.4); Lymph % (Auto) 21.8 % (9.0-44.0); Mean Corpuscular HGB Conc 33.6 % (32.0-36.0); Mean Corpuscular Volume 89.3 fL (80.0-100.0); Mean Platelet Volume 8.9 fL (7.0-11.0); Mono # (Auto) 0.7 th/mm3 (0.0-0.9); Mono % (Auto) 7.5 % (0.0-8.0); Neut % (Auto) 64.1 % (16.0-70.0); Platelet Count 159 th/mm3 (150-450); Red Blood Count 2.01 mil/mm3 (4.50-5.90); Red Cell Distribution Width 18.1 % (11.6-17.2); White Blood Count 9.4 th/mm3 (4.0-11.0)
[2018-03-16 13:50] LABS: Hematocrit 17.9 % (39.0-51.0)
[2018-03-16 13:51] LABS: Potassium 4.5 meq/L (3.5-5.1)
[2018-03-16 13:54] LABS: Calcium 8.8 mg/dL (8.5-10.1); Carbon Dioxide 26.8 meq/L (21.0-32.0)
[2018-03-16 14:01] LABS: Prothrombin Time 9.7 sec (9.8-11.6)
[2018-03-16 14:13] LABS: Basophilic Stippling Moderate; Platelet Estimate Normal (Normal); Platelet Morphology Normal (Normal)
[2018-03-16] MEDS ORDERED: Dextrose 50% in Water 50 ML Vial IV.PUSH PRN (14:50)
--- NOTE | 2018-03-16 14:55 | P.HPIM ---
History of Present Illness Primary Care Physician: Sandra Nuñez MD Chief Complaint: rectal bleed History of Present Illness: patient is a 82 y/o male with history of COPD, diabetes mellitus, hypertension, alpha-1 antitrypsin deficiency, recent GI bleed , presented to ER with rectal bleed. he was recently admitted to [facility] with GI bleed and was discharged home after he had EGD and evaluated by GI. he says that since he left the hospital he's been passing ' black stools '. he denies any abdominal pain. he had some nausea but with no emesis. he's also complaining of some sob and productive cough of ' thick sputum'.he denies any chest pain or dizziness. Inpatient Certification Inpatient Certification: I certify that the inpatient services were ordered in accordance with Medicare regulations governing the order. This includes certification that hospital inpatient services are reasonable and necessary and in the case of services not specified as inpatient-only under 42 CFR 419.22(n), that they are appropriately provided as inpatient services in accordance to with the 2-midnight benchmark under 43 CFR 412.3(e) Review of Systems Review of Systems: all other systems reviewed are negative [facility] Medical History Medical History Abdominal hemorrhage (Acute) [id number] deficiency (Acute) Bronchitis (Acute) COPD (chronic obstructive pulmonary disease) (Acute) Cataract (Acute) Cataract fragments in eye following surgery (Acute) Diabetes mellitus (Acute) Hyperlipidemia (Acute) Hypertension (Acute) Kidney stone (Acute) Pneumonia (Acute) Surgical History Surgical History History of appendectomy (Acute) History of cholecystectomy (Acute) Social History Social History Substance History: No History of Abuse Second Hand Smoke Exposure: No Smoking Status: Former smoker Tobacco Type: Cigarettes How Often Do You Have a Drink Containing Alcohol: Never Recent Travel in [facility] within the Last 8 Weeks: No Recent Out of Country Travel within the Last 8 Weeks: No Immunization History Tetanus Immunization: <5 Years Medications and Allergies Allergies Allergy/AdvReac Type Severity Reaction Status Date / Time phenobarbital Allergy Severe Anaphylaxis Verified 03/16/18 12:14 Home Medications Medication Instructions Recorded Confirmed Type albuterol sulfate [ProAir HFA] 2 puff INHALATION Q4-6H PRN 03/10/18 03/16/18 History amlodipine 5 mg PO DAILY 03/10/18 03/16/18 History enalapril maleate [Vasotec] 10 mg PO DAILY 03/10/18 03/16/18 History glimepiride 8 mg PO QAM 03/10/18 03/16/18 History insulin glargine [Lantus Solostar 24 unit SUBCUT HS 03/10/18 03/16/18 History U-100 Insulin] ipratropium-albuterol 3 ml INHALATION Q6H PRN 03/10/18 03/16/18 History metformin 1,000 mg PO BID 03/10/18 03/16/18 History metoprolol succinate 50 mg PO DAILY 03/10/18 03/16/18 History semaglutide [Ozempic] 0.5 mg SUBCUT QWEEK 03/10/18 03/16/18 History alpha-1 proteinase inhib.(hum) 60 mg/kg IV QWEEK 03/11/18 03/16/18 History [Prolastin-C] Active Medications: Active Medications Albuterol (Duoneb Neb (Prn)) 1 ampul NEB Q2HR NEB PRN PRN Reason: sob Albuterol (Duoneb Neb (Daysi)) 1 ampul NEB Q4HR NEB DAYSI Budesonide/Formoterol Fumarate (Symbicort 160/4.5 Mcg Inh) 2 puff INH BID DAYSI Dextrose (D50w Vial) 50 ml IV.PUSH UNSCH PRN PRN Reason: PER HYPOGLYCEMIA PROTOCOL Glucagon (Glucagon Inj) 1 mg OTHER PRN PRN PRN Reason: for Hypoglycemia Protocol Sodium Chloride (Ns Inj) 250 mls @ 15 mls/hr IV.SIG ONCE DAYSI Stop: 03/17/18 07:39 Sodium Chloride (Ns Inj) 1,000 mls @ 70 mls/hr IV.CONT .[id number] DAYSI Insulin Aspart (Novolog Insulin Correctional Sugar Inj) 0 unit SQ ACHS DAYSI; Protocol Sodium Chloride (Ns Flush) 2 ml IV.FLUSH PRN PRN PRN Reason: FLUSH AFTER USING IV ACCESS Physical Exam Vital signs: Vital Signs 03/16/18 12:14 03/16/18 12:37 03/16/18 13:28 Temperature 97.2 F L Pulse Rate 113 H 106 H 106 H Respiratory Rate 16 16 Blood Pressure 135/53 L 118/48 L Pulse Oximetry 98 97 97 Intake & Output 03/15/18 03/16/18 03/16/18 18:59 06:59 18:59 Intake Total 1000 / 1000 Balance 1000 / 1000 Weight 90 kg Intake: IV 1000 / 1000 NS Inj 1,000 ML @ Wide Open IV. 1000 / 1000 SIG BOLUS ONE Rx#:[id number] Constitutional mild distress Routine HEENT Exam Eye: Present PERRL Routine Neck Exam Present supple Routine Respiratory Exam Present prolonged expiratory phase and wheezes Routine Cardiovascular Exam Present RRR Routine Abdominal Exam Present soft Routine Extremities Exam Comments: no pedal edema. Routine Neurological Exam Present alert and oriented X3 Results Labs CBC & Chem 7: 03/16/18 13:25 03/16/18 13:25 Caprini VTE Risk Assessment Caprini VTE Risk Assessment: Moderate/High Risk (score >= 2) VTE Pharmacological Exception Reason: High risk for bleeding Caprini Risk Assessment Model: Point Value = 1 Point Value = 2 Point Value = 3 Point Value = 5 Age 41-60 Minor surgery BMI > 25 kg/m2 Swollen legs Varicose veins or History of unexplained or recurrent spontaneous Oral contraceptives or hormone replacement Sepsis (< 1 month) Serious lung disease, including pneumonia (< 1 month) Abnormal pulmonary function Acute myocardial infarction Congestive heart failure (< 1 month) History of inflammatory bowel disease Medical patient at bed rest Age 61-74 Arthroscopic surgery Major open surgery (> 45 min) Laparoscopic surgery (> 45 min) Malignancy Confined to bed (> 72 hours) Immobilizing plaster cast Central venous access Age >= 75 History of VTE Family history of VTE Factor V Leiden Prothrombin 25010N Lupus anticoagulant Anticardiolipin antibodies Elevated serum homocysteine Heparin-induced thrombocytopenia Other congenital or acquired thrombophilia Stroke (< 1 month) Elective arthroplasty Hip, pelvis, or leg fracture Acute spinal cord injury (< 1 month) Prophylaxis Regimen: Total Risk Factor Score Risk Level Prophylaxis Regimen 0-1 Low Early ambulation 2 Moderate Order ONE of the following: *Sequential Compression Device (SCD) *Heparin 5000 units SQ BID 3-4 Higher Order ONE of the following medications: *Heparin 5000 units SQ TID *Enoxaparin/Lovenox 40 mg SQ daily (WT < 150 kg, CrCl > 30 mL/min) *Enoxaparin/Lovenox 30 mg SQ daily (WT < 150 kg, CrCl > 10-29 mL/min) *Enoxaparin/Lovenox 30 mg SQ BID (WT < 150 kg, CrCl > 30 mL/min) AND/OR *Sequential Compression Device (SCD) 5 or more Highest Order ONE of the following medications: *Heparin 5000 units SQ TID (Preferred with Epidurals) *Enoxaparin/Lovenox 40 mg SQ daily (WT < 150 kg, CrCl > 30 mL/min) *Enoxaparin/Lovenox 30 mg SQ daily (WT < 150 kg, CrCl > 10-29 mL/min) *Enoxaparin/Lovenox 30 mg SQ BID (WT < 150 kg, CrCl > 30 mL/min) AND *Sequential Compression Device (SCD) Assessment and Plan Plan A/P - recurrent GI bleed patient had recent EGD which showed esophageal erosion keep NPO- continue with PPI- consult GI - acute on chronic anemia- due to GI bleed will transfuse with PRBC and monitor H/H closely- GI evaluation as noted above. -COPD exacerbation start on IV steroid, neb treatment ( scheduled and prn) and IV antibiotic- check CXR today. patient uses oxygen at home. -hypertension hold BP meds for now due to low-normal BP's and GI bleed -DVT prophylaxis with SCD's- no chemical prophylaxis due to rectal bleed. -consult PT. Discussed Condition With: ER physician and the patient. Discharge Planning: pending clinical course and PT evaluation.
[2018-03-16] MEDS ORDERED: Sodium Chlor 0.9% Inj 250 ML IV.SIG SCH (15:00)
[2018-03-16] MEDS: Sod Chloride 0.9% Inj 1,000 ML IV.CONT SCH (15:01)
--- NOTE | 2018-03-16 15:15 | XR ---
EXAM DATE: 03/16/2018 3:08 PM EST AGE/SEX: 82 years / Male INDICATIONS: Shortness of breath. CLINICAL DATA: This is the patient's initial encounter. Patient reports that signs and symptoms have been present for 1 day and indicates a pain score of 0/10. MEDICAL/SURGICAL HISTORY: . Diabetes. Hypertension. Chronic obstructive pulmonary disease. Non e. COMPARISON: POI, CT CHEST W/O CONTRAST, 12/18/2013. . FINDINGS: A single AP view of the chest demonstrates the lungs to be symmetrically aerated without evidence of mass, infiltrate or effusion. Minimal discoid atelectasis and/or fibrotic scarring is noted within th e left lung base The cardiomediastinal contours are unremarkable. Osseous structures are intact. CONCLUSION: 1. No acute cardiopulmonary disease. 2. Minimal discoid atelectasis and/or fibrotic scarring within left lung base. Electronically signed by: Wagner Ovalle MD Board Certified Radiologist 03/16/2018 3:14 PM EST
[2018-03-16] MEDS: Levofloxacin 250 mg Premix Inj 250 MG/50 ML PIGGYBACK IV.SIG SCH (16:24)
[2018-03-16] MEDS: MethylPREDNISolone Sod Succinate Inj 40 MG/ML Vial IV.PUSH SCH ×2 (16:25→23:05)
[2018-03-16] MEDS: Insulin NovoLOG Aspart Correctional Sugar Inj SQ SCH ×2 (17:28→23:06)
[2018-03-16] MEDS: Budesonide-Formoterol 160/4.5 MCG 6 GM Inhaler INH SCH (23:06)
[2018-03-17] MEDS: Sod Chloride 0.9% Inj 1,000 ML IV.CONT SCH ×2 (05:06→21:34)
[2018-03-17] MEDS: MethylPREDNISolone Sod Succinate Inj 40 MG/ML Vial IV.PUSH SCH ×3 (05:29→21:35)
[2018-03-17 07:51] LABS: Hematocrit 22.5 % (39.0-51.0); Mean Corpuscular HGB Conc 35.6 % (32.0-36.0); Mean Corpuscular Volume 84.3 fL (80.0-100.0); Platelet Count 174 th/mm3 (150-450); Red Blood Count 2.67 mil/mm3 (4.50-5.90); Red Cell Distribution Width 17.1 % (11.6-17.2); White Blood Count 9.1 th/mm3 (4.0-11.0)
[2018-03-17] MEDS: Insulin NovoLOG Aspart Correctional Sugar Inj SQ SCH ×4 (08:00→21:38)
[2018-03-17] MEDS: Budesonide-Formoterol 160/4.5 MCG 6 GM Inhaler INH SCH ×2 (09:00→21:35)
--- NOTE | 2018-03-17 11:35 | MB ---
cc: Tanya Raphael MD DATE: 03/17/2018 SURGEON: Tanya Raphael MD REASON FOR CONSULTATION: GI bleed, anemia. HISTORY OF PRESENT ILLNESS: This is an 82-year-old, very pleasant gentleman known to our service from previous admission. He had a history of acute anemia, possible gastrointestinal bleed in 09/2017. He underwent an upper endoscopy by Dr. Luis. He was found to have a large amount of food debris within the stomach and a large clot in the lesser curvature of the stomach. This was not able to be removed. Therefore, he underwent interventional radiology-guided angiography and embolization. The left inferior phrenic artery was embolized at that time. He had improvement of his symptoms and he was told to follow up outpatient for clearance of the food debris and further evaluation. He underwent a repeat upper endoscopy several months later and he was noted to have a moderate amount of retained food debris within the stomach. In the past he had been on anticoagulation with Plavix, which has been discontinued due to his recurrent admissions and recurrent GI bleeding episode. He was recently admitted to the hospital in early 03/2018 for acute anemia and a patch of melanotic stools. He underwent an upper endoscopy during that admission, was found to have large of retained food debris with old dark blood. He was treated conservatively. The bezoar was not able to be removed at that time. He received a transfusion and was monitored for several days with resolution of his symptoms. No melanotic stools. He was discharged with outpatient followup. He was home for several days, he states he initially had a brown bowel movement, but then began having black melanotic type bowel movements. Due to the recurrence of his melena and weakness and fatigue feeling, he came back to the emergency room in [facility]. At that time, he was noted to have a hemoglobin of 6.0. I spoke to the ER physician advised him to transfuse and recommend transfer the patient to the main given the patient will need further endoscopic therapy and even the possibility of interventional radiology guidance. He was successfully transfused 2 units of packed RBC with hemoglobin improvement up to 8.0 and his symptoms are improved, which includes improvement of his shortness of breath. Today, he has not had any new melanotic bowel movements. He denies any current chest pain, dyspnea. He has not had any hematochezia. PAST MEDICAL HISTORY: Diabetes mellitus, hypertension, coronary artery disease. PAST SURGICAL HISTORY: Appendectomy, cholecystectomy, left phrenic artery embolization 09/2017 for GI bleed. ALLERGIES: PHENOBARBITAL. HOME MEDICATIONS: 1. Amlodipine. 2. Enalapril. 3. Glimepiride. 4. Metformin. 5. Lantus. 6. Ozempic. 7. Metoprolol. FAMILY HISTORY: No GI malignancies. SOCIAL HISTORY: Drinks alcohol rarely. Smokes tobacco intermittently. ENDOSCOPIC HISTORY: Last colonoscopy was done last year by Dr. King, several endoscopies done 09/2017, 11/2017, and 03/2018. REVIEW OF SYSTEMS: A 12-point review of system was obtained by me and shown to be negative or noncontributory except for the above-mentioned in the HPI. PHYSICAL EXAMINATION: VITAL SIGNS: Temperature 97.8, heart rate of 97, respiratory 14, blood pressure 129/63, O2 saturation 100% on 4 liters, 95% on 2 liters. GENERAL: Alert, oriented, no acute distress. HEENT: Pupils equal, round, reactive to light and accommodation. Oral mucosa is dry, but pink. NECK: Supple. No carotid bruits noted. RESPIRATORY: Clear to auscultation. No wheezing heard. Bilateral breath sounds equal. HEART: Regular rate and rhythm, slightly tachycardic. Soft murmur heard. ABDOMEN: Soft, nontender, nondistended. No hepatomegaly appreciated. No rebound appreciated. No flank or periumbilical ecchymosis. EXTREMITIES: No edema noted. Pulses present. GENITOURINARY: No CVA angle tenderness noted. MUSCULOSKELETAL: Equal strength in upper and lower extremities. NEUROLOGIC: Alert and oriented. No focal deficits. Cranial nerves 2-12 grossly intact. LABORATORY DATA: WBC 9.1, hemoglobin 8.0, improved from 6.0 after 2 units. MCV of 84.3. INR 1.0. Sodium 143, potassium 4.5, chloride 110, bicarbonate 26, BUN 28, creatinine 1.10. ASSESSMENT AND PLAN: 1. Acute blood loss anemia. 2. Symptomatic anemia. 3. Suspect upper gastrointestinal bleeding source with the patient's history of upper GI bleeds. 4. History of gastroparesis with large bezoar in the stomach. 5. Diabetes mellitus. RECOMMENDATIONS: 1. Keep n.p.o. 2. Will plan for an urgent upper endoscopy today under general anesthesia with the plan of possible removal or break apart of the food/vital bezoar, potential endoscopic hemostasis therapy. If this is not successful and active bleeding is continued then we may also consider having interventional radiology see this patient again for possible embolization of the left gastric artery, depending on the location of a bleeding source. The patient and the patient's is at bedside. I had a long discussion with the risks, benefits, and alternatives to this procedure and from the procedure including risk of anesthesia, procedure related complications including bleeding, perforation, further risk requiring surgical intervention, interventional radiology related intervention, prolonged hospitalization, and even the remote possibility of given his sickness. Further recommendations to follow depending on the results of the above. Thank you for allowing me to participate in the care of this patient. Will follow along with you and make recommendations per the patient's clinical course. MD ASIYA Blandon/vianey , 10:49 AM , 11:03 AM
[2018-03-17] MEDS ORDERED: *Promethazine Inj 25 MG/ML Vial PERIprocedural use ONLY ONE (12:37)
--- NOTE | 2018-03-17 12:40 | GIPROC ---
[facility] [address] [facility]. [facility], [address] EGD PROCEDURE REPORT EXAM DATE: 03/17/2018 PATIENT NAME: Ariel Camejo V MR#: [id number] BIRTHDATE: 1935 STATUS: inpatient ATTENDING: Tanya Raphael MD VISIT ID: [id number] SENIOR ENVIRONMENTAL CONSULTANT: Bry Stearns and Tena Israel ORDER #: [id number] INDICATIONS: The patient is a 82 yr old male here for an EGD due to Active Upper GI bleeding, Anemia. PROCEDURE PERFORMED: EGD w/ control of bleeding and EGD w/ fb removal MEDICATIONS: Per Anesthesia and None. ASA CLASS: Class III PHYSICAL EXAM: normal CONSENT: The patient understands the risks and benefits of the procedure and understands that these risks include, but are not limited to: sedation, allergic reaction, infection, perforation and/or bleeding. Alternative means of evaluation and treatment include, among others: physical exam, x-rays, and/or surgical intervention. The patient elects to proceed with this endoscopic procedure. DESCRIPTION OF PROCEDURE: for proper function. Hand hygiene and appropriate measures for infection prevention was taken. After the risks, benefits and alternatives of the procedure were thoroughly explained, Informed consent was verified, confirmed and timeout was successfully executed by the treatment team. The [employer] [id number] endoscope was introduced through the mouth and advanced to the second portion of the duodenum. The instrument was slowly withdrawn as the mucosa was fully examined. ESOPHAGUS: The mucosa of the esophagus appeared normal. STOMACH: An actively bleeding Dieulafoy lesion was found in the gastric fundus and on the lesser curvature of the stomach. Submucosal injection of 10ml of epinephrine 1:10,000 was performed around the bleeding site with slower bleeding resulting. Monopolar cautery with a 7Fr heater probe was applied to the site(s) for 10 secs. Moderate pressure was applied to the cautery site with complete hemostasis achieved with good treatment effect. Complete hemostasis was achieved by placing two [place] [employer] hemoclips on the bleeding site(s). A foreign body, food debris and large amount of clots was found in the gastric fundus. Foreign body removal was done with Lindsay net. . Examined portion of the duodenum was normal. The gastroscope was then slowly withdrawn and removed. COMPLICATIONS: There were no complications. IMPRESSIONS: 1. The esophagus appeared normal 2. Dieulafoy lesion was found in the gastric fundus and on the lesser curvature of the stomach; Submucosal injection of 10ml of epinephrine 1:10,000 was performed around the bleeding site; Monopolar cautery with a 7Fr heater probe was applied to the site(s) for 10 secs; with complete hemostasis achieved with good treatment effect; Complete hemostasis was achieved by placing two hemoclips on the bleeding site(s) 3. Foreign body was found in the gastric fundus RECOMMENDATIONS: 1. Avoid NSAIDS 2. Start Full liquid diet Monitor and transfuse PRBC as needed. Protonix 40 mg po BID Avoid NSAIDS Will Consider re-evaluation of with EGD depending of patient's clinical course. PATIENT CONDITION: stable DISPOSITION: Inpatient REPEAT EXAM: Tanya Raphael MD eSigned: Tanya Raphael MD 03/17/2018 12:39 PM cc: PATIENT NAME: Ariel Camejo V MR#: [id number]
[2018-03-17] MEDS ORDERED: *morphine SULFATE 4 MG/ML PERIprocedure ONLY ONE (12:57)
[2018-03-17] MEDS: Pantoprazole Inj 40 MG Vial IV.PUSH SCH (16:00)
[2018-03-17] MEDS: Levofloxacin 250 mg Premix Inj 250 MG/50 ML PIGGYBACK IV.SIG SCH (16:00)
--- NOTE | 2018-03-17 17:08 | P.PNIM ---
Subjective Interval history: Follow-up GI bleed, history of COPD, diabetes mellitus, hypertension, alpha-1 antitrypsin deficiency. Patient seen and examined laying in bed, sleepy, just came back from GI procedure. When trying to awaken patient patient stated leave me alone. Patient denies any headache or dizziness, denies any chest pain or shortness of breath, denies any nausea or vomiting. at bedside denies any acute concerns. Nurse in the room at rest no acute concerns. Physical Exam Vital signs: Vital Signs 03/16/18 17:57 03/16/18 17:59 03/16/18 18:50 Temperature 98.0 F Pulse Rate 106 H 113 H Respiratory Rate 18 18 Blood Pressure 129/64 137/64 Pulse Oximetry 95 95 100 03/16/18 19:13 03/16/18 22:05 03/16/18 23:00 Temperature 98.0 F 97.9 F 97.9 F Pulse Rate 113 H 103 H 103 H Respiratory Rate 16 16 16 Blood Pressure 137/64 134/65 134/65 Pulse Oximetry 100 100 100 03/17/18 00:17 03/17/18 00:36 03/17/18 00:56 Temperature 97.5 F L 97.5 F L Pulse Rate 108 H 101 H 105 H Respiratory Rate 16 17 17 Blood Pressure 127/58 L 116/56 L Pulse Oximetry 95 97 97 03/17/18 03:25 03/17/18 03:59 03/17/18 04:36 Temperature 97.8 F 97.5 F L Pulse Rate 97 H 102 H 100 H Respiratory Rate 17 16 17 Blood Pressure 124/60 131/60 Pulse Oximetry 100 03/17/18 08:00 03/17/18 08:12 03/17/18 10:01 Temperature 97.8 F Pulse Rate 97 H 106 H Respiratory Rate 14 18 Blood Pressure 129/63 Pulse Oximetry 96 95 100 03/17/18 12:30 03/17/18 12:45 03/17/18 13:00 Temperature 98.4 F Pulse Rate 93 H 87 88 Respiratory Rate 18 20 22 Blood Pressure 169/72 H 177/74 H 163/72 H Pulse Oximetry 100 100 100 03/17/18 13:15 03/17/18 13:30 03/17/18 13:45 Temperature Pulse Rate 91 H 91 H 90 Respiratory Rate 21 20 20 Blood Pressure 160/72 H 163/71 H 137/67 Pulse Oximetry 100 99 100 03/17/18 14:00 03/17/18 14:24 Temperature Pulse Rate 90 90 Respiratory Rate Blood Pressure 123/60 148/67 H Pulse Oximetry 97 97 Intake & Output 03/16/18 03/17/18 03/17/18 18:59 06:59 18:59 Intake Total 1250 / 1250 1280 / 1280 600 / 600 Output Total 1000 / 1000 200 / 200 Balance 250 / 250 1280 / 1280 400 / 400 Weight 90 kg 85.2 kg Intake: IV 1250 / 1250 NS Inj 1,000 ML @ 70 mls/hr IV. 200 / 200 CONT .[id number] DAYSI Rx#: [id number] Levaquin 250 mg Premix Inj 250 50 / 50 mg In 50 ml @ 50 mls/hr IV.SIG Q24H DAYSI Rx#:[id number] NS Inj 1,000 ML @ Wide Open IV. 1000 / 1000 SIG BOLUS ONE Rx#:[id number] Oral 480 / 480 Anesthesia Amount 600 / 600 Intake (Blood Product) Amt 0 / 0 800 / 800 Rbc As-3 Leukoreduced Unit 400 / 400 [id number] Rbc As-3 Leukoreduced Unit 0 / 0 400 / 400 [id number] Output: Blood Draw 200 / 200 Urine 1000 / 1000 Other: # Voids 4 Date of Last Bowel Movement 03/15/18 # Bowel Movements 0 Weight On Admission 85.275 kg Narrative: GENERAL: Well-developed, well-nourished, male, sleepy, in no acute distress SKIN: Warm and dry. HEAD: Atraumatic. Normocephalic. EYES: Pupils equal and round. No scleral icterus. No injection or drainage. ENT: No nasal bleeding or discharge. Mucous membranes pink and moist. NECK: Trachea midline. No JVD. CARDIOVASCULAR: Regular rate and rhythm. RESPIRATORY: No accessory muscle use. Clear to auscultation. Breath sounds equal bilaterally. On oxygen 2 L nasal cannula GASTROINTESTINAL: Abdomen soft, non-tender, nondistended. Hepatic and splenic margins not palpable. MUSCULOSKELETAL: Extremities without clubbing, cyanosis, or edema. No obvious deformities. NEUROLOGICAL: Awake and alert. No obvious cranial nerve deficits. Generalized weakness, moving all 4 extremities . Normal speech. PSYCHIATRIC: Appropriate mood and affect; insight and judgment normal. Results Labs CBC & Chem 7: 03/17/18 06:43 03/16/18 13:25 Assessment and Plan Plan This patient is a 82 y/o male with history of COPD, diabetes mellitus , hypertension, alpha-1 antitrypsin deficiency, recent GI bleed, presented to ER with rectal bleed. Recurrent GI bleed Acute on chronic anemia due to GI bleed - patient had recent EGD which showed esophageal erosion - keep NPO- continue with PPI- consult GI - GI consulted, appreciate recommendation -Status post EGD: esophagus appeared normal. 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 Foreign body was found in the gastric fundus -Start full liquid diet -Continue Protonix, avoid NSAIDs -Monitor CBC transfuse PRBC if hemoglobin less than 7 -Hemoglobin 8.0 today, monitor CBC COPD exacerbation -Continue on IV steroid -Continue neb treatment ( scheduled and prn) and IV antibiotic - check CXR today. - patient uses oxygen at home. Hypertension -hold BP meds for now due to low-normal BP's and GI bleed -Monitor blood pressure, adjust medication as needed PT consult for mobility DVT prophylaxis with SCD's- no chemical prophylaxis due to rectal bleed. Code Status: Full code Discussed Condition With: Patient, patient and nurse Discharge Planning: Pending clinical eval and PT recommendation Progress Note: Quality VTE Deep Vein Thrombosis/Pulmonary Embolism Present on Admission: No
[2018-03-18] MEDS: MethylPREDNISolone Sod Succinate Inj 40 MG/ML Vial IV.PUSH SCH ×3 (05:56→21:40)
[2018-03-18 06:28] LABS: Baso % (Auto) 0.1 % (0.0-2.0); Hematocrit 22.1 % (39.0-51.0); Hemoglobin 7.6 gm/dL (13.0-17.0); Lymph # (Auto) 0.5 th/mm3 (1.0-4.8); Lymph % (Auto) 5.5 % (9.0-44.0); Mean Corpuscular HGB Conc 34.4 % (32.0-36.0); Mean Corpuscular Hemoglobin 29.8 pg (27.0-34.0); Mean Corpuscular Volume 86.7 fL (80.0-100.0); Mean Platelet Volume 7.9 fL (7.0-11.0); Mono # (Auto) 0.2 th/mm3 (0.0-0.9); Mono % (Auto) 1.6 % (0.0-8.0); Neut # (Auto) 9.3 th/mm3 (1.8-7.7); Neut % (Auto) 92.8 % (16.0-70.0); Platelet Count 212 th/mm3 (150-450); Red Blood Count 2.55 mil/mm3 (4.50-5.90); Red Cell Distribution Width 18.2 % (11.6-17.2)
[2018-03-18 06:42] LABS: Calcium 7.7 mg/dL (8.5-10.1); Carbon Dioxide 29.1 meq/L (21.0-32.0); Potassium 4.6 meq/L (3.5-5.1)
[2018-03-18] MEDS: Insulin NovoLOG Aspart Correctional Sugar Inj SQ SCH ×4 (08:21→21:39)
[2018-03-18] MEDS: Budesonide-Formoterol 160/4.5 MCG 6 GM Inhaler INH SCH ×2 (08:22→21:39)
--- NOTE | 2018-03-18 10:42 | P.DCO ---
Physical Therapy Order: Evaluate and treat, Improve ambulation and Strength and gait training Home Health Nursing Order: Medical education, Signs/symptoms of disease process, Diabetic education , Medication education-adverse effect and Nursing assessment with vital signs Case Management Consult Case Management Consult-Home Health: Yes I have seen patient Ariel Camejo on 03/18/18. My clinical findings support the need for the requested home health care services because: I certify that my clinical findings support that this patient is homebound because:
--- NOTE | 2018-03-18 11:04 | P.PNIM ---
Subjective Interval history: Follow-up GI bleed, history of COPD, diabetes mellitus, hypertension, alpha-1 antitrypsin deficiency. Patient seen and examined, laying in bed, on oxygen nasal cannula. Patient denies any any abdominal pain at this time, no nausea vomiting, no active bleeding at this time. Patient's discussed he had a GI bleed in September and came back in March for the same complaint of GI bleed. Patient stated he started on this new medication ozempic For diabetis given by Dr Deleon-braille translator Patient stated he has been seeing epidemiology internship Dr. Tobin, Patient stated he had seen Dr. Carpenter and Dr. Rg previously for GI bleed. Patient stated his PCP is Dr. Nuñez Physical Exam Vital signs: Vital Signs 03/17/18 12:30 03/17/18 12:45 03/17/18 13:00 Temperature 98.4 F Pulse Rate 93 H 87 88 Respiratory Rate 18 20 22 Blood Pressure 169/72 H 177/74 H 163/72 H Pulse Oximetry 100 100 100 03/17/18 13:15 03/17/18 13:30 03/17/18 13:45 Temperature Pulse Rate 91 H 91 H 90 Respiratory Rate 21 20 20 Blood Pressure 160/72 H 163/71 H 137/67 Pulse Oximetry 100 99 100 03/17/18 14:00 03/17/18 14:24 03/17/18 16:00 Temperature 98.5 F Pulse Rate 90 90 93 H Respiratory Rate 19 19 14 Blood Pressure 123/60 148/67 H 135/68 Pulse Oximetry 97 97 97 03/17/18 19:20 03/17/18 19:33 03/17/18 20:00 Temperature 97.6 F Pulse Rate 95 H Respiratory Rate 18 Blood Pressure 137/66 Pulse Oximetry 100 94 L 100 03/17/18 23:11 03/18/18 08:00 Temperature 97.6 F 97.5 F L Pulse Rate 86 93 H Respiratory Rate 18 16 Blood Pressure 120/58 L 139/67 Pulse Oximetry 100 95 Intake & Output 03/17/18 03/18/18 03/18/18 18:59 06:59 18:59 Intake Total 650 / 650 1182 / 1182 Output Total 505 / 505 Balance 145 / 145 1182 / 1182 Weight 85.2 kg Intake: IV 50 / 50 702 / 702 NS Inj 1,000 ML @ 70 mls/hr IV. 702 / 702 CONT .[id number] [facility] Rx#: [id number] Levaquin 250 mg Premix Inj 250 50 / 50 mg In 50 ml @ 50 mls/hr IV.SIG Q24H [facility] Rx#:[id number] Oral 480 / 480 Anesthesia Amount 600 / 600 Output: Blood Draw 200 / 200 Urine 305 / 305 Other: # Voids 2 Date of Last Bowel Movement 03/15/18 03/16/18 # Bowel Movements 0 Narrative: GENERAL: Well-developed, well-nourished, male, awake laying in bed, in no acute distress SKIN: Warm and dry. HEAD: Atraumatic. Normocephalic. EYES: Pupils equal and round. No scleral icterus. No injection or drainage. ENT: No nasal bleeding or discharge. Mucous membranes pink and moist. NECK: Trachea midline. No JVD. CARDIOVASCULAR: Regular rate and rhythm. RESPIRATORY: No accessory muscle use. Clear to auscultation. Breath sounds equal bilaterally. On oxygen 2 L nasal cannula GASTROINTESTINAL: Abdomen obese soft, non-tender, nondistended. Hepatic and splenic margins not palpable. MUSCULOSKELETAL: Extremities without clubbing, cyanosis, or edema. No obvious deformities. NEUROLOGICAL: Awake and alert. No obvious cranial nerve deficits. Generalized weakness, moving all 4 extremities . Normal speech. PSYCHIATRIC: Appropriate mood and affect; insight and judgment normal. Results Labs CBC & Chem 7: 03/18/18 05:45 03/18/18 05:45 Assessment and Plan Plan This patient is a 82 y/o male with history of COPD, diabetes mellitus , hypertension, alpha-1 antitrypsin deficiency, recent GI bleed, presented to ER with rectal bleed. Recurrent GI bleed Acute on chronic anemia due to GI bleed - patient had recent EGD which showed esophageal erosion - keep NPO- continue with PPI- consult GI - GI consulted, appreciate recommendation -Status post EGD: esophagus appeared normal. 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 Foreign body was found in the gastric fundus -Start full liquid diet -Continue Protonix, avoid NSAIDs -Monitor CBC transfuse PRBC if hemoglobin less than 7 -Hemoglobin trending down, monitor CBC COPD exacerbation -Continue on IV steroid -Continue IV Levaquin - CXR : No acute cardiopulmonary disease. Minimal discoid atelectasis and/or fibrotic scarring within left lung base - patient uses oxygen at home -Encourage use of incentive spirometry -Continue DuoNeb treatments Hypertension -hold BP meds for now due to low-normal BP's and GI bleed -Monitor blood pressure, adjust medication as needed Diabetes mellitus type 2 Monitor blood sugar before meals and at bedtime, and cover with insulin sliding scale -Hold off on home medications, restart on discharge PT consult DVT prophylaxis with SCD's- no chemical prophylaxis due to rectal bleed. Discharge Planning: Pending clinical eval and PT recommendation Progress Note: Quality VTE Deep Vein Thrombosis/Pulmonary Embolism Present on Admission: No
--- NOTE | 2018-03-18 14:17 | P.PNGI ---
Subjective Interval history: Feels well today, no active bleeding noted. no bm since yesterday no pain , no f/c/n/v tolerating CLD well Physical Exam Vital signs: Vital Signs 03/17/18 14:24 03/17/18 16:00 03/17/18 19:20 Temperature 98.5 F 97.6 F Pulse Rate 90 93 H 95 H Respiratory Rate 19 14 18 Blood Pressure 148/67 H 135/68 137/66 Pulse Oximetry 97 97 100 03/17/18 19:33 03/17/18 20:00 03/17/18 23:11 Temperature 97.6 F Pulse Rate 86 Respiratory Rate 18 Blood Pressure 120/58 L Pulse Oximetry 94 L 100 100 03/18/18 08:00 Temperature 97.5 F L Pulse Rate 93 H Respiratory Rate 16 Blood Pressure 139/67 Pulse Oximetry 95 Intake & Output 03/17/18 03/18/18 03/18/18 18:59 06:59 18:59 Intake Total 650 / 650 1182 / 1182 Output Total 505 / 505 Balance 145 / 145 1182 / 1182 Weight 85.2 kg Intake: IV 50 / 50 702 / 702 NS Inj 1,000 ML @ 70 mls/hr IV. 702 / 702 CONT .[id number] [facility] Rx#: [id number] Levaquin 250 mg Premix Inj 250 50 / 50 mg In 50 ml @ 50 mls/hr IV.SIG Q24H [facility] Rx#:[id number] Oral 480 / 480 Anesthesia Amount 600 / 600 Output: Blood Draw 200 / 200 Urine 305 / 305 Other: # Voids 2 Date of Last Bowel Movement 03/15/18 03/16/18 # Bowel Movements 0 - Constitutional no acute distress - Routine HEENT Exam Head: Present: normocephalic, atraumatic Eye: Present: EOMI, PERRL ENT: Present: mucous membranes moist - Routine Neck Exam Present: supple - Routine Respiratory Exam Present: CTA bilaterally, prolonged expiratory phase. Absent: accessory muscle use, respiratory distress - Routine Cardiovascular Exam Present: RRR, S1, S2 - Routine Abdominal Exam Present: soft, normoactive bowel sounds, organomegaly. Absent: tenderness, distended, rebound, guarding, firm, rigid - Routine Extremities Exam Present: full ROM, pulses intact - Routine Skin Exam Present: intact Results - Labs CBC & Chem 7: 03/18/18 05:45 03/18/18 05:45 Laboratory Results - last 24 hr 03/17/18 03/17/18 03/17/18 14:13 17:26 21:37 WBC RBC Hgb Hct MCV MCH MCHC RDW Plt Count MPV Neut % (Auto) Lymph % (Auto) [place] % (Auto) Eos % (Auto) Baso % (Auto) Neut # (Auto) Lymph # (Auto) [place] # (Auto) Eos # (Auto) Baso # (Auto) WBC Differential Differential Comment Sodium Potassium Chloride Carbon Dioxide Anion Gap BUN Creatinine Estimated GFR POC Glucose 230 H 201 H 184 H Random Glucose Calcium 03/18/18 03/18/18 03/18/18 05:45 05:45 07:47 WBC 10.0 RBC 2.55 L Hgb 7.6 L Hct 22.1 L MCV 86.7 MCH 29.8 MCHC 34.4 RDW 18.2 H Plt Count 212 MPV 7.9 Neut % (Auto) 92.8 H Lymph % (Auto) 5.5 L [place] % (Auto) 1.6 Eos % (Auto) 0.0 Baso % (Auto) 0.1 Neut # (Auto) 9.3 H Lymph # (Auto) 0.5 L [place] # (Auto) 0.2 Eos # (Auto) 0.0 Baso # (Auto) 0.0 WBC Differential . Differential Comment Auto diff final Sodium 140 Potassium 4.6 Chloride 108 H Carbon Dioxide 29.1 Anion Gap 3 L BUN 26 H Creatinine 1.15 Estimated GFR 61 L POC Glucose 219 H Random Glucose 214 H D Calcium 7.7 L D 03/18/18 11:58 WBC RBC Hgb Hct MCV MCH MCHC RDW Plt Count MPV Neut % (Auto) Lymph % (Auto) [place] % (Auto) Eos % (Auto) Baso % (Auto) Neut # (Auto) Lymph # (Auto) [place] # (Auto) Eos # (Auto) Baso # (Auto) WBC Differential Differential Comment Sodium Potassium Chloride Carbon Dioxide Anion Gap BUN Creatinine Estimated GFR POC Glucose 225 H Random Glucose Calcium Assessment and Plan - Plan IMP: 1. Upper GI Bleeding 2. s/p EGD with Dieulafoy lesion in the fundus. s/p EPI/cautery/hemostatic clip 3. Acute blood loss anemia PLAN: 1. Advance diet to regular to day 2. Monitor stool for color consistancy and frequency anticipate pt will some some old blood/black stool but overall it should start getting more brown in color 3. If pt has new acute onset bleeding then i recommend emergent IR embolization at the site of my hemostatic clips. 4. If no bleeding today and tonight then he can likely be d/c'd home anticipate tomorrow, depending on clinical course
[2018-03-18] MEDS: Sod Chloride 0.9% Inj 1,000 ML IV.CONT SCH (15:40)
[2018-03-18] MEDS: Levofloxacin 250 mg Premix Inj 250 MG/50 ML PIGGYBACK IV.SIG SCH (16:48)
[2018-03-18] MEDS: Pantoprazole Inj 40 MG Vial IV.PUSH SCH (16:48)
[2018-03-19] MEDS: Sod Chloride 0.9% Inj 1,000 ML IV.CONT SCH ×2 (03:14→16:18)
[2018-03-19 05:58] LABS: Hematocrit 22.4 % (39.0-51.0); Hemoglobin 7.8 gm/dL (13.0-17.0); Lymph # (Auto) 0.7 th/mm3 (1.0-4.8); Lymph % (Auto) 6.7 % (9.0-44.0); Mean Corpuscular HGB Conc 34.9 % (32.0-36.0); Mean Corpuscular Hemoglobin 30.7 pg (27.0-34.0); Mean Corpuscular Volume 87.9 fL (80.0-100.0); Mean Platelet Volume 8.2 fL (7.0-11.0); Mono # (Auto) 0.2 th/mm3 (0.0-0.9); Mono % (Auto) 2.2 % (0.0-8.0); Neut # (Auto) 9.3 th/mm3 (1.8-7.7); Neut % (Auto) 91.1 % (16.0-70.0); Platelet Count 232 th/mm3 (150-450); Red Blood Count 2.55 mil/mm3 (4.50-5.90); White Blood Count 10.2 th/mm3 (4.0-11.0)
[2018-03-19 06:23] LABS: Calcium 8.2 mg/dL (8.5-10.1); Carbon Dioxide 26.7 meq/L (21.0-32.0); Potassium 4.3 meq/L (3.5-5.1)
[2018-03-19] MEDS: MethylPREDNISolone Sod Succinate Inj 40 MG/ML Vial IV.PUSH SCH ×3 (06:32→21:23)
--- NOTE | 2018-03-19 08:34 | P.PNGI ---
Subjective Interval history: pt feels well, no bleeding overnight has not had any further BM indicating no active bleeding tolerating diet well. wants to go home no sob.no cp Physical Exam Vital signs: Vital Signs 03/18/18 12:00 03/18/18 16:00 03/18/18 19:27 Temperature 97.3 F L 97.4 F L 97.4 F L Pulse Rate 102 H 98 H 113 H Respiratory Rate 14 16 18 Blood Pressure 131/83 147/67 H 129/68 Pulse Oximetry 97 96 96 03/18/18 19:53 03/18/18 23:55 03/19/18 00:18 Temperature 97.8 F Pulse Rate 102 H 100 H Respiratory Rate 18 20 Blood Pressure 130/59 L Pulse Oximetry 96 95 98 03/19/18 03:25 03/19/18 03:26 03/19/18 07:42 Temperature Pulse Rate 99 H 91 H Respiratory Rate 21 18 Blood Pressure Pulse Oximetry 97 96 Intake & Output 03/18/18 03/19/18 03/19/18 18:59 06:59 18:59 Intake Total 1050 / 1050 480 / 480 Balance 1050 / 1050 480 / 480 Weight 85.2 kg Intake: IV 1050 / 1050 NS Inj 1,000 ML @ 70 mls/hr IV. 1000 / 1000 CONT .[id number] [facility] Rx#: [id number] Levaquin 250 mg Premix Inj 250 50 / 50 mg In 50 ml @ 50 mls/hr IV.SIG Q24H [facility] Rx#:[id number] Oral 480 / 480 Other: # Voids 4 Date of Last Bowel Movement 03/16/18 03/16/18 # Bowel Movements 0 - Constitutional no acute distress - Routine HEENT Exam Head: Present: normocephalic, atraumatic Eye: Present: EOMI ENT: Present: mucous membranes moist - Routine Neck Exam Present: supple, full ROM - Routine Respiratory Exam Present: CTA bilaterally - Routine Cardiovascular Exam Present: RRR, S1 - Routine Abdominal Exam Present: soft, normoactive bowel sounds. Absent: tenderness, distended, rebound - Routine Extremities Exam Present: full ROM. Absent: edema - Routine Neurological Exam Present: alert, oriented X3, CN II-XII intact - Routine Psychiatric Exam Present: normal affect, normal thought process Results - Labs CBC & Chem 7: 03/19/18 04:10 03/19/18 04:10 Laboratory Results - last 24 hr 03/18/18 03/18/18 03/18/18 11:58 16:46 19:48 WBC RBC Hgb Hct MCV MCH MCHC RDW Plt Count MPV Neut % (Auto) Lymph % (Auto) [place] % (Auto) Eos % (Auto) Baso % (Auto) Neut # (Auto) Lymph # (Auto) [place] # (Auto) Eos # (Auto) Baso # (Auto) WBC Differential Differential Comment Sodium Potassium Chloride Carbon Dioxide Anion Gap BUN Creatinine Estimated GFR POC Glucose 225 H 229 H 331 H Random Glucose Calcium 03/19/18 03/19/18 04:10 04:10 WBC 10.2 RBC 2.55 L Hgb 7.8 L Hct 22.4 L MCV 87.9 MCH 30.7 MCHC 34.9 RDW 19.0 H Plt Count 232 MPV 8.2 Neut % (Auto) 91.1 H Lymph % (Auto) 6.7 L [place] % (Auto) 2.2 Eos % (Auto) 0.0 Baso % (Auto) 0.0 Neut # (Auto) 9.3 H Lymph # (Auto) 0.7 L [place] # (Auto) 0.2 Eos # (Auto) 0.0 Baso # (Auto) 0.0 WBC Differential . Differential Comment Auto diff final Sodium 140 Potassium 4.3 Chloride 106 Carbon Dioxide 26.7 Anion Gap 7 BUN 28 H Creatinine 1.27 Estimated GFR 54 L POC Glucose Random Glucose 242 H Calcium 8.2 L Assessment and Plan - Plan IMP: 1. GIB - sp EGd 2. Dieulafoy lesion s/p epi, cautery, clip 3. acute blood loss anemia PLAN: 1. diet as tolerated 2. PPi bid 3. avoid NSAID 4. iron BID (will cause black stool) 5. oupt follow up 6. No objection to discharge from GI stand point.
[2018-03-19] MEDS: Budesonide-Formoterol 160/4.5 MCG 6 GM Inhaler INH SCH ×2 (08:37→21:24)
[2018-03-19] MEDS: Insulin NovoLOG Aspart Correctional Sugar Inj SQ SCH ×4 (08:41→21:22)
--- NOTE | 2018-03-19 10:11 | P.PNIM ---
Subjective Interval history: Follow-up GI bleed, history of COPD, diabetes mellitus, hypertension, alpha-1 antitrypsin deficiency. Patient seen and examined, sitting up in the side of the bed eating breakfast without any complaints of nausea or vomiting. Patient tolerating p.o. diet well. Patient stated did not have bowel movement yet. Denies any rectal bleeding at this time however did not have bowel movement yet. Patient stated he had been ambulating around the hallway without any problem. Patient denies any abdominal pain, or any discomfort. Patient denies any headache or dizziness, denies any chest pain or shortness of breath, denies any fever or chills. Physical Exam Vital signs: Vital Signs 03/18/18 12:00 03/18/18 16:00 03/18/18 19:27 Temperature 97.3 F L 97.4 F L 97.4 F L Pulse Rate 102 H 98 H 113 H Respiratory Rate 14 16 18 Blood Pressure 131/83 147/67 H 129/68 Pulse Oximetry 97 96 96 03/18/18 19:53 03/18/18 23:55 03/19/18 00:18 Temperature 97.8 F Pulse Rate 102 H 100 H Respiratory Rate 18 20 Blood Pressure 130/59 L Pulse Oximetry 96 95 98 03/19/18 03:25 03/19/18 03:26 03/19/18 07:42 Temperature Pulse Rate 99 H 91 H Respiratory Rate 21 18 Blood Pressure Pulse Oximetry 97 96 03/19/18 08:00 Temperature 97.7 F Pulse Rate 98 H Respiratory Rate 14 Blood Pressure 154/78 H Pulse Oximetry 96 Intake & Output 03/18/18 03/19/18 03/19/18 18:59 06:59 18:59 Intake Total 1050 / 1050 480 / 480 Balance 1050 / 1050 480 / 480 Weight 85.2 kg Intake: IV 1050 / 1050 NS Inj 1,000 ML @ 70 mls/hr IV. 1000 / 1000 CONT .[id number] [facility] Rx#: [id number] Levaquin 250 mg Premix Inj 250 50 / 50 mg In 50 ml @ 50 mls/hr IV.SIG Q24H [facility] Rx#:[id number] Oral 480 / 480 Other: # Voids 4 Date of Last Bowel Movement 03/16/18 03/16/18 # Bowel Movements 0 Narrative: GENERAL: Well-developed, well-nourished, male, awake laying in bed, in no acute distress SKIN: Warm and dry. HEAD: Atraumatic. Normocephalic. EYES: Pupils equal and round. No scleral icterus. No injection or drainage. ENT: No nasal bleeding or discharge. Mucous membranes pink and moist. NECK: Trachea midline. No JVD. CARDIOVASCULAR: Regular rate and rhythm. RESPIRATORY: No accessory muscle use. Clear to auscultation. Breath sounds equal bilaterally. On oxygen 2 L nasal cannula GASTROINTESTINAL: Abdomen obese soft, non-tender, nondistended. Hepatic and splenic margins not palpable. MUSCULOSKELETAL: Extremities without clubbing, cyanosis, or edema. No obvious deformities. NEUROLOGICAL: Awake and alert. No obvious cranial nerve deficits. Generalized weakness, moving all 4 extremities . Normal speech. PSYCHIATRIC: Appropriate mood and affect; insight and judgment normal. Results Labs CBC & Chem 7: 03/19/18 04:10 03/19/18 04:10 Assessment and Plan Plan This patient is a 82 y/o male with history of COPD, diabetes mellitus , hypertension, alpha-1 antitrypsin deficiency, recent GI bleed, presented to ER with rectal bleed. Recurrent GI bleed Acute on chronic anemia due to GI bleed - patient had recent EGD which showed esophageal erosion - keep NPO- continue with PPI- consult GI - GI consulted, appreciate recommendation -Status post EGD: esophagus appeared normal. 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 Foreign body was found in the gastric fundus -Start full liquid diet -Continue Protonix, avoid NSAIDs -Monitor CBC transfuse PRBC if hemoglobin less than 7 -Hemoglobin 7.8 today,recheck CBC in am -No active bleeding reported overnight, no BM yet COPD exacerbation -Continue on IV steroid -Continue IV Levaquin - CXR : No acute cardiopulmonary disease. Minimal discoid atelectasis and/or fibrotic scarring within left lung base - patient uses oxygen at home -Encourage use of incentive spirometry -Continue DuoNeb treatments Hypertension -Restart metoprolol and Vasotec -Monitor blood pressure, adjust medication as needed Diabetes mellitus type 2 -Monitor blood sugar before meals and at bedtime, and cover with insulin sliding scale -Restart glimepiride -Hold off on other medications, restart on discharge PT consult DVT prophylaxis with SCD's- no chemical prophylaxis due to rectal bleed. Discharge Planning: Pending clinical eval and PT recommendation Progress Note: Quality VTE Deep Vein Thrombosis/Pulmonary Embolism Present on Admission: No
[2018-03-19] MEDS: Glimepiride 4 MG Tablet PO SCH (11:44)
[2018-03-19] MEDS: Pantoprazole Inj 40 MG Vial IV.PUSH SCH (16:17)
[2018-03-19] MEDS: Levofloxacin 250 mg Premix Inj 250 MG/50 ML PIGGYBACK IV.SIG SCH (16:17)
[2018-03-20] MEDS: Sod Chloride 0.9% Inj 1,000 ML IV.CONT SCH (06:36)
[2018-03-20] MEDS: MethylPREDNISolone Sod Succinate Inj 40 MG/ML Vial IV.PUSH SCH (06:37)
[2018-03-20] MEDS: Glimepiride 4 MG Tablet PO SCH (07:36)
[2018-03-20 08:08] VITALS: BP 154/69; TEMP 97.5
[2018-03-20] MEDS: Budesonide-Formoterol 160/4.5 MCG 6 GM Inhaler INH SCH (08:31)
[2018-03-20 08:36] VITALS: RESP 18; O2SAT 95
--- NOTE | 2018-03-20 09:53 | P.PNGI ---
Subjective Interval history: feels well , no abdominal pain, no bleeding although he hasn't had any new BM. Physical Exam Vital signs: Vital Signs 03/19/18 12:50 03/19/18 16:29 03/19/18 16:54 Temperature 97.4 F L Pulse Rate 98 H 98 H 106 H Respiratory Rate 18 18 20 Blood Pressure 131/81 Pulse Oximetry 99 03/19/18 20:29 03/19/18 20:51 03/19/18 23:47 Temperature 97.4 F L Pulse Rate 91 H 95 H 96 H Respiratory Rate 20 17 16 Blood Pressure 129/63 Pulse Oximetry 96 93 L 03/20/18 00:40 03/20/18 04:14 03/20/18 06:01 Temperature 97.7 F 97.9 F Pulse Rate 102 H 88 Respiratory Rate 20 16 20 Blood Pressure 130/60 153/72 H Pulse Oximetry 95 95 03/20/18 08:00 03/20/18 08:35 Temperature 97.5 F L Pulse Rate 93 H 87 Respiratory Rate 20 18 Blood Pressure 154/69 H Pulse Oximetry 97 95 Intake & Output 03/19/18 03/20/18 03/20/18 18:59 06:59 18:59 Intake Total 240 / 240 50 / 50 Balance 240 / 240 50 / 50 Intake: IV 50 / 50 Levaquin 250 mg Premix Inj 250 50 / 50 mg In 50 ml @ 50 mls/hr IV.SIG Q24H [facility] Rx#:[id number] Oral 240 / 240 Other: # Voids 1 3 Date of Last Bowel Movement 03/16/18 - Constitutional no acute distress - Routine HEENT Exam Head: Present: normocephalic, atraumatic Eye: Present: EOMI, PERRL ENT: Present: mucous membranes moist - Routine Neck Exam Present: supple - Routine Respiratory Exam Present: CTA bilaterally, prolonged expiratory phase. Absent: accessory muscle use - Routine Cardiovascular Exam Present: RRR, S1 - Routine Abdominal Exam Present: soft, normoactive bowel sounds, organomegaly. Absent: tenderness, distended, rebound, guarding - Routine Neurological Exam Present: alert, oriented X3 Results - Labs CBC & Chem 7: 03/19/18 04:10 03/19/18 04:10 Laboratory Results - last 24 hr 03/19/18 03/19/18 03/19/18 11:47 17:21 19:10 POC Glucose 331 H 439 H 361 H 03/19/18 03/20/18 03/20/18 20:47 06:36 08:35 POC Glucose 449 H 326 H 332 H Assessment and Plan - Plan IMP: 1. GI bleeding 2. acute anemia of blood loss 3. Dieulafoy lesion proximal fundus s/p hemostasis epi/cautery/clip 4. constipation PLAN 1. Monitor hb 2. Iron bid 3. Miralax daily 4. if hb stable and no new bleeding ok for discharge form gi stand point.
[2018-03-20] MEDS: Insulin NovoLOG Aspart Correctional Sugar Inj SQ SCH (10:22)
[2018-03-20 10:29] LABS: Hematocrit 25.5 % (39.0-51.0); Hemoglobin 8.5 gm/dL (13.0-17.0); Mean Corpuscular HGB Conc 33.3 % (32.0-36.0); Mean Corpuscular Hemoglobin 29.7 pg (27.0-34.0); Mean Corpuscular Volume 89.2 fL (80.0-100.0); Mean Platelet Volume 8.1 fL (7.0-11.0); Platelet Count 258 th/mm3 (150-450); Red Blood Count 2.86 mil/mm3 (4.50-5.90); Red Cell Distribution Width 18.6 % (11.6-17.2); White Blood Count 10.6 th/mm3 (4.0-11.0)
[2018-03-20 11:42] VITALS: PULSE 90
--- NOTE | 2018-03-20 12:30 | P.PNIM ---
Subjective Interval history: in no acute distress. no bleeding, chest pain, sob or dizziness. wants to go home. Physical Exam Vital signs: Vital Signs 03/19/18 12:50 03/19/18 16:29 03/19/18 16:54 Temperature 97.4 F L Pulse Rate 98 H 98 H 106 H Respiratory Rate 18 18 20 Blood Pressure 131/81 Pulse Oximetry 99 03/19/18 20:29 03/19/18 20:51 03/19/18 23:47 Temperature 97.4 F L Pulse Rate 91 H 95 H 96 H Respiratory Rate 20 17 16 Blood Pressure 129/63 Pulse Oximetry 96 93 L 03/20/18 00:40 03/20/18 04:14 03/20/18 06:01 Temperature 97.7 F 97.9 F Pulse Rate 102 H 88 Respiratory Rate 20 16 20 Blood Pressure 130/60 153/72 H Pulse Oximetry 95 95 03/20/18 08:00 03/20/18 08:35 03/20/18 11:41 Temperature 97.5 F L Pulse Rate 93 H 87 90 Respiratory Rate 20 18 18 Blood Pressure 154/69 H Pulse Oximetry 97 95 Intake & Output 03/19/18 03/20/18 03/20/18 18:59 06:59 18:59 Intake Total 240 / 240 50 / 50 Balance 240 / 240 50 / 50 Intake: IV 50 / 50 Levaquin 250 mg Premix Inj 250 50 / 50 mg In 50 ml @ 50 mls/hr IV.SIG Q24H [facility] Rx#:[id number] Oral 240 / 240 Other: # Voids 1 3 Date of Last Bowel Movement 03/16/18 Constitutional no acute distress Routine Respiratory Exam Present CTA bilaterally Routine Cardiovascular Exam Present RRR Routine Abdominal Exam Present soft Routine Extremities Exam Comments: no pedal edema. Routine Neurological Exam Present alert and oriented X3 Results Labs CBC & Chem 7: 03/20/18 09:25 03/19/18 04:10 Procedures Procedures: EGD. Assessment and Plan Plan A/P Recurrent GI bleed Acute on chronic anemia due to GI bleed - patient had recent EGD which showed esophageal erosion - GI consulted, appreciate recommendation -Status post EGD: esophagus appeared normal. 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 Foreign body was found in the gastric fundus -Continue Protonix, avoid NSAIDs -H/H stable. -No active bleeding reported overnight. COPD exacerbation- improved. -will switch to oral steroids -received IV antibiotics. - CXR : No acute cardiopulmonary disease. Minimal discoid atelectasis and/or fibrotic scarring within left lung base - patient uses oxygen at home -Continue DuoNeb treatments Hypertension -Restartd metoprolol and Vasotec -Monitor blood pressure, adjust medication as needed Diabetes mellitus type 2 -Monitor blood sugar before meals and at bedtime, and cover with insulin sliding scale -Restarted glimepiride -Hold off on other medications, restart on discharge Discharge Planning: pending clinical course and PT evaluation. Progress Note: Quality VTE Deep Vein Thrombosis/Pulmonary Embolism Present on Admission: No
--- NOTE | 2018-03-20 12:38 | P.DS ---
DS: Providers Date of admission: 03/16/18 14:27 Primary care physician: Sandra Nuñez MD Consults: 03/16/18 14:45 Consult to Gastroenterology Routine Consulting Provider: Tanya Raphael Patient known to:: Juve Raoci Reason for Consultation: recurrent GI bleed. Notified:: Office Spoke with:: Elena Date Notified:: 03/16/18 Time Notified:: 14:55 Ordering Provider: JOSE G 03/18/18 13:04 HUB Only Consult Order Routine Consulting Provider: Brenton Parra,Agency Brief History from admission: patient is a 82 y/o male with history of COPD, diabetes mellitus, hypertension, alpha-1 antitrypsin deficiency, recent GI bleed , presented to ER with rectal bleed. he was recently admitted to [facility] with GI bleed and was discharged home after he had EGD and evaluated by GI. he says that since he left the hospital he's been passing ' black stools '. he denies any abdominal pain. he had some nausea but with no emesis. he's also complaining of some sob and productive cough of ' thick sputum'.he denies any chest pain or dizziness. DS: Summary Recurrent GI bleed Acute on chronic anemia due to GI bleed - patient had recent EGD which showed esophageal erosion - GI consulted, appreciate recommendation -Status post EGD: esophagus appeared normal. 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 Foreign body was found in the gastric fundus -Continue Protonix, avoid NSAIDs -H/H stable. -No active bleeding reported overnight. COPD exacerbation- improved. -will switch to oral steroids -received IV antibiotics. - CXR : No acute cardiopulmonary disease. Minimal discoid atelectasis and/or fibrotic scarring within left lung base - patient uses oxygen at home -Continue DuoNeb treatments Hypertension -Restarted metoprolol and Vasotec -Monitor blood pressure, adjust medication as needed Diabetes mellitus type 2 -Monitor blood sugar before meals and at bedtime, and cover with insulin sliding scale -Restarted glimepiride -Hold off on other medications, restart on discharge Time Spent with Patient Total time spent providing and/or coordinating discharge services: Less than 30 minutes Quality: VTE Deep Vein Thrombosis/Pulmonary Embolism Present on Admission: No Exam Narrative Exam Narrative: patient in no acute distress. abdomen is soft- bilateral air entry present with no wheezing. no pedal edema. S1/S2 heard. Results Procedures completed during hospitalization: EGD. Labs on day of discharge: Labs from last 24 hours 03/20/18 03/20/18 03/20/18 11:45 09:25 08:35 WBC 10.6 RBC 2.86 L Hgb 8.5 L Hct 25.5 L MCV 89.2 MCH 29.7 MCHC 33.3 RDW 18.6 H Plt Count 258 MPV 8.1 POC Glucose 393 H 332 H 03/20/18 03/19/18 03/19/18 06:36 20:47 19:10 WBC RBC Hgb Hct MCV MCH MCHC RDW Plt Count MPV POC Glucose 326 H 449 H 361 H 03/19/18 17:21 WBC RBC Hgb Hct MCV MCH MCHC RDW Plt Count MPV POC Glucose 439 H Impressions ITS Impressions Chest X-Ray 03/16/18 00:00 CONCLUSION: 1. No acute cardiopulmonary disease. 2. Minimal discoid atelectasis and/or fibrotic scarring within left lung base. Discharge Plan Discharge Disposition Patient Disposition: Discharge Home Discharge Condition Condition: Fair Discharge Order Discharge Orders: Discharge Order (Routine); Ordered 03/20/18 Ordered By: Terri Bean Physicians Team Primary Care Provider: Sandra Nuñez Attending Provider: Terri Bean Other Providers: Tanya Raphael ; [facility] Rxs /Orders / Referrals /Forms Prescriptions: New prednisone 20 mg tablet 40 mg PO DAILY 5 Days Qty: 10 RF: 0 ferrous sulfate 325 mg (65 mg iron) tablet 325 mg PO BID 30 Days Qty: 60 RF: 0 polyethylene glycol 3350 [Miralax] 17 gram/dose powder 17 g PO DAILY PRN (Reason: constipation) Qty: 119 RF: 0 Continue ipratropium-albuterol 0.5 mg-3 mg(2.5 mg base)/3 mL Solution For Nebulization 3 ml INHALATION Q6H PRN (Reason: Shortness Of Breath) RF: 0 enalapril maleate [Vasotec] 10 mg Tablet 10 mg PO DAILY RF: 0 metoprolol succinate 50 mg Tablet Extended Release 24 Hr 50 mg PO DAILY RF: 0 amlodipine 5 mg Tablet 5 mg PO DAILY RF: 0 albuterol sulfate [ProAir HFA] 90 mcg/actuation Hfa Aerosol Inhaler 2 puff INHALATION Q4-6H PRN (Reason: Shortness Of Breath) RF: 0 insulin glargine [Lantus Solostar U-100 Insulin] 100 unit/mL (3 mL) Insulin Pen 24 unit SUBCUT HS RF: 0 semaglutide [Ozempic] 0.25 mg or 0.5 mg(2 mg/1.5 mL) Pen Injector 0.5 mg SUBCUT QWEEK RF: 0 metformin 1,000 mg Tablet 1,000 mg PO BID RF: 0 glimepiride 4 mg Tablet 8 mg PO QAM RF: 0 alpha-1 proteinase inhib.(hum) [Prolastin-C] 1,000 mg (+/-)/20 mL Solution 60 mg/kg IV QWEEK RF: 0 erythromycin ethylsuccinate [E.E.S. Granules] 200 mg/5 mL Suspension For Reconstitution 125 mg PO TIDAC 14 Days Qty: 200 RF: 1 budesonide-formoterol [Symbicort] 160-4.5 mcg/actuation Hfa Aerosol Inhaler 2 puff Inhalation BID 30 Days Qty: 10.2 RF: 0 pantoprazole [Protonix] 40 mg tablet,delayed release (DR/EC) 40 mg PO DAILY 28 Days Qty: 28 RF: 0 Referrals: Sandra Nuñez MD [Primary Care Provider] - See Instructions Status ED Status: Left Department
== END 2018-03-20 13:50 | disposition home health service (06) | DRG 378 ==
LOC: PHED 12:13 → PHEDA 14:27 → N06 18:27 → N05 03-19 16:44
PROVIDERS: ADMIT Internal Medicine; ATTEND Internal Medicine
PROC: PANENDO (2018-03-17 11:16)
CPT/HCPCS: 36430; 43270; 71010; 71045; 80048; 82948; 82962; 85025; 85027; 85610; 85730; 86850; 86900; 86901; 86923; 90761; 90774; 94640; 94664; 94665; 96361; 96374; 97162; 99291; C8952; C9113; J0171; J1815; J1940; J1956; J2270; J2550; J2920; J7030; P9016